=== PATIENT | male | born 1940 | race Caucasian/White ===

== ENCOUNTER 2016-07-18 19:05 | Inpatient (IN) | payer MEDICARE, OTHER ==
[~2016-07-18] VITALS: Ht 182.9 cm; Wt 77.1 kg
[2016-07-18] MEDS: D5 1/2NS 1,000 ML IV SCH ×2 (18:00→22:29)
[2016-07-18 19:25] VITALS: BP 129/52
[2016-07-18 19:37] VITALS: BP 127/50
[2016-07-18] MEDS ORDERED: Morphine Sulfate 4mg/ml Inj IVP ONE (19:45)
--- NOTE | 2016-07-18 19:46 | Emergency Room Report ---
History of Present Illness General Chief Complaint: Syncope Source: Patient, Family Member Present Illness HPI Patient presents with complaints of syncopal episode Son provides most of the input patient had used the restroom had 2 episodes of diarrhea son also reports one episode of vomiting of blood Patient sustained a syncopal episode after that Presents with pain to the mid back Denies any chest pain or shortness of breath denies any abdominal pain patient has received chemotherapy and radiation as a fairly significant past medical history Patient also had recent prostate cancer denies any recent fevers or chills Allergies: Coded Allergies: No Known Allergies (Unverified , 07/18/16) Patient History Past Medical History: see triage record Pertinent Family History: none Reviewed Nursing Documentation: PMH: Agreed, PSxH: Agreed Nursing Documentation-PMH Hx Diabetes: Yes Review of Systems All Other Systems: negative except mentioned in HPI Physical Exam Vital Signs Date Time Temp Pulse Resp B/P Pulse Ox O2 Delivery O2 Flow Rate FiO2 07/18/16 18:57 98.4 64 16 129/52 99 Room Air Sp02 EP Interpretation: reviewed, normal General Appearance: well appearing, no apparent distress Head: normocephalic, atraumatic Eyes: bilateral eye EOMI, bilateral eye PERRL ENT: hearing grossly normal, normal pharynx, TMs + canals normal, uvula midline Neck: full range of motion, supple, no meningismus, no bony tend Respiratory: lungs clear, normal breath sounds, no rhonchi, no respiratory distress, no retraction, no accessory muscle use Cardiovascular #1: normal peripheral pulses, regular rate, rhythm, no edema, no gallop, no JVD, no murmur Gastrointestinal: normal bowel sounds, non tender, soft, no mass, no organomegaly, non-distended, no guarding, no hernia, no pulsatile mass, no rebound Genitourinary: no CVA tenderness Musculoskeletal: other - [id number] pain on midline, abrasion to the left elbow , abrasion to the top parietal area scalp Neurologic: oriented x3, responsive, 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 nml as tested, motor strength/ tone normal, sensory intact Psychiatric: mood/affect normal Skin: other - as above Lymphatic: normal inspection, no adenopathy Medical Decision Making Diagnostic Impression: Primary Impression: Syncope Additional Impressions: Thoracic spine fracture Thrombocytopenia Anemia Amyloidosis ER Course Patient is a fairly complex patient with multiple differential to consideration including but not limited to cardiac cardiopulmonary and vascular emergencies Patient's blood work revealed some abnormalities likely in line with his amyloidosis I do not have any blood work to compare to patient shows signs of thrombocytopenia Also anemia CT thoracic spine reveals T9 spinous process fracture along with endplate fracture orthopedics was consulted and seen the patient in the emergency room Labs Test 07/18/16 19:20 07/18/16 19:35 White Blood Count 6.2 K/UL (4.8-10.8) Red Blood Count 3.02 M/UL (4.70-6.10) Hemoglobin 9.4 G/DL (14.2-18.0) Hematocrit 29.9 % (42.0-52.0) Mean Corpuscular Volume 99 FL (80-99) Mean Corpuscular Hemoglobin 31.3 PG (27.0-31.0) Mean Corpuscular Hemoglobin Concent 31.6 G/DL (32.0-36.0) Red Cell Distribution Width 14.3 % (11.6-14.8) Platelet Count 83 K/UL (150-450) Mean Platelet Volume 6.4 FL (6.5-10.1) Neutrophils (%) (Auto) % (45.0-75.0) Lymphocytes (%) (Auto) % (20.0-45.0) Monocytes (%) (Auto) % (1.0-10.0) Eosinophils (%) (Auto) % (0.0-3.0) Basophils (%) (Auto) % (0.0-2.0) Prothrombin Time 11.7 SEC (9.30-11.50) Prothromb Time International Ratio 1.1 (0.9-1.1) Activated Partial Thromboplast Time 21 SEC (23-33) Sodium Level 140 mEQ/L (135-145) Potassium Level 4.8 mEQ/L (3.4-4.9) Chloride Level 102 mEQ/L (98-107) Carbon Dioxide Level 23 mEQ/L (20-30) Anion Gap 15 (5-15) Blood Urea Nitrogen 77 mg/dL (7-23) Creatinine 2.1 mg/dL (0.7-1.2) Estimat Glomerular Filtration Rate mL/min (>60) Glucose Level 107 mg/dL (74-106) Calcium Level 8.3 mg/dL (8.6-10.2) Total Bilirubin 0.4 mg/dL (0.0-1.2) Aspartate Amino Transf (AST/SGOT) 39 U/L (5-40) Alanine Aminotransferase (ALT/SGPT) 26 U/L (3-41) Alkaline Phosphatase 54 U/L (40-129) Total Creatine Kinase 44 U/L (38-174) Creatine Kinase MB 1.9 ng/mL (< 6.7) Creatine Kinase MB Relative Index 4.3 Troponin I < 0.30 ng/mL (<=0.30) Pro-B-Type Natriuretic Peptide 1144 pg/mL (0-450) Total Protein 5.2 g/dL (6.6-8.7) Albumin 3.1 g/dL (3.5-5.2) Globulin 2.1 g/dL Albumin/Globulin Ratio 1.4 (1.0-2.7) Lipase 157 U/L (< 60) Urine Color Pale yellow Urine Appearance Clear Urine pH 6 (4.5-8.0) Urine Specific [place] 1.010 (1.005-1.035) Urine Protein Negative (NEGATIVE) Urine Glucose (UA) Negative (NEGATIVE) Urine Ketones Negative (NEGATIVE) Urine Occult Blood Negative (NEGATIVE) Urine Nitrite Negative (NEGATIVE) Urine Bilirubin Negative (NEGATIVE) Urine Urobilinogen Normal MG/DL (0.0-1.0) Urine Leukocyte Esterase Negative (NEGATIVE) EKG Diagnostic Results Rate: normal Rhythm: NSR ST Segments: no acute changes Rhythm Strip Diag. Results EP Interpretation: yes Rate: 78 Rhythm: NSR, no PVC's, no ectopy Chest X-Ray Diagnostic Results EP Interpretation: Yes Findings: no consolidation, no effusion, no pneumothorax Number of Views: 1 CT/MRI/US Diagnostic Results CT/MRI/US Diagnostic Results : Impression CT head: Soft tissue change no acute hemorrhage CT thoracic spine: T9 compression, endplate, spinous process fracture Last Vital Signs Date Time Temp Pulse Resp B/P Pulse Ox O2 Delivery O2 Flow Rate FiO2 07/18/16 19:37 66 12 127/50 100 Room Air 07/18/16 19:25 98.4 Status: improved Disposition: ADMITTED INPATIENT Condition: Serious ROBLES STEVE D.O. Jul 18, 2016 19:46
[2016-07-18 19:52] LABS: MEAN CORPUSCULAR HEMOGLOBIN 31.3 PG (27.0-31.0); MEAN CORPUSCULAR HGB CONC 31.6 G/DL (32.0-36.0); MEAN CORPUSCULAR VOLUME 99 FL (80-99); MEAN PLATELET VOLUME 6.4 FL (6.5-10.1); PLATELET COUNT 83 K/UL (150-450); RED BLOOD COUNT 3.02 M/UL (4.70-6.10); RED CELL DISTRIBUTION WIDTH 14.3 % (11.6-14.8); WHITE BLOOD COUNT 6.2 K/UL (4.8-10.8)
[2016-07-18 20:01] LABS: INR 1.1 (0.9-1.1); PROTHROMBIN TIME 11.7 SEC (9.30-11.50)
[2016-07-18 20:02] LABS: ALANINE AMINOTRANSFERASE 26 U/L (3-41); ALBUMIN/GLOBULIN RATIO 1.4 (1.0-2.7); ANION GAP 15 (5-15); ASPARTATE AMINO TRANSFERASE 39 U/L (5-40); CALCIUM 8.3 mg/dL (8.6-10.2); CARBON DIOXIDE 23 mEQ/L (20-30); CHLORIDE 102 mEQ/L (98-107); CREATININE 2.1 mg/dL (0.7-1.2); HEMOLYSIS 17; LIPASE 157 U/L (< 60); POTASSIUM 4.8 mEQ/L (3.4-4.9); SODIUM 140 mEQ/L (135-145); TOTAL PROTEIN 5.2 g/dL (6.6-8.7); TROPONIN I < 0.30 ng/mL (<=0.30)
[2016-07-18 20:20] LABS: APPEARANCE,URINE CLEAR; KETONES,URINE NEGATIVE (NEGATIVE); LEUKOCYTE ESTERASE ,URINE NEGATIVE (NEGATIVE); NITRITE,URINE NEGATIVE (NEGATIVE); PH,URINE 6 (4.5-8.0); PROTEIN,URINE NEGATIVE (NEGATIVE); UROBILINOGEN,URINE NORMAL MG/DL (0.0-1.0)
[2016-07-18 20:36] VITALS: BP 90/46
[2016-07-18 20:38] LABS: CKMB 1.9 ng/mL (< 6.7)
[2016-07-18] MEDS ORDERED: FOSAMAX70 MG ORAL (20:53)
[2016-07-18] MEDS ORDERED: COLCHICINE25 GM MC (20:53)
[2016-07-18] MEDS ORDERED: ALLOPURINOL100 M1 ORAL (20:53)
[2016-07-18] MEDS ORDERED: PREDNISONE5 MG ORAL (20:53)
[2016-07-18] MEDS ORDERED: Morphine Sulfate 2mg/ml Inj IVP PRN (21:00)
[2016-07-18] MEDS ORDERED: Nitroglycerin Subl 0.4mg tab (Bottle Of 25) SL PRN (21:00)
[2016-07-18] MEDS ORDERED: Mylanta II UD 30ml ORAL PRN (21:00)
[2016-07-18] MEDS ORDERED: LORazepam Inj 2mg/ml 1ml IV PRN (21:00)
[2016-07-18] MEDS ORDERED: Miralax 17gm pkt ORAL PRN (21:00)
[2016-07-18] MEDS ORDERED: Heparin 5000 units/ml inj SUBQ SCH (21:00)
[2016-07-18] MEDS ORDERED: DuoNeb 0.5-3(2.5)mg/3ml neb HHN PRN (21:00)
[2016-07-18] MEDS ORDERED: PREDNISOLO15 MG/5 M1 ORAL (21:05)
[2016-07-18] MEDS ORDERED: ACULAR5 ML BOTH EYES (21:05)
[2016-07-18] MEDS ORDERED: RANITIDINE HCL150 M1 ORAL (21:05)
[2016-07-18] MEDS ORDERED: VASCEPA1 GM PO (21:05)
[2016-07-18] MEDS ORDERED: LEVOTHYROXINE125 MCG ORAL (21:05)
[2016-07-18] MEDS ORDERED: RENA-VITE RX T1 EAC1 PO (21:05)
[2016-07-18] MEDS ORDERED: CLOPIDOGREL75 MG ORAL (21:05)
[2016-07-18] MEDS ORDERED: KETOROLAC TROMET5 M1 OP (21:05)
[2016-07-18] MEDS ORDERED: CRESTOR20 MG ORAL (21:05)
[2016-07-18] MEDS ORDERED: FUROSEMIDE40 MG ORAL (21:05)
[2016-07-18 21:14] VITALS: BP 99/55
[2016-07-18 21:20] LABS: ANISOCYTOSIS 1+; BAND NEUTROPHILS % (MANUAL) 0 % (0-8); BASOPHILS % (MANUAL) 1 % (0-2); EOSINOPHILS % (MANUAL) 2 % (0-3); HYPOCHROMASIA 1+; LYMPHOCYTES % (MANUAL) 27 % (20-45); NEUTROPHILS % (MANUAL) 62 % (45-75); PLATELET ESTIMATE DECREASED; PLATELET MORPHOLOGY NORMAL; TOTAL CELLS COUNTED 100
[2016-07-19] VITALS: BP 110/59
[2016-07-19] MEDS: D5 1/2NS 1,000 ML IV SCH ×3 (02:00→18:21)
[2016-07-19 04:00] VITALS: BP 111/57
[2016-07-19] MEDS ORDERED: Levothyroxine 125mcg tab ORAL SCH (06:30)
[2016-07-19 07:37] VITALS: BP 128/55
--- NOTE | 2016-07-19 07:38 | Consultation ---
DATE OF CONSULTATION: 07/18/2016 CHIEF COMPLAINT: Low back pain. HISTORY OF PRESENT ILLNESS: The patient is a 75-year-old gentleman with a recent history of prostate CA, who had treatment at [facility]. He subsequently had what appears to be syncope or vasovagal episode and there appears to be blood in his vomit. He reportedly had a fall in the bathroom. He hit the back of his head as well as the lumbar spine. He presented to the emergency room for appropriate care. The patient does have pain in the lumbar spine. Denies any bowel or bladder issues. No numbness and tingling across the chest and lower extremities. PAST MEDICAL HISTORY: Reviewed from the intake chart. PAST SURGICAL HISTORY: Reviewed from the intake chart. MEDICATIONS: Reviewed from the intake chart. PHYSICAL EXAMINATION: The patient is alert. He was seen there with his nephew who is translating for me. Vital signs - afebrile. Stable vital signs. Low back examination shows mild pain along lumbar spine, lumbar muscles with mild ecchymosis. Neurovascular exam is normal to light touch along across chest and lower extremity. DP +2. posterior calf is soft. A CT scan of the thoracic spine reviewed showed T9 vertebral body fracture with associated spinous process fracture. ASSESSMENT: 1. Multilevel thoracic spondylosis. 2. Acute T9 vertebral body compression fracture. 3. Acute T9 spinous process fracture. DISCUSSION: At this point, the injuries are stable. I recommended proper pain management. I will be careful to make sure that he does not get constipated because that could make his symptoms worse. Does not appear to be pathologic in nature. He does need appropriate medical workup for his syncope and gastrointestinal bleed. At this point, he can follow up as outpatient for further care and recommendation. Scott Nguyen M.D. DR: BROCK JOB#: [id number] CC: DENIS
[2016-07-19 07:50] LABS: MEAN CORPUSCULAR HEMOGLOBIN 31.2 PG (27.0-31.0); MEAN CORPUSCULAR HGB CONC 31.8 G/DL (32.0-36.0); MEAN CORPUSCULAR VOLUME 98 FL (80-99); MEAN PLATELET VOLUME 6.3 FL (6.5-10.1); PLATELET COUNT 77 K/UL (150-450); RED BLOOD COUNT 2.98 M/UL (4.70-6.10); RED CELL DISTRIBUTION WIDTH 14.5 % (11.6-14.8); WHITE BLOOD COUNT 5.6 K/UL (4.8-10.8)
[2016-07-19 07:57] LABS: INR 1.1 (0.9-1.1); PROTHROMBIN TIME 11.4 SEC (9.30-11.50)
[2016-07-19] MEDS: PrednisoLONE 15mg/5ml Syrup ORAL SCH (08:13)
[2016-07-19 08:18] LABS: ALANINE AMINOTRANSFERASE 24 U/L (3-41); ALBUMIN/GLOBULIN RATIO 1.6 (1.0-2.7); ANION GAP 14 (5-15); ASPARTATE AMINO TRANSFERASE 35 U/L (5-40); CALCIUM 8.4 mg/dL (8.6-10.2); CARBON DIOXIDE 23 mEQ/L (20-30); CHLORIDE 107 mEQ/L (98-107); CHOLESTEROL 76 mg/dL (< 200); CHOLESTEROL/HDL RATIO 6.3 (3.3-4.4); HEMOLYSIS 4; LDL CHOLESTEROL (CALC.) 23 mg/dL (60-99); POTASSIUM 4.9 mEQ/L (3.4-4.9); SODIUM 144 mEQ/L (135-145); TOTAL PROTEIN 5.3 g/dL (6.6-8.7)
[2016-07-19 08:21] LABS: THYROID STIMULATING HORMONE 0.071 uIU/mL (0.300-4.500)
[2016-07-19 08:56] LABS: RETICULOCYTE COUNT 1.8 % (0.0-2.0)
[2016-07-19] MEDS ORDERED: Furosemide 40mg tab ORAL SCH (09:00)
[2016-07-19] MEDS ORDERED: Allopurinol 100mg Tab ORAL SCH (09:00)
[2016-07-19 09:05] LABS: MAGNESIUM 1.8 mg/dL (1.7-2.5); PHOSPHORUS 1.5 mg/dL (2.5-4.8); URIC ACID 6.7 mg/dL (3.0-7.5)
[2016-07-19 09:09] LABS: ERYTHROCYTE SEDIMENTATION RATE 45 MM/HR (0-20)
--- NOTE | 2016-07-19 09:53 | Diagnostic Imaging Report ---
Indication: PAIN, trauma Technique: spiral acquisitions obtained through the brain. Angled axial and coronal 5 x 5 mm slices were reconstructed. No IV contrast utilized. Radiation dose was minimized using automated exposure control Total dose length product 1354 mGycm. CTDIvol(s) 70 mGy Comparison: none FINDINGS: No acute hemorrhage or edema. No mass effect or midline shift. There is age-related enlargement of the ventricles and extra axial CSF spaces. There is periventricular deep white matter ischemic change. Normal ritchie-white differentiation. Visualized orbits are unremarkable. Visualized sinuses are unremarkable. Intact calvarium. There is a left high parietal scalp soft tissue hematoma. There is evidence of prior bilateral ocular surgery. 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 Negative for acute intracranial bleed or mass effect Evidence of left parietal scalp soft tissue trauma. Incidental findings as noted This agrees with the preliminary interpretation provided overnight by Dr. Moralez The CT scanner at [facility] is accredited by the [employer] and the scans are performed using protocols designed to limit radiation exposure to as low as reasonably achievable to attain images of sufficient resolution adequate for diagnostic evaluation
[2016-07-19 10:24] LABS: BAND NEUTROPHILS % (MANUAL) 0 % (0-8); BASOPHILS % (MANUAL) 0 % (0-2); EOSINOPHILS % (MANUAL) 0 % (0-3); LYMPHOCYTES % (MANUAL) 30 % (20-45); NEUTROPHILS % (MANUAL) 64 % (45-75); PLATELET ESTIMATE DECREASED; PLATELET MORPHOLOGY NORMAL; TOTAL CELLS COUNTED 100
[2016-07-19 10:25] LABS: MACROCYTES 1+
[2016-07-19 10:26] LABS: HYPOCHROMASIA 1+
[2016-07-19 10:28] LABS: PATH BLOOD SMEAR/OMC SENT TO PATHOLOGIST
--- NOTE | 2016-07-19 10:57 | Diagnostic Imaging Report ---
Indication: PAIN Technique: Spiral acquisitions obtained through the thoracic spine. No IV contrast utilized. Multiplanar reconstructions were generated. Total dose length product 1020 mGycm. CTDIvol(s) 24 mGy Comparison: None Findings: Bony alignment is normal. There is a mild anterior wedge compression fracture deformity of the T9 vertebral body, resulting in about 20% height loss. Fracture lines through the superior endplate suggest acuity. There is a nondisplaced transversely oriented fracture of the T9 spinous process. There is a compression fracture of the T12 vertebral body, resulting about 30% height loss. There is slight superior endplate compression fracture deformity of the L1 vertebral body. No other acute fractures. No dislocations. No significant disc bulge or protrusion, spinal stenosis, or neural foraminal stenosis. There are anterior degenerative proliferative changes which are fairly extensive. There is multilevel level of disc space narrowing and endplate irregularity, consistent with degenerative change. The included extraspinal soft tissues are remarkable for the presence of fairly extensive posterior inferior pulmonary parenchymal disease, as well as some left apical scarring. There is splenomegaly incidentally noted. There is a small sliding-type hiatal hernia Impression: Positive for acute transverse nondisplaced T9 spinous process fracture. Mild T9 wedge compression fracture, acuity indeterminate although suspect acute. Age indeterminate T12 and L1 compression fractures. Incidental finding of splenomegaly Incidental finding pulmonary parenchymal disease as described Small sliding-type hiatal hernia This agrees with the preliminary interpretation provided overnight by Dr. Moralez The CT scanner at [facility] is accredited by the [employer] and the scans are performed using protocols designed to limit radiation exposure to as low as reasonably achievable to attain images of sufficient resolution adequate for diagnostic evaluation.
[2016-07-19 11:14] VITALS: BP 120/53
--- NOTE | 2016-07-19 11:38 | Diagnostic Imaging Report ---
Indication: Chest pain Technique: One view of the chest Comparison: none Findings: There is central bronchial wall thickening. There is some atelectasis at the left lung base. Lungs and pleural spaces are otherwise clear. Heart size is upper limits normal. Aorta is tortuous ectatic and calcified. Upper mediastinum is unremarkable Impression: No acute process. Findings as noted
--- NOTE | 2016-07-19 13:06 | GI Initial Consult Note ---
Breana Holloway NSusanna 07/19/16 1306: History of Present Illness General Date patient seen: Jul 19, 2016 Time patient seen: 09:00 Reason for Hospitalization: Syncope Referring physician: ARIS LYNCH Reason for Consultation: ANEMIA Present Illness HPI Patient presents with complaints of syncopal episode Son provides most of the input patient had used the restroom had 2 episodes of diarrhea son also reports one episode of vomiting of blood Patient sustained a syncopal episode after that Presents with pain to the mid back Denies any chest pain or shortness of breath denies any abdominal pain patient has received chemotherapy and radiation as a fairly significant past medical history Patient also had recent prostate cancer denies any recent fevers or chills GI CONSULT: HPI as noted above. GI consulted for anemia evaluation. Pt reported to have diarrhea x 2 eps and hematemesis. Pt seen on floor, denies any diarrhea, N/V, or hematemesis at this time. Currently c/o of back pain. Pt presents with T9 compression shown on APCT. In addition, the patient presents with anemia, hypoalbumenia, elevated CEA, and elevated lipase. Denies any history of any endoscopic procedures. Home Meds Reported Medications Levothyroxine Sodium* (LEVOTHYROXINE SODIUM*) 125 Mcg Tablet, 125 MCG ORAL DAILY , TAB Take in the morning on an empty stomach, at least 30 minutes before food. 07/18/16 Ranitidine Hcl (RANITIDINE HCL) 150 Mg Capsule, 150 MG ORAL DAILY, CAP 07/18/16 Prednisolone* (PRELONE*) 15 Mg/5 Ml Solution, 30 MG ORAL DAILY, ML 07/18/16 Furosemide* (LASIX*) 40 Mg Tablet, 40 MG ORAL DAILY, TAB 07/18/16 Allopurinol* (ALLOPURINOL*) 100 Mg Tablet, 100 MG ORAL DAILY, TAB 07/18/16 Discontinued Reported Medications Prednisone (Prednisone) 5 Mg/5 Ml Solution, 5 MG ORAL DAILY, #10 TAB 0 Refills 07/18/16 Med list reviewed/reconciled: Yes Allergies: Coded Allergies: No Known Allergies (Unverified , 07/18/16) Patient History History Provided By: Patient, Medical Record PMH Narrative Prostate CA Hx Diabetes: Yes Social History: Denies: alcohol use, drug use, other, smoking Review of Systems All Other Systems: negative except mentioned in HPI Physical Exam Vital Signs Date Time Temp Pulse Resp B/P Pulse Ox O2 Delivery O2 Flow Rate FiO2 07/18/16 18:57 98.4 64 16 129/52 99 Room Air 07/19/16 09:47 21 Sp02 EP Interpretation: reviewed Labs Laboratory Tests Test 07/18/16 19:20 07/18/16 19:35 07/19/16 07:15 White Blood Count 6.2 K/UL (4.8-10.8) 5.6 K/UL (4.8-10.8) Red Blood Count 3.02 M/UL (4.70-6.10) L 2.98 M/UL (4.70-6.10) L Hemoglobin 9.4 G/DL (14.2-18.0) L 9.3 G/DL (14.2-18.0) L Hematocrit 29.9 % (42.0-52.0) L 29.2 % (42.0-52.0) L Mean Corpuscular Volume 99 FL (80-99) 98 FL (80-99) Mean Corpuscular Hemoglobin 31.3 PG (27.0-31.0) H 31.2 PG (27.0-31.0) H Mean Corpuscular Hemoglobin Concent 31.6 G/DL (32.0-36.0) L 31.8 G/DL (32.0-36.0) L Red Cell Distribution Width 14.3 % (11.6-14.8) 14.5 % (11.6-14.8) Platelet Count 83 K/UL (150-450) L 77 K/UL (150-450) L Mean Platelet Volume 6.4 FL (6.5-10.1) L 6.3 FL (6.5-10.1) L Neutrophils (%) (Auto) % (45.0-75.0) % (45.0-75.0) Lymphocytes (%) (Auto) % (20.0-45.0) % (20.0-45.0) Monocytes (%) (Auto) % (1.0-10.0) % (1.0-10.0) Eosinophils (%) (Auto) % (0.0-3.0) % (0.0-3.0) Basophils (%) (Auto) % (0.0-2.0) % (0.0-2.0) Differential Total Cells Counted 100 100 Neutrophils % (Manual) 62 % (45-75) 64 % (45-75) Lymphocytes % (Manual) 27 % (20-45) 30 % (20-45) Monocytes % (Manual) 8 % (1-10) 6 % (1-10) Eosinophils % (Manual) 2 % (0-3) 0 % (0-3) Basophils % (Manual) 1 % (0-2) 0 % (0-2) Band Neutrophils 0 % (0-8) 0 % (0-8) Platelet Estimate Decreased L Decreased L Platelet Morphology Normal Normal Hypochromasia 1+ 1+ Anisocytosis 1+ Prothrombin Time 11.7 SEC (9.30-11.50) H 11.4 SEC (9.30-11.50) Prothromb Time International Ratio 1.1 (0.9-1.1) 1.1 (0.9-1.1) Activated Partial Thromboplast Time 21 SEC (23-33) L 25 SEC (23-33) Sodium Level 140 mEQ/L (135-145) 144 mEQ/L (135-145) Potassium Level 4.8 mEQ/L (3.4-4.9) 4.9 mEQ/L (3.4-4.9) Chloride Level 102 mEQ/L (98-107) 107 mEQ/L (98-107) Carbon Dioxide Level 23 mEQ/L (20-30) 23 mEQ/L (20-30) Anion Gap 15 (5-15) 14 (5-15) Blood Urea Nitrogen 77 mg/dL (7-23) H 101 mg/dL (7-23) H Creatinine 2.1 mg/dL (0.7-1.2) H 2.0 mg/dL (0.7-1.2) H Estimat Glomerular Filtration Rate mL/min (>60) mL/min (>60) Glucose Level 107 mg/dL (74-106) H 93 mg/dL (74-106) Calcium Level 8.3 mg/dL (8.6-10.2) L 8.4 mg/dL (8.6-10.2) L Total Bilirubin 0.4 mg/dL (0.0-1.2) 0.3 mg/dL (0.0-1.2) Aspartate Amino Transf (AST/SGOT) 39 U/L (5-40) 35 U/L (5-40) Alanine Aminotransferase (ALT/SGPT) 26 U/L (3-41) 24 U/L (3-41) Alkaline Phosphatase 54 U/L (40-129) 53 U/L (40-129) Total Creatine Kinase 44 U/L (38-174) Creatine Kinase MB 1.9 ng/mL (< 6.7) Creatine Kinase MB Relative Index 4.3 Troponin I < 0.30 ng/mL (<=0.30) Pro-B-Type Natriuretic Peptide 1144 pg/mL (0-450) H Total Protein 5.2 g/dL (6.6-8.7) L 5.3 g/dL (6.6-8.7) L Albumin 3.1 g/dL (3.5-5.2) L 3.3 g/dL (3.5-5.2) L Globulin 2.1 g/dL 2.0 g/dL Albumin/Globulin Ratio 1.4 (1.0-2.7) 1.6 (1.0-2.7) Lipase 157 U/L (< 60) H Urine Color Pale yellow Urine Appearance Clear Urine pH 6 (4.5-8.0) Urine Specific [place] 1.010 (1.005-1.035) Urine Protein Negative (NEGATIVE) Urine Glucose (UA) Negative (NEGATIVE) Urine Ketones Negative (NEGATIVE) Urine Occult Blood Negative (NEGATIVE) Urine Nitrite Negative (NEGATIVE) Urine Bilirubin Negative (NEGATIVE) Urine Urobilinogen Normal MG/DL (0.0-1.0) Urine Leukocyte Esterase Negative (NEGATIVE) Macrocytosis 1+ Erythrocyte Sedimentation Rate 45 MM/HR (0-20) H Reticulocyte Count 1.8 % (0.0-2.0) Plasma/Serum Osmolality Pending Uric Acid 6.7 mg/dL (3.0-7.5) Phosphorus Level 1.5 mg/dL (2.5-4.8) L Magnesium Level 1.8 mg/dL (1.7-2.5) Iron Level 85 ug/dL (59-158) Total Iron Binding Capacity 194 ug/dL (250-400) L Percent Iron Saturation 44 % (15-50) Unsaturated Iron Binding 109 ug/dL (112-346) L Lactate Dehydrogenase 154 U/L (135-230) Triglycerides Level 205 mg/dL (< 150) H Cholesterol Level 76 mg/dL (< 200) LDL Cholesterol 23 mg/dL (60-99) L HDL Cholesterol 12 mg/dL (> 60) Cholesterol/HDL Ratio 6.3 (3.3-4.4) H Carcinoembryonic Antigen 6.7 ng/mL H Vitamin B12 Level 979 pg/mL (211-946) H Folate Pending Thyroid Stimulating Hormone (TSH) 0.071 uIU/mL (0.300-4.500) Free Thyroxine 1.30 ng/dL (0.86-1.85) Free Triiodothyronine Pending Cortisol Pending General Appearance: well appearing, no apparent distress, alert Head: normocephalic EENT: PERRL/EOMI, normal ENT inspection Neck: supple Respiratory: normal breath sounds, no respiratory distress Cardiovascular: normal rate Gastrointestinal: normal inspection, non tender, soft Musculoskeletal: back normal Neurologic: normal inspection, alert, oriented x3, responsive Psychiatric: normal inspection, judgement/insight normal Skin: normal inspection, normal color, no rash, warm/dry Lymphatic: normal inspection, no adenopathy Current Medications Current Medications Medications (Trade) Dose Ordered Sig/Hemanth Route PRN Reason Start Time Stop Time Status Last Admin Dose Admin Acetaminophen (Tylenol) 650 mg Q4H PRN ORAL fever 07/18/16 21:00 08/17/16 20:59 Al Hydroxide/Mg Hydroxide (Mylanta II) 30 ml Q6H PRN ORAL dyspepsia 07/18/16 21:00 08/17/16 20:59 Albuterol/ Ipratropium (DuoNeb 0.5-3(2.5)mg/3ml) 3 ml Q4H PRN HHN Shortness of Breath 07/18/16 21:00 07/23/16 20:59 Allopurinol (Zyloprim) 100 mg DAILY ORAL 07/19/16 09:00 08/18/16 08:59 07/19/16 08:13 Atorvastatin Calcium (Lipitor) 40 mg BEDTIME ORAL 07/19/16 21:00 08/18/16 20:59 Clonidine HCl 0.1 mg 0.1 mg Q4H PRN ORAL SBP > 160 07/18/16 21:00 08/17/16 20:59 Dextrose (Dextrose 50%) STAT PRN IV Hypoglycemia 07/18/16 21:00 08/17/16 20:59 Dextrose/Sodium Chloride (D5 0.45% NS) 1,000 ml @ 125 mls/hr Q8H IV 07/18/16 10:00 08/17/16 09:59 07/19/16 07:27 Furosemide (Lasix) 40 mg DAILY ORAL 07/19/16 09:00 08/18/16 08:59 07/19/16 08:13 Levothyroxine Sodium (Synthroid) 125 mcg DAILY@0630 ORAL 07/19/16 06:30 08/18/16 06:29 07/19/16 06:10 Lorazepam (Ativan 2mg/ml 1ml) 0.5 mg Q4H PRN IV For Anxiety 07/18/16 21:00 07/25/16 20:59 Morphine Sulfate (Morphine Sulfate) 1 mg Q4H PRN IVP For Pain 10-2407/18/16 21:00 07/25/16 20:59 07/19/16 08:12 Nitroglycerin (Ntg) 0.4 mg Q5M X 3 DOSES PRN SL Prn Chest Pain 07/18/16 21:00 08/17/16 20:59 Ondansetron HCl (Zofran) 4 mg Q6H PRN IVP Nausea & Vomiting 07/18/16 21:00 08/17/16 20:59 Polyethylene Glycol (Miralax) 17 gm HSPRN PRN ORAL Constipation 07/18/16 21:00 08/17/16 20:59 Prednisolone (Prelone) 30 mg DAILY ORAL 07/19/16 09:00 08/18/16 08:59 07/19/16 08:13 Ranitidine HCl (Zantac) 150 mg DAILY ORAL 07/19/16 09:00 08/18/16 08:59 07/19/16 08:13 Temazepam (Restoril) 15 mg HSPRN PRN ORAL Insomnia 07/18/16 21:00 07/25/16 20:59 Vitamin B Complex (Vitamin B Complex) 1 ea DAILY ORAL 07/19/16 09:00 08/18/16 08:59 07/19/16 08:13 GI: Plan Problems: (1) Elevated CEA (2) Elevated lipase (3) Hypoalbuminemia (4) Anemia (5) Thrombocytopenia Plan iron panel >> unremarkable acute pancreatitis possible to elevated triglycerides APCT reviewed >> T9 compression, see full report. elevated CEA >> 6.9 EGD/colonoscopy scheduled for tomorrow. anemia work up OB stool uncollected zofran prn collect stool studies, cdiff if patient continues to have diarrhea fu abdominal U/S, monitor H&H, transfuse prn H2 bowel regime; miralax + colace repeat lipase fu labs Discussed with Dr. Carrington. Thank you for referring this patient, we will follow. RAMON CARRINGTON 07/22/16 0942: History of Present Illness General Reason for Hospitalization: Syncope Present Illness Home Meds Reported Medications Levothyroxine Sodium* (LEVOTHYROXINE SODIUM*) 125 Mcg Tablet, 125 MCG ORAL DAILY , TAB Take in the morning on an empty stomach, at least 30 minutes before food. 07/18/16 Ranitidine Hcl (RANITIDINE HCL) 150 Mg Capsule, 150 MG ORAL DAILY, CAP 07/18/16 Prednisolone* (PRELONE*) 15 Mg/5 Ml Solution, 30 MG ORAL DAILY, ML 07/18/16 Furosemide* (LASIX*) 40 Mg Tablet, 40 MG ORAL DAILY, TAB 07/18/16 Allopurinol* (ALLOPURINOL*) 100 Mg Tablet, 100 MG ORAL DAILY, TAB 07/18/16 Discontinued Reported Medications Prednisone (Prednisone) 5 Mg/5 Ml Solution, 5 MG ORAL DAILY, #10 TAB 0 Refills 07/18/16 Allergies: Coded Allergies: No Known Allergies (Unverified , 07/18/16) GI: Plan Plan The patient was seen and examined at bedside and all new and available data was reviewed in the patients chart. I agree with the above findings, impression and plan. (Patient seen earlier today. Signature stamp does not reflect patient encounter time.). -Ramon Holloway,[facility] Shawn N.PFloyd Jul 19, 2016 13:06 RAMON CARRINGTON Jul 22, 2016 09:42
--- NOTE | 2016-07-19 13:32 | History and Physical ---
History of Present Illness General Date patient seen: Jul 19, 2016 Reason for Hospitalization: Syncope Present Illness HPI 75 year old male with dementia, htn, arrhythmias presented to ER with complaints of syncopal episode, vomiting blood and diarrhea. Pt is a poor historian Son provides most of the input patient. He has also pain to the mid back area. he is admitted to telemetry to for further evaluation. Allergies: Coded Allergies: No Known Allergies (Unverified , 07/18/16) Medication History Scheduled Alendronate Sodium* (Fosamax*), 70 MG ORAL ONCE A WEEK, (Reported) Allopurinol* (Allopurinol*), 100 MG ORAL DAILY, (Reported) Clopidogrel* (Clopidogrel*), 75 MG ORAL DAILY, (Reported) Colchicine (Colchicine), 25 GM MC DAILY, (Reported) Furosemide* (Lasix*), 40 MG ORAL DAILY, (Reported) Icosapent Ethyl (Vascepa), 1 GM PO DAILY, (Reported) Ketorolac Tromethamine (Acular), 1 DROP BOTH EYES FOUR TIMES A DAY, (Reported) Ketorolac Tromethamine (Ketorolac Tromethamine), 10 ML OP PRN, (Reported) Levothyroxine Sodium* (Levothyroxine Sodium*), 125 MCG ORAL DAILY, (Reported) Prednisolone* (Prelone*), 30 MG ORAL DAILY, (Reported) Ranitidine Hcl (Ranitidine Hcl), 150 MG ORAL DAILY, (Reported) Rosuvastatin Calcium* (Crestor*), 20 MG ORAL DAILY, (Reported) Vit B Cmplx 3/Fa/Vit C/Biotin (Mirela-Kandis Rx Tablet), 1 EACH PO DAILY, (Reported) Discontinued Medications Prednisone (Prednisone), 5 MG ORAL DAILY, (Reported) Discontinued Reason: MD discontinued med Patient History Healthcare decision maker Resuscitation status Advanced Directive on File Past Medical/Surgical History Past Medical/Surgical History: (1) Dementia (2) History of prostate cancer (3) Amyloidosis Review of Systems All Other Systems: negative except mentioned in HPI Physical Exam Lines, tubes and drains: peripheral, central line HEENT: normocephalic, atraumatic Neck: non-tender, normal alignment Respiratory/Chest: chest wall non-tender, lungs clear Breasts: no masses Cardiovascular/Chest: normal peripheral pulses Abdomen: normal bowel sounds, non tender Genitourinary/Rectal: normal genital exam Extremities: normal range of motion Neurologic: maxillofacial prosthetics dentist II-XII grossly normal Last 24 Hour Vital Signs Date Time Temp Pulse Resp B/P Pulse Ox O2 Delivery O2 Flow Rate FiO2 07/19/16 11:14 98.2 78 20 120/53 94 Room Air 07/19/16 09:47 81 18 Room Air 21 07/19/16 07:37 97.0 85 20 128/55 91 Room Air 07/19/16 04:00 98.2 74 20 111/57 95 Room Air 07/19/16 04:00 74 07/19/16 00:00 97.9 74 18 110/59 96 Room Air 07/19/16 00:00 71 07/18/16 21:23 98.4 73 18 99/55 100 Room Air 07/18/16 21:14 73 18 99/55 100 Room Air 07/18/16 20:36 74 21 90/46 100 Room Air 07/18/16 20:13 98.4 07/18/16 19:37 66 12 127/50 100 Room Air 07/18/16 19:25 98.4 64 16 129/52 99 Room Air 07/18/16 18:57 98.4 64 16 129/52 99 Room Air Intake and Output 07/18/16 07/19/16 19:00 07:00 Intake Total 1750 ml Output Total 500 ml Balance 1250 ml Intake Oral 250 ml IV Total 1500 ml Output Urine Total 500 ml # Voids 1 Laboratory Tests Test 07/18/16 19:20 07/18/16 19:35 07/19/16 07:15 White Blood Count 6.2 K/UL (4.8-10.8) 5.6 K/UL (4.8-10.8) Red Blood Count 3.02 M/UL (4.70-6.10) L 2.98 M/UL (4.70-6.10) L Hemoglobin 9.4 G/DL (14.2-18.0) L 9.3 G/DL (14.2-18.0) L Hematocrit 29.9 % (42.0-52.0) L 29.2 % (42.0-52.0) L Mean Corpuscular Volume 99 FL (80-99) 98 FL (80-99) Mean Corpuscular Hemoglobin 31.3 PG (27.0-31.0) H 31.2 PG (27.0-31.0) H Mean Corpuscular Hemoglobin Concent 31.6 G/DL (32.0-36.0) L 31.8 G/DL (32.0-36.0) L Red Cell Distribution Width 14.3 % (11.6-14.8) 14.5 % (11.6-14.8) Platelet Count 83 K/UL (150-450) L 77 K/UL (150-450) L Mean Platelet Volume 6.4 FL (6.5-10.1) L 6.3 FL (6.5-10.1) L Neutrophils (%) (Auto) % (45.0-75.0) % (45.0-75.0) Lymphocytes (%) (Auto) % (20.0-45.0) % (20.0-45.0) Monocytes (%) (Auto) % (1.0-10.0) % (1.0-10.0) Eosinophils (%) (Auto) % (0.0-3.0) % (0.0-3.0) Basophils (%) (Auto) % (0.0-2.0) % (0.0-2.0) Differential Total Cells Counted 100 100 Neutrophils % (Manual) 62 % (45-75) 64 % (45-75) Lymphocytes % (Manual) 27 % (20-45) 30 % (20-45) Monocytes % (Manual) 8 % (1-10) 6 % (1-10) Eosinophils % (Manual) 2 % (0-3) 0 % (0-3) Basophils % (Manual) 1 % (0-2) 0 % (0-2) Band Neutrophils 0 % (0-8) 0 % (0-8) Platelet Estimate Decreased L Decreased L Platelet Morphology Normal Normal Hypochromasia 1+ 1+ Anisocytosis 1+ Prothrombin Time 11.7 SEC (9.30-11.50) H 11.4 SEC (9.30-11.50) Prothromb Time International Ratio 1.1 (0.9-1.1) 1.1 (0.9-1.1) Activated Partial Thromboplast Time 21 SEC (23-33) L 25 SEC (23-33) Sodium Level 140 mEQ/L (135-145) 144 mEQ/L (135-145) Potassium Level 4.8 mEQ/L (3.4-4.9) 4.9 mEQ/L (3.4-4.9) Chloride Level 102 mEQ/L (98-107) 107 mEQ/L (98-107) Carbon Dioxide Level 23 mEQ/L (20-30) 23 mEQ/L (20-30) Anion Gap 15 (5-15) 14 (5-15) Blood Urea Nitrogen 77 mg/dL (7-23) H 101 mg/dL (7-23) H Creatinine 2.1 mg/dL (0.7-1.2) H 2.0 mg/dL (0.7-1.2) H Estimat Glomerular Filtration Rate mL/min (>60) mL/min (>60) Glucose Level 107 mg/dL (74-106) H 93 mg/dL (74-106) Calcium Level 8.3 mg/dL (8.6-10.2) L 8.4 mg/dL (8.6-10.2) L Total Bilirubin 0.4 mg/dL (0.0-1.2) 0.3 mg/dL (0.0-1.2) Aspartate Amino Transf (AST/SGOT) 39 U/L (5-40) 35 U/L (5-40) Alanine Aminotransferase (ALT/SGPT) 26 U/L (3-41) 24 U/L (3-41) Alkaline Phosphatase 54 U/L (40-129) 53 U/L (40-129) Total Creatine Kinase 44 U/L (38-174) Creatine Kinase MB 1.9 ng/mL (< 6.7) Creatine Kinase MB Relative Index 4.3 Troponin I < 0.30 ng/mL (<=0.30) Pro-B-Type Natriuretic Peptide 1144 pg/mL (0-450) H Total Protein 5.2 g/dL (6.6-8.7) L 5.3 g/dL (6.6-8.7) L Albumin 3.1 g/dL (3.5-5.2) L 3.3 g/dL (3.5-5.2) L Globulin 2.1 g/dL 2.0 g/dL Albumin/Globulin Ratio 1.4 (1.0-2.7) 1.6 (1.0-2.7) Lipase 157 U/L (< 60) H Urine Color Pale yellow Urine Appearance Clear Urine pH 6 (4.5-8.0) Urine Specific [place] 1.010 (1.005-1.035) Urine Protein Negative (NEGATIVE) Urine Glucose (UA) Negative (NEGATIVE) Urine Ketones Negative (NEGATIVE) Urine Occult Blood Negative (NEGATIVE) Urine Nitrite Negative (NEGATIVE) Urine Bilirubin Negative (NEGATIVE) Urine Urobilinogen Normal MG/DL (0.0-1.0) Urine Leukocyte Esterase Negative (NEGATIVE) Macrocytosis 1+ Erythrocyte Sedimentation Rate 45 MM/HR (0-20) H Reticulocyte Count 1.8 % (0.0-2.0) Plasma/Serum Osmolality Pending Uric Acid 6.7 mg/dL (3.0-7.5) Phosphorus Level 1.5 mg/dL (2.5-4.8) L Magnesium Level 1.8 mg/dL (1.7-2.5) Iron Level 85 ug/dL (59-158) Total Iron Binding Capacity 194 ug/dL (250-400) L Percent Iron Saturation 44 % (15-50) Unsaturated Iron Binding 109 ug/dL (112-346) L Lactate Dehydrogenase 154 U/L (135-230) Triglycerides Level 205 mg/dL (< 150) H Cholesterol Level 76 mg/dL (< 200) LDL Cholesterol 23 mg/dL (60-99) L HDL Cholesterol 12 mg/dL (> 60) Cholesterol/HDL Ratio 6.3 (3.3-4.4) H Carcinoembryonic Antigen 6.7 ng/mL H Vitamin B12 Level 979 pg/mL (211-946) H Folate Pending Thyroid Stimulating Hormone (TSH) 0.071 uIU/mL (0.300-4.500) Free Thyroxine 1.30 ng/dL (0.86-1.85) Free Triiodothyronine Pending Cortisol Pending Height (Feet): 6 Height (Inches): 1.00 Weight (Pounds): 170 Medications Current Medications Medications (Trade) Dose Ordered Sig/Hemanth Route PRN Reason Start Time Stop Time Status Last Admin Dose Admin Acetaminophen (Tylenol) 650 mg Q4H PRN ORAL fever 07/18/16 21:00 08/17/16 20:59 Al Hydroxide/Mg Hydroxide (Mylanta II) 30 ml Q6H PRN ORAL dyspepsia 07/18/16 21:00 08/17/16 20:59 Albuterol/ Ipratropium (DuoNeb 0.5-3(2.5)mg/3ml) 3 ml Q4H PRN HHN Shortness of Breath 07/18/16 21:00 07/23/16 20:59 Allopurinol (Zyloprim) 100 mg DAILY ORAL 07/19/16 09:00 08/18/16 08:59 07/19/16 08:13 Atorvastatin Calcium (Lipitor) 40 mg BEDTIME ORAL 07/19/16 21:00 08/18/16 20:59 Clonidine HCl 0.1 mg 0.1 mg Q4H PRN ORAL SBP > 160 07/18/16 21:00 08/17/16 20:59 Dextrose (Dextrose 50%) STAT PRN IV Hypoglycemia 07/18/16 21:00 08/17/16 20:59 Dextrose/Sodium Chloride (D5 0.45% NS) 1,000 ml @ 125 mls/hr Q8H IV 07/18/16 10:00 08/17/16 09:59 07/19/16 07:27 Docusate Sodium (Colace) 100 mg TID ORAL 07/19/16 18:00 08/18/16 17:59 UNV Furosemide (Lasix) 40 mg DAILY ORAL 07/19/16 09:00 08/18/16 08:59 07/19/16 08:13 Levothyroxine Sodium (Synthroid) 125 mcg DAILY@0630 ORAL 07/19/16 06:30 08/18/16 06:29 07/19/16 06:10 Lorazepam (Ativan 2mg/ml 1ml) 0.5 mg Q4H PRN IV For Anxiety 07/18/16 21:00 07/25/16 20:59 Morphine Sulfate (Morphine Sulfate) 1 mg Q4H PRN IVP For Pain 7-10 07/18/16 21:00 07/25/16 20:59 07/19/16 08:12 Nitroglycerin (Ntg) 0.4 mg Q5M X 3 DOSES PRN SL Prn Chest Pain 07/18/16 21:00 08/17/16 20:59 Ondansetron HCl (Zofran) 4 mg Q6H PRN IVP Nausea & Vomiting 07/18/16 21:00 08/17/16 20:59 Polyethylene Glycol (Miralax) 17 gm BEDTIME ORAL 07/19/16 21:00 08/18/16 20:59 UNV Polyethylene Glycol (Miralax) 17 gm HSPRN PRN ORAL Constipation 07/18/16 21:00 08/17/16 20:59 Prednisolone (Prelone) 30 mg DAILY ORAL 07/19/16 09:00 08/18/16 08:59 07/19/16 08:13 Ranitidine HCl (Zantac) 150 mg DAILY ORAL 07/19/16 09:00 08/18/16 08:59 07/19/16 08:13 Sodium Phosphate/ Sodium Chloride (NaPO4/Sodium Chloride) 285 ml @ 47.5 mls/hr ONCE ONCE IVPB 07/19/16 13:15 07/19/16 19:14 UNV Temazepam (Restoril) 15 mg HSPRN PRN ORAL Insomnia 07/18/16 21:00 07/25/16 20:59 Vitamin B Complex 1 ea 1 ea DAILY ORAL 07/19/16 09:00 08/18/16 08:59 07/19/16 08:13 Assessment/Plan Problem List: (1) Hematemesis ICD Codes: K92.0 - Hematemesis SNOMED: 9733275 (2) ATN (acute tubular necrosis) ICD Codes: N17.0 - Acute kidney failure with tubular necrosis SNOMED: 98393766 (3) Anemia ICD Codes: D64.9 - Anemia, unspecified SNOMED: 809839417 (4) History of prostate cancer ICD Codes: Z85.46 - Personal history of malignant neoplasm of prostate SNOMED: 901451753 (5) Dementia ICD Codes: F03.90 - Unspecified dementia without behavioral disturbance SNOMED: 25119606 (6) Thoracic spine fracture ICD Codes: S22.009A - Unspecified fracture of unspecified thoracic vertebra, initial encounter for closed fracture SNOMED: 824844975 (7) Acute encephalopathy ICD Codes: G93.40 - Encephalopathy, unspecified SNOMED: 1516712 Assessment/Plan NPO, IV fluids GI evaluation for endoscopy anemia w/u check PSa cardiac evaluation including Echo. ARIS WALSH Jul 19, 2016 13:32
[2016-07-19] MEDS ORDERED: Sodium Phosphate 30 MM in NS 275 ML IVPB ONE ×2 (14:30→15:45)
--- NOTE | 2016-07-19 15:36 | Consultation ---
Consult Note Consult Note Chief Complaint: Syncope Patient presents with complaints of syncopal episode Son provides most of the input patient had used the restroom had 2 episodes of diarrhea son also reports one episode of vomiting of blood Patient sustained a syncopal episode after that Presents with pain to the mid back Denies any chest pain or shortness of breath denies any abdominal pain patient has received chemotherapy and radiation as a fairly significant past medical history Patient also had recent prostate cancer denies any recent fevers or chills Hx Diabetes: Yes Assessment/Plan status: 1) Hematemesis (2) ATN (acute tubular necrosis) (3) Anemia (4) History of prostate cancer (5) Dementia (6) Thoracic spine fracture (7) Acute encephalopathy Slow hydrate- 2 D echo Flomax Phos supplement Gastric support Pain Mgt monitor renal parameters SHAHEEN WALDROP Jul 19, 2016 15:35
[2016-07-19 16:00] VITALS: BP 129/62
[2016-07-19] MEDS ORDERED: Nulytely 4L ORAL ONE (16:00)
[2016-07-19] MEDS ORDERED: Bisacodyl EC 5mg tab ORAL ONE (16:00)
--- NOTE | 2016-07-19 16:32 | Diagnostic Imaging Report ---
Indication: Abdominal pain, vomiting blood Technique: Ballard-scale and duplex images of the upper abdomen were obtained Comparison: None Findings: The bladder is distended, even after voiding, calculated volume 349 mL.. Gallbladder demonstrates gallstones. No gallbladder wall thickening nor pericholecystic fluid. Sonographic Amaya's sign is negative. Common bile duct measures 6 mm in diameter. No intrahepatic biliary ductal dilatation. Liver demonstrates diffusely increased echogenicity, consistent with diffuse hepatocellular disease, most likely fatty change. No surface micro-nodularity. Portal vein and hepatic veins are patent.. Pancreas is unremarkable. The spleen is enlarged, measures 13.2 cm long axis dimension. Left kidney measures 9.8 cm in length. Right kidney measures 10.5 cm length. Right kidney demonstrates slightly increased echogenicity. Left kidney demonstrates markedly increased echogenicity. There is no hydronephrosis. There are bilateral renal cysts. . Non-aneurysmal abdominal aorta. Impression: Cholelithiasis. Negative for dilated ducts Liver demonstrates diffusely increased echogenicity, consistent with diffuse hepatocellular disease, most likely fatty change. Splenomegaly Increased renal echogenicity, per the right, consistent with medical renal disease. Negative for hydronephrosis 349 mL postvoid bladder volume
--- NOTE | 2016-07-19 17:03 | Cardiology Progress Note ---
Assessment/Plan Assessment/Plan vertigo nausea / vomitting post aobe hematemesis hypotension initially responded to fluid syncope possible vasovagal anemia T9 compression fx and spinous process fx History of systemic amyloid.with renal liver and pancereatic [id number] Chronic kidney disease, stage IV. 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 Cholelithiasis. Hypertension. Hyperlipidemia. Postsurgical hypothyroidism. hgn was 10.5 cedar 01/2016 plt then 50 k orhtostatic vitsl tele keep off diuretic for the moment resume in near futuer on chronic steroid therpay may need stress dose if hypotension [id number] Objective Last 24 Hour Vital Signs Date Time Temp Pulse Resp B/P Pulse Ox O2 Delivery O2 Flow Rate FiO2 07/19/16 16:00 98.1 88 18 129/62 98 Room Air 07/19/16 12:00 87 07/19/16 11:14 98.2 78 20 120/53 94 Room Air 07/19/16 09:47 81 18 Room Air 21 07/19/16 08:00 81 07/19/16 07:37 97.0 85 20 128/55 91 Room Air 07/19/16 04:00 98.2 74 20 111/57 95 Room Air 07/19/16 04:00 74 07/19/16 00:00 97.9 74 18 110/59 96 Room Air 07/19/16 00:00 71 07/18/16 21:23 98.4 73 18 99/55 100 Room Air 07/18/16 21:14 73 18 99/55 100 Room Air 07/18/16 20:36 74 21 90/46 100 Room Air 07/18/16 20:13 98.4 07/18/16 19:37 66 12 127/50 100 Room Air 07/18/16 19:25 98.4 64 16 129/52 99 Room Air 07/18/16 18:57 98.4 64 16 129/52 99 Room Air Intake and Output 07/18/16 07/19/16 19:00 07:00 Intake Total 1750 ml Output Total 500 ml Balance 1250 ml Intake Oral 250 ml IV Total 1500 ml Output Urine Total 500 ml # Voids 1 Laboratory Tests Test 07/18/16 19:20 07/18/16 19:35 07/19/16 07:15 White Blood Count 6.2 K/UL (4.8-10.8) 5.6 K/UL (4.8-10.8) Red Blood Count 3.02 M/UL (4.70-6.10) L 2.98 M/UL (4.70-6.10) L Hemoglobin 9.4 G/DL (14.2-18.0) L 9.3 G/DL (14.2-18.0) L Hematocrit 29.9 % (42.0-52.0) L 29.2 % (42.0-52.0) L Mean Corpuscular Volume 99 FL (80-99) 98 FL (80-99) Mean Corpuscular Hemoglobin 31.3 PG (27.0-31.0) H 31.2 PG (27.0-31.0) H Mean Corpuscular Hemoglobin Concent 31.6 G/DL (32.0-36.0) L 31.8 G/DL (32.0-36.0) L Red Cell Distribution Width 14.3 % (11.6-14.8) 14.5 % (11.6-14.8) Platelet Count 83 K/UL (150-450) L 77 K/UL (150-450) L Mean Platelet Volume 6.4 FL (6.5-10.1) L 6.3 FL (6.5-10.1) L Neutrophils (%) (Auto) % (45.0-75.0) % (45.0-75.0) Lymphocytes (%) (Auto) % (20.0-45.0) % (20.0-45.0) Monocytes (%) (Auto) % (1.0-10.0) % (1.0-10.0) Eosinophils (%) (Auto) % (0.0-3.0) % (0.0-3.0) Basophils (%) (Auto) % (0.0-2.0) % (0.0-2.0) Differential Total Cells Counted 100 100 Neutrophils % (Manual) 62 % (45-75) 64 % (45-75) Lymphocytes % (Manual) 27 % (20-45) 30 % (20-45) Monocytes % (Manual) 8 % (1-10) 6 % (1-10) Eosinophils % (Manual) 2 % (0-3) 0 % (0-3) Basophils % (Manual) 1 % (0-2) 0 % (0-2) Band Neutrophils 0 % (0-8) 0 % (0-8) Platelet Estimate Decreased L Decreased L Platelet Morphology Normal Normal Hypochromasia 1+ 1+ Anisocytosis 1+ Prothrombin Time 11.7 SEC (9.30-11.50) H 11.4 SEC (9.30-11.50) Prothromb Time International Ratio 1.1 (0.9-1.1) 1.1 (0.9-1.1) Activated Partial Thromboplast Time 21 SEC (23-33) L 25 SEC (23-33) Sodium Level 140 mEQ/L (135-145) 144 mEQ/L (135-145) Potassium Level 4.8 mEQ/L (3.4-4.9) 4.9 mEQ/L (3.4-4.9) Chloride Level 102 mEQ/L (98-107) 107 mEQ/L (98-107) Carbon Dioxide Level 23 mEQ/L (20-30) 23 mEQ/L (20-30) Anion Gap 15 (5-15) 14 (5-15) Blood Urea Nitrogen 77 mg/dL (7-23) H 101 mg/dL (7-23) H Creatinine 2.1 mg/dL (0.7-1.2) H 2.0 mg/dL (0.7-1.2) H Estimat Glomerular Filtration Rate mL/min (>60) mL/min (>60) Glucose Level 107 mg/dL (74-106) H 93 mg/dL (74-106) Calcium Level 8.3 mg/dL (8.6-10.2) L 8.4 mg/dL (8.6-10.2) L Total Bilirubin 0.4 mg/dL (0.0-1.2) 0.3 mg/dL (0.0-1.2) Aspartate Amino Transf (AST/SGOT) 39 U/L (5-40) 35 U/L (5-40) Alanine Aminotransferase (ALT/SGPT) 26 U/L (3-41) 24 U/L (3-41) Alkaline Phosphatase 54 U/L (40-129) 53 U/L (40-129) Total Creatine Kinase 44 U/L (38-174) Creatine Kinase MB 1.9 ng/mL (< 6.7) Creatine Kinase MB Relative Index 4.3 Troponin I < 0.30 ng/mL (<=0.30) Pro-B-Type Natriuretic Peptide 1144 pg/mL (0-450) H Total Protein 5.2 g/dL (6.6-8.7) L 5.3 g/dL (6.6-8.7) L Albumin 3.1 g/dL (3.5-5.2) L 3.3 g/dL (3.5-5.2) L Globulin 2.1 g/dL 2.0 g/dL Albumin/Globulin Ratio 1.4 (1.0-2.7) 1.6 (1.0-2.7) Lipase 157 U/L (< 60) H Urine Color Pale yellow Urine Appearance Clear Urine pH 6 (4.5-8.0) Urine Specific [place] 1.010 (1.005-1.035) Urine Protein Negative (NEGATIVE) Urine Glucose (UA) Negative (NEGATIVE) Urine Ketones Negative (NEGATIVE) Urine Occult Blood Negative (NEGATIVE) Urine Nitrite Negative (NEGATIVE) Urine Bilirubin Negative (NEGATIVE) Urine Urobilinogen Normal MG/DL (0.0-1.0) Urine Leukocyte Esterase Negative (NEGATIVE) Macrocytosis 1+ Erythrocyte Sedimentation Rate 45 MM/HR (0-20) H Reticulocyte Count 1.8 % (0.0-2.0) Plasma/Serum Osmolality Pending Uric Acid 6.7 mg/dL (3.0-7.5) Phosphorus Level 1.5 mg/dL (2.5-4.8) L Magnesium Level 1.8 mg/dL (1.7-2.5) Iron Level 85 ug/dL (59-158) Total Iron Binding Capacity 194 ug/dL (250-400) L Percent Iron Saturation 44 % (15-50) Unsaturated Iron Binding 109 ug/dL (112-346) L Lactate Dehydrogenase 154 U/L (135-230) Triglycerides Level 205 mg/dL (< 150) H Cholesterol Level 76 mg/dL (< 200) LDL Cholesterol 23 mg/dL (60-99) L HDL Cholesterol 12 mg/dL (> 60) Cholesterol/HDL Ratio 6.3 (3.3-4.4) H Carcinoembryonic Antigen 6.7 ng/mL H Free Prostate Specific Antigen Pending Percent Free Prostate Specific Ag Pending Prostate Specific Antigen Total Pending Vitamin B12 Level 979 pg/mL (211-946) H Folate Pending Thyroid Stimulating Hormone (TSH) 0.071 uIU/mL (0.300-4.500) Free Thyroxine 1.30 ng/dL (0.86-1.85) Free Triiodothyronine Pending Cortisol Pending MIGEL CASTRO Jul 19, 2016 17:03
[2016-07-19] MEDS: Tamsulosin 0.4mg cap ORAL SCH (18:21)
[2016-07-19] MEDS: Docusate 100mg tablet ORAL SCH (18:21)
[2016-07-19 20:00] VITALS: BP 123/68
[2016-07-19] MEDS ORDERED: Miralax 17gm pkt ORAL SCH (21:00)
[2016-07-19 21:34] LABS: APPEARANCE,URINE CLEAR; KETONES,URINE NEGATIVE (NEGATIVE); LEUKOCYTE ESTERASE ,URINE NEGATIVE (NEGATIVE); NITRITE,URINE NEGATIVE (NEGATIVE); PH,URINE 5 (4.5-8.0); PROTEIN,URINE NEGATIVE (NEGATIVE); UROBILINOGEN,URINE NORMAL MG/DL (0.0-1.0)
[2016-07-19 21:49] LABS: BACTERIA,URINE FEW /HPF; RBC,URINE 0-2 /HPF (0 - 0); WBC,URINE 0-2 /HPF (0 - 0)
--- NOTE | 2016-07-19 23:37 | Consultation ---
DATE OF CONSULTATION: 07/19/2016 CARDIAC CONSULTATION CONSULTING PHYSICIAN: Gordo Read M.D. REFERRING PHYSICIAN: Reynaldo Polanco M.D. REASON FOR REFERRAL: Syncope. HISTORY OF PRESENT ILLNESS: This is an elderly gentleman, whose information is obtained from my personal discussion with the patient and review of the at [facility] from translation of one of our staff here that speaks Greenlandic. As I understand, the patient apparently was in bed initially and was not feeling good and is having problems with spinning sensation of room spinning around his head. He got nauseated, he got up, went to the bathroom, and vomited, and vomited some blood. Subsequently, while he was vomiting he fell and he hit his head. He thinks he lost consciousness for a very short period of time. He was alone. He called his sister, who came by. Paramedics were summoned. The paramedics found him to have a small laceration and was not bleeding during the assessment. We have given some fluid challenge of 100 mL and was transferred instructors at [facility]. The patient's blood pressure initially had gotten as low as 86/51, but improved to 129/52 on treatment with normal saline. He really did not have any chest pain. No PND or orthopnea. He uses two pillows for comfort. No palpitations and when he sits up or stands up, he usually does not get any dizziness. PAST MEDICAL HISTORY: According to the [facility] record is positive for history of pancreatitis, history of systemic amyloidosis, and history of questionable atrial fibrillation, not confirmed previously. 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 He is apparently usually followed by the [facility]. 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 He has no known drug allergies. SOCIAL HISTORY: He smoked many years ago. Does not drink alcoholic beverages. No drug use. He lives at home. REVIEW OF SYSTEMS: Gastrointestinal: As mentioned, nausea and vomiting. No bloody stools or black tarry stools. Genitourinary: Negative. Pulmonary: Negative. Constitutional: Negative. PHYSICAL EXAMINATION: GENERAL: Shows him to be elderly gentleman, in no apparent respiratory distress. VITAL SIGNS: His blood pressure has been anywhere between 90/46 to 128/55. NECK: Supple. No jugular venous distention. No abdominojugular reflux noted. Carotid upstrokes appear to be intact. LUNGS: Clear to auscultation and percussion. CARDIAC: Regular rate and rhythm. No heaves, thrills, gallops, or rubs are noted. There is a faint systolic ejection murmur. ABDOMEN: Soft and nontender. Positive bowel sounds. EXTREMITIES: Chronic venous stasis changes. NEUROLOGIC: He is awake, alert, and responsive. His color is good. There is no paleness being documented on evaluation of his examination. LABORATORY DATA: He had a white count of 5.6 with a hemoglobin of 9.3 and a platelet count of 77,000. In direct comparison with his recent laboratory results at [facility], his white count has been previously 2.8 and hemoglobin 10.5 and a platelet count of 50,000 on prior occasions. Sodium 144, potassium 4.9, chloride 107, bicarb of 23, BUN of 101, and a creatinine of 2.0. His previous BUN and creatinine were 33 and 2.5 in January 2016. His coags, INR 1.1 and a PTT of 25. His urinalysis appears to be fairly unremarkable. He has had some imaging performed including a chest x-ray that was read as no acute processes and he had an abdominal ultrasound that showed cholelithiasis and diffuse hepatocellular disease on imaging, splenomegaly, and medical renal disease, and negative for hydronephrosis. He had a carotid duplex study that showed between 10% to 20% on the right side. No significant disease on the left side. He had a CT scan of his head that showed chronic age-related, negative for acute intracranial bleed, and parietal scalp soft tissue hematoma being noted. Spine CT shows acute transverse nondisplaced T9 spinous process fracture, mild T9 wedge compression fracture, T12 and L1 compression fractures, age indeterminate, and pulmonary parenchymal disease. An echocardiogram has been performed since he has been admitted to the hospital shows sinus rhythm with first-degree AV block with leftward axis. An echocardiogram shows ejection fraction of 55% to 60% and preliminary report, no significant valvular dysfunction being noted. ASSESSMENT: 1. Vertigo. 2. Nausea and vomiting secondary to above. 3. Hematemesis. 4. Syncope, possibly vasovagal. 5. Pancytopenia, chronic. 6. T9 compression fracture and T9 spinous process fracture. 7. History of systemic amyloidosis with renal, liver, and pancreatic involvement. 8. Chronic kidney disease stage 4. 9. Cholelithiasis. 10. Systemic hypertension. 11. Hyperlipidemia. 12. Postsurgical hypothyroidism. PLAN: Dr. Polanco, this patient was seen in cardiac consultation. This patient cardiac parmar appears to be intact. He was somewhat hypotensive at that time, but was originally found by the paramedics, who responded to intravenous fluids. It is likely that his symptoms were related to vagal episode secondary to vomiting of significant degree post vertigo. Telemetry data parmar, he has been stable. His vital signs have improved with hydration. Baseline hemoglobin previously in January 2016 was 10.5, slightly drop 1 g, not be significant. He does not seem to have any further vomiting of blood so far. Orthostatic vitals checked and telemetry observation will be continued. His blood pressure will be monitored and he previously was taking some Lasix, which will be on hold. He is on prednisone 5 mg on a daily basis. May consider administering a stress doses of steroids should they become necessary. Further recommendations as become necessary. Series of enzymes and EKGs were performed. Gordo Read M.D. DR: MIAN JOB#: [id number] CC:
[2016-07-20] VITALS (20 sets, daily range): BP systolic 94–120; BP diastolic 45–68
[2016-07-20] MEDS: D5 1/2NS 1,000 ML IV SCH ×2 (02:20→10:00)
[2016-07-20 07:31] LABS: INR 1.1 (0.9-1.1)
[2016-07-20 07:40] LABS: ALANINE AMINOTRANSFERASE 23 U/L (3-41); ALBUMIN/GLOBULIN RATIO 1.5 (1.0-2.7); ANION GAP 19 (5-15); ASPARTATE AMINO TRANSFERASE 35 U/L (5-40); CALCIUM 8.4 mg/dL (8.6-10.2); CARBON DIOXIDE 22 mEQ/L (20-30); CHLORIDE 105 mEQ/L (98-107); CREATININE 2.2 mg/dL (0.7-1.2); HEMOLYSIS 26; LIPASE 84 U/L (< 60); POTASSIUM 4.3 mEQ/L (3.4-4.9); SODIUM 146 mEQ/L (135-145); TOTAL PROTEIN 5.5 g/dL (6.6-8.7)
[2016-07-20 07:43] LABS: CRP QUANT 1.9 mg/dL (< 0.5)
[2016-07-20 07:45] LABS: HEMOGLOBIN A1C 4.7 % (< 6.0)
[2016-07-20 07:46] LABS: MEAN CORPUSCULAR HEMOGLOBIN 31.2 PG (27.0-31.0); MEAN CORPUSCULAR VOLUME 97 FL (80-99); MEAN PLATELET VOLUME 7.1 FL (6.5-10.1); PLATELET COUNT 79 K/UL (150-450); RED BLOOD COUNT 2.82 M/UL (4.70-6.10); RED CELL DISTRIBUTION WIDTH 14.8 % (11.6-14.8); WHITE BLOOD COUNT 4.9 K/UL (4.8-10.8)
[2016-07-20 08:53] LABS: CORTISOL LC 0.8 ug/dL (.)
[2016-07-20] MEDS: Docusate 100mg tablet ORAL SCH ×2 (09:00→13:00)
[2016-07-20] MEDS: PrednisoLONE 15mg/5ml Syrup ORAL SCH (09:00)
[2016-07-20] MEDS: Tamsulosin 0.4mg cap ORAL SCH ×2 (09:00→18:00)
--- NOTE | 2016-07-20 09:33 | Pre-Procedure Note/Attestation ---
Pre-Procedure Note/Attestation Complete Prior to Procedure Planned Procedure: not applicable Procedure Narrative: egd/colon Indications for Procedure Pre-Operative Diagnosis: anemia Attestation I attest that I discussed the nature of the procedure; its benefits; risks and complications; and alternatives (and the risks and benefits of such alternatives ), prior to the procedure, with the patient (or the patient's legal apprenticeship training representative). I attest that, if there was a reasonable possibility of needing a blood transfusion, the patient (or the patient's legal apprenticeship training representative) was given the [facility] standardized written summary, pursuant to the [place] Blood Safety Act ([place] Health and Safety Code # 1645, as amended). I attest that I re-evaluated the patient just prior to the surgery and that there has been no change in the patient's H&P, except as documented below: BRIDGER GAO Jul 20, 2016 09:33
--- NOTE | 2016-07-20 09:36 | General Progress Note ---
Assessment/Plan Status: unchanged Status Narrative Cr higher Assessment/Plan status; 1) Hematemesis (2) ATN (acute tubular necrosis) (3) Anemia (4) History of prostate cancer (5) Dementia (6) Thoracic spine fracture (7) Acute encephalopathy Plan: Slow hydrate- 2 D echo: Ej Fx 55% Flomax Phos supplement Gastric support Pain Mgt monitor renal parameters Subjective ROS Limited/Unobtainable: No Constitutional: Reports: malaise Allergies: Coded Allergies: No Known Allergies (Unverified , 07/18/16) Objective Last 24 Hour Vital Signs Date Time Temp Pulse Resp B/P Pulse Ox O2 Delivery O2 Flow Rate FiO2 07/20/16 07:51 96.4 83 20 94/56 95 Room Air 07/20/16 06:37 89 16 Room Air 07/20/16 04:00 92 07/20/16 04:00 97.2 92 20 108/59 98 Room Air 21 07/20/16 00:00 98.1 85 18 120/68 95 Room Air 21 07/20/16 00:00 85 07/19/16 21:17 73 16 Room Air 21 07/19/16 20:00 97.3 81 17 123/68 97 Room Air 07/19/16 20:00 81 07/19/16 16:00 91 07/19/16 16:00 98.1 88 18 129/62 98 Room Air 07/19/16 12:00 87 07/19/16 11:14 98.2 78 20 120/53 94 Room Air 07/19/16 09:47 81 18 Room Air 21 Intake and Output 07/19/16 07/20/16 19:00 07:00 Intake Total 731 ml 980 ml Output Total 1900 ml Balance -1169 ml 980 ml Intake Oral 150 ml 480 ml IV Total 581 ml 500 ml Output Urine Total 1900 ml # Voids 6 # Bowel Movements 3 Laboratory Tests 07/19/16 20:58: Urine Color Pale yellow, Urine Appearance Clear, Urine pH 5, Urine Specific [place] 1.010, Urine Protein Negative, Urine Glucose (UA) Negative, Urine Ketones Negative, Urine Occult Blood Negative, Urine Nitrite Negative, Urine Bilirubin Negative, Urine Urobilinogen Normal, Urine Leukocyte Esterase Negative , Urine RBC 0-2H, Urine WBC 0-2, Urine Squamous Epithelial Cells None, Urine Bacteria Few, Urine Eosinophils None seen, Urine Osmolality [Pending], Urine Random Sodium 83, Urine Random Chloride 74, Urine Potassium Timed 26 07/20/16 02:00: Stool Occult Blood [Pending] 07/20/16 06:18: White Blood Count 4.9, Red Blood Count 2.82L, Hemoglobin 8.8L, Hematocrit 27.4L , Mean Corpuscular Volume 97, Mean Corpuscular Hemoglobin 31.2H, Mean Corpuscular Hemoglobin Concent 32.0, Red Cell Distribution Width 14.8, Platelet Count 79L, Mean Platelet Volume 7.1, Neutrophils (%) (Auto) , Lymphocytes (%) ( Auto) , Monocytes (%) (Auto) , Eosinophils (%) (Auto) , Basophils (%) (Auto) , Neutrophils % (Manual) [Pending], Lymphocytes % (Manual) [Pending], Platelet Estimate [Pending], Platelet Morphology [Pending], Prothrombin Time 11.0, Prothromb Time International Ratio 1.1, Activated Partial Thromboplast Time 25, Sodium Level 146H, Potassium Level 4.3, Chloride Level 105, Carbon Dioxide Level 22, Anion Gap 19H, Blood Urea Nitrogen 99H, Creatinine 2.2H, Estimat Glomerular Filtration Rate , Glucose Level 105, Hemoglobin A1c 4.7, Uric Acid 8.0H, Calcium Level 8.4L, Phosphorus Level 5.2H, Magnesium Level 2.0, Total Bilirubin 0.4, Gamma Glutamyl Transpeptidase 32, Aspartate Amino Transf (AST/ SGOT) 35, Alanine Aminotransferase (ALT/SGPT) 23, Alkaline Phosphatase 53, Total Creatine Kinase 51, C-Reactive Protein, Quantitative 1.9H, Pro-B-Type Natriuretic Peptide 988H, Total Protein 5.5L, Albumin 3.3L, Globulin 2.2, Albumin/Globulin Ratio 1.5, Lipase 84H Height (Feet): 6 Height (Inches): 1.00 Weight (Pounds): 170 General Appearance: no apparent distress Cardiovascular: normal rate Respiratory/Chest: decreased breath sounds Abdomen: soft SHAHEEN WALDROP Jul 20, 2016 09:36
[2016-07-20] MEDS ORDERED: Lidocaine 1% MPF 10mg/ml 5ml ONE (10:00)
[2016-07-20] MEDS ORDERED: Propofol 10mg/ml 20ml IV ONE ×2 (10:00→11:00)
[2016-07-20] MEDS ORDERED: Phenylephrine 10mg/ml Vial ONE (10:00)
[2016-07-20] MEDS ORDERED: NS 550ML IV ONE (10:00)
[2016-07-20 10:22] LABS: ANISOCYTOSIS 1+; BAND NEUTROPHILS % (MANUAL) 0 % (0-8); BASOPHILS % (MANUAL) 0 % (0-2); EOSINOPHILS % (MANUAL) 2 % (0-3); HYPOCHROMASIA 1+; LYMPHOCYTES % (MANUAL) 17 % (20-45); NEUTROPHILS % (MANUAL) 72 % (45-75); PLATELET ESTIMATE DECREASED; PLATELET MORPHOLOGY NORMAL; TOTAL CELLS COUNTED 100
--- NOTE | 2016-07-20 10:24 | Diagnostic Imaging Report ---
APPROVED REPORT CPT Code: 48386 Vascular Symptoms CVA/TIA: Doppler Spectral Velocity Analysis RightLeft arteries. The Doppler spectral flow analysis indicates the degree of stenosis is minimal (10-20%) in the common carotid artery, internal carotid artery, and external carotid artery. VERTEBRAL- The vertebral artery is patent, without evidence of stenosis or steal. LEFT SIDE: CCA - Imaging reveals no significant plaque within the extracranial carotid arteries. The Doppler spectral flow analysis is within normal limits throughout the extracranial carotid arteries. VERTEBRAL - The vertebral artery is patent, without evidence of stenosis or steal.
--- NOTE | 2016-07-20 10:31 | Endoscopy Procedure Note ---
Endoscopy Procedure Note Indication for Procedure: anemia, elevated CEA Procedures Performed: EGD, colonoscopy Operative Findings/Diagnosis: esophagitis, colon polyp Specimen: yes Pt Tolerated Procedure Well: Yes Estimated Blood Loss: none Anesthesiologist: esperanza Anesthesia: MAC Implant(s) used?: No 50 yrs or older w/o bx or poly: Not Applicable 10yrs. F/U not recommended: Not Applicable BRIDGER GAO Jul 20, 2016 10:31
--- NOTE | 2016-07-20 10:56 | General Progress Note ---
Progress Note Progress Note Pt seen in GI lab for colonoscopic perforation in well prepped bowel. Hx anemia , amyloidosis, low platelets, prostate CA s/p radiation therapy. EF 55-60%, w/u for anemia in progress. Will go to OR for laparoscopy, possible laparotomy for repair of colonic tear, possible bowel resection , possible colostomy. Spoke urgently to pt's niece (Lissa Fischer, next of kin) in prescence of Julissa Kendrick R.N. who understands need for emergency surgery and consents to the operation with the understanding of risks, benefits, possible complications, possible infection, possible colostomy . Full consult dictated BRANDON HENLEY Jul 20, 2016 10:56
[2016-07-20] MEDS ORDERED: NS Irrig 1000ml ONE (11:00)
[2016-07-20] MEDS ORDERED: Sterile Water Irrig 1000ml IRRIG ONE (11:00)
[2016-07-20] MEDS ORDERED: Zemuron 50mg/5ml Inj IV ONE (11:00)
[2016-07-20] MEDS ORDERED: LR 1000ml ONE (11:00)
[2016-07-20] MEDS ORDERED: Metoprolol 5mg/5ml Inj ONE (11:00)
[2016-07-20] MEDS ORDERED: NS Irrig 1000ml IRRIG ONE (11:00)
[2016-07-20] MEDS ORDERED: Cefepime 1gm vial ONE (11:59)
[2016-07-20] MEDS ORDERED: cefOXitin 1gm Inj ONE (12:00)
[2016-07-20] MEDS: Allopurinol 100mg Tab ORAL SCH ×2 (12:00→21:00)
[2016-07-20] MEDS ORDERED: Bupivacaine w/Epi 0.25% 30ml Vial INJ ONE (12:00)
[2016-07-20 12:14] LABS: PSA FREE <0.01 ng/mL; PSA TOTAL <0.1 ng/mL (0.0-4.0)
--- NOTE | 2016-07-20 12:45 | Anethesia Preoperative Eval ---
Anesthesia Pre-op PMH/ROS General Date of Evaluation: Jul 20, 2016 Time of Evaluation: 10:30 Anesthesiologist: gregorio ASA Score: ASA 3 Mallampati Score Class I : Soft palate, uvula, fauces, pillars visible Class II: Soft palate, uvula, fauces visible Class III: Soft palate, base of uvula visible Class IV: Only hard plate visible Mallampati Classification: Class III Surgeon: vasyl Diagnosis: anemia Surgical Procedure: egd/colonoscopy Anesthesia History: none Family History: no anesthesia problems Allergies: Coded Allergies: No Known Allergies (Unverified , 07/18/16) Medications: see eMAR Past Medical History Cardiovascular: Reports: HTN Gastrointestinal/Genitourinary: Reports: CRI Neurologic/Psychiatric: Reports: dementia Endocrine: Reports: hypothyroidism HEENT: Denies: [place] (L), [place] (R), cataract (L), cataract (R), glaucoma, other Hematology/Immune: Reports: anemia, other - thrombocytopenia Musculoskeletal/Integumentary: Reports: other - amyloidosis;c/o pain mid back Anesthesia Pre-op Phys. Exam Physician Exam Last Vital Signs Date Time Temp Pulse Resp B/P Pulse Ox O2 Delivery O2 Flow Rate FiO2 07/20/16 07:51 96.4 83 20 94/56 95 Room Air 07/20/16 04:00 21 Constitutional: NAD Neurologic: CN 2-12 intact Cardiovascular: RRR Respiratory: CTA Gastrointestinal: S/NT/ND Airway Exam Mallampati Classification 3 Mallampati Score: Class III Neck: thick TMD: 1fb ROM: full Dentures: no lower, no upper Anesthesia Pre-op A/P Labs Hematology Test 07/20/16 06:18 White Blood Count 4.9 K/UL (4.8-10.8) Red Blood Count 2.82 M/UL (4.70-6.10) L Hemoglobin 8.8 G/DL (14.2-18.0) L Hematocrit 27.4 % (42.0-52.0) L Mean Corpuscular Volume 97 FL (80-99) Mean Corpuscular Hemoglobin 31.2 PG (27.0-31.0) H Mean Corpuscular Hemoglobin Concent 32.0 G/DL (32.0-36.0) Red Cell Distribution Width 14.8 % (11.6-14.8) Platelet Count 79 K/UL (150-450) L Mean Platelet Volume 7.1 FL (6.5-10.1) Neutrophils (%) (Auto) % (45.0-75.0) Lymphocytes (%) (Auto) % (20.0-45.0) Monocytes (%) (Auto) % (1.0-10.0) Eosinophils (%) (Auto) % (0.0-3.0) Basophils (%) (Auto) % (0.0-2.0) Differential Total Cells Counted 100 Neutrophils % (Manual) 72 % (45-75) Lymphocytes % (Manual) 17 % (20-45) L Monocytes % (Manual) 9 % (1-10) Eosinophils % (Manual) 2 % (0-3) Basophils % (Manual) 0 % (0-2) Band Neutrophils 0 % (0-8) Platelet Estimate Decreased L Platelet Morphology Normal Hypochromasia 1+ Anisocytosis 1+ Coagulation Test 07/20/16 06:18 Prothrombin Time 11.0 SEC (9.30-11.50) Prothromb Time International Ratio 1.1 (0.9-1.1) Activated Partial Thromboplast Time 25 SEC (23-33) Chemistry Test 07/20/16 06:18 Sodium Level 146 mEQ/L (135-145) H Potassium Level 4.3 mEQ/L (3.4-4.9) Chloride Level 105 mEQ/L (98-107) Carbon Dioxide Level 22 mEQ/L (20-30) Anion Gap 19 (5-15) H Blood Urea Nitrogen 99 mg/dL (7-23) H Creatinine 2.2 mg/dL (0.7-1.2) H Estimat Glomerular Filtration Rate mL/min (>60) Glucose Level 105 mg/dL (74-106) Hemoglobin A1c 4.7 % (< 6.0) Uric Acid 8.0 mg/dL (3.0-7.5) H Calcium Level 8.4 mg/dL (8.6-10.2) L Phosphorus Level 5.2 mg/dL (2.5-4.8) H Magnesium Level 2.0 mg/dL (1.7-2.5) Total Bilirubin 0.4 mg/dL (0.0-1.2) Gamma Glutamyl Transpeptidase 32 U/L (8-61) Aspartate Amino Transf (AST/SGOT) 35 U/L (5-40) Alanine Aminotransferase (ALT/SGPT) 23 U/L (3-41) Alkaline Phosphatase 53 U/L (40-129) Total Creatine Kinase 51 U/L (38-174) C-Reactive Protein, Quantitative 1.9 mg/dL (< 0.5) H Pro-B-Type Natriuretic Peptide 988 pg/mL (0-450) H Total Protein 5.5 g/dL (6.6-8.7) L Albumin 3.3 g/dL (3.5-5.2) L Globulin 2.2 g/dL Albumin/Globulin Ratio 1.5 (1.0-2.7) Lipase 84 U/L (< 60) H Studies Pre-op Studies: EKG - pac, echo - ef 55%; dr fallon aware of low platelets in 70s Risk Assessment & Plan Plan: mac Status Change Before Surgery: No Pre-Antibiotics Drug: none JOHN BORRERO CRNA Jul 20, 2016 12:45
--- NOTE | 2016-07-20 12:49 | Anethesia Preoperative Eval ---
Anesthesia Pre-op PMH/ROS General Date of Evaluation: Jul 20, 2016 Time of Evaluation: 10:35 Anesthesiologist: Alex Mallampati Score Class I : Soft palate, uvula, fauces, pillars visible Class II: Soft palate, uvula, fauces visible Class III: Soft palate, base of uvula visible Class IV: Only hard plate visible Mallampati Classification: Class III Surgeon: Dinora Diagnosis: Colon Perforation Surgical Procedure: EXp. Lap Allergies: Coded Allergies: No Known Allergies (Unverified , 07/18/16) Past Medical History Cardiovascular: Reports: HTN Gastrointestinal/Genitourinary: Reports: GERD Neurologic/Psychiatric: Denies: CVA, TIA, dementia, depression/anxiety, other Endocrine: Reports: steroids HEENT: Denies: [place] (L), [place] (R), cataract (L), cataract (R), glaucoma, other Hematology/Immune: Reports: anemia Musculoskeletal/Integumentary: Reports: other - Amyloidosis with Vertebral Fractures Anesthesia Pre-op Phys. Exam Physician Exam Last Vital Signs Date Time Temp Pulse Resp B/P Pulse Ox O2 Delivery O2 Flow Rate FiO2 07/20/16 07:51 96.4 83 20 94/56 95 Room Air 07/20/16 04:00 21 Airway Exam Mallampati Score: Class III Anesthesia Pre-op A/P Labs Hematology Test 07/20/16 06:18 White Blood Count 4.9 K/UL (4.8-10.8) Red Blood Count 2.82 M/UL (4.70-6.10) L Hemoglobin 8.8 G/DL (14.2-18.0) L Hematocrit 27.4 % (42.0-52.0) L Mean Corpuscular Volume 97 FL (80-99) Mean Corpuscular Hemoglobin 31.2 PG (27.0-31.0) H Mean Corpuscular Hemoglobin Concent 32.0 G/DL (32.0-36.0) Red Cell Distribution Width 14.8 % (11.6-14.8) Platelet Count 79 K/UL (150-450) L Mean Platelet Volume 7.1 FL (6.5-10.1) Neutrophils (%) (Auto) % (45.0-75.0) Lymphocytes (%) (Auto) % (20.0-45.0) Monocytes (%) (Auto) % (1.0-10.0) Eosinophils (%) (Auto) % (0.0-3.0) Basophils (%) (Auto) % (0.0-2.0) Differential Total Cells Counted 100 Neutrophils % (Manual) 72 % (45-75) Lymphocytes % (Manual) 17 % (20-45) L Monocytes % (Manual) 9 % (1-10) Eosinophils % (Manual) 2 % (0-3) Basophils % (Manual) 0 % (0-2) Band Neutrophils 0 % (0-8) Platelet Estimate Decreased L Platelet Morphology Normal Hypochromasia 1+ Anisocytosis 1+ Coagulation Test 07/20/16 06:18 Prothrombin Time 11.0 SEC (9.30-11.50) Prothromb Time International Ratio 1.1 (0.9-1.1) Activated Partial Thromboplast Time 25 SEC (23-33) Chemistry Test 07/20/16 06:18 Sodium Level 146 mEQ/L (135-145) H Potassium Level 4.3 mEQ/L (3.4-4.9) Chloride Level 105 mEQ/L (98-107) Carbon Dioxide Level 22 mEQ/L (20-30) Anion Gap 19 (5-15) H Blood Urea Nitrogen 99 mg/dL (7-23) H Creatinine 2.2 mg/dL (0.7-1.2) H Estimat Glomerular Filtration Rate mL/min (>60) Glucose Level 105 mg/dL (74-106) Hemoglobin A1c 4.7 % (< 6.0) Uric Acid 8.0 mg/dL (3.0-7.5) H Calcium Level 8.4 mg/dL (8.6-10.2) L Phosphorus Level 5.2 mg/dL (2.5-4.8) H Magnesium Level 2.0 mg/dL (1.7-2.5) Total Bilirubin 0.4 mg/dL (0.0-1.2) Gamma Glutamyl Transpeptidase 32 U/L (8-61) Aspartate Amino Transf (AST/SGOT) 35 U/L (5-40) Alanine Aminotransferase (ALT/SGPT) 23 U/L (3-41) Alkaline Phosphatase 53 U/L (40-129) Total Creatine Kinase 51 U/L (38-174) C-Reactive Protein, Quantitative 1.9 mg/dL (< 0.5) H Pro-B-Type Natriuretic Peptide 988 pg/mL (0-450) H Total Protein 5.5 g/dL (6.6-8.7) L Albumin 3.3 g/dL (3.5-5.2) L Globulin 2.2 g/dL Albumin/Globulin Ratio 1.5 (1.0-2.7) Lipase 84 U/L (< 60) H LISA TAYLOR M.D. Jul 20, 2016 12:49
[2016-07-20] MEDS ORDERED: Norco 5mg/325mg tab ORAL PRN (13:00)
[2016-07-20] MEDS ORDERED: Hydromorphone 0.5mg/0.5ml inj IVP PRN ×2 (13:00→14:15)
[2016-07-20] MEDS ORDERED: Ketorolac 30mg Inj IV PRN (13:00)
[2016-07-20] MEDS ORDERED: Bacitracin 50000 Units Vial ONE (13:05)
[2016-07-20] MEDS ORDERED: Neostigmine 1mg/ml 10ml Inj ONE (13:17)
--- NOTE | 2016-07-20 13:19 | Pulmonology Progress Note ---
Assessment/Plan Problems: (1) Colon perforation (2) Hematemesis (3) ATN (acute tubular necrosis) (4) Anemia (5) History of prostate cancer (6) Dementia (7) Thoracic spine fracture (8) Acute encephalopathy Assessment/Plan surgical consult IV fluids Iv antibioitcs might need Hd f/u electrolytes will go to ICU after surgery. Subjective Interval Events: pt had colonocopsy with reulsted in perforation of the colon Allergies: Coded Allergies: No Known Allergies (Unverified , 07/18/16) Objective Last 24 Hour Vital Signs Date Time Temp Pulse Resp B/P Pulse Ox O2 Delivery O2 Flow Rate FiO2 07/20/16 07:51 96.4 83 20 94/56 95 Room Air 07/20/16 06:37 89 16 Room Air 07/20/16 04:00 92 07/20/16 04:00 97.2 92 20 108/59 98 Room Air 21 07/20/16 00:00 98.1 85 18 120/68 95 Room Air 21 07/20/16 00:00 85 07/19/16 21:17 73 16 Room Air 21 07/19/16 20:00 97.3 81 17 123/68 97 Room Air 07/19/16 20:00 81 07/19/16 16:00 91 07/19/16 16:00 98.1 88 18 129/62 98 Room Air Intake and Output 07/19/16 07/20/16 19:00 07:00 Intake Total 731 ml 980 ml Output Total 1900 ml Balance -1169 ml 980 ml Intake Oral 150 ml 480 ml IV Total 581 ml 500 ml Output Urine Total 1900 ml # Voids 6 # Bowel Movements 3 General Appearance: WD/WN HEENT: normocephalic, atraumatic Respiratory/Chest: chest wall non-tender, lungs clear Cardiovascular: normal peripheral pulses, normal rate Abdomen: normal bowel sounds, soft, non tender Extremities: no cyanosis Neurologic/Psychiatric: 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 grossly normal Laboratory Tests 07/19/16 20:58: Urine Color Pale yellow, Urine Appearance Clear, Urine pH 5, Urine Specific [place] 1.010, Urine Protein Negative, Urine Glucose (UA) Negative, Urine Ketones Negative, Urine Occult Blood Negative, Urine Nitrite Negative, Urine Bilirubin Negative, Urine Urobilinogen Normal, Urine Leukocyte Esterase Negative , Urine RBC 0-2H, Urine WBC 0-2, Urine Squamous Epithelial Cells None, Urine Bacteria Few, Urine Eosinophils None seen, Urine Osmolality [Pending], Urine Random Sodium 83, Urine Random Chloride 74, Urine Potassium Timed 26 07/20/16 02:00: Stool Occult Blood Positive 07/20/16 06:18: White Blood Count 4.9, Red Blood Count 2.82L, Hemoglobin 8.8L, Hematocrit 27.4L , Mean Corpuscular Volume 97, Mean Corpuscular Hemoglobin 31.2H, Mean Corpuscular Hemoglobin Concent 32.0, Red Cell Distribution Width 14.8, Platelet Count 79L, Mean Platelet Volume 7.1, Neutrophils (%) (Auto) , Lymphocytes (%) ( Auto) , Monocytes (%) (Auto) , Eosinophils (%) (Auto) , Basophils (%) (Auto) , Differential Total Cells Counted 100, Neutrophils % (Manual) 72, Lymphocytes % ( Manual) 17L, Monocytes % (Manual) 9, Eosinophils % (Manual) 2, Basophils % ( Manual) 0, Band Neutrophils 0, Platelet Estimate DecreasedL, Platelet Morphology Normal, Hypochromasia 1+, Anisocytosis 1+, Prothrombin Time 11.0, Prothromb Time International Ratio 1.1, Activated Partial Thromboplast Time 25, Sodium Level 146H, Potassium Level 4.3, Chloride Level 105, Carbon Dioxide Level 22, Anion Gap 19H, Blood Urea Nitrogen 99H, Creatinine 2.2H, Estimat Glomerular Filtration Rate , Glucose Level 105, Hemoglobin A1c 4.7, Uric Acid 8.0H, Calcium Level 8.4L, Phosphorus Level 5.2H, Magnesium Level 2.0, Total Bilirubin 0.4, Gamma Glutamyl Transpeptidase 32, Aspartate Amino Transf (AST/ SGOT) 35, Alanine Aminotransferase (ALT/SGPT) 23, Alkaline Phosphatase 53, Total Creatine Kinase 51, C-Reactive Protein, Quantitative 1.9H, Pro-B-Type Natriuretic Peptide 988H, Total Protein 5.5L, Albumin 3.3L, Globulin 2.2, Albumin/Globulin Ratio 1.5, Lipase 84H Current Medications Medications (Trade) Dose Ordered Sig/Hemanth Route PRN Reason Start Time Stop Time Status Last Admin Dose Admin Acetaminophen (Tylenol) 650 mg Q4H PRN ORAL fever 07/18/16 21:00 08/17/16 20:59 Acetaminophen/ Hydrocodone Bitart ([place] 5/325) 1 tab Q1H PRN ORAL Mild Pain (Pain Scale 1-3) 07/20/16 13:00 UNV Albuterol/ Ipratropium (DuoNeb 0.5-3(2.5)mg/3ml) 3 ml Q4H PRN HHN Shortness of Breath 07/18/16 21:00 07/23/16 20:59 Allopurinol (Zyloprim) 100 mg BID ORAL 07/20/16 12:00 08/19/16 11:59 Atorvastatin Calcium (Lipitor) 20 mg BEDTIME ORAL 07/20/16 21:00 08/19/16 20:59 Clonidine HCl 0.1 mg 0.1 mg Q4H PRN ORAL SBP > 160 07/18/16 21:00 08/17/16 20:59 Dextrose (Dextrose 50%) STAT PRN IV Hypoglycemia 07/18/16 21:00 08/17/16 20:59 Dextrose/Sodium Chloride (D5 0.45% NS) 1,000 ml @ 125 mls/hr Q8H IV 07/18/16 10:00 08/17/16 09:59 07/20/16 02:20 Docusate Sodium (Colace) 100 mg TID ORAL 07/19/16 18:00 08/18/16 17:59 07/19/16 18:21 Fentanyl Citrate (Sublimaze 100 mcg/2 mL) 25 mcg Q10M PRN IV Moderate Pain (Pain Scale 4-6) 07/20/16 13:00 UNV Hydromorphone HCl (Dilaudid) 0.5 mg Q15M PRN IVP Severe Pain (Pain Scale 7-10) 07/20/16 13:00 UNV Ketorolac Tromethamine (Toradol 30mg) 15 mg Q1H PRN IV Moderate Breakthru Pain (5-7) 07/20/16 13:00 UNV Levothyroxine Sodium (Synthroid) 100 mcg ACBREAKFAST ORAL 07/20/16 06:30 08/19/16 06:29 07/20/16 06:34 Lorazepam (Ativan 2mg/ml 1ml) 0.5 mg Q4H PRN IV For Anxiety 07/18/16 21:00 07/25/16 20:59 Morphine Sulfate (Morphine Sulfate) 1 mg Q4H PRN IVP For Pain 7-10 07/18/16 21:00 07/25/16 20:59 07/19/16 08:12 Nitroglycerin (Ntg) 0.4 mg Q5M X 3 DOSES PRN SL Prn Chest Pain 07/18/16 21:00 08/17/16 20:59 Ondansetron HCl (Zofran) 4 mg Q1H PRN IVP Nausea & Vomiting 07/20/16 13:00 UNV Ondansetron HCl (Zofran) 4 mg Q6H PRN IVP Nausea & Vomiting 07/18/16 21:00 08/17/16 20:59 Pantoprazole (Protonix) 40 mg EVERY 12 HOURS ORAL 07/19/16 21:00 08/18/16 20:59 07/19/16 22:37 Polyethylene Glycol (Miralax) 17 gm BEDTIME ORAL 07/19/16 21:00 08/18/16 20:59 07/19/16 22:37 Polyethylene Glycol (Miralax) 17 gm HSPRN PRN ORAL Constipation 07/18/16 21:00 08/17/16 20:59 Prednisolone (Prelone) 30 mg DAILY ORAL 07/19/16 09:00 08/18/16 08:59 07/19/16 08:13 Tamsulosin HCl (Flomax) 0.4 mg BID ORAL 07/19/16 18:00 08/18/16 17:59 07/19/16 18:21 Temazepam (Restoril) 15 mg HSPRN PRN ORAL Insomnia 07/18/16 21:00 07/25/16 20:59 Vitamin B Complex (Vitamin B Complex) 1 ea DAILY ORAL 07/19/16 09:00 08/18/16 08:59 07/19/16 08:13 ARIS WALSH Jul 20, 2016 13:19
--- NOTE | 2016-07-20 13:53 | Immediate Post-Op Evaluation ---
Immediate Post-Op Evalulation Immediate Post-Op Evalulation Procedure: Exp. Lap Date of Evaluation: Jul 20, 2016 Time of Evaluation: 14:05 IV Fluids: NS 2.5 L , Alb 5% -500ml Blood Products: PRBC 2U Estimated Blood Loss: 500 Urinary Output: 500 Blood Pressure Systolic: 130 Blood Pressure Diastolic: 80 Pulse Rate: 85 Respiratory Rate: 20 O2 Sat by Pulse Oximetry: 99 Temperature (Fahrenheit): 98 Pain Score (1-10): 3 Nausea: No Vomiting: No Complications na Patient Status: awake Hydration Status: adequate Drug: Cefepime 1G Given Within 1 Hr of Incision: Yes Time Given: 11:30 LISA TAYLOR M.D. Jul 20, 2016 13:53
[2016-07-20] MEDS ORDERED: D5 1/2NS 1000ml IV ONE (13:58)
[2016-07-20] MEDS ORDERED: Tubing IV Secondary IV ONE (13:58)
--- NOTE | 2016-07-20 14:03 | Pre-Procedure Note/Attestation ---
Pre-Procedure Note/Attestation Complete Prior to Procedure Procedure Narrative: laparoscopy, possible laparotomy, possible colostomy, possible bowel resection Indications for Procedure Pre-Operative Diagnosis: perforated rectosigmoid colon from colonoscopy. Attestation I attest that I discussed the nature of the procedure; its benefits; risks and complications; and alternatives (and the risks and benefits of such alternatives ), prior to the procedure, with the patient (or the patient's legal cash posting representative). I attest that, if there was a reasonable possibility of needing a blood transfusion, the patient (or the patient's legal cash posting representative) was given the [facility] standardized written summary, pursuant to the Jaya Iain Blood Safety Act ([place] Health and Safety Code # 1645, as amended). I attest that I re-evaluated the patient just prior to the surgery and that there has been no change in the patient's H&P, except as documented below: BRANDON HENLEY Jul 20, 2016 14:03
[2016-07-20] MEDS: fentaNYL 100 mcg/2 mL IV PRN ×4 (14:34→15:02)
[2016-07-20 15:22] LABS: MEAN CORPUSCULAR HEMOGLOBIN 30.1 PG (27.0-31.0); MEAN CORPUSCULAR HGB CONC 31.1 G/DL (32.0-36.0); MEAN CORPUSCULAR VOLUME 97 FL (80-99); MEAN PLATELET VOLUME 5.9 FL (6.5-10.1); PLATELET COUNT 55 K/UL (150-450); RED BLOOD COUNT 2.69 M/UL (4.70-6.10); RED CELL DISTRIBUTION WIDTH 15.7 % (11.6-14.8)
[2016-07-20 15:34] LABS: INR 1.3 (0.9-1.1); PROTHROMBIN TIME 13.5 SEC (9.30-11.50)
[2016-07-20 15:36] LABS: ANION GAP 19 (5-15); CALCIUM 6.6 mg/dL (8.6-10.2); CARBON DIOXIDE 17 mEQ/L (20-30); CHLORIDE 111 mEQ/L (98-107); CREATININE 1.9 mg/dL (0.7-1.2); HEMOLYSIS 4; POTASSIUM 3.5 mEQ/L (3.4-4.9); SODIUM 147 mEQ/L (135-145)
[2016-07-20 15:38] LABS: WHITE BLOOD COUNT 1.8 K/UL (4.8-10.8)
[2016-07-20] MEDS ORDERED: Morphine Sulfate 2mg/ml Inj IVP ONE (17:30)
--- NOTE | 2016-07-20 17:47 | Procedure Note ---
DATE OF PROCEDURE: 07/20/2016 SURGEON: Ramno Carrington M.D. PROCEDURE: Upper endoscopy with biopsy and colonoscopy with biopsy. ANESTHESIA: Per [employer]ODUCT MANAGER, Heike Stokes. INSTRUMENT: Olympus adult flexible upper endoscope. INDICATIONS: 1. Anemia. 2. Elevated CEA. 3. History of upper gastrointestinal bleeding on admission. REASON FOR PROCEDURE: The procedure, risks, benefits, and possible consequences, including hemorrhage, aspiration, perforation and infection, and alternative treatments, were explained to the patient/legal guardian by Dr. Ramon Carrington and the patient/legal guardian understood and accepted these risks. DESCRIPTION OF PROCEDURE: After informed consent was obtained and the patient was adequately sedated, Olympus upper endoscope was advanced from mouth into the second portion of the duodenum and retroflexion was performed in the stomach. The patient had evidence of medium-sized hiatal hernia, history of [id number] esophagitis with peeling off of the mucosa. In the stomach, there was diffuse gastritis. Random biopsy from antrum was obtained to rule out H. pylori infection. The patient had diverticula in the duodenum. At this time, the upper endoscope was retrieved and the patient was turned over for colonoscopy. First, a rectal exam was performed, which shows positive for internal hemorrhoids. Then, the scope was advanced from the rectum into the cecum. Cecum was examined, but we could not see the appendiceal orifice because it was full of stool. We were able to see the ileocecal valve, but not the cecum, per se the examination was limited. The whole procedure was very difficult because the prep was very poor. We saw one diminutive polyp in the transverse colon, which was removed with the cold biopsy forceps technique. On the way back, we noticed that in the area of the rectosigmoid area, there was a colonic tear. This is most probably from the patient having radiation over the prostate area before and this was challenging procedure and the patient had a complication with perforation. At this time, the scope was retrieved and procedure was terminated. At this time, surgeon, Dr. Farias was called and the family was informed of the complication. The primary care physician was informed of the complication and the patient was scheduled to go to the operating room in half an hour. SUMMARY OF FINDINGS: 1. Medium-sized hiatal hernia. 2. Esophagitis. 3. Gastritis, status post biopsy. 4. Duodenal diverticulum. 5. One colonic polyp removed, see above for details. 6. Perforated colon, pending surgery in half an hour. RECOMMENDATIONS: 1. Follow up biopsy results. 2. Follow up postop. 3. Again family and primary care physician were informed of the complication. Ramon Carrington M.D. DR: LARRY JOB#: [id number] CC:
[2016-07-20] MEDS: Piperacillin/Tazobactam 3.375 GM in D5W 110 ML IVPB SCH (18:14)
[2016-07-20 18:46] LABS: ANISOCYTOSIS 1+; BAND NEUTROPHILS % (MANUAL) 13 % (0-8); BASOPHILS % (MANUAL) 0 % (0-2); EOSINOPHILS % (MANUAL) 0 % (0-3); HYPOCHROMASIA 1+; LYMPHOCYTES % (MANUAL) 11 % (20-45); NEUTROPHILS % (MANUAL) 70 % (45-75); PLATELET ESTIMATE DECREASED; PLATELET MORPHOLOGY NORMAL; POLYCHROMASIA 1+; TOTAL CELLS COUNTED 100
--- NOTE | 2016-07-20 20:37 | Cardiology Progress Note ---
Assessment/Plan Problem List: (1) Hematemesis (2) History of prostate cancer (3) Colon perforation (4) Anemia (5) Syncope Status Narrative Pt w bowel perforation w/ colonoscopy today. Pt seen post-op expl lap/ repair of colon perforation and colostomy Hemodynamically stable, without acute cardiac c/o Assessment/Plan Continue supportive care. NPO, iv fluid hydration, analgesics will check post op ekg in am. Followup labs in am. Subjective ROS Limited/Unobtainable: No Subjective Pt c/o abd pain. events noted Objective Last 24 Hour Vital Signs Date Time Temp Pulse Resp B/P Pulse Ox O2 Delivery O2 Flow Rate FiO2 07/20/16 19:10 97 18 Nasal Cannula 3.0 32 07/20/16 19:09 100 Nasal Cannula 3.0 32 07/20/16 19:09 Nasal Cannula 3.0 32 07/20/16 19:00 96 18 107/49 100 Nasal Cannula 3.0 07/20/16 18:00 95 18 107/49 100 Nasal Cannula 3.0 07/20/16 17:00 95.0 97 16 95/57 100 Nasal Cannula 3.0 07/20/16 16:30 92 07/20/16 16:18 97.0 07/20/16 16:18 97.0 07/20/16 16:00 94.5 92 26 96/57 100 Nasal Cannula 3.0 07/20/16 15:45 97.1 90 17 104/49 98 Nasal Cannula 3.0 07/20/16 15:30 88 20 98/45 96 Nasal Cannula 3.0 07/20/16 15:15 97.8 86 15 102/55 97 Nasal Cannula 3.0 07/20/16 15:04 97.2 07/20/16 15:00 90 17 108/48 99 Simple Mask 6.0 07/20/16 14:45 88 20 110/51 99 Simple Mask 6.0 07/20/16 14:30 90 14 106/54 99 Simple Mask 6.0 07/20/16 14:20 89 17 113/47 99 Simple Mask 6.0 07/20/16 14:10 91 18 112/50 99 Simple Mask 6.0 07/20/16 14:00 97.5 88 20 111/48 95 Simple Mask 6.0 07/20/16 13:53 85 20 99 07/20/16 07:51 96.4 83 20 94/56 95 Room Air 07/20/16 06:37 89 16 Room Air 07/20/16 04:00 92 07/20/16 04:00 97.2 92 20 108/59 98 Room Air 21 07/20/16 00:00 98.1 85 18 120/68 95 Room Air 21 07/20/16 00:00 85 07/19/16 21:17 73 16 Room Air 21 General Appearance: WD/WN, mild distress Neck: non-tender, no JVD Rhythm: NSR Cardiovascular: normal rate, regular rhythm, no gallop/murmur Respiratory/Chest: lungs clear - clear anteriorly Abdomen: soft, other - absent BS. + midline surg dsg and + colostomy Extremities: no swelling Intake and Output 07/19/16 07/20/16 19:00 07:00 Intake Total 731 ml 980 ml Output Total 1900 ml Balance -1169 ml 980 ml Intake Oral 150 ml 480 ml IV Total 581 ml 500 ml Output Urine Total 1900 ml # Voids 6 # Bowel Movements 3 Laboratory Tests Test 07/19/16 20:58 07/20/16 02:00 07/20/16 06:18 07/20/16 14:55 Urine Color Pale yellow Urine Appearance Clear Urine pH 5 (4.5-8.0) Urine Specific [place] 1.010 (1.005-1.035) Urine Protein Negative (NEGATIVE) Urine Glucose (UA) Negative (NEGATIVE) Urine Ketones Negative (NEGATIVE) Urine Occult Blood Negative (NEGATIVE) Urine Nitrite Negative (NEGATIVE) Urine Bilirubin Negative (NEGATIVE) Urine Urobilinogen Normal MG/DL (0.0-1.0) Urine Leukocyte Esterase Negative (NEGATIVE) Urine RBC 0-2 /HPF (0 - 0) H Urine WBC 0-2 /HPF (0 - 0) Urine Squamous Epithelial Cells None /LPF (NONE/OCC) Urine Bacteria Few /HPF (NONE) Urine Eosinophils None seen Urine Osmolality Pending Urine Random Sodium 83 mmol/L Urine Random Chloride 74 mmol/L Urine Potassium Timed 26 mmol/L Stool Occult Blood Positive (NEGATIVE) White Blood Count 4.9 K/UL (4.8-10.8) 1.8 K/UL (4.8-10.8) #*L Red Blood Count 2.82 M/UL (4.70-6.10) L 2.69 M/UL (4.70-6.10) L Hemoglobin 8.8 G/DL (14.2-18.0) L 8.1 G/DL (14.2-18.0) L Hematocrit 27.4 % (42.0-52.0) L 26.0 % (42.0-52.0) L Mean Corpuscular Volume 97 FL (80-99) 97 FL (80-99) Mean Corpuscular Hemoglobin 31.2 PG (27.0-31.0) H 30.1 PG (27.0-31.0) Mean Corpuscular Hemoglobin Concent 32.0 G/DL (32.0-36.0) 31.1 G/DL (32.0-36.0) L Red Cell Distribution Width 14.8 % (11.6-14.8) 15.7 % (11.6-14.8) H Platelet Count 79 K/UL (150-450) L 55 K/UL (150-450) L Mean Platelet Volume 7.1 FL (6.5-10.1) 5.9 FL (6.5-10.1) L Neutrophils (%) (Auto) % (45.0-75.0) % (45.0-75.0) Lymphocytes (%) (Auto) % (20.0-45.0) % (20.0-45.0) Monocytes (%) (Auto) % (1.0-10.0) % (1.0-10.0) Eosinophils (%) (Auto) % (0.0-3.0) % (0.0-3.0) Basophils (%) (Auto) % (0.0-2.0) % (0.0-2.0) Differential Total Cells Counted 100 100 Neutrophils % (Manual) 72 % (45-75) 70 % (45-75) Lymphocytes % (Manual) 17 % (20-45) L 11 % (20-45) L Monocytes % (Manual) 9 % (1-10) 6 % (1-10) Eosinophils % (Manual) 2 % (0-3) 0 % (0-3) Basophils % (Manual) 0 % (0-2) 0 % (0-2) Band Neutrophils 0 % (0-8) 13 % (0-8) H Platelet Estimate Decreased L Decreased L Platelet Morphology Normal Normal Hypochromasia 1+ 1+ Anisocytosis 1+ 1+ Prothrombin Time 11.0 SEC (9.30-11.50) 13.5 SEC (9.30-11.50) H Prothromb Time International Ratio 1.1 (0.9-1.1) 1.3 (0.9-1.1) H Activated Partial Thromboplast Time 25 SEC (23-33) 28 SEC (23-33) Sodium Level 146 mEQ/L (135-145) H 147 mEQ/L (135-145) H Potassium Level 4.3 mEQ/L (3.4-4.9) 3.5 mEQ/L (3.4-4.9) Chloride Level 105 mEQ/L (98-107) 111 mEQ/L (98-107) H Carbon Dioxide Level 22 mEQ/L (20-30) 17 mEQ/L (20-30) L Anion Gap 19 (5-15) H 19 (5-15) H Blood Urea Nitrogen 99 mg/dL (7-23) H 76 mg/dL (7-23) H Creatinine 2.2 mg/dL (0.7-1.2) H 1.9 mg/dL (0.7-1.2) H Estimat Glomerular Filtration Rate mL/min (>60) mL/min (>60) Glucose Level 105 mg/dL (74-106) 109 mg/dL (74-106) H Hemoglobin A1c 4.7 % (< 6.0) Uric Acid 8.0 mg/dL (3.0-7.5) H Calcium Level 8.4 mg/dL (8.6-10.2) L 6.6 mg/dL (8.6-10.2) #L Phosphorus Level 5.2 mg/dL (2.5-4.8) H Magnesium Level 2.0 mg/dL (1.7-2.5) Total Bilirubin 0.4 mg/dL (0.0-1.2) Gamma Glutamyl Transpeptidase 32 U/L (8-61) Aspartate Amino Transf (AST/SGOT) 35 U/L (5-40) Alanine Aminotransferase (ALT/SGPT) 23 U/L (3-41) Alkaline Phosphatase 53 U/L (40-129) Total Creatine Kinase 51 U/L (38-174) C-Reactive Protein, Quantitative 1.9 mg/dL (< 0.5) H Pro-B-Type Natriuretic Peptide 988 pg/mL (0-450) H Total Protein 5.5 g/dL (6.6-8.7) L Albumin 3.3 g/dL (3.5-5.2) L Globulin 2.2 g/dL Albumin/Globulin Ratio 1.5 (1.0-2.7) Lipase 84 U/L (< 60) H Polychromasia 1+ Test 07/20/16 18:00 Urine Eosinophils Pending PAWAN JALLOH Jul 20, 2016 20:37
[2016-07-20] MEDS ORDERED: Atorvastatin 20mg tab ORAL SCH (21:00)
[2016-07-20] MEDS: D5 1/2NS w/KCl 20mEq 1,000 ML IV SCH (21:03)
[2016-07-20] MEDS: Pantoprazole Inj IVP SCH (21:04)
[2016-07-20] MEDS: Hydrocortisone 100mg Inj IV SCH (22:18)
--- NOTE | 2016-07-20 23:13 | Cardiology Report ---
APPROVED REPORT EKG Measurement Heart [id number] Sinus rhythm with 1st degree AV block Left axis deviation Abnormal ECG
--- NOTE | 2016-07-20 23:34 | Consultation ---
Consult Note Consult Note ID Dic # [id number] MANSI PANDEY M.D. Jul 20, 2016 23:34
--- NOTE | 2016-07-20 23:48 | Operative Note - Dictated ---
DATE OF OPERATION: 07/20/2016 SURGEON: Marko Farias M.D. IVORY POLISHER: Beto Leon M.D. ANESTHESIOLOGIST: Asher Johnson M.D. ANESTHESIA: General endotracheal tube. PREOPERATIVE DIAGNOSIS: Colonoscopic rectosigmoid perforation. POSTOPERATIVE DIAGNOSIS: Colonoscopic rectosigmoid perforation. NAME OF OPERATION: 1. Laparoscopy. 2. Laparotomy with Marlyn operation, partial sigmoid colon resection with colostomy. 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 Patient presented to the emergency room a couple of days ago with some bloody emesis and diarrhea. The patient is somewhat poor historian, and the patient was brought into the hospital for further evaluation given that he had some degree of anemia. He has been on Plavix, but denies any history of prior bloody stool or diarrhea or constipation. Once he was brought was brought into the hospital, he was placed on some medications. The Plavix was stopped and then the plan was for GI to evaluate him. Dr. Carrington evaluated him and between he and Dr. Polanco, his attending physician in the hospital, the decision was made to go ahead with upper GI endoscopy and colonoscopy to find the cause of bleeding. An upper endoscopy was done and there was minimal oozing and possible gastritis, final diagnosis was not back, and during colonoscopy early this morning Dr. Carrington noted that he had a perforation therefore I was called. I happened to be down the viveros and they went and saw me immediately in the gastrointestinal laboratory, at which time, the patient was alert, hemodynamically stable, complaining of some abdominal pain and just waking up from the sedation for the colonoscopy. I examined him and found to have abdominal distention, pain and tenderness in the abdomen, and then reviewed his entire chart, which I found that his hemoglobin this morning was 8.8, hematocrit 27.4, and platelets were 79,000. I immediately ordered 2 units of blood and 1 to 2 platelet packs. The patient was then brought to the operating room for the procedure. I then called his niece in the [facility] area code, next of kin, and explained the plan for emergency exploration, possible bowel resection, possible colostomy. I also told her how frail he is and the possible risks, benefits and complications, infection, dehiscence etc and she consented. At the time of the operation, the abdomen again was quite distended. We did a laparoscopy with a supraumbilical incision, and then I placed a Veress needle. I advanced the laparoscope at 10 mm scope and then was able to diagnose the tear in the sigmoid just above the rectum. The tear was approximately 4 inches long and there was some pieces of stool floating around as well as clot and blood. After thoroughly washing the area and seeing the size of the perforation, we opted to convert to a laparotomy using a low midline incision to be able to do a partial sigmoid resection and colostomy and thorough washout of the abdomen, which was done as described. The the operation done was a laparoscopy,conversion to laparotomy, partial colon resection and colostomy. DESCRIPTION OF PROCEDURE: With the patient lying in the supine position on the operating table, under general endotracheal anesthesia, in lithotomy with both legs raised, approximately 15 degrees, with a Norwood catheter in place, and after a complete time out identifying patient, position , type of operation planned, antibiotic status etc., a supraumbilical stab incision was made. The Veress needle was introduced and 3.5 liters of CO2 insufflated. The incision was then enlarged and a 10 mm trocar advanced through which a laparoscope was placed visualizing the above findings. A separate 5 mm trocar was placed in the left lower quadrant and a 12 mm trocar in the right lower quadrant through which an attempt was made to washout the entire pelvis and be able to mobilize the segment of bowel that would be resected and the colostomy brought up. Because of the degree of contamination up into left gutter, infradiaphragmatic area with blood and small particulate stool matter plus some blood, we decided to convert because the patient has been on steroids for a long time, as well as his history of amyloidosis, and overall being quite frail. That madde him at quite a risk for infection and other complications, including bleeding because of his recent Plavix intake and low platelet status. The safest thing would be to open up and do a washout. We evaluated thoroughly to see if we could reconnect but it would not be safe given the weakness and thinness of his tissue, bleeding and contamination. At this point, a midline incision was made, the linea alba opened and the peritoneum entered and the above findings were encountered. Thorough washout with antibiotic solution was undertaken with several liters of normal saline and antibiotics, and then the TA 60 staple device was placed distally just above the peritoneal reflection ( approximately 5 inches above reflection), and then the proximal area of resection was determined to be at the end of the descending colon junction with the sigmoid colon, and the TA 60 staple device was used to divide it. The specimen was then removed after ligating all the mesenteric vessels and tissues with 0 and 2-0 silk suture ties. Some small bleeders were then controlled with 3-0 [id number] sutures. The patient had friability of tissues, and very thin tissues, therefore we could have no tension on any of this. He had more oozing than usual probably from the effect of Plavix, and we are waiting for platelets to arrive, which did arrive at the end of the procedure. He received them already in the recovery room. He received 2 units of blood in the operating room. After thoroughly washing the abdomen and making sure hemostasis was adequate, the left lower quadrant was then opened in a circular fashion, and the subcutaneous tissue fatty tissue was defatted, a cross incision was made on the anterior rectus sheath, and then the rectus muscles were divided longitudinally, and the peritoneum was entered and a 1.5 fingers were then used to open the abdominal wall and bring out the segment of sigmoid colon without any tension. It was then fixed to the fascia with 3-0 Vicryl sutures through the seromuscular layer at 4 quadrantsa of the anterior rectus sheath, and the colostomy was then to be matured after closing the abdomen. Making sure the hemostasis was adequate, we placed 2 separate Ari drains 19-Kiswahili one in the right gutter and one into the pelvis and secured it to the skin with 2-0 nylon sutures through 2 of the trocar sites. The linea alba and the peritoneum were closed with a continuous #1 PDS loop suture and the subcutaneous tissues were double checked for hemostasis, which was adequate. The area was irrigated and stainless steel clips were used to approximate the skin. The colostomy was then matured after placing a dressing on the midline by transecting the staple line, and the edges were then checked for hemostasis, which was adequate with the cautery and then shanda type of colostomy was made by bringing the skin and subcutaneous tissue to the seromuscular layer and then through the wall of the edge of the intestine all the way around with interrupted 3-0 and 4-0 Vicryl sutures. An excellent colostomy was obtained, tension-free and pink at the end of the procedure. The edges had slight bleeding also. The colostomy bag was then placed over it after cutting it to fit in size. The area was double checked for hemostasis. Both drains were connected to suction and the patient was sent to recovery room in stable condition with a blood pressure of 130/76 and pulse of 84. Respirations were unlabored and his O2 saturation was 98%. Urine output was approximately 200 mL and total blood loss was approximately 400 to 500 mL. He went to recovery room in stable condition and will be going to the intensive care unit where he will be watched very closely. I have also obtained postoperative laboratories to make sure the platelets were adequate and he may require more platelet transfusion given the history of recent Plavix use. I called Dr. Carrington and Dr. Polanco as well as the patient's nephew to notify them of the findings and the procedure. I was very clear with him of the critical nature of his uncles status and the likely need for a permanent colostomy. Marko Farias M.D. DR: ELMO JOB#: [id number] CC: DENIS
[2016-07-21] VITALS (24 sets, daily range): BP systolic 92–118; BP diastolic 44–62
[2016-07-21] MEDS: Piperacillin/Tazobactam 3.375 GM in D5W 110 ML IVPB SCH ×2 (01:32→10:26)
[2016-07-21] MEDS: HYDROmorphone 1mg/ml Carpuject IVP PRN ×3 (01:36→16:54)
[2016-07-21 03:10] LABS: OSMOLALITY SERUM LC 331 mOsmol/kg (280-301)
[2016-07-21] MEDS: D5 1/2NS w/KCl 20mEq 1,000 ML IV SCH (04:08)
[2016-07-21 05:09] LABS: MEAN CORPUSCULAR HEMOGLOBIN 31.6 PG (27.0-31.0); MEAN CORPUSCULAR HGB CONC 33.1 G/DL (32.0-36.0); MEAN CORPUSCULAR VOLUME 95 FL (80-99); MEAN PLATELET VOLUME 8.1 FL (6.5-10.1); PLATELET COUNT 61 K/UL (150-450); RED BLOOD COUNT 3.14 M/UL (4.70-6.10); RED CELL DISTRIBUTION WIDTH 15.6 % (11.6-14.8); WHITE BLOOD COUNT 8.1 K/UL (4.8-10.8)
[2016-07-21 05:23] LABS: ALANINE AMINOTRANSFERASE 23 U/L (3-41); ALBUMIN/GLOBULIN RATIO 1.8 (1.0-2.7); ANION GAP 16 (5-15); ASPARTATE AMINO TRANSFERASE 37 U/L (5-40); CALCIUM 6.6 mg/dL (8.6-10.2); CARBON DIOXIDE 19 mEQ/L (20-30); CHLORIDE 113 mEQ/L (98-107); CREATININE 2.2 mg/dL (0.7-1.2); HEMOLYSIS 8; POTASSIUM 4.7 mEQ/L (3.4-4.9); SODIUM 148 mEQ/L (135-145); TOTAL PROTEIN 4.8 g/dL (6.6-8.7)
[2016-07-21] MEDS: Hydrocortisone 100mg Inj IV SCH ×3 (05:57→21:34)
[2016-07-21 06:00] LABS: CRP QUANT 7.4 mg/dL (< 0.5); MAGNESIUM 1.5 mg/dL (1.7-2.5); PHOSPHORUS 6.3 mg/dL (2.5-4.8); URIC ACID 6.7 mg/dL (3.0-7.5)
[2016-07-21 06:07] LABS: BILIRUBIN,DIRECT 0.6 mg/dL (0.1-0.3)
--- NOTE | 2016-07-21 08:59 | Consultation ---
DATE OF CONSULTATION: 07/21/2016 INFECTIOUS DISEASE CONSULT CONSULTING PHYSICIAN: Jah Kennedy M.D. REFERRING PHYSICIAN: Reynaldo Polanco M.D. REASON FOR CONSULTATION: Evaluation of the patient for intra-abdominal sepsis and antibiotic management. HISTORY OF PRESENT ILLNESS: The patient is a 75-year-old male with multiple medical problems as listed below, who was admitted here with a syncopal episode. The patient underwent colonoscopy and subsequent to that, the patient developed perforation with viscus. Later the patient underwent surgery and colostomy. The patient is on IV antibiotics. An Infectious Disease consultation has been requested for further evaluation of the patient and antibiotic management. PAST MEDICAL HISTORY: 1. . 2. Atrial fibrillation. 3. disease. 4. Prostate cancer. 5. Diabetes. MEDICATIONS: IV Zosyn. ALLERGIES: No known drug allergies. SOCIAL HISTORY: No history of alcohol or drug abuse. FAMILY HISTORY: Noncontributory. REVIEW OF SYSTEMS: Limited. He was able to provide information at the time of my exam. PHYSICAL EXAMINATION: VITAL SIGNS: Pulse 83, respiratory rate 18, and blood pressure 101/52. HEENT: Mild pale conjunctivae. No icterus. NECK: No lymphadenopathy. CHEST: Coarse breathing sounds. HEART: S1 and S2. ABDOMEN: Soft. Colostomy present, tender to touch. NEUROLOGIC: Lethargic. SKIN: No rash. LABORATORY AND DIAGNOSTIC DATA: WBC , hemoglobin 8.1, and platelets 65,000. UA is unremarkable. BUN and creatinine 1.9. Liver function is unremarkable. CEA 6.7. Abdominal ultrasound shows cholelithiasis. ASSESSMENT: The patient is a 75-year-old male with multiple medical problems, who underwent colonoscopy and subsequent viscus perforation of the bowel. The patient underwent surgery and colostomy placement. At this time, the patient would benefit with coverage of gram-negatives and anaerobes. due to severe sepsis, which should improve over the next one or two days. PLAN: 1. We will continue the patient on IV Zosyn. 2. Monitor CBC. 3. Monitor BMP. 4. Monitor clinical course. 5. Based on the patient's clinical course and laboratories, we will do further recommendation. Thank you, Dr. Polanco, for allowing me to participate in the care of this patient. I will follow the patient with you during this hospitalization. Jah Kennedy M.D. DR: MEKA JOB#: [id number] CC:
[2016-07-21 09:25] LABS: BAND NEUTROPHILS % (MANUAL) 23 % (0-8); LYMPHOCYTES % (MANUAL) 4 % (20-45); NEUTROPHILS % (MANUAL) 67 % (45-75); TOTAL CELLS COUNTED 100
[2016-07-21 09:26] LABS: ANISOCYTOSIS 1+; BASOPHILS % (MANUAL) 0 % (0-2); EOSINOPHILS % (MANUAL) 0 % (0-3); HYPOCHROMASIA 1+; PLATELET ESTIMATE DECREASED; PLATELET MORPHOLOGY NORMAL; POLYCHROMASIA OCCASIONAL
[2016-07-21] MEDS: Allopurinol 100mg Tab ORAL SCH (09:57)
[2016-07-21] MEDS: Tamsulosin 0.4mg cap ORAL SCH (09:57)
[2016-07-21] MEDS: Pantoprazole Inj IVP SCH ×2 (09:57→21:34)
--- NOTE | 2016-07-21 09:58 | 48 Hour Post Anesthesia Eval ---
Post Anesthesia Evaluation Procedure: Exp. Lap Date of Evaluation: Jul 21, 2016 Time of Evaluation: 09:56 Blood Pressure Systolic: 108 0: 58 Pulse Rate: 87 Respiratory Rate: 20 Temperature (Fahrenheit): 98.7 O2 Sat by Pulse Oximetry: 100 Airway: patent Nausea: No Vomiting: No Pain Intensity: 3 Hydration Status: adequate Cardiopulmonary Status: na Mental Status/LOC: patient returned to baseline Follow-up Care/Observations: na Post-Anesthesia Complications: na Follow-up care needed: N/A LISA TAYLOR M.D. Jul 21, 2016 09:58
--- NOTE | 2016-07-21 10:23 | General Progress Note ---
Progress Note Progress Note Surgery: patient seen and examined at bedside. doing okay. states that he has incisional pain. no n/v/f/c. okay uop. drain output serosang 500cc abdomen soft, non distended, incisional tenderness, ostomy okay colonic perf during colonoscopy s/p ex lap with diverting colostomy (Marlyn's) patient on chronic steroid use and tissues very friable which was noted even during surgery. at risk for wound, healing, and ostomy complications. looks good today but need to monitor closely over the next few days. NPO with IV fluids IV Abx drain care and management ostomy care and management dressing changes as needed will continue to follow. Beto Leon Jul 21, 2016 10:22
--- NOTE | 2016-07-21 10:28 | Pulmonolgy Critical Care Note ---
Critical Care - Asmt/Plan Problems: (1) Colon perforation (2) Acute encephalopathy (3) ATN (acute tubular necrosis) (4) Hematemesis (5) Anemia (6) Colostomy care (7) Thrombocytopenia (8) Amyloidosis Respiratory: monitor respiratory rate, adjust FIO2 Cardiac: continue to monitor HR/BP Renal: F/U I&O, keep IV fluid, other - change to d5w Infectious Disease: check cultures, continue antibiotics Gastrointestinal: hold feedings Endocrine: monitor blood sugar, continue sliding scale insulin Hematologic: monitor H/H, transfuse if hgb<8.5 Neurologic: PRN Ativan, PRN Morphine, keep patient comfortable Prophylaxis: Protonix, Heparin Notes Reviewed: faculty research physician, cardio, renal Discussed with: nurses, consultants, lining casergeothermal production manager - Objective Last 24 Hour Vital Signs Date Time Temp Pulse Resp B/P Pulse Ox O2 Delivery O2 Flow Rate FiO2 07/21/16 09:58 87 20 100 07/21/16 09:00 87 23 108/53 100 Nasal Cannula 3.0 07/21/16 08:00 97.8 87 22 105/53 100 Nasal Cannula 3.0 07/21/16 07:53 100 Nasal Cannula 2.0 28 07/21/16 07:53 Nasal Cannula 3.0 32 07/21/16 07:52 87 20 Nasal Cannula 2.0 28 07/21/16 07:00 89 23 115/59 100 Nasal Cannula 3.0 07/21/16 06:00 84 15 106/48 100 Nasal Cannula 3.0 07/21/16 05:00 97.8 85 19 109/50 100 Nasal Cannula 3.0 07/21/16 04:00 86 15 108/58 100 Nasal Cannula 3.0 07/21/16 04:00 86 07/21/16 03:00 86 13 96/55 100 Nasal Cannula 3.0 07/21/16 02:10 97.8 07/21/16 02:00 88 12 99/61 100 Nasal Cannula 3.0 07/21/16 01:00 88 13 92/55 100 Nasal Cannula 3.0 07/21/16 00:00 97.9 88 12 103/57 100 Nasal Cannula 3.0 07/21/16 00:00 88 07/20/16 23:00 89 12 101/52 100 Nasal Cannula 3.0 07/20/16 22:00 90 12 106/57 100 Nasal Cannula 3.0 07/20/16 21:00 97.8 94 14 106/57 100 Nasal Cannula 3.0 07/20/16 20:00 97 07/20/16 20:00 97.6 93 19 109/53 100 Nasal Cannula 3.0 07/20/16 19:10 97 18 Nasal Cannula 3.0 32 07/20/16 19:09 100 Nasal Cannula 3.0 32 07/20/16 19:09 Nasal Cannula 3.0 32 07/20/16 19:00 96 18 107/49 100 Nasal Cannula 3.0 07/20/16 18:00 95 18 107/49 100 Nasal Cannula 3.0 07/20/16 17:00 95.0 97 16 95/57 100 Nasal Cannula 3.0 07/20/16 16:30 92 07/20/16 16:18 97.0 07/20/16 16:18 97.0 07/20/16 16:00 94.5 92 26 96/57 100 Nasal Cannula 3.0 07/20/16 15:45 97.1 90 17 104/49 98 Nasal Cannula 3.0 07/20/16 15:30 88 20 98/45 96 Nasal Cannula 3.0 07/20/16 15:15 97.8 86 15 102/55 97 Nasal Cannula 3.0 07/20/16 15:04 97.2 07/20/16 15:00 90 17 108/48 99 Simple Mask 6.0 07/20/16 14:45 88 20 110/51 99 Simple Mask 6.0 07/20/16 14:30 90 14 106/54 99 Simple Mask 6.0 07/20/16 14:20 89 17 113/47 99 Simple Mask 6.0 07/20/16 14:10 91 18 112/50 99 Simple Mask 6.0 07/20/16 14:00 97.5 88 20 111/48 95 Simple Mask 6.0 07/20/16 13:53 85 20 99 Status: awake Condition: critical HEENT: atraumatic Lungs: clear Heart: HR/BP stable Abdomen: soft, non-tender Accucheck: 128 Critical Care - Subjective ROS Limited/Unobtainable: Yes ICU Day: 2 Condition: critical EKG Rhythm: Sinus Rhythm FI02: 28 Sputum Amount: None Fluids: d5 1/2 NS + Kcl I&O: Intake and Output 07/20/16 07/21/16 19:00 07:00 Intake Total 277.5 ml 1829.5 ml Output Total 1015 ml 990 ml Balance -737.5 ml 839.5 ml IV Total 277.5 ml 1292.5 ml Blood Product 537 ml Output Urine Total 815 ml 705 ml Drainage Total 200 ml 275 ml Other 10 ml # Bowel Movements 1 CXR: pending Labs: Laboratory Tests Test 07/20/16 14:55 07/20/16 18:00 07/20/16 22:34 07/21/16 05:00 White Blood Count 1.8 K/UL (4.8-10.8) #*L 8.1 K/UL (4.8-10.8) # Red Blood Count 2.69 M/UL (4.70-6.10) L 3.14 M/UL (4.70-6.10) L Hemoglobin 8.1 G/DL (14.2-18.0) L 9.9 G/DL (14.2-18.0) L Hematocrit 26.0 % (42.0-52.0) L 30.0 % (42.0-52.0) L Mean Corpuscular Volume 97 FL (80-99) 95 FL (80-99) Mean Corpuscular Hemoglobin 30.1 PG (27.0-31.0) 31.6 PG (27.0-31.0) H Mean Corpuscular Hemoglobin Concent 31.1 G/DL (32.0-36.0) L 33.1 G/DL (32.0-36.0) Red Cell Distribution Width 15.7 % (11.6-14.8) H 15.6 % (11.6-14.8) H Platelet Count 55 K/UL (150-450) L 61 K/UL (150-450) L Mean Platelet Volume 5.9 FL (6.5-10.1) L 8.1 FL (6.5-10.1) Neutrophils (%) (Auto) % (45.0-75.0) % (45.0-75.0) Lymphocytes (%) (Auto) % (20.0-45.0) % (20.0-45.0) Monocytes (%) (Auto) % (1.0-10.0) % (1.0-10.0) Eosinophils (%) (Auto) % (0.0-3.0) % (0.0-3.0) Basophils (%) (Auto) % (0.0-2.0) % (0.0-2.0) Differential Total Cells Counted 100 100 Neutrophils % (Manual) 70 % (45-75) 67 % (45-75) Lymphocytes % (Manual) 11 % (20-45) L 4 % (20-45) L Monocytes % (Manual) 6 % (1-10) 6 % (1-10) Eosinophils % (Manual) 0 % (0-3) 0 % (0-3) Basophils % (Manual) 0 % (0-2) 0 % (0-2) Band Neutrophils 13 % (0-8) H 23 % (0-8) H Platelet Estimate Decreased L Decreased L Platelet Morphology Normal Normal Polychromasia 1+ Occasional Hypochromasia 1+ 1+ Anisocytosis 1+ 1+ Prothrombin Time 13.5 SEC (9.30-11.50) H Prothromb Time International Ratio 1.3 (0.9-1.1) H Activated Partial Thromboplast Time 28 SEC (23-33) Sodium Level 147 mEQ/L (135-145) H 148 mEQ/L (135-145) H Potassium Level 3.5 mEQ/L (3.4-4.9) 4.7 mEQ/L (3.4-4.9) Chloride Level 111 mEQ/L (98-107) H 113 mEQ/L (98-107) H Carbon Dioxide Level 17 mEQ/L (20-30) L 19 mEQ/L (20-30) L Anion Gap 19 (5-15) H 16 (5-15) H Blood Urea Nitrogen 76 mg/dL (7-23) H 72 mg/dL (7-23) H Creatinine 1.9 mg/dL (0.7-1.2) H 2.2 mg/dL (0.7-1.2) H Estimat Glomerular Filtration Rate mL/min (>60) mL/min (>60) Glucose Level 109 mg/dL (74-106) H 141 mg/dL (74-106) H Calcium Level 6.6 mg/dL (8.6-10.2) #L 6.6 mg/dL (8.6-10.2) L Urine Eosinophils None seen Ionized Calcium (Measured) 0.92 mmol/L (1.10-1.35) L Uric Acid 6.7 mg/dL (3.0-7.5) Phosphorus Level 6.3 mg/dL (2.5-4.8) H Magnesium Level 1.5 mg/dL (1.7-2.5) L Total Bilirubin 1.3 mg/dL (0.0-1.2) H Direct Bilirubin 0.6 mg/dL (0.1-0.3) H Aspartate Amino Transf (AST/SGOT) 37 U/L (5-40) Alanine Aminotransferase (ALT/SGPT) 23 U/L (3-41) Alkaline Phosphatase 38 U/L (40-129) L C-Reactive Protein, Quantitative 7.4 mg/dL (< 0.5) H Pro-B-Type Natriuretic Peptide 2050 pg/mL (0-450) H Total Protein 4.8 g/dL (6.6-8.7) L Albumin 3.1 g/dL (3.5-5.2) L Globulin 1.7 g/dL Albumin/Globulin Ratio 1.8 (1.0-2.7) Test 07/21/16 05:02 Urine Eosinophils None seen ARIS WALSH Jul 21, 2016 10:28
--- NOTE | 2016-07-21 10:59 | GI Progress Note ---
Assessment/Plan Problems: (1) Hypoalbuminemia ICD Codes: E88.09 - Other disorders of plasma-protein metabolism, not elsewhere classified SNOMED: 267639819 (2) Colon perforation ICD Codes: K63.1 - Perforation of intestine (nontraumatic) SNOMED: 37695831 (3) Colostomy care ICD Codes: Z43.3 - Encounter for attention to colostomy SNOMED: 089681165 (4) Anemia ICD Codes: D64.9 - Anemia, unspecified SNOMED: 034730846 (5) Elevated CEA ICD Codes: R97.0 - Elevated carcinoembryonic antigen [CEA] SNOMED: 15819483, 985784142 Status: unchanged Status Narrative Discussed with Dr. Carrington. Assessment/Plan s/p colonoscopy with perf colon, now s/p ex lap with diverting colostomy will follow surgical recs NPO + IVFs colostomy care ppi pain mgmt fu labs The patient was seen and examined at bedside and all new and available data was reviewed in the patients chart. I agree with the above findings, impression and plan. (Patient seen earlier today. Signature stamp does not reflect patient encounter time.). -Ramon Carrington MD Subjective Gastrointestinal/Abdominal: Reports: abdominal pain - s/p ex lap Objective Last 24 Hour Vital Signs Date Time Temp Pulse Resp B/P Pulse Ox O2 Delivery O2 Flow Rate FiO2 07/21/16 09:58 87 20 100 07/21/16 09:00 87 23 108/53 100 Nasal Cannula 3.0 07/21/16 08:00 89 07/21/16 08:00 97.8 87 22 105/53 100 Nasal Cannula 3.0 07/21/16 07:53 100 Nasal Cannula 2.0 28 07/21/16 07:53 Nasal Cannula 3.0 32 07/21/16 07:52 87 20 Nasal Cannula 2.0 28 07/21/16 07:00 89 23 115/59 100 Nasal Cannula 3.0 07/21/16 06:00 84 15 106/48 100 Nasal Cannula 3.0 07/21/16 05:00 97.8 85 19 109/50 100 Nasal Cannula 3.0 07/21/16 04:00 86 15 108/58 100 Nasal Cannula 3.0 07/21/16 04:00 86 07/21/16 03:00 86 13 96/55 100 Nasal Cannula 3.0 07/21/16 02:10 97.8 07/21/16 02:00 88 12 99/61 100 Nasal Cannula 3.0 07/21/16 01:00 88 13 92/55 100 Nasal Cannula 3.0 07/21/16 00:00 97.9 88 12 103/57 100 Nasal Cannula 3.0 07/21/16 00:00 88 07/20/16 23:00 89 12 101/52 100 Nasal Cannula 3.0 07/20/16 22:00 90 12 106/57 100 Nasal Cannula 3.0 07/20/16 21:00 97.8 94 14 106/57 100 Nasal Cannula 3.0 07/20/16 20:00 97 07/20/16 20:00 97.6 93 19 109/53 100 Nasal Cannula 3.0 07/20/16 19:10 97 18 Nasal Cannula 3.0 32 07/20/16 19:09 100 Nasal Cannula 3.0 32 07/20/16 19:09 Nasal Cannula 3.0 32 07/20/16 19:00 96 18 107/49 100 Nasal Cannula 3.0 07/20/16 18:00 95 18 107/49 100 Nasal Cannula 3.0 07/20/16 17:00 95.0 97 16 95/57 100 Nasal Cannula 3.0 07/20/16 16:30 92 07/20/16 16:18 97.0 07/20/16 16:18 97.0 07/20/16 16:00 94.5 92 26 96/57 100 Nasal Cannula 3.0 07/20/16 15:45 97.1 90 17 104/49 98 Nasal Cannula 3.0 07/20/16 15:30 88 20 98/45 96 Nasal Cannula 3.0 07/20/16 15:15 97.8 86 15 102/55 97 Nasal Cannula 3.0 07/20/16 15:04 97.2 07/20/16 15:00 90 17 108/48 99 Simple Mask 6.0 07/20/16 14:45 88 20 110/51 99 Simple Mask 6.0 07/20/16 14:30 90 14 106/54 99 Simple Mask 6.0 07/20/16 14:20 89 17 113/47 99 Simple Mask 6.0 07/20/16 14:10 91 18 112/50 99 Simple Mask 6.0 07/20/16 14:00 97.5 88 20 111/48 95 Simple Mask 6.0 07/20/16 13:53 85 20 99 Intake and Output 07/20/16 07/21/16 19:00 07:00 Intake Total 277.5 ml 1829.5 ml Output Total 1015 ml 990 ml Balance -737.5 ml 839.5 ml IV Total 277.5 ml 1292.5 ml Blood Product 537 ml Output Urine Total 815 ml 705 ml Drainage Total 200 ml 275 ml Other 10 ml # Bowel Movements 1 Laboratory Tests Test 07/20/16 14:55 07/20/16 18:00 07/20/16 22:34 07/21/16 05:00 White Blood Count 1.8 K/UL (4.8-10.8) #*L 8.1 K/UL (4.8-10.8) # Red Blood Count 2.69 M/UL (4.70-6.10) L 3.14 M/UL (4.70-6.10) L Hemoglobin 8.1 G/DL (14.2-18.0) L 9.9 G/DL (14.2-18.0) L Hematocrit 26.0 % (42.0-52.0) L 30.0 % (42.0-52.0) L Mean Corpuscular Volume 97 FL (80-99) 95 FL (80-99) Mean Corpuscular Hemoglobin 30.1 PG (27.0-31.0) 31.6 PG (27.0-31.0) H Mean Corpuscular Hemoglobin Concent 31.1 G/DL (32.0-36.0) L 33.1 G/DL (32.0-36.0) Red Cell Distribution Width 15.7 % (11.6-14.8) H 15.6 % (11.6-14.8) H Platelet Count 55 K/UL (150-450) L 61 K/UL (150-450) L Mean Platelet Volume 5.9 FL (6.5-10.1) L 8.1 FL (6.5-10.1) Neutrophils (%) (Auto) % (45.0-75.0) % (45.0-75.0) Lymphocytes (%) (Auto) % (20.0-45.0) % (20.0-45.0) Monocytes (%) (Auto) % (1.0-10.0) % (1.0-10.0) Eosinophils (%) (Auto) % (0.0-3.0) % (0.0-3.0) Basophils (%) (Auto) % (0.0-2.0) % (0.0-2.0) Differential Total Cells Counted 100 100 Neutrophils % (Manual) 70 % (45-75) 67 % (45-75) Lymphocytes % (Manual) 11 % (20-45) L 4 % (20-45) L Monocytes % (Manual) 6 % (1-10) 6 % (1-10) Eosinophils % (Manual) 0 % (0-3) 0 % (0-3) Basophils % (Manual) 0 % (0-2) 0 % (0-2) Band Neutrophils 13 % (0-8) H 23 % (0-8) H Platelet Estimate Decreased L Decreased L Platelet Morphology Normal Normal Polychromasia 1+ Occasional Hypochromasia 1+ 1+ Anisocytosis 1+ 1+ Prothrombin Time 13.5 SEC (9.30-11.50) H Prothromb Time International Ratio 1.3 (0.9-1.1) H Activated Partial Thromboplast Time 28 SEC (23-33) Sodium Level 147 mEQ/L (135-145) H 148 mEQ/L (135-145) H Potassium Level 3.5 mEQ/L (3.4-4.9) 4.7 mEQ/L (3.4-4.9) Chloride Level 111 mEQ/L (98-107) H 113 mEQ/L (98-107) H Carbon Dioxide Level 17 mEQ/L (20-30) L 19 mEQ/L (20-30) L Anion Gap 19 (5-15) H 16 (5-15) H Blood Urea Nitrogen 76 mg/dL (7-23) H 72 mg/dL (7-23) H Creatinine 1.9 mg/dL (0.7-1.2) H 2.2 mg/dL (0.7-1.2) H Estimat Glomerular Filtration Rate mL/min (>60) mL/min (>60) Glucose Level 109 mg/dL (74-106) H 141 mg/dL (74-106) H Calcium Level 6.6 mg/dL (8.6-10.2) #L 6.6 mg/dL (8.6-10.2) L Urine Eosinophils None seen Ionized Calcium (Measured) 0.92 mmol/L (1.10-1.35) L Uric Acid 6.7 mg/dL (3.0-7.5) Phosphorus Level 6.3 mg/dL (2.5-4.8) H Magnesium Level 1.5 mg/dL (1.7-2.5) L Total Bilirubin 1.3 mg/dL (0.0-1.2) H Direct Bilirubin 0.6 mg/dL (0.1-0.3) H Aspartate Amino Transf (AST/SGOT) 37 U/L (5-40) Alanine Aminotransferase (ALT/SGPT) 23 U/L (3-41) Alkaline Phosphatase 38 U/L (40-129) L C-Reactive Protein, Quantitative 7.4 mg/dL (< 0.5) H Pro-B-Type Natriuretic Peptide 2050 pg/mL (0-450) H Total Protein 4.8 g/dL (6.6-8.7) L Albumin 3.1 g/dL (3.5-5.2) L Globulin 1.7 g/dL Albumin/Globulin Ratio 1.8 (1.0-2.7) Test 07/21/16 05:02 Urine Eosinophils None seen Height (Feet): 6 Height (Inches): 0.00 Weight (Pounds): 170 General Appearance: no apparent distress, alert Cardiovascular: normal rate Respiratory/Chest: normal breath sounds, no respiratory distress Abdominal Exam: other - colostomy/LILIA x 2 Breana Holloway N.PFloyd Jul 21, 2016 10:59 RAMON CARRINGTON Jul 22, 2016 09:45
--- NOTE | 2016-07-21 11:06 | Infectious Diseases Prog Note ---
Assessment/Plan Assessment/Plan A: patient is a 75-year-old male with Intra-abdominal sepsis improving Afebrile colon perf SP colonoscopy Esophagitis. Gastritis, status post biopsy. Duodenal diverticulum. colonic polyp, SP removal Sp Exp lap and colostomy / Atrial fibrillation. Prostate cancer. Diabetes. PLAN: continue the patient on IV Zosyn d# 2 / 7 Monitor CBC. Monitor BMP. Monitor clinical course and V/ s Subjective Constitutional: Denies: anorexia, chills, drenching sweats, fatigue, fever, no symptoms, other Allergies: Coded Allergies: No Known Allergies (Unverified , 07/18/16) Objective Vital Signs Last 24 Hour Vital Signs Date Time Temp Pulse Resp B/P Pulse Ox O2 Delivery O2 Flow Rate FiO2 07/21/16 10:00 91 23 100/48 100 Nasal Cannula 3.0 07/21/16 09:58 87 20 100 07/21/16 09:00 87 23 108/53 100 Nasal Cannula 3.0 07/21/16 08:00 89 07/21/16 08:00 97.8 87 22 105/53 100 Nasal Cannula 3.0 07/21/16 07:53 100 Nasal Cannula 2.0 28 07/21/16 07:53 Nasal Cannula 3.0 32 07/21/16 07:52 87 20 Nasal Cannula 2.0 28 07/21/16 07:00 89 23 115/59 100 Nasal Cannula 3.0 07/21/16 06:00 84 15 106/48 100 Nasal Cannula 3.0 07/21/16 05:00 97.8 85 19 109/50 100 Nasal Cannula 3.0 07/21/16 04:00 86 15 108/58 100 Nasal Cannula 3.0 07/21/16 04:00 86 07/21/16 03:00 86 13 96/55 100 Nasal Cannula 3.0 07/21/16 02:10 97.8 07/21/16 02:00 88 12 99/61 100 Nasal Cannula 3.0 07/21/16 01:00 88 13 92/55 100 Nasal Cannula 3.0 07/21/16 00:00 97.9 88 12 103/57 100 Nasal Cannula 3.0 07/21/16 00:00 88 07/20/16 23:00 89 12 101/52 100 Nasal Cannula 3.0 07/20/16 22:00 90 12 106/57 100 Nasal Cannula 3.0 07/20/16 21:00 97.8 94 14 106/57 100 Nasal Cannula 3.0 07/20/16 20:00 97 07/20/16 20:00 97.6 93 19 109/53 100 Nasal Cannula 3.0 07/20/16 19:10 97 18 Nasal Cannula 3.0 32 07/20/16 19:09 100 Nasal Cannula 3.0 32 07/20/16 19:09 Nasal Cannula 3.0 32 07/20/16 19:00 96 18 107/49 100 Nasal Cannula 3.0 07/20/16 18:00 95 18 107/49 100 Nasal Cannula 3.0 07/20/16 17:00 95.0 97 16 95/57 100 Nasal Cannula 3.0 07/20/16 16:30 92 07/20/16 16:18 97.0 07/20/16 16:18 97.0 07/20/16 16:00 94.5 92 26 96/57 100 Nasal Cannula 3.0 07/20/16 15:45 97.1 90 17 104/49 98 Nasal Cannula 3.0 07/20/16 15:30 88 20 98/45 96 Nasal Cannula 3.0 07/20/16 15:15 97.8 86 15 102/55 97 Nasal Cannula 3.0 07/20/16 15:04 97.2 07/20/16 15:00 90 17 108/48 99 Simple Mask 6.0 07/20/16 14:45 88 20 110/51 99 Simple Mask 6.0 07/20/16 14:30 90 14 106/54 99 Simple Mask 6.0 07/20/16 14:20 89 17 113/47 99 Simple Mask 6.0 07/20/16 14:10 91 18 112/50 99 Simple Mask 6.0 07/20/16 14:00 97.5 88 20 111/48 95 Simple Mask 6.0 07/20/16 13:53 85 20 99 Height (Feet): 6 Height (Inches): 0.00 Weight (Pounds): 170 HEENT: anicteric Respiratory/Chest: lungs clear Cardiovascular: normal rate Abdomen: soft, non tender Laboratory Tests Test 07/20/16 14:55 07/20/16 18:00 07/20/16 22:34 07/21/16 05:00 White Blood Count 1.8 K/UL (4.8-10.8) #*L 8.1 K/UL (4.8-10.8) # Red Blood Count 2.69 M/UL (4.70-6.10) L 3.14 M/UL (4.70-6.10) L Hemoglobin 8.1 G/DL (14.2-18.0) L 9.9 G/DL (14.2-18.0) L Hematocrit 26.0 % (42.0-52.0) L 30.0 % (42.0-52.0) L Mean Corpuscular Volume 97 FL (80-99) 95 FL (80-99) Mean Corpuscular Hemoglobin 30.1 PG (27.0-31.0) 31.6 PG (27.0-31.0) H Mean Corpuscular Hemoglobin Concent 31.1 G/DL (32.0-36.0) L 33.1 G/DL (32.0-36.0) Red Cell Distribution Width 15.7 % (11.6-14.8) H 15.6 % (11.6-14.8) H Platelet Count 55 K/UL (150-450) L 61 K/UL (150-450) L Mean Platelet Volume 5.9 FL (6.5-10.1) L 8.1 FL (6.5-10.1) Neutrophils (%) (Auto) % (45.0-75.0) % (45.0-75.0) Lymphocytes (%) (Auto) % (20.0-45.0) % (20.0-45.0) Monocytes (%) (Auto) % (1.0-10.0) % (1.0-10.0) Eosinophils (%) (Auto) % (0.0-3.0) % (0.0-3.0) Basophils (%) (Auto) % (0.0-2.0) % (0.0-2.0) Differential Total Cells Counted 100 100 Neutrophils % (Manual) 70 % (45-75) 67 % (45-75) Lymphocytes % (Manual) 11 % (20-45) L 4 % (20-45) L Monocytes % (Manual) 6 % (1-10) 6 % (1-10) Eosinophils % (Manual) 0 % (0-3) 0 % (0-3) Basophils % (Manual) 0 % (0-2) 0 % (0-2) Band Neutrophils 13 % (0-8) H 23 % (0-8) H Platelet Estimate Decreased L Decreased L Platelet Morphology Normal Normal Polychromasia 1+ Occasional Hypochromasia 1+ 1+ Anisocytosis 1+ 1+ Prothrombin Time 13.5 SEC (9.30-11.50) H Prothromb Time International Ratio 1.3 (0.9-1.1) H Activated Partial Thromboplast Time 28 SEC (23-33) Sodium Level 147 mEQ/L (135-145) H 148 mEQ/L (135-145) H Potassium Level 3.5 mEQ/L (3.4-4.9) 4.7 mEQ/L (3.4-4.9) Chloride Level 111 mEQ/L (98-107) H 113 mEQ/L (98-107) H Carbon Dioxide Level 17 mEQ/L (20-30) L 19 mEQ/L (20-30) L Anion Gap 19 (5-15) H 16 (5-15) H Blood Urea Nitrogen 76 mg/dL (7-23) H 72 mg/dL (7-23) H Creatinine 1.9 mg/dL (0.7-1.2) H 2.2 mg/dL (0.7-1.2) H Estimat Glomerular Filtration Rate mL/min (>60) mL/min (>60) Glucose Level 109 mg/dL (74-106) H 141 mg/dL (74-106) H Calcium Level 6.6 mg/dL (8.6-10.2) #L 6.6 mg/dL (8.6-10.2) L Urine Eosinophils None seen Ionized Calcium (Measured) 0.92 mmol/L (1.10-1.35) L Uric Acid 6.7 mg/dL (3.0-7.5) Phosphorus Level 6.3 mg/dL (2.5-4.8) H Magnesium Level 1.5 mg/dL (1.7-2.5) L Total Bilirubin 1.3 mg/dL (0.0-1.2) H Direct Bilirubin 0.6 mg/dL (0.1-0.3) H Aspartate Amino Transf (AST/SGOT) 37 U/L (5-40) Alanine Aminotransferase (ALT/SGPT) 23 U/L (3-41) Alkaline Phosphatase 38 U/L (40-129) L C-Reactive Protein, Quantitative 7.4 mg/dL (< 0.5) H Pro-B-Type Natriuretic Peptide 2050 pg/mL (0-450) H Total Protein 4.8 g/dL (6.6-8.7) L Albumin 3.1 g/dL (3.5-5.2) L Globulin 1.7 g/dL Albumin/Globulin Ratio 1.8 (1.0-2.7) Test 07/21/16 05:02 Urine Eosinophils None seen Current Medications Medications (Trade) Dose Ordered Sig/Hemanth Route PRN Reason Start Time Stop Time Status Last Admin Dose Admin Acetaminophen (Tylenol) 650 mg Q6H PRN ORAL Mild Pain (Pain Scale 1-3) 07/20/16 14:15 08/19/16 14:14 Acetaminophen 650 mg 650 mg Q4H PRN ORAL FEVER 07/20/16 14:15 08/19/16 14:14 Albuterol/ Ipratropium (DuoNeb 0.5-3(2.5)mg/3ml) 3 ml Q4H PRN HHN Shortness of Breath 07/18/16 21:00 07/23/16 20:59 Allopurinol (Zyloprim) 100 mg BID ORAL 07/20/16 12:00 08/19/16 11:59 07/21/16 09:57 Clonidine HCl (Catapres) 0.1 mg Q4H PRN ORAL SBP > 160 07/18/16 21:00 08/17/16 20:59 Dextrose 1,000 ml @ 100 mls/hr Q10H IV 07/21/16 10:00 08/20/16 09:59 Dextrose (Dextrose 50%) STAT PRN IV Hypoglycemia 07/18/16 21:00 08/17/16 20:59 Hydrocortisone 50 mg 50 mg EVERY 8 HOURS IV 07/20/16 22:00 08/19/16 21:59 07/21/16 05:57 Hydromorphone HCl (Dilaudid) 1 mg Q3H PRN IVP pain score 4-6 07/20/16 14:15 07/27/16 14:14 07/21/16 10:09 Hydromorphone HCl (Dilaudid) 2 mg Q3H PRN IVP pain score 7-10 07/20/16 14:15 07/27/16 14:14 07/20/16 21:07 Levothyroxine Sodium (Synthroid) 100 mcg ACBREAKFAST ORAL 07/20/16 06:30 08/19/16 06:29 07/21/16 05:57 Lorazepam (Ativan 2mg/ml 1ml) 0.5 mg Q4H PRN IV For Anxiety 07/18/16 21:00 07/25/16 20:59 Magnesium Sulfate (Magnesium Sulfate 1gm/100ml) 100 ml @ 100 mls/hr ONCE ONCE IVPB 07/21/16 11:00 07/21/16 11:59 Nitroglycerin (Ntg) 0.4 mg Q5M X 3 DOSES PRN SL Prn Chest Pain 07/18/16 21:00 08/17/16 20:59 Ondansetron HCl (Zofran) 4 mg Q6H PRN IVP Nausea & Vomiting 07/20/16 14:15 08/19/16 14:14 Pantoprazole (Protonix) 40 mg EVERY 12 HOURS IVP 07/20/16 21:00 08/19/16 20:59 07/21/16 09:57 Piperacillin Sod/ Tazobactam Sod/ Dextrose (Zosyn/D5W) 110 ml @ 27.5 mls/hr Q8HR@0200,1000,1800 IVPB 07/20/16 18:00 07/27/16 17:59 07/21/16 10:26 Tamsulosin HCl (Flomax) 0.4 mg BID ORAL 07/19/16 18:00 08/18/16 17:59 07/21/16 09:57 Temazepam (Restoril) 15 mg HSPRN PRN ORAL Insomnia 07/18/16 21:00 07/25/16 20:59 MANSI PANDEY M.D. Jul 21, 2016 11:06
--- NOTE | 2016-07-21 13:03 | General Progress Note ---
Assessment/Plan Status: stable - from renal stand Assessment/Plan status; 1) Hematemesis (2) ATN (acute tubular necrosis) (3) Anemia (4) History of prostate cancer (5) Dementia (6) Thoracic spine fracture (7) Acute encephalopathy (8) s/p Perf colon- surgery colostomy 07/20 Plan: post op care- Slow hydrate- 2 D echo: Ej Fx 55% Gastric support Pain Mgt monitor renal parameters per orders Subjective ROS Limited/Unobtainable: No Constitutional: Reports: malaise Allergies: Coded Allergies: No Known Allergies (Unverified , 07/18/16) Objective Last 24 Hour Vital Signs Date Time Temp Pulse Resp B/P Pulse Ox O2 Delivery O2 Flow Rate FiO2 07/21/16 12:00 89 07/21/16 12:00 97.7 90 20 104/51 100 Nasal Cannula 3.0 07/21/16 11:00 94 23 104/52 100 Nasal Cannula 3.0 07/21/16 10:39 97.7 07/21/16 10:00 91 23 100/48 100 Nasal Cannula 3.0 07/21/16 09:58 87 20 100 07/21/16 09:00 87 23 108/53 100 Nasal Cannula 3.0 07/21/16 08:00 89 07/21/16 08:00 97.8 87 22 105/53 100 Nasal Cannula 3.0 07/21/16 07:53 100 Nasal Cannula 2.0 28 07/21/16 07:53 Nasal Cannula 3.0 32 07/21/16 07:52 87 20 Nasal Cannula 2.0 28 07/21/16 07:00 89 23 115/59 100 Nasal Cannula 3.0 07/21/16 06:00 84 15 106/48 100 Nasal Cannula 3.0 07/21/16 05:00 97.8 85 19 109/50 100 Nasal Cannula 3.0 07/21/16 04:00 86 15 108/58 100 Nasal Cannula 3.0 07/21/16 04:00 86 07/21/16 03:00 86 13 96/55 100 Nasal Cannula 3.0 07/21/16 02:00 88 12 99/61 100 Nasal Cannula 3.0 07/21/16 01:00 88 13 92/55 100 Nasal Cannula 3.0 07/21/16 00:00 97.9 88 12 103/57 100 Nasal Cannula 3.0 07/21/16 00:00 88 07/20/16 23:00 89 12 101/52 100 Nasal Cannula 3.0 07/20/16 22:00 90 12 106/57 100 Nasal Cannula 3.0 07/20/16 21:00 97.8 94 14 106/57 100 Nasal Cannula 3.0 07/20/16 20:00 97 07/20/16 20:00 97.6 93 19 109/53 100 Nasal Cannula 3.0 07/20/16 19:10 97 18 Nasal Cannula 3.0 32 07/20/16 19:09 100 Nasal Cannula 3.0 32 07/20/16 19:09 Nasal Cannula 3.0 32 07/20/16 19:00 96 18 107/49 100 Nasal Cannula 3.0 07/20/16 18:00 95 18 107/49 100 Nasal Cannula 3.0 07/20/16 17:00 95.0 97 16 95/57 100 Nasal Cannula 3.0 07/20/16 16:30 92 07/20/16 16:18 97.0 07/20/16 16:18 97.0 07/20/16 16:00 94.5 92 26 96/57 100 Nasal Cannula 3.0 07/20/16 15:45 97.1 90 17 104/49 98 Nasal Cannula 3.0 07/20/16 15:30 88 20 98/45 96 Nasal Cannula 3.0 07/20/16 15:15 97.8 86 15 102/55 97 Nasal Cannula 3.0 07/20/16 15:04 97.2 07/20/16 15:00 90 17 108/48 99 Simple Mask 6.0 07/20/16 14:45 88 20 110/51 99 Simple Mask 6.0 07/20/16 14:30 90 14 106/54 99 Simple Mask 6.0 07/20/16 14:20 89 17 113/47 99 Simple Mask 6.0 07/20/16 14:10 91 18 112/50 99 Simple Mask 6.0 07/20/16 14:00 97.5 88 20 111/48 95 Simple Mask 6.0 07/20/16 13:53 85 20 99 Intake and Output 07/20/16 07/21/16 19:00 07:00 Intake Total 277.5 ml 1829.5 ml Output Total 1015 ml 990 ml Balance -737.5 ml 839.5 ml IV Total 277.5 ml 1292.5 ml Blood Product 537 ml Output Urine Total 815 ml 705 ml Drainage Total 200 ml 275 ml Other 10 ml # Bowel Movements 1 Laboratory Tests 07/20/16 14:55: White Blood Count 1.8#*L, Red Blood Count 2.69L, Hemoglobin 8.1L, Hematocrit 26.0L, Mean Corpuscular Volume 97, Mean Corpuscular Hemoglobin 30.1, Mean Corpuscular Hemoglobin Concent 31.1L, Red Cell Distribution Width 15.7H, Platelet Count 55L, Mean Platelet Volume 5.9L, Neutrophils (%) (Auto) , Lymphocytes (%) (Auto) , Monocytes (%) (Auto) , Eosinophils (%) (Auto) , Basophils (%) (Auto) , Differential Total Cells Counted 100, Neutrophils % ( Manual) 70, Lymphocytes % (Manual) 11L, Monocytes % (Manual) 6, Eosinophils % ( Manual) 0, Basophils % (Manual) 0, Band Neutrophils 13H, Platelet Estimate DecreasedL, Platelet Morphology Normal, Polychromasia 1+, Hypochromasia 1+, Anisocytosis 1+, Prothrombin Time 13.5H, Prothromb Time International Ratio 1.3H , Activated Partial Thromboplast Time 28, Sodium Level 147H, Potassium Level 3.5 , Chloride Level 111H, Carbon Dioxide Level 17L, Anion Gap 19H, Blood Urea Nitrogen 76H, Creatinine 1.9H, Estimat Glomerular Filtration Rate , Glucose Level 109H, Calcium Level 6.6#L 07/20/16 18:00: Urine Eosinophils None seen 07/20/16 22:34: Ionized Calcium (Measured) 0.92L 07/21/16 05:00: White Blood Count 8.1#, Red Blood Count 3.14L, Hemoglobin 9.9L, Hematocrit 30.0L , Mean Corpuscular Volume 95, Mean Corpuscular Hemoglobin 31.6H, Mean Corpuscular Hemoglobin Concent 33.1, Red Cell Distribution Width 15.6H, Platelet Count 61L, Mean Platelet Volume 8.1, Neutrophils (%) (Auto) , Lymphocytes (%) (Auto) , Monocytes (%) (Auto) , Eosinophils (%) (Auto) , Basophils (%) (Auto) , Differential Total Cells Counted 100, Neutrophils % ( Manual) 67, Lymphocytes % (Manual) 4L, Monocytes % (Manual) 6, Eosinophils % ( Manual) 0, Basophils % (Manual) 0, Band Neutrophils 23H, Platelet Estimate DecreasedL, Platelet Morphology Normal, Polychromasia Occasional, Hypochromasia 1+, Anisocytosis 1+, Sodium Level 148H, Potassium Level 4.7, Chloride Level 113H , Carbon Dioxide Level 19L, Anion Gap 16H, Blood Urea Nitrogen 72H, Creatinine 2.2H, Estimat Glomerular Filtration Rate , Glucose Level 141H, Calcium Level 6.6L, Uric Acid 6.7, Phosphorus Level 6.3H, Magnesium Level 1.5L, Total Bilirubin 1.3H, Direct Bilirubin 0.6H, Aspartate Amino Transf (AST/SGOT) 37, Alanine Aminotransferase (ALT/SGPT) 23, Alkaline Phosphatase 38L, C-Reactive Protein, Quantitative 7.4H, Pro-B-Type Natriuretic Peptide 2050H, Total Protein 4.8L, Albumin 3.1L, Globulin 1.7, Albumin/Globulin Ratio 1.8 07/21/16 05:02: Urine Eosinophils None seen Height (Feet): 6 Height (Inches): 0.00 Weight (Pounds): 170 General Appearance: no apparent distress, lethargic Cardiovascular: normal rate Respiratory/Chest: decreased breath sounds Abdomen: distended, other - colostomy SHAHEEN WALDROP Jul 21, 2016 13:03
--- NOTE | 2016-07-21 14:49 | Cardiology Report ---
APPROVED REPORT EXAM: Two-dimensional and M-mode echocardiogram with Doppler and color Doppler. INDICATION Left ventricular function M-Mode DIMENSIONS IVSd0.9 (0.7-1.1cm)Left Atrium (MM)3.8 (1.6-4.0cm) LVDd5.8 (3.5-5.6cm)Aortic Root2.0 (2.0-3.7cm) PWd1.2 (0.7-1.1cm)Aortic Cusp Exc.1.8 (1.5-2.0cm) IVSs2.0 cm LVDs3.7 (2.5-4.0cm) PWs1.5 cm Technically difficult study due to poor acoustic windows. Normal left ventricular chamber size, systolic function and wall motion. Left ventricular ejection fraction estimated to be 55-60 %. No evidence of left ventricular hypertrophy. No evidence of pericardial fat or effusion. Right cardiac chamber sizes are within normal limits. Mild left atrial enlargement by 2D. Focal aortic valve sclerosis with adequate cusp excursion Thickened mitral valve leaflets with normal excursion. Mitral annulus and aortic root calcification. Pulmonic valve not well visualized. Normal tricuspid valve structure. IVC is normal in size with physiologic collapse. A color flow and spectral Doppler study was performed and revealed: Mild aortic regurgitation. Mild mitral regurgitation. Left ventricular diastolic dysfunction grade 1. No tricuspid regurgitation. Tricuspid systolic velocities suggests peak right ventricular systolic pressure of 10 mmHg
[2016-07-21] MEDS ORDERED: Tubing IV Secondary IV ONE (16:40)
[2016-07-21] MEDS ORDERED: Tubing Blood Filter IV ONE (16:40)
[2016-07-21] MEDS ORDERED: NS 275ml ONE (16:40)
[2016-07-21] MEDS: Piperacillin/Tazobactam 3.375 GM in NS 110 ML IVPB SCH (18:11)
--- NOTE | 2016-07-21 18:14 | Cardiology Progress Note ---
Assessment/Plan Assessment/Plan 1. Vertigo. 2. Nausea and vomiting secondary to above. 3. Hematemesis. 4. Syncope, possibly vasovagal. 5. Pancytopenia, chronic. 6. T9 compression fracture and T9 spinous process fracture. 7. History of systemic amyloidosis with renal, liver, and pancreatic involvement. 8. Chronic kidney disease stage 4. 9. Cholelithiasis. 10. Systemic hypertension. 11. Hyperlipidemia. 12. Postsurgical hypothyroidism. 13. s/p colonoscopy with perf colon, now s/p ex lap with diverting colostomy events noted he is icu he looks good echo normal lv function he is hemodynamically stable iv abx dvt ppx labs reviwed wbc i s better plat low but stable Subjective Cardiovascular: Denies: chest pain, palpitations Respiratory: Denies: shortness of breath Gastrointestinal/Abdominal: Denies: abdominal pain Genitourinary: Denies: burning Objective Last 24 Hour Vital Signs Date Time Temp Pulse Resp B/P Pulse Ox O2 Delivery O2 Flow Rate FiO2 07/21/16 18:00 92 20 118/46 100 Nasal Cannula 3.0 07/21/16 17:39 97.5 07/21/16 17:00 94 22 99/44 100 Nasal Cannula 3.0 07/21/16 16:02 91 07/21/16 16:01 97.5 92 23 106/50 100 Nasal Cannula 3.0 07/21/16 15:00 93 23 106/45 100 Nasal Cannula 3.0 07/21/16 14:00 89 23 98/51 100 Nasal Cannula 3.0 07/21/16 13:00 91 22 101/49 100 Nasal Cannula 3.0 07/21/16 12:00 89 07/21/16 12:00 97.7 90 20 104/51 100 Nasal Cannula 3.0 07/21/16 11:00 94 23 104/52 100 Nasal Cannula 3.0 07/21/16 10:00 91 23 100/48 100 Nasal Cannula 3.0 07/21/16 09:58 87 20 100 07/21/16 09:00 87 23 108/53 100 Nasal Cannula 3.0 07/21/16 08:00 89 07/21/16 08:00 97.8 87 22 105/53 100 Nasal Cannula 3.0 07/21/16 07:53 100 Nasal Cannula 2.0 28 07/21/16 07:53 Nasal Cannula 3.0 32 07/21/16 07:52 87 20 Nasal Cannula 2.0 28 07/21/16 07:00 89 23 115/59 100 Nasal Cannula 3.0 07/21/16 06:00 84 15 106/48 100 Nasal Cannula 3.0 07/21/16 05:00 97.8 85 19 109/50 100 Nasal Cannula 3.0 07/21/16 04:00 86 15 108/58 100 Nasal Cannula 3.0 07/21/16 04:00 86 07/21/16 03:00 86 13 96/55 100 Nasal Cannula 3.0 07/21/16 02:00 88 12 99/61 100 Nasal Cannula 3.0 07/21/16 01:00 88 13 92/55 100 Nasal Cannula 3.0 07/21/16 00:00 97.9 88 12 103/57 100 Nasal Cannula 3.0 07/21/16 00:00 88 07/20/16 23:00 89 12 101/52 100 Nasal Cannula 3.0 07/20/16 22:00 90 12 106/57 100 Nasal Cannula 3.0 07/20/16 21:00 97.8 94 14 106/57 100 Nasal Cannula 3.0 07/20/16 20:00 97 07/20/16 20:00 97.6 93 19 109/53 100 Nasal Cannula 3.0 07/20/16 19:10 97 18 Nasal Cannula 3.0 32 07/20/16 19:09 100 Nasal Cannula 3.0 32 07/20/16 19:09 Nasal Cannula 3.0 32 07/20/16 19:00 96 18 107/49 100 Nasal Cannula 3.0 General Appearance: alert Neck: supple, no JVD Cardiovascular: normal rate, regular rhythm Respiratory/Chest: lungs clear Abdomen: soft Extremities: non-tender, no swelling, other - penumatic stockign in place Intake and Output 07/20/16 07/21/16 19:00 07:00 Intake Total 277.5 ml 1829.5 ml Output Total 1015 ml 990 ml Balance -737.5 ml 839.5 ml IV Total 277.5 ml 1292.5 ml Blood Product 537 ml Output Urine Total 815 ml 705 ml Drainage Total 200 ml 275 ml Other 10 ml # Bowel Movements 1 Laboratory Tests Test 07/20/16 22:34 07/21/16 05:00 07/21/16 05:02 Ionized Calcium (Measured) 0.92 mmol/L (1.10-1.35) L White Blood Count 8.1 K/UL (4.8-10.8) # Red Blood Count 3.14 M/UL (4.70-6.10) L Hemoglobin 9.9 G/DL (14.2-18.0) L Hematocrit 30.0 % (42.0-52.0) L Mean Corpuscular Volume 95 FL (80-99) Mean Corpuscular Hemoglobin 31.6 PG (27.0-31.0) H Mean Corpuscular Hemoglobin Concent 33.1 G/DL (32.0-36.0) Red Cell Distribution Width 15.6 % (11.6-14.8) H Platelet Count 61 K/UL (150-450) L Mean Platelet Volume 8.1 FL (6.5-10.1) Neutrophils (%) (Auto) % (45.0-75.0) Lymphocytes (%) (Auto) % (20.0-45.0) Monocytes (%) (Auto) % (1.0-10.0) Eosinophils (%) (Auto) % (0.0-3.0) Basophils (%) (Auto) % (0.0-2.0) Differential Total Cells Counted 100 Neutrophils % (Manual) 67 % (45-75) Lymphocytes % (Manual) 4 % (20-45) L Monocytes % (Manual) 6 % (1-10) Eosinophils % (Manual) 0 % (0-3) Basophils % (Manual) 0 % (0-2) Band Neutrophils 23 % (0-8) H Platelet Estimate Decreased L Platelet Morphology Normal Polychromasia Occasional Hypochromasia 1+ Anisocytosis 1+ Sodium Level 148 mEQ/L (135-145) H Potassium Level 4.7 mEQ/L (3.4-4.9) Chloride Level 113 mEQ/L (98-107) H Carbon Dioxide Level 19 mEQ/L (20-30) L Anion Gap 16 (5-15) H Blood Urea Nitrogen 72 mg/dL (7-23) H Creatinine 2.2 mg/dL (0.7-1.2) H Estimat Glomerular Filtration Rate mL/min (>60) Glucose Level 141 mg/dL (74-106) H Uric Acid 6.7 mg/dL (3.0-7.5) Calcium Level 6.6 mg/dL (8.6-10.2) L Phosphorus Level 6.3 mg/dL (2.5-4.8) H Magnesium Level 1.5 mg/dL (1.7-2.5) L Total Bilirubin 1.3 mg/dL (0.0-1.2) H Direct Bilirubin 0.6 mg/dL (0.1-0.3) H Aspartate Amino Transf (AST/SGOT) 37 U/L (5-40) Alanine Aminotransferase (ALT/SGPT) 23 U/L (3-41) Alkaline Phosphatase 38 U/L (40-129) L C-Reactive Protein, Quantitative 7.4 mg/dL (< 0.5) H Pro-B-Type Natriuretic Peptide 2050 pg/mL (0-450) H Total Protein 4.8 g/dL (6.6-8.7) L Albumin 3.1 g/dL (3.5-5.2) L Globulin 1.7 g/dL Albumin/Globulin Ratio 1.8 (1.0-2.7) Urine Eosinophils None seen MIGEL CASTRO Jul 21, 2016 18:14
--- NOTE | 2016-07-21 20:27 | Cardiology Report ---
APPROVED REPORT EKG Measurement Heart [id number] FL [id number] [id number] Sinus rhythm with 1st degree AV block with occasional, and consecutive premature ventricular complexes and premature atrial c Abnormal ECG
[2016-07-22] VITALS (24 sets, daily range): BP systolic 92–126; BP diastolic 42–98
[2016-07-22] MEDS ORDERED: Metoprolol 5mg/5ml Inj IVP PRN ×2 (00:15→04:30)
[2016-07-22] MEDS: Piperacillin/Tazobactam 3.375 GM in NS 110 ML IVPB SCH ×3 (01:45→18:07)
[2016-07-22 05:32] LABS: MEAN CORPUSCULAR HEMOGLOBIN 31.2 PG (27.0-31.0); MEAN CORPUSCULAR VOLUME 95 FL (80-99); PLATELET COUNT 53 K/UL (150-450); RED BLOOD COUNT 2.94 M/UL (4.70-6.10); RED CELL DISTRIBUTION WIDTH 16.3 % (11.6-14.8); WHITE BLOOD COUNT 8.3 K/UL (4.8-10.8)
[2016-07-22] MEDS: Hydrocortisone 100mg Inj IV SCH ×3 (05:56→21:43)
[2016-07-22 05:58] LABS: TROPONIN I < 0.30 ng/mL (<=0.30)
[2016-07-22 05:59] LABS: INR 1.3 (0.9-1.1); PROTHROMBIN TIME 13.4 SEC (9.30-11.50); URIC ACID 5.5 mg/dL (3.0-7.5)
[2016-07-22 06:03] LABS: ALANINE AMINOTRANSFERASE 19 U/L (3-41); ANION GAP 15 (5-15); ASPARTATE AMINO TRANSFERASE 30 U/L (5-40); CALCIUM 6.5 mg/dL (8.6-10.2); CARBON DIOXIDE 20 mEQ/L (20-30); CHLORIDE 110 mEQ/L (98-107); CREATININE 2.2 mg/dL (0.7-1.2); HEMOLYSIS 3; MAGNESIUM 1.8 mg/dL (1.7-2.5); SODIUM 145 mEQ/L (135-145)
[2016-07-22 07:29] LABS: ANISOCYTOSIS 1+; BAND NEUTROPHILS % (MANUAL) 13 % (0-8); BASOPHILS % (MANUAL) 0 % (0-2); EOSINOPHILS % (MANUAL) 0 % (0-3); HYPOCHROMASIA 2+; LYMPHOCYTES % (MANUAL) 2 % (20-45); NEUTROPHILS % (MANUAL) 82 % (45-75); PLATELET ESTIMATE DECREASED; PLATELET MORPHOLOGY NORMAL; TOTAL CELLS COUNTED 100
[2016-07-22] MEDS: Pantoprazole Inj IVP SCH ×2 (09:30→21:20)
--- NOTE | 2016-07-22 10:11 | General Progress Note ---
Assessment/Plan Status: stable Status Narrative remains NPO- Cr unchanged 2.2 Assessment/Plan status; 1) Hematemesis (2) ATN (acute tubular necrosis) (3) Anemia (4) History of prostate cancer (5) Dementia (6) Thoracic spine fracture (7) Acute encephalopathy (8) s/p Perf colon- surgery colostomy 07/20 (9) h/o Amyloidosis on steroids Plan: post op care- Slow hydrate- 2 D echo: Ej Fx 55% Gastric support Pain Mgt monitor renal parameters per orders Subjective ROS Limited/Unobtainable: No Constitutional: Reports: malaise, weakness Allergies: Coded Allergies: No Known Allergies (Unverified , 07/18/16) Objective Last 24 Hour Vital Signs Date Time Temp Pulse Resp B/P Pulse Ox O2 Delivery O2 Flow Rate FiO2 07/22/16 09:00 113 23 114/71 100 Nasal Cannula 3.0 07/22/16 08:26 Nasal Cannula 2.0 07/22/16 08:26 100 Nasal Cannula 2.0 28 07/22/16 08:24 108 20 Nasal Cannula 2.0 07/22/16 08:00 97.9 103 20 101/55 100 Nasal Cannula 2.0 07/22/16 08:00 109 07/22/16 07:00 110 16 105/56 100 Nasal Cannula 3.0 07/22/16 06:00 110 16 92/47 100 Nasal Cannula 3.0 07/22/16 05:00 110 18 92/47 100 Nasal Cannula 3.0 07/22/16 04:36 130 107/53 07/22/16 04:00 98.5 118 21 95/42 100 Nasal Cannula 3.0 07/22/16 04:00 117 07/22/16 03:00 118 19 107/53 100 Nasal Cannula 3.0 07/22/16 02:00 120 13 98/57 100 Nasal Cannula 3.0 07/22/16 01:00 117 20 99/52 100 Nasal Cannula 3.0 07/22/16 00:00 123 07/22/16 00:00 98.1 107 14 93/49 100 Nasal Cannula 3.0 07/21/16 23:00 129 24 101/62 100 Nasal Cannula 3.0 07/21/16 22:00 103 25 100/48 100 Nasal Cannula 3.0 07/21/16 21:00 98.0 106 35 109/50 100 Nasal Cannula 3.0 07/21/16 20:00 96 25 112/44 100 Nasal Cannula 3.0 07/21/16 20:00 94 07/21/16 19:43 98 21 Nasal Cannula 2.0 28 07/21/16 19:43 100 Nasal Cannula 2.0 28 07/21/16 19:43 Nasal Cannula 2.0 28 07/21/16 19:00 92 28 108/50 100 Nasal Cannula 3.0 07/21/16 18:00 92 20 118/46 100 Nasal Cannula 3.0 07/21/16 17:39 97.5 07/21/16 17:00 94 22 99/44 100 Nasal Cannula 3.0 07/21/16 16:02 91 07/21/16 16:01 97.5 92 23 106/50 100 Nasal Cannula 3.0 07/21/16 15:00 93 23 106/45 100 Nasal Cannula 3.0 07/21/16 14:00 89 23 98/51 100 Nasal Cannula 3.0 07/21/16 13:00 91 22 101/49 100 Nasal Cannula 3.0 07/21/16 12:00 89 07/21/16 12:00 97.7 90 20 104/51 100 Nasal Cannula 3.0 07/21/16 11:00 94 23 104/52 100 Nasal Cannula 3.0 Intake and Output 07/21/16 07/22/16 19:00 07:00 Intake Total 1097.5 ml 1265.0 ml Output Total 1615 ml 1700 ml Balance -517.5 ml -435.0 ml Intake Oral 100 ml IV Total 997.5 ml 1265.0 ml Output Urine Total 1160 ml 1515 ml Drainage Total 455 ml 180 ml Other 0 ml 5 ml Laboratory Tests 07/22/16 04:25: White Blood Count 8.3, Red Blood Count 2.94L, Hemoglobin 9.2L, Hematocrit 27.8L , Mean Corpuscular Volume 95, Mean Corpuscular Hemoglobin 31.2H, Mean Corpuscular Hemoglobin Concent 33.0, Red Cell Distribution Width 16.3H, Platelet Count 53L, Mean Platelet Volume 11.0H, Neutrophils (%) (Auto) , Lymphocytes (%) (Auto) , Monocytes (%) (Auto) , Eosinophils (%) (Auto) , Basophils (%) (Auto) , Differential Total Cells Counted 100, Neutrophils % ( Manual) 82H, Lymphocytes % (Manual) 2L, Monocytes % (Manual) 3, Eosinophils % ( Manual) 0, Basophils % (Manual) 0, Band Neutrophils 13H, Platelet Estimate DecreasedL, Platelet Morphology Normal, Hypochromasia 2+, Anisocytosis 1+, Prothrombin Time 13.4H, Prothromb Time International Ratio 1.3H, Activated Partial Thromboplast Time 37H, Urine Eosinophils None seen, Sodium Level 145, Potassium Level 4.0, Chloride Level 110H, Carbon Dioxide Level 20, Anion Gap 15 , Blood Urea Nitrogen 58H, Creatinine 2.2H, Estimat Glomerular Filtration Rate , Glucose Level 128H, Uric Acid 5.5, Calcium Level 6.5L, Phosphorus Level 4.0, Magnesium Level 1.8, Total Bilirubin 0.8, Gamma Glutamyl Transpeptidase 32, Aspartate Amino Transf (AST/SGOT) 30, Alanine Aminotransferase (ALT/SGPT) 19, Alkaline Phosphatase 39L, Total Creatine Kinase 116, Troponin I < 0.30, Pro-B- Type Natriuretic Peptide 3810H, Total Protein 5.0L, Albumin 2.6L, Globulin 2.4, Albumin/Globulin Ratio 1.0 Height (Feet): 6 Height (Inches): 0.00 Weight (Pounds): 170 General Appearance: no apparent distress, lethargic Cardiovascular: tachycardia Respiratory/Chest: decreased breath sounds Abdomen: distended, other - drain with minimal output Edema: no edema noted Arm (L), no edema noted Arm (R), no edema noted Leg (L), no edema noted Leg (R), no edema noted Pedal (L), no edema noted Pedal (R), no edema noted Generalized Objective other PE not changed SHAHEEN WALDROP Jul 22, 2016 10:11
--- NOTE | 2016-07-22 10:23 | GI Progress Note ---
Assessment/Plan Problems: (1) Hypoalbuminemia ICD Codes: E88.09 - Other disorders of plasma-protein metabolism, not elsewhere classified SNOMED: 373705888 (2) Colon perforation ICD Codes: K63.1 - Perforation of intestine (nontraumatic) SNOMED: 16606904 (3) Colostomy care ICD Codes: Z43.3 - Encounter for attention to colostomy SNOMED: 143363828 (4) Anemia ICD Codes: D64.9 - Anemia, unspecified SNOMED: 131927992 (5) Elevated CEA ICD Codes: R97.0 - Elevated carcinoembryonic antigen [CEA] SNOMED: 30854745, 496201881 Status: unchanged Status Narrative Discussed with Dr. Carrington. Assessment/Plan s/p colonoscopy with perf colon, now s/p ex lap with diverting colostomy will follow surgical recs NPO + IVFs colostomy care ppi pain mgmt fu labs Subjective Subjective limited Objective Last 24 Hour Vital Signs Date Time Temp Pulse Resp B/P Pulse Ox O2 Delivery O2 Flow Rate FiO2 07/22/16 10:00 110 24 114/98 100 Nasal Cannula 2.0 07/22/16 09:00 113 23 114/71 100 Nasal Cannula 3.0 07/22/16 08:26 Nasal Cannula 2.0 07/22/16 08:26 100 Nasal Cannula 2.0 28 07/22/16 08:24 108 20 Nasal Cannula 2.0 07/22/16 08:00 97.9 103 20 101/55 100 Nasal Cannula 2.0 07/22/16 08:00 109 07/22/16 07:00 110 16 105/56 100 Nasal Cannula 3.0 07/22/16 06:00 110 16 92/47 100 Nasal Cannula 3.0 07/22/16 05:00 110 18 92/47 100 Nasal Cannula 3.0 07/22/16 04:36 130 107/53 07/22/16 04:00 98.5 118 21 95/42 100 Nasal Cannula 3.0 07/22/16 04:00 117 07/22/16 03:00 118 19 107/53 100 Nasal Cannula 3.0 07/22/16 02:00 120 13 98/57 100 Nasal Cannula 3.0 07/22/16 01:00 117 20 99/52 100 Nasal Cannula 3.0 07/22/16 00:00 123 07/22/16 00:00 98.1 107 14 93/49 100 Nasal Cannula 3.0 07/21/16 23:00 129 24 101/62 100 Nasal Cannula 3.0 07/21/16 22:00 103 25 100/48 100 Nasal Cannula 3.0 07/21/16 21:00 98.0 106 35 109/50 100 Nasal Cannula 3.0 07/21/16 20:00 96 25 112/44 100 Nasal Cannula 3.0 07/21/16 20:00 94 07/21/16 19:43 98 21 Nasal Cannula 2.0 28 07/21/16 19:43 100 Nasal Cannula 2.0 28 07/21/16 19:43 Nasal Cannula 2.0 28 07/21/16 19:00 92 28 108/50 100 Nasal Cannula 3.0 07/21/16 18:00 92 20 118/46 100 Nasal Cannula 3.0 07/21/16 17:39 97.5 07/21/16 17:00 94 22 99/44 100 Nasal Cannula 3.0 07/21/16 16:02 91 07/21/16 16:01 97.5 92 23 106/50 100 Nasal Cannula 3.0 07/21/16 15:00 93 23 106/45 100 Nasal Cannula 3.0 07/21/16 14:00 89 23 98/51 100 Nasal Cannula 3.0 07/21/16 13:00 91 22 101/49 100 Nasal Cannula 3.0 07/21/16 12:00 89 07/21/16 12:00 97.7 90 20 104/51 100 Nasal Cannula 3.0 07/21/16 11:00 94 23 104/52 100 Nasal Cannula 3.0 Intake and Output 07/21/16 07/22/16 19:00 07:00 Intake Total 1097.5 ml 1265.0 ml Output Total 1615 ml 1700 ml Balance -517.5 ml -435.0 ml Intake Oral 100 ml IV Total 997.5 ml 1265.0 ml Output Urine Total 1160 ml 1515 ml Drainage Total 455 ml 180 ml Other 0 ml 5 ml Laboratory Tests Test 07/22/16 04:25 White Blood Count 8.3 K/UL (4.8-10.8) Red Blood Count 2.94 M/UL (4.70-6.10) L Hemoglobin 9.2 G/DL (14.2-18.0) L Hematocrit 27.8 % (42.0-52.0) L Mean Corpuscular Volume 95 FL (80-99) Mean Corpuscular Hemoglobin 31.2 PG (27.0-31.0) H Mean Corpuscular Hemoglobin Concent 33.0 G/DL (32.0-36.0) Red Cell Distribution Width 16.3 % (11.6-14.8) H Platelet Count 53 K/UL (150-450) L Mean Platelet Volume 11.0 FL (6.5-10.1) H Neutrophils (%) (Auto) % (45.0-75.0) Lymphocytes (%) (Auto) % (20.0-45.0) Monocytes (%) (Auto) % (1.0-10.0) Eosinophils (%) (Auto) % (0.0-3.0) Basophils (%) (Auto) % (0.0-2.0) Differential Total Cells Counted 100 Neutrophils % (Manual) 82 % (45-75) H Lymphocytes % (Manual) 2 % (20-45) L Monocytes % (Manual) 3 % (1-10) Eosinophils % (Manual) 0 % (0-3) Basophils % (Manual) 0 % (0-2) Band Neutrophils 13 % (0-8) H Platelet Estimate Decreased L Platelet Morphology Normal Hypochromasia 2+ Anisocytosis 1+ Prothrombin Time 13.4 SEC (9.30-11.50) H Prothromb Time International Ratio 1.3 (0.9-1.1) H Activated Partial Thromboplast Time 37 SEC (23-33) H Urine Eosinophils None seen Sodium Level 145 mEQ/L (135-145) Potassium Level 4.0 mEQ/L (3.4-4.9) Chloride Level 110 mEQ/L (98-107) H Carbon Dioxide Level 20 mEQ/L (20-30) Anion Gap 15 (5-15) Blood Urea Nitrogen 58 mg/dL (7-23) H Creatinine 2.2 mg/dL (0.7-1.2) H Estimat Glomerular Filtration Rate mL/min (>60) Glucose Level 128 mg/dL (74-106) H Uric Acid 5.5 mg/dL (3.0-7.5) Calcium Level 6.5 mg/dL (8.6-10.2) L Phosphorus Level 4.0 mg/dL (2.5-4.8) Magnesium Level 1.8 mg/dL (1.7-2.5) Total Bilirubin 0.8 mg/dL (0.0-1.2) Gamma Glutamyl Transpeptidase 32 U/L (8-61) Aspartate Amino Transf (AST/SGOT) 30 U/L (5-40) Alanine Aminotransferase (ALT/SGPT) 19 U/L (3-41) Alkaline Phosphatase 39 U/L (40-129) L Total Creatine Kinase 116 U/L (38-174) Troponin I < 0.30 ng/mL (<=0.30) Pro-B-Type Natriuretic Peptide 3810 pg/mL (0-450) H Total Protein 5.0 g/dL (6.6-8.7) L Albumin 2.6 g/dL (3.5-5.2) L Globulin 2.4 g/dL Albumin/Globulin Ratio 1.0 (1.0-2.7) Height (Feet): 6 Height (Inches): 0.00 Weight (Pounds): 170 General Appearance: no apparent distress, alert Cardiovascular: normal rate Respiratory/Chest: normal breath sounds, no respiratory distress, other - 2LNC Abdominal Exam: other - colostomy Breana Holloway N.P. Jul 22, 2016 10:23
--- NOTE | 2016-07-22 11:22 | Pulmonolgy Critical Care Note ---
Critical Care - Asmt/Plan Problems: (1) Colon perforation (2) Acute encephalopathy (3) ATN (acute tubular necrosis) (4) Hematemesis (5) Anemia (6) Colostomy care (7) Thrombocytopenia (8) Amyloidosis Respiratory: adjust tidal volume, adjust FIO2 Cardiac: start pressors, stop pressors Renal: F/U I&O, keep IV fluid Infectious Disease: check cultures Gastrointestinal: hold feedings Endocrine: monitor blood sugar, check HgA1C, continue sliding scale insulin Hematologic: transfuse if hgb<8.5 Neurologic: PRN Ativan, PRN Morphine, keep patient comfortable Affect: PRN ativan Disposition: transfer to - telemetry Time Spent (Minutes): 40 Notes 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, 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 Discussed with: nurses, consultants, case management managermanager talent - Objective Last 24 Hour Vital Signs Date Time Temp Pulse Resp B/P Pulse Ox O2 Delivery O2 Flow Rate FiO2 07/22/16 10:00 110 24 114/98 100 Nasal Cannula 2.0 07/22/16 09:00 113 23 114/71 100 Nasal Cannula 3.0 07/22/16 08:26 Nasal Cannula 2.0 07/22/16 08:26 100 Nasal Cannula 2.0 28 07/22/16 08:24 108 20 Nasal Cannula 2.0 07/22/16 08:00 97.9 103 20 101/55 100 Nasal Cannula 2.0 07/22/16 08:00 109 07/22/16 07:00 110 16 105/56 100 Nasal Cannula 3.0 07/22/16 06:00 110 16 92/47 100 Nasal Cannula 3.0 07/22/16 05:00 110 18 92/47 100 Nasal Cannula 3.0 07/22/16 04:36 130 107/53 07/22/16 04:00 98.5 118 21 95/42 100 Nasal Cannula 3.0 07/22/16 04:00 117 07/22/16 03:00 118 19 107/53 100 Nasal Cannula 3.0 07/22/16 02:00 120 13 98/57 100 Nasal Cannula 3.0 07/22/16 01:00 117 20 99/52 100 Nasal Cannula 3.0 07/22/16 00:00 123 07/22/16 00:00 98.1 107 14 93/49 100 Nasal Cannula 3.0 07/21/16 23:00 129 24 101/62 100 Nasal Cannula 3.0 07/21/16 22:00 103 25 100/48 100 Nasal Cannula 3.0 07/21/16 21:00 98.0 106 35 109/50 100 Nasal Cannula 3.0 07/21/16 20:00 96 25 112/44 100 Nasal Cannula 3.0 07/21/16 20:00 94 07/21/16 19:43 98 21 Nasal Cannula 2.0 28 07/21/16 19:43 100 Nasal Cannula 2.0 28 07/21/16 19:43 Nasal Cannula 2.0 28 07/21/16 19:00 92 28 108/50 100 Nasal Cannula 3.0 07/21/16 18:00 92 20 118/46 100 Nasal Cannula 3.0 07/21/16 17:39 97.5 07/21/16 17:00 94 22 99/44 100 Nasal Cannula 3.0 07/21/16 16:02 91 07/21/16 16:01 97.5 92 23 106/50 100 Nasal Cannula 3.0 07/21/16 15:00 93 23 106/45 100 Nasal Cannula 3.0 07/21/16 14:00 89 23 98/51 100 Nasal Cannula 3.0 07/21/16 13:00 91 22 101/49 100 Nasal Cannula 3.0 07/21/16 12:00 89 07/21/16 12:00 97.7 90 20 104/51 100 Nasal Cannula 3.0 Status: awake Condition: grave Lungs: clear Heart: HR/BP unstable Abdomen: non-tender, feeding tube Extremities: no C/C/E Accucheck: 101 Critical Care - Subjective ROS Limited/Unobtainable: No ICU Day: 3 EKG Rhythm: Sinus Rhythm FI02: 28 Sputum Amount: None Fluids: d5 NS 100 cc/hour I&O: Intake and Output 07/21/16 07/22/16 19:00 07:00 Intake Total 1097.5 ml 1265.0 ml Output Total 1615 ml 1700 ml Balance -517.5 ml -435.0 ml Intake Oral 100 ml IV Total 997.5 ml 1265.0 ml Output Urine Total 1160 ml 1515 ml Drainage Total 455 ml 180 ml Other 0 ml 5 ml CXR: no change Labs: Laboratory Tests Test 07/22/16 04:25 White Blood Count 8.3 K/UL (4.8-10.8) Red Blood Count 2.94 M/UL (4.70-6.10) L Hemoglobin 9.2 G/DL (14.2-18.0) L Hematocrit 27.8 % (42.0-52.0) L Mean Corpuscular Volume 95 FL (80-99) Mean Corpuscular Hemoglobin 31.2 PG (27.0-31.0) H Mean Corpuscular Hemoglobin Concent 33.0 G/DL (32.0-36.0) Red Cell Distribution Width 16.3 % (11.6-14.8) H Platelet Count 53 K/UL (150-450) L Mean Platelet Volume 11.0 FL (6.5-10.1) H Neutrophils (%) (Auto) % (45.0-75.0) Lymphocytes (%) (Auto) % (20.0-45.0) Monocytes (%) (Auto) % (1.0-10.0) Eosinophils (%) (Auto) % (0.0-3.0) Basophils (%) (Auto) % (0.0-2.0) Differential Total Cells Counted 100 Neutrophils % (Manual) 82 % (45-75) H Lymphocytes % (Manual) 2 % (20-45) L Monocytes % (Manual) 3 % (1-10) Eosinophils % (Manual) 0 % (0-3) Basophils % (Manual) 0 % (0-2) Band Neutrophils 13 % (0-8) H Platelet Estimate Decreased L Platelet Morphology Normal Hypochromasia 2+ Anisocytosis 1+ Prothrombin Time 13.4 SEC (9.30-11.50) H Prothromb Time International Ratio 1.3 (0.9-1.1) H Activated Partial Thromboplast Time 37 SEC (23-33) H Urine Eosinophils None seen Sodium Level 145 mEQ/L (135-145) Potassium Level 4.0 mEQ/L (3.4-4.9) Chloride Level 110 mEQ/L (98-107) H Carbon Dioxide Level 20 mEQ/L (20-30) Anion Gap 15 (5-15) Blood Urea Nitrogen 58 mg/dL (7-23) H Creatinine 2.2 mg/dL (0.7-1.2) H Estimat Glomerular Filtration Rate mL/min (>60) Glucose Level 128 mg/dL (74-106) H Uric Acid 5.5 mg/dL (3.0-7.5) Calcium Level 6.5 mg/dL (8.6-10.2) L Phosphorus Level 4.0 mg/dL (2.5-4.8) Magnesium Level 1.8 mg/dL (1.7-2.5) Total Bilirubin 0.8 mg/dL (0.0-1.2) Gamma Glutamyl Transpeptidase 32 U/L (8-61) Aspartate Amino Transf (AST/SGOT) 30 U/L (5-40) Alanine Aminotransferase (ALT/SGPT) 19 U/L (3-41) Alkaline Phosphatase 39 U/L (40-129) L Total Creatine Kinase 116 U/L (38-174) Troponin I < 0.30 ng/mL (<=0.30) Pro-B-Type Natriuretic Peptide 3810 pg/mL (0-450) H Total Protein 5.0 g/dL (6.6-8.7) L Albumin 2.6 g/dL (3.5-5.2) L Globulin 2.4 g/dL Albumin/Globulin Ratio 1.0 (1.0-2.7) ARIS WALSH Jul 22, 2016 11:22
[2016-07-22] MEDS: HYDROmorphone 1mg/ml Carpuject IVP PRN (11:25)
--- NOTE | 2016-07-22 11:28 | General Progress Note ---
Progress Note Progress Note Surgery: patient seen and examined at bedside. no acute overnight events. doing relatively better today. no n/v/f/c. pain improved but still present at incision. no flatus or BM in bag yet Labs improved, afebrile, HD stable, exam stable abdomen soft, incisional tenderness, drains serosang, ostomy pink and viable. Plan: start clear liquid diet drain care and management ostomy care and management dressing change to wound prn Rx as written can consider d/c coughlin if he is able to use urinal Beto Leon Jul 22, 2016 11:28
[2016-07-22] MEDS ORDERED: Calcium Gluconate 10% 1 GM in NS 110 ML IVPB ONE (11:30)
--- NOTE | 2016-07-22 12:09 | Diagnostic Imaging Report ---
APPROVED REPORT CPT Code: 98789 Present Symptoms Shortness of breath BILATERAL: Imaging reveals a patent deep venous system bilaterally. There is no evidence of thrombus within the femoral, popliteal or tibial segments. The greater saphenous veins are also within normal limits. Doppler indicates normal spontaneous flow within these segments.
[2016-07-22] MEDS ORDERED: Calcium Gluconate 10% 1 GM in NS 110 ML IVPB SCH (21:00)
[2016-07-23] VITALS (18 sets, daily range): BP systolic 92–133; BP diastolic 54–98
[2016-07-23] MEDS: Piperacillin/Tazobactam 3.375 GM in NS 110 ML IVPB SCH ×3 (02:10→17:25)
[2016-07-23 05:35] LABS: MEAN CORPUSCULAR HEMOGLOBIN 31.5 PG (27.0-31.0); MEAN CORPUSCULAR HGB CONC 33.3 G/DL (32.0-36.0); MEAN CORPUSCULAR VOLUME 95 FL (80-99); PLATELET COUNT 47 K/UL (150-450); RED BLOOD COUNT 2.73 M/UL (4.70-6.10); RED CELL DISTRIBUTION WIDTH 16.6 % (11.6-14.8); WHITE BLOOD COUNT 7.9 K/UL (4.8-10.8)
[2016-07-23] MEDS: Hydrocortisone 100mg Inj IV SCH ×3 (05:49→21:58)
[2016-07-23 05:57] LABS: ALANINE AMINOTRANSFERASE 18 U/L (3-41); ANION GAP 17 (5-15); ASPARTATE AMINO TRANSFERASE 30 U/L (5-40); CALCIUM 7.1 mg/dL (8.6-10.2); CARBON DIOXIDE 21 mEQ/L (20-30); CHLORIDE 104 mEQ/L (98-107); CREATININE 2.1 mg/dL (0.7-1.2); CRP QUANT 26.9 mg/dL (< 0.5); HEMOLYSIS 4; PHOSPHORUS 2.9 mg/dL (2.5-4.8); POTASSIUM 3.3 mEQ/L (3.4-4.9); SODIUM 142 mEQ/L (135-145); URIC ACID 4.9 mg/dL (3.0-7.5)
[2016-07-23] MEDS: HYDROmorphone 1mg/ml Carpuject IVP PRN ×2 (06:37→22:02)
[2016-07-23] MEDS: Pantoprazole Inj IVP SCH ×2 (08:40→21:59)
[2016-07-23] MEDS ORDERED: Calcium Gluconate 10% 1 GM in D5W 110 ML IVPB SCH (09:00)
[2016-07-23] MEDS ORDERED: NS 275ml ONE ×2 (09:29→09:40)
--- NOTE | 2016-07-23 11:12 | Pulmonology Progress Note ---
Assessment/Plan Problems: (1) Colon perforation (2) Hematemesis (3) ATN (acute tubular necrosis) (4) Anemia (5) History of prostate cancer (6) Dementia (7) Thoracic spine fracture (8) Acute encephalopathy Assessment/Plan started clear liquid diet telemetry status IV fluids Iv antibioitcs might need Hd f/u electrolytes watch PLT, Kidney function stable Subjective ROS Limited/Unobtainable: No Interval Events: no new complains Constitutional: Reports: no symptoms Allergies: Coded Allergies: No Known Allergies (Unverified , 07/18/16) Objective Last 24 Hour Vital Signs Date Time Temp Pulse Resp B/P Pulse Ox O2 Delivery O2 Flow Rate FiO2 07/23/16 11:00 100 18 101/77 100 Room Air 07/23/16 10:00 86 21 92/54 99 Room Air 07/23/16 09:00 86 18 123/66 98 Room Air 07/23/16 08:00 93 07/23/16 08:00 98.0 88 20 112/61 97 Room Air 07/23/16 07:00 93 17 111/60 98 Nasal Cannula 2.0 07/23/16 06:00 88 19 120/75 100 Nasal Cannula 2.0 07/23/16 05:00 108 18 111/66 96 Nasal Cannula 2.0 07/23/16 04:00 98.1 105 21 115/56 97 Nasal Cannula 2.0 07/23/16 04:00 95 07/23/16 03:00 99 18 120/98 97 Nasal Cannula 2.0 07/23/16 02:00 84 15 114/68 97 Nasal Cannula 2.0 07/23/16 01:00 96 20 131/68 98 Nasal Cannula 2.0 07/23/16 00:00 66 07/23/16 00:00 98.3 101 25 106/63 98 Nasal Cannula 2.0 07/22/16 23:00 103 18 99/63 97 Nasal Cannula 2.0 07/22/16 22:00 95 17 126/60 98 Nasal Cannula 2.0 07/22/16 21:00 97 17 105/58 98 Nasal Cannula 2.0 07/22/16 20:00 98.2 104 19 113/55 97 Nasal Cannula 2.0 07/22/16 20:00 104 07/22/16 19:17 98 Nasal Cannula 2.0 28 07/22/16 19:17 91 20 Nasal Cannula 2.0 07/22/16 19:17 Nasal Cannula 2.0 07/22/16 19:00 104 23 119/50 97 Nasal Cannula 2.0 07/22/16 18:00 110 25 102/50 99 Nasal Cannula 2.0 07/22/16 17:00 104 20 99/60 100 Nasal Cannula 2.0 07/22/16 16:00 105 07/22/16 16:00 98.9 105 18 118/77 100 Nasal Cannula 2.0 07/22/16 15:00 101 16 93/56 100 Nasal Cannula 2.0 07/22/16 14:00 98 15 98/59 100 Nasal Cannula 2.0 07/22/16 13:00 104 18 93/54 100 Nasal Cannula 2.0 07/22/16 12:00 103 07/22/16 12:00 98.0 103 24 111/73 100 Nasal Cannula 2.0 Intake and Output 07/22/16 07/23/16 19:00 07:00 Intake Total 1570.0 ml 1322.5 ml Output Total 2260 ml 1775 ml Balance -690.0 ml -452.5 ml Intake Oral 220 ml 120 ml IV Total 1350.0 ml 1202.5 ml Output Urine Total 2070 ml 1630 ml Drainage Total 190 ml 130 ml Other 0 ml 15 ml General Appearance: WD/WN HEENT: normocephalic, atraumatic Respiratory/Chest: chest wall non-tender, lungs clear Cardiovascular: normal peripheral pulses, normal rate Abdomen: normal bowel sounds, soft, non tender Genitourinary: normal external genitalia Extremities: no cyanosis Skin: no lesions 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 Lymphatic: no neck adenopathy Laboratory Tests 07/23/16 05:00: White Blood Count 7.9, Red Blood Count 2.73L, Hemoglobin 8.6L, Hematocrit 25.9L , Mean Corpuscular Volume 95, Mean Corpuscular Hemoglobin 31.5H, Mean Corpuscular Hemoglobin Concent 33.3, Red Cell Distribution Width 16.6H, Platelet Count 47L, Mean Platelet Volume 9.0, Neutrophils (%) (Auto) , Lymphocytes (%) (Auto) , Monocytes (%) (Auto) , Eosinophils (%) (Auto) , Basophils (%) (Auto) , Sodium Level 142, Potassium Level 3.3L, Chloride Level 104, Carbon Dioxide Level 21, Anion Gap 17H, Blood Urea Nitrogen 47H, Creatinine 2.1H, Estimat Glomerular Filtration Rate , Glucose Level 99, Uric Acid 4.9, Calcium Level 7.1L, Phosphorus Level 2.9, Magnesium Level 2.0, Total Bilirubin 1.0, Gamma Glutamyl Transpeptidase 33, Aspartate Amino Transf (AST/ SGOT) 30, Alanine Aminotransferase (ALT/SGPT) 18, Alkaline Phosphatase 81, C- Reactive Protein, Quantitative 26.9H, Pro-B-Type Natriuretic Peptide 8071H, Total Protein 5.0L, Albumin 2.6L, Globulin 2.4, Albumin/Globulin Ratio 1.0 Current Medications Medications (Trade) Dose Ordered Sig/Hemanth Route PRN Reason Start Time Stop Time Status Last Admin Dose Admin Acetaminophen (Tylenol) 650 mg Q4H PRN ORAL FEVER 07/20/16 14:15 08/19/16 14:14 Acetaminophen (Tylenol) 650 mg Q6H PRN ORAL Mild Pain (Pain Scale 1-3) 07/20/16 14:15 08/19/16 14:14 Albuterol/ Ipratropium (DuoNeb 0.5-3(2.5)mg/3ml) 3 ml Q4H PRN HHN Shortness of Breath 07/18/16 21:00 07/23/16 20:59 Calcium Gluconate/ Dextrose (Calcium Gluconate 10%/D5W) 120 ml @ 240 mls/hr Q12HR IVPB 07/23/16 09:00 08/22/16 08:59 07/23/16 08:40 Clonidine HCl (Catapres) 0.1 mg Q4H PRN ORAL SBP > 160 07/18/16 21:00 08/17/16 20:59 Dextrose 1,000 ml @ 100 mls/hr Q10H IV 07/21/16 10:00 08/20/16 09:59 07/23/16 02:10 Dextrose (Dextrose 50%) STAT PRN IV Hypoglycemia 07/18/16 21:00 08/17/16 20:59 Hydrocortisone 50 mg 50 mg EVERY 8 HOURS IV 07/20/16 22:00 08/19/16 21:59 07/23/16 05:49 Hydromorphone HCl (Dilaudid) 1 mg Q3H PRN IVP pain score 4-6 07/20/16 14:15 07/27/16 14:14 07/23/16 06:37 Hydromorphone HCl (Dilaudid) 2 mg Q3H PRN IVP pain score 7-10 07/20/16 14:15 07/27/16 14:14 07/21/16 23:31 Lorazepam (Ativan 2mg/ml 1ml) 0.5 mg Q4H PRN IV For Anxiety 07/18/16 21:00 07/25/16 20:59 Metoprolol Tartrate 2.5 mg 2.5 mg Q4H PRN IVP Per rx protocol 07/22/16 04:30 08/21/16 04:29 07/22/16 04:36 Nitroglycerin (Ntg) 0.4 mg Q5M X 3 DOSES PRN SL Prn Chest Pain 07/18/16 21:00 08/17/16 20:59 Ondansetron HCl (Zofran) 4 mg Q6H PRN IVP Nausea & Vomiting 07/20/16 14:15 08/19/16 14:14 Pantoprazole (Protonix) 40 mg EVERY 12 HOURS IVP 07/20/16 21:00 08/19/16 20:59 07/23/16 08:40 Piperacillin Sod/ Tazobactam Sod/ Sodium Chloride (Zosyn/Sodium Chloride) 110 ml @ 27.5 mls/hr Q8HR@0200,1000,1800 IVPB 07/21/16 18:00 07/26/16 17:59 07/23/16 10:02 Temazepam (Restoril) 15 mg HSPRN PRN ORAL Insomnia 07/18/16 21:00 07/25/16 20:59 ARIS WALSH Jul 23, 2016 11:12
[2016-07-23 11:18] LABS: OTHERS PATHOLOGIST COMMENT
--- NOTE | 2016-07-23 11:41 | Infectious Diseases Prog Note ---
Assessment/Plan Assessment/Plan A: patient is a 75-year-old male with Intra-abdominal sepsis improving Afebrile colon perf SP colonoscopy Esophagitis. Gastritis, status post biopsy. Duodenal diverticulum. colonic polyp, SP removal Sp Exp lap and colostomy / Atrial fibrillation. Prostate cancer. Diabetes. PLAN: continue the patient on IV Zosyn d# 4 / 7 Monitor CBC. Monitor BMP. Monitor clinical course and V/ s Subjective Constitutional: Denies: anorexia, chills, drenching sweats, fatigue, fever, no symptoms, other Allergies: Coded Allergies: No Known Allergies (Unverified , 07/18/16) Objective Vital Signs Last 24 Hour Vital Signs Date Time Temp Pulse Resp B/P Pulse Ox O2 Delivery O2 Flow Rate FiO2 07/23/16 11:00 100 18 101/77 100 Room Air 07/23/16 10:00 86 21 92/54 99 Room Air 07/23/16 09:00 86 18 123/66 98 Room Air 07/23/16 08:00 93 07/23/16 08:00 98.0 88 20 112/61 97 Room Air 07/23/16 07:00 93 17 111/60 98 Nasal Cannula 2.0 07/23/16 06:00 88 19 120/75 100 Nasal Cannula 2.0 07/23/16 05:00 108 18 111/66 96 Nasal Cannula 2.0 07/23/16 04:00 98.1 105 21 115/56 97 Nasal Cannula 2.0 07/23/16 04:00 95 07/23/16 03:00 99 18 120/98 97 Nasal Cannula 2.0 07/23/16 02:00 84 15 114/68 97 Nasal Cannula 2.0 07/23/16 01:00 96 20 131/68 98 Nasal Cannula 2.0 07/23/16 00:00 66 07/23/16 00:00 98.3 101 25 106/63 98 Nasal Cannula 2.0 07/22/16 23:00 103 18 99/63 97 Nasal Cannula 2.0 07/22/16 22:00 95 17 126/60 98 Nasal Cannula 2.0 07/22/16 21:00 97 17 105/58 98 Nasal Cannula 2.0 07/22/16 20:00 98.2 104 19 113/55 97 Nasal Cannula 2.0 07/22/16 20:00 104 07/22/16 19:17 98 Nasal Cannula 2.0 28 07/22/16 19:17 91 20 Nasal Cannula 2.0 07/22/16 19:17 Nasal Cannula 2.0 07/22/16 19:00 104 23 119/50 97 Nasal Cannula 2.0 07/22/16 18:00 110 25 102/50 99 Nasal Cannula 2.0 07/22/16 17:00 104 20 99/60 100 Nasal Cannula 2.0 07/22/16 16:00 105 07/22/16 16:00 98.9 105 18 118/77 100 Nasal Cannula 2.0 07/22/16 15:00 101 16 93/56 100 Nasal Cannula 2.0 07/22/16 14:00 98 15 98/59 100 Nasal Cannula 2.0 07/22/16 13:00 104 18 93/54 100 Nasal Cannula 2.0 07/22/16 12:00 103 07/22/16 12:00 98.0 103 24 111/73 100 Nasal Cannula 2.0 Height (Feet): 6 Height (Inches): 0.00 Weight (Pounds): 170 HEENT: atraumatic Respiratory/Chest: lungs clear Cardiovascular: normal rate Abdomen: no organomegaly Laboratory Tests Test 07/23/16 05:00 White Blood Count 7.9 K/UL (4.8-10.8) Red Blood Count 2.73 M/UL (4.70-6.10) L Hemoglobin 8.6 G/DL (14.2-18.0) L Hematocrit 25.9 % (42.0-52.0) L Mean Corpuscular Volume 95 FL (80-99) Mean Corpuscular Hemoglobin 31.5 PG (27.0-31.0) H Mean Corpuscular Hemoglobin Concent 33.3 G/DL (32.0-36.0) Red Cell Distribution Width 16.6 % (11.6-14.8) H Platelet Count 47 K/UL (150-450) L Mean Platelet Volume 9.0 FL (6.5-10.1) Neutrophils (%) (Auto) % (45.0-75.0) Lymphocytes (%) (Auto) % (20.0-45.0) Monocytes (%) (Auto) % (1.0-10.0) Eosinophils (%) (Auto) % (0.0-3.0) Basophils (%) (Auto) % (0.0-2.0) Sodium Level 142 mEQ/L (135-145) Potassium Level 3.3 mEQ/L (3.4-4.9) L Chloride Level 104 mEQ/L (98-107) Carbon Dioxide Level 21 mEQ/L (20-30) Anion Gap 17 (5-15) H Blood Urea Nitrogen 47 mg/dL (7-23) H Creatinine 2.1 mg/dL (0.7-1.2) H Estimat Glomerular Filtration Rate mL/min (>60) Glucose Level 99 mg/dL (74-106) Uric Acid 4.9 mg/dL (3.0-7.5) Calcium Level 7.1 mg/dL (8.6-10.2) L Phosphorus Level 2.9 mg/dL (2.5-4.8) Magnesium Level 2.0 mg/dL (1.7-2.5) Total Bilirubin 1.0 mg/dL (0.0-1.2) Gamma Glutamyl Transpeptidase 33 U/L (8-61) Aspartate Amino Transf (AST/SGOT) 30 U/L (5-40) Alanine Aminotransferase (ALT/SGPT) 18 U/L (3-41) Alkaline Phosphatase 81 U/L (40-129) C-Reactive Protein, Quantitative 26.9 mg/dL (< 0.5) H Pro-B-Type Natriuretic Peptide 8071 pg/mL (0-450) H Total Protein 5.0 g/dL (6.6-8.7) L Albumin 2.6 g/dL (3.5-5.2) L Globulin 2.4 g/dL Albumin/Globulin Ratio 1.0 (1.0-2.7) Current Medications Medications (Trade) Dose Ordered Sig/Hemanth Route PRN Reason Start Time Stop Time Status Last Admin Dose Admin Acetaminophen (Tylenol) 650 mg Q4H PRN ORAL FEVER 07/20/16 14:15 08/19/16 14:14 Acetaminophen (Tylenol) 650 mg Q6H PRN ORAL Mild Pain (Pain Scale 1-3) 07/20/16 14:15 08/19/16 14:14 Albuterol/ Ipratropium (DuoNeb 0.5-3(2.5)mg/3ml) 3 ml Q4H PRN HHN Shortness of Breath 07/18/16 21:00 07/23/16 20:59 Calcium Gluconate 1 gm/Dextrose 120 ml @ 240 mls/hr Q12HR IVPB 07/23/16 09:00 08/22/16 08:59 07/23/16 08:40 Clonidine HCl (Catapres) 0.1 mg Q4H PRN ORAL SBP > 160 07/18/16 21:00 08/17/16 20:59 Dextrose 1,000 ml @ 100 mls/hr Q10H IV 07/21/16 10:00 08/20/16 09:59 07/23/16 02:10 Dextrose (Dextrose 50%) STAT PRN IV Hypoglycemia 07/18/16 21:00 08/17/16 20:59 Hydrocortisone 50 mg 50 mg EVERY 8 HOURS IV 07/20/16 22:00 08/19/16 21:59 07/23/16 05:49 Hydromorphone HCl (Dilaudid) 1 mg Q3H PRN IVP pain score 4-6 07/20/16 14:15 07/27/16 14:14 07/23/16 06:37 Hydromorphone HCl (Dilaudid) 2 mg Q3H PRN IVP pain score 7-10 07/20/16 14:15 07/27/16 14:14 07/21/16 23:31 Lorazepam (Ativan 2mg/ml 1ml) 0.5 mg Q4H PRN IV For Anxiety 07/18/16 21:00 07/25/16 20:59 Metoprolol Tartrate 2.5 mg 2.5 mg Q4H PRN IVP Per rx protocol 07/22/16 04:30 08/21/16 04:29 07/22/16 04:36 Nitroglycerin (Ntg) 0.4 mg Q5M X 3 DOSES PRN SL Prn Chest Pain 07/18/16 21:00 08/17/16 20:59 Ondansetron HCl (Zofran) 4 mg Q6H PRN IVP Nausea & Vomiting 07/20/16 14:15 08/19/16 14:14 Pantoprazole (Protonix) 40 mg EVERY 12 HOURS IVP 07/20/16 21:00 08/19/16 20:59 07/23/16 08:40 Piperacillin Sod/ Tazobactam Sod/ Sodium Chloride (Zosyn/Sodium Chloride) 110 ml @ 27.5 mls/hr Q8HR@0200,1000,1800 IVPB 07/21/16 18:00 07/26/16 17:59 07/23/16 10:02 Potassium Chloride (KCl 10mEq/100ml Premix) 100 ml @ 100 mls/hr ONCE ONCE IV 07/23/16 12:00 07/23/16 12:59 Temazepam (Restoril) 15 mg HSPRN PRN ORAL Insomnia 07/18/16 21:00 07/25/16 20:59 MANSI PANDEY M.D. Jul 23, 2016 11:41
--- NOTE | 2016-07-23 13:47 | General Surgery Progress Note ---
General Surgery-Progress Note Subjective Symptoms: improved Objective Last 24 Hour Vital Signs Date Time Temp Pulse Resp B/P Pulse Ox O2 Delivery O2 Flow Rate FiO2 07/23/16 13:00 99 19 119/55 100 Room Air 07/23/16 12:00 98.2 92 26 133/78 99 Room Air 07/23/16 12:00 97 07/23/16 11:00 100 18 101/77 100 Room Air 07/23/16 10:00 86 21 92/54 99 Room Air 07/23/16 09:00 86 18 123/66 98 Room Air 07/23/16 08:00 93 07/23/16 08:00 98.0 88 20 112/61 97 Room Air 07/23/16 07:00 93 17 111/60 98 Nasal Cannula 2.0 07/23/16 06:00 88 19 120/75 100 Nasal Cannula 2.0 07/23/16 05:00 108 18 111/66 96 Nasal Cannula 2.0 07/23/16 04:00 98.1 105 21 115/56 97 Nasal Cannula 2.0 07/23/16 04:00 95 07/23/16 03:00 99 18 120/98 97 Nasal Cannula 2.0 07/23/16 02:00 84 15 114/68 97 Nasal Cannula 2.0 07/23/16 01:00 96 20 131/68 98 Nasal Cannula 2.0 07/23/16 00:00 66 07/23/16 00:00 98.3 101 25 106/63 98 Nasal Cannula 2.0 07/22/16 23:00 103 18 99/63 97 Nasal Cannula 2.0 07/22/16 22:00 95 17 126/60 98 Nasal Cannula 2.0 07/22/16 21:00 97 17 105/58 98 Nasal Cannula 2.0 07/22/16 20:00 98.2 104 19 113/55 97 Nasal Cannula 2.0 07/22/16 20:00 104 07/22/16 19:17 98 Nasal Cannula 2.0 28 07/22/16 19:17 91 20 Nasal Cannula 2.0 07/22/16 19:17 Nasal Cannula 2.0 07/22/16 19:00 104 23 119/50 97 Nasal Cannula 2.0 07/22/16 18:00 110 25 102/50 99 Nasal Cannula 2.0 07/22/16 17:00 104 20 99/60 100 Nasal Cannula 2.0 07/22/16 16:00 105 07/22/16 16:00 98.9 105 18 118/77 100 Nasal Cannula 2.0 07/22/16 15:00 101 16 93/56 100 Nasal Cannula 2.0 07/22/16 14:00 98 15 98/59 100 Nasal Cannula 2.0 I&O Intake and Output 07/22/16 07/23/16 19:00 07:00 Intake Total 1570.0 ml 1322.5 ml Output Total 2260 ml 1775 ml Balance -690.0 ml -452.5 ml Intake Oral 220 ml 120 ml IV Total 1350.0 ml 1202.5 ml Output Urine Total 2070 ml 1630 ml Drainage Total 190 ml 130 ml Other 0 ml 15 ml Dressing: dry Wound: clean Drains: anamaria - serosanguinous drainage from Anamaria drains 40 ml and 15 ml Cardiovascular: RSR Respiratory: clear Abdomen: soft Extremities: no edema Laboratory Tests Test 07/23/16 05:00 White Blood Count 7.9 K/UL (4.8-10.8) Red Blood Count 2.73 M/UL (4.70-6.10) L Hemoglobin 8.6 G/DL (14.2-18.0) L Hematocrit 25.9 % (42.0-52.0) L Mean Corpuscular Volume 95 FL (80-99) Mean Corpuscular Hemoglobin 31.5 PG (27.0-31.0) H Mean Corpuscular Hemoglobin Concent 33.3 G/DL (32.0-36.0) Red Cell Distribution Width 16.6 % (11.6-14.8) H Platelet Count 47 K/UL (150-450) L Mean Platelet Volume 9.0 FL (6.5-10.1) Neutrophils (%) (Auto) % (45.0-75.0) Lymphocytes (%) (Auto) % (20.0-45.0) Monocytes (%) (Auto) % (1.0-10.0) Eosinophils (%) (Auto) % (0.0-3.0) Basophils (%) (Auto) % (0.0-2.0) Sodium Level 142 mEQ/L (135-145) Potassium Level 3.3 mEQ/L (3.4-4.9) L Chloride Level 104 mEQ/L (98-107) Carbon Dioxide Level 21 mEQ/L (20-30) Anion Gap 17 (5-15) H Blood Urea Nitrogen 47 mg/dL (7-23) H Creatinine 2.1 mg/dL (0.7-1.2) H Estimat Glomerular Filtration Rate mL/min (>60) Glucose Level 99 mg/dL (74-106) Uric Acid 4.9 mg/dL (3.0-7.5) Calcium Level 7.1 mg/dL (8.6-10.2) L Phosphorus Level 2.9 mg/dL (2.5-4.8) Magnesium Level 2.0 mg/dL (1.7-2.5) Total Bilirubin 1.0 mg/dL (0.0-1.2) Gamma Glutamyl Transpeptidase 33 U/L (8-61) Aspartate Amino Transf (AST/SGOT) 30 U/L (5-40) Alanine Aminotransferase (ALT/SGPT) 18 U/L (3-41) Alkaline Phosphatase 81 U/L (40-129) C-Reactive Protein, Quantitative 26.9 mg/dL (< 0.5) H Pro-B-Type Natriuretic Peptide 8071 pg/mL (0-450) H Total Protein 5.0 g/dL (6.6-8.7) L Albumin 2.6 g/dL (3.5-5.2) L Globulin 2.4 g/dL Albumin/Globulin Ratio 1.0 (1.0-2.7) Additional Comments Pt has some element of thrombocytopenia to 47K, no signs of active bleeding, colostomy is pink Assessment Post-op Diagnosis Amyloidosis, on cortico-steroids, colon perforation Plan Additional Comments Will continue on full liquid diet, will monitor CBC in view of thrombocytopenia Frank Moura MD Jul 23, 2016 13:47
[2016-07-23] MEDS ORDERED: Nitroglycerin Subl 0.4mg tab (Bottle Of 25) SL PRN (15:00)
--- NOTE | 2016-07-23 15:28 | General Progress Note ---
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 Plan: Out of ICU now PO K supplement post op care- Slow hydrate- 2 D echo: Ej Fx 55% Gastric support Pain Mgt monitor renal parameters per orders Subjective ROS Limited/Unobtainable: No Allergies: Coded Allergies: No Known Allergies (Unverified , 07/18/16) Objective Last 24 Hour Vital Signs Date Time Temp Pulse Resp B/P Pulse Ox O2 Delivery O2 Flow Rate FiO2 07/23/16 14:43 96.4 94 20 126/67 98 Room Air 07/23/16 14:00 92 25 125/94 95 Room Air 07/23/16 13:00 99 19 119/55 100 Room Air 07/23/16 12:00 98.2 92 26 133/78 99 Room Air 07/23/16 12:00 97 07/23/16 11:00 100 18 101/77 100 Room Air 07/23/16 10:00 86 21 92/54 99 Room Air 07/23/16 09:00 86 18 123/66 98 Room Air 07/23/16 08:00 93 07/23/16 08:00 98.0 88 20 112/61 97 Room Air 07/23/16 07:00 93 17 111/60 98 Nasal Cannula 2.0 07/23/16 06:00 88 19 120/75 100 Nasal Cannula 2.0 07/23/16 05:00 108 18 111/66 96 Nasal Cannula 2.0 07/23/16 04:00 98.1 105 21 115/56 97 Nasal Cannula 2.0 07/23/16 04:00 95 07/23/16 03:00 99 18 120/98 97 Nasal Cannula 2.0 07/23/16 02:00 84 15 114/68 97 Nasal Cannula 2.0 07/23/16 01:00 96 20 131/68 98 Nasal Cannula 2.0 07/23/16 00:00 66 07/23/16 00:00 98.3 101 25 106/63 98 Nasal Cannula 2.0 07/22/16 23:00 103 18 99/63 97 Nasal Cannula 2.0 07/22/16 22:00 95 17 126/60 98 Nasal Cannula 2.0 07/22/16 21:00 97 17 105/58 98 Nasal Cannula 2.0 07/22/16 20:00 98.2 104 19 113/55 97 Nasal Cannula 2.0 07/22/16 20:00 104 07/22/16 19:17 98 Nasal Cannula 2.0 28 07/22/16 19:17 91 20 Nasal Cannula 2.0 07/22/16 19:17 Nasal Cannula 2.0 07/22/16 19:00 104 23 119/50 97 Nasal Cannula 2.0 07/22/16 18:00 110 25 102/50 99 Nasal Cannula 2.0 07/22/16 17:00 104 20 99/60 100 Nasal Cannula 2.0 07/22/16 16:00 105 07/22/16 16:00 98.9 105 18 118/77 100 Nasal Cannula 2.0 Intake and Output 07/22/16 07/23/16 19:00 07:00 Intake Total 1570.0 ml 1322.5 ml Output Total 2260 ml 1775 ml Balance -690.0 ml -452.5 ml Intake Oral 220 ml 120 ml IV Total 1350.0 ml 1202.5 ml Output Urine Total 2070 ml 1630 ml Drainage Total 190 ml 130 ml Other 0 ml 15 ml Laboratory Tests 07/23/16 05:00: White Blood Count 7.9, Red Blood Count 2.73L, Hemoglobin 8.6L, Hematocrit 25.9L , Mean Corpuscular Volume 95, Mean Corpuscular Hemoglobin 31.5H, Mean Corpuscular Hemoglobin Concent 33.3, Red Cell Distribution Width 16.6H, Platelet Count 47L, Mean Platelet Volume 9.0, Neutrophils (%) (Auto) , Lymphocytes (%) (Auto) , Monocytes (%) (Auto) , Eosinophils (%) (Auto) , Basophils (%) (Auto) , Sodium Level 142, Potassium Level 3.3L, Chloride Level 104, Carbon Dioxide Level 21, Anion Gap 17H, Blood Urea Nitrogen 47H, Creatinine 2.1H, Estimat Glomerular Filtration Rate , Glucose Level 99, Uric Acid 4.9, Calcium Level 7.1L, Phosphorus Level 2.9, Magnesium Level 2.0, Total Bilirubin 1.0, Gamma Glutamyl Transpeptidase 33, Aspartate Amino Transf (AST/ SGOT) 30, Alanine Aminotransferase (ALT/SGPT) 18, Alkaline Phosphatase 81, C- Reactive Protein, Quantitative 26.9H, Pro-B-Type Natriuretic Peptide 8071H, Total Protein 5.0L, Albumin 2.6L, Globulin 2.4, Albumin/Globulin Ratio 1.0 Height (Feet): 6 Height (Inches): 0.00 Weight (Pounds): 170 General Appearance: no apparent distress Objective other PE not changed SHAHEEN WALDROP Jul 23, 2016 15:28
[2016-07-23] MEDS ORDERED: LORazepam Inj 2mg/ml 1ml IV PRN (15:30)
[2016-07-23] MEDS ORDERED: Metoprolol 5mg/5ml Inj IVP PRN (15:30)
[2016-07-23] MEDS ORDERED: DuoNeb 0.5-3(2.5)mg/3ml neb HHN PRN (15:30)
[2016-07-23] MEDS ORDERED: KCl 10% 40mEq/30ml liquid ORAL ONE (16:00)
--- NOTE | 2016-07-23 16:14 | General Progress Note ---
Assessment/Plan Assessment/Plan Assessment/Plan Problems: (1) Hypoalbuminemia ICD Codes: E88.09 - Other disorders of plasma-protein metabolism, not elsewhere classified SNOMED: 369622689 (2) Colon perforation ICD Codes: K63.1 - Perforation of intestine (nontraumatic) SNOMED: 80956829 (3) Colostomy care ICD Codes: Z43.3 - Encounter for attention to colostomy SNOMED: 638238063 (4) Anemia ICD Codes: D64.9 - Anemia, unspecified SNOMED: 053318601 (5) Elevated CEA ICD Codes: R97.0 - Elevated carcinoembryonic antigen [CEA] SNOMED: 01697593, 190966491 (6) Azotemia Assessment/Plan s/p colonoscopy with perf colon, now s/p ex lap with diverting colostomy will follow surgical recs IVFs - diet per surgery colostomy care ppi pain mgmt fu labs Subjective Allergies: Coded Allergies: No Known Allergies (Unverified , 07/18/16) Subjective Feels OK transferred out of ICU today d/w RN Objective Last 24 Hour Vital Signs Date Time Temp Pulse Resp B/P Pulse Ox O2 Delivery O2 Flow Rate FiO2 07/23/16 14:43 96.4 94 20 126/67 98 Room Air 07/23/16 14:00 92 25 125/94 95 Room Air 07/23/16 13:00 99 19 119/55 100 Room Air 07/23/16 12:00 98.2 92 26 133/78 99 Room Air 07/23/16 12:00 97 07/23/16 11:00 100 18 101/77 100 Room Air 07/23/16 10:00 86 21 92/54 99 Room Air 07/23/16 09:00 86 18 123/66 98 Room Air 07/23/16 08:00 93 07/23/16 08:00 98.0 88 20 112/61 97 Room Air 07/23/16 07:00 93 17 111/60 98 Nasal Cannula 2.0 07/23/16 06:00 88 19 120/75 100 Nasal Cannula 2.0 07/23/16 05:00 108 18 111/66 96 Nasal Cannula 2.0 07/23/16 04:00 98.1 105 21 115/56 97 Nasal Cannula 2.0 07/23/16 04:00 95 07/23/16 03:00 99 18 120/98 97 Nasal Cannula 2.0 07/23/16 02:00 84 15 114/68 97 Nasal Cannula 2.0 07/23/16 01:00 96 20 131/68 98 Nasal Cannula 2.0 07/23/16 00:00 66 07/23/16 00:00 98.3 101 25 106/63 98 Nasal Cannula 2.0 07/22/16 23:00 103 18 99/63 97 Nasal Cannula 2.0 07/22/16 22:00 95 17 126/60 98 Nasal Cannula 2.0 07/22/16 21:00 97 17 105/58 98 Nasal Cannula 2.0 07/22/16 20:00 98.2 104 19 113/55 97 Nasal Cannula 2.0 07/22/16 20:00 104 07/22/16 19:17 98 Nasal Cannula 2.0 28 07/22/16 19:17 91 20 Nasal Cannula 2.0 07/22/16 19:17 Nasal Cannula 2.0 07/22/16 19:00 104 23 119/50 97 Nasal Cannula 2.0 07/22/16 18:00 110 25 102/50 99 Nasal Cannula 2.0 07/22/16 17:00 104 20 99/60 100 Nasal Cannula 2.0 Intake and Output 07/22/16 07/23/16 19:00 07:00 Intake Total 1570.0 ml 1322.5 ml Output Total 2260 ml 1775 ml Balance -690.0 ml -452.5 ml Intake Oral 220 ml 120 ml IV Total 1350.0 ml 1202.5 ml Output Urine Total 2070 ml 1630 ml Drainage Total 190 ml 130 ml Other 0 ml 15 ml Laboratory Tests 07/23/16 05:00: White Blood Count 7.9, Red Blood Count 2.73L, Hemoglobin 8.6L, Hematocrit 25.9L , Mean Corpuscular Volume 95, Mean Corpuscular Hemoglobin 31.5H, Mean Corpuscular Hemoglobin Concent 33.3, Red Cell Distribution Width 16.6H, Platelet Count 47L, Mean Platelet Volume 9.0, Neutrophils (%) (Auto) , Lymphocytes (%) (Auto) , Monocytes (%) (Auto) , Eosinophils (%) (Auto) , Basophils (%) (Auto) , Sodium Level 142, Potassium Level 3.3L, Chloride Level 104, Carbon Dioxide Level 21, Anion Gap 17H, Blood Urea Nitrogen 47H, Creatinine 2.1H, Estimat Glomerular Filtration Rate , Glucose Level 99, Uric Acid 4.9, Calcium Level 7.1L, Phosphorus Level 2.9, Magnesium Level 2.0, Total Bilirubin 1.0, Gamma Glutamyl Transpeptidase 33, Aspartate Amino Transf (AST/ SGOT) 30, Alanine Aminotransferase (ALT/SGPT) 18, Alkaline Phosphatase 81, C- Reactive Protein, Quantitative 26.9H, Pro-B-Type Natriuretic Peptide 8071H, Total Protein 5.0L, Albumin 2.6L, Globulin 2.4, Albumin/Globulin Ratio 1.0 Height (Feet): 6 Height (Inches): 0.00 Weight (Pounds): 170 Objective Elderly WM NCAT supple CTA RRR Soft Flat , midline wound OK, Ostomy with scant stool , LILIA x 2 with pink fluid no edema KANDY BUTLER Jul 23, 2016 16:14
[2016-07-23] MEDS ORDERED: Tubing IV Secondary IV ONE (17:32)
--- NOTE | 2016-07-23 20:42 | Cardiology Progress Note ---
Assessment/Plan Assessment/Plan no changes from cardiac standpoint arrhythmia unchanged Subjective Subjective the patient does not have new complaints, doing OK no dyspnea or chest pain Objective Last 24 Hour Vital Signs Date Time Temp Pulse Resp B/P Pulse Ox O2 Delivery O2 Flow Rate FiO2 07/23/16 16:00 87 07/23/16 16:00 97.3 75 21 124/66 96 Room Air 07/23/16 14:43 96.4 94 20 126/67 98 Room Air 07/23/16 14:00 92 25 125/94 95 Room Air 07/23/16 13:00 99 19 119/55 100 Room Air 07/23/16 12:00 98.2 92 26 133/78 99 Room Air 07/23/16 12:00 97 07/23/16 11:00 100 18 101/77 100 Room Air 07/23/16 10:00 86 21 92/54 99 Room Air 07/23/16 09:00 86 18 123/66 98 Room Air 07/23/16 08:00 93 07/23/16 08:00 98.0 88 20 112/61 97 Room Air 07/23/16 07:00 93 17 111/60 98 Nasal Cannula 2.0 07/23/16 06:00 88 19 120/75 100 Nasal Cannula 2.0 07/23/16 05:00 108 18 111/66 96 Nasal Cannula 2.0 07/23/16 04:00 98.1 105 21 115/56 97 Nasal Cannula 2.0 07/23/16 04:00 95 07/23/16 03:00 99 18 120/98 97 Nasal Cannula 2.0 07/23/16 02:00 84 15 114/68 97 Nasal Cannula 2.0 07/23/16 01:00 96 20 131/68 98 Nasal Cannula 2.0 07/23/16 00:00 66 07/23/16 00:00 98.3 101 25 106/63 98 Nasal Cannula 2.0 07/22/16 23:00 103 18 99/63 97 Nasal Cannula 2.0 07/22/16 22:00 95 17 126/60 98 Nasal Cannula 2.0 07/22/16 21:00 97 17 105/58 98 Nasal Cannula 2.0 General Appearance: no apparent distress EENT: PERRL/EOMI Neck: no JVD Rhythm: PACs Cardiovascular: regularly irregular Respiratory/Chest: crackles/rales Abdomen: soft, other - colostomy Extremities: normal range of motion Intake and Output 07/22/16 07/23/16 19:00 07:00 Intake Total 1570.0 ml 1322.5 ml Output Total 2260 ml 1775 ml Balance -690.0 ml -452.5 ml Intake Oral 220 ml 120 ml IV Total 1350.0 ml 1202.5 ml Output Urine Total 2070 ml 1630 ml Drainage Total 190 ml 130 ml Other 0 ml 15 ml Laboratory Tests Test 07/23/16 05:00 White Blood Count 7.9 K/UL (4.8-10.8) Red Blood Count 2.73 M/UL (4.70-6.10) L Hemoglobin 8.6 G/DL (14.2-18.0) L Hematocrit 25.9 % (42.0-52.0) L Mean Corpuscular Volume 95 FL (80-99) Mean Corpuscular Hemoglobin 31.5 PG (27.0-31.0) H Mean Corpuscular Hemoglobin Concent 33.3 G/DL (32.0-36.0) Red Cell Distribution Width 16.6 % (11.6-14.8) H Platelet Count 47 K/UL (150-450) L Mean Platelet Volume 9.0 FL (6.5-10.1) Neutrophils (%) (Auto) % (45.0-75.0) Lymphocytes (%) (Auto) % (20.0-45.0) Monocytes (%) (Auto) % (1.0-10.0) Eosinophils (%) (Auto) % (0.0-3.0) Basophils (%) (Auto) % (0.0-2.0) Sodium Level 142 mEQ/L (135-145) Potassium Level 3.3 mEQ/L (3.4-4.9) L Chloride Level 104 mEQ/L (98-107) Carbon Dioxide Level 21 mEQ/L (20-30) Anion Gap 17 (5-15) H Blood Urea Nitrogen 47 mg/dL (7-23) H Creatinine 2.1 mg/dL (0.7-1.2) H Estimat Glomerular Filtration Rate mL/min (>60) Glucose Level 99 mg/dL (74-106) Uric Acid 4.9 mg/dL (3.0-7.5) Calcium Level 7.1 mg/dL (8.6-10.2) L Phosphorus Level 2.9 mg/dL (2.5-4.8) Magnesium Level 2.0 mg/dL (1.7-2.5) Total Bilirubin 1.0 mg/dL (0.0-1.2) Gamma Glutamyl Transpeptidase 33 U/L (8-61) Aspartate Amino Transf (AST/SGOT) 30 U/L (5-40) Alanine Aminotransferase (ALT/SGPT) 18 U/L (3-41) Alkaline Phosphatase 81 U/L (40-129) C-Reactive Protein, Quantitative 26.9 mg/dL (< 0.5) H Pro-B-Type Natriuretic Peptide 8071 pg/mL (0-450) H Total Protein 5.0 g/dL (6.6-8.7) L Albumin 2.6 g/dL (3.5-5.2) L Globulin 2.4 g/dL Albumin/Globulin Ratio 1.0 (1.0-2.7) JLUIS JOSE Jul 23, 2016 20:42
[2016-07-23] MEDS: Calcium Gluconate 10% 1 GM in D5W 110 ML IVPB SCH (21:58)
[2016-07-24 00:14] VITALS: BP 112/65
[2016-07-24] MEDS: Piperacillin/Tazobactam 3.375 GM in NS 110 ML IVPB SCH ×3 (03:15→18:27)
[2016-07-24 04:02] VITALS: BP 126/72
[2016-07-24 04:35] LABS: MEAN CORPUSCULAR HEMOGLOBIN 31.3 PG (27.0-31.0); MEAN CORPUSCULAR HGB CONC 33.1 G/DL (32.0-36.0); MEAN CORPUSCULAR VOLUME 94 FL (80-99); MEAN PLATELET VOLUME 7.8 FL (6.5-10.1); PLATELET COUNT 52 K/UL (150-450); RED BLOOD COUNT 2.94 M/UL (4.70-6.10); RED CELL DISTRIBUTION WIDTH 15.8 % (11.6-14.8); WHITE BLOOD COUNT 9.1 K/UL (4.8-10.8)
[2016-07-24 05:03] LABS: ALANINE AMINOTRANSFERASE 22 U/L (3-41); ANION GAP 16 (5-15); ASPARTATE AMINO TRANSFERASE 38 U/L (5-40); CALCIUM 7.3 mg/dL (8.6-10.2); CARBON DIOXIDE 21 mEQ/L (20-30); CHLORIDE 104 mEQ/L (98-107); CREATININE 1.8 mg/dL (0.7-1.2); HEMOLYSIS 2; MAGNESIUM 1.9 mg/dL (1.7-2.5); PHOSPHORUS 2.6 mg/dL (2.5-4.8); POTASSIUM 3.8 mEQ/L (3.4-4.9); SODIUM 141 mEQ/L (135-145)
[2016-07-24] MEDS: Hydrocortisone 100mg Inj IV SCH ×3 (05:27→21:39)
[2016-07-24 07:56] VITALS: BP 127/65
--- NOTE | 2016-07-24 08:32 | Infectious Diseases Prog Note ---
Assessment/Plan Assessment/Plan A Intraabdominal infection Colon perforation Anemia DM CKD, ARF P; Continue Zosyn day # 5 Subjective ROS Limited/Unobtainable: No Respiratory: Reports: no symptoms Cardiovascular: Reports: no symptoms Gastrointestinal/Abdominal: Reports: no symptoms, other - on clear liquid diet Allergies: Coded Allergies: No Known Allergies (Unverified , 07/18/16) Objective Vital Signs Last 24 Hour Vital Signs Date Time Temp Pulse Resp B/P Pulse Ox O2 Delivery O2 Flow Rate FiO2 07/24/16 07:56 97.1 85 20 127/65 100 Room Air 07/24/16 04:02 98.3 69 21 126/72 95 Room Air 07/24/16 04:00 81 07/24/16 00:14 98.7 77 20 112/65 96 Room Air 07/24/16 00:00 86 07/23/16 20:00 83 07/23/16 20:00 97.6 82 20 120/64 96 Room Air 07/23/16 19:00 96 Nasal Cannula 2.0 28 07/23/16 19:00 Nasal Cannula 2.0 07/23/16 19:00 82 20 Nasal Cannula 2.0 07/23/16 16:00 87 07/23/16 16:00 97.3 75 21 124/66 96 Room Air 07/23/16 14:43 96.4 94 20 126/67 98 Room Air 07/23/16 14:00 92 25 125/94 95 Room Air 07/23/16 13:00 99 19 119/55 100 Room Air 07/23/16 12:00 98.2 92 26 133/78 99 Room Air 07/23/16 12:00 97 07/23/16 11:00 100 18 101/77 100 Room Air 07/23/16 10:00 86 21 92/54 99 Room Air 07/23/16 09:00 86 18 123/66 98 Room Air Height (Feet): 6 Height (Inches): 0.00 Weight (Pounds): 170 General Appearance: no acute distress HEENT: mucous membranes moist Respiratory/Chest: lungs clear Cardiovascular: normal rate Abdomen: soft, non tender, other - s/p colostomy, surgical drain Laboratory Tests Test 07/24/16 04:00 White Blood Count 9.1 K/UL (4.8-10.8) Red Blood Count 2.94 M/UL (4.70-6.10) L Hemoglobin 9.2 G/DL (14.2-18.0) L Hematocrit 27.8 % (42.0-52.0) L Mean Corpuscular Volume 94 FL (80-99) Mean Corpuscular Hemoglobin 31.3 PG (27.0-31.0) H Mean Corpuscular Hemoglobin Concent 33.1 G/DL (32.0-36.0) Red Cell Distribution Width 15.8 % (11.6-14.8) H Platelet Count 52 K/UL (150-450) L Mean Platelet Volume 7.8 FL (6.5-10.1) Neutrophils (%) (Auto) % (45.0-75.0) Lymphocytes (%) (Auto) % (20.0-45.0) Monocytes (%) (Auto) % (1.0-10.0) Eosinophils (%) (Auto) % (0.0-3.0) Basophils (%) (Auto) % (0.0-2.0) Neutrophils % (Manual) Pending Lymphocytes % (Manual) Pending Platelet Estimate Pending Platelet Morphology Pending Sodium Level 141 mEQ/L (135-145) Potassium Level 3.8 mEQ/L (3.4-4.9) Chloride Level 104 mEQ/L (98-107) Carbon Dioxide Level 21 mEQ/L (20-30) Anion Gap 16 (5-15) H Blood Urea Nitrogen 39 mg/dL (7-23) H Creatinine 1.8 mg/dL (0.7-1.2) H Estimat Glomerular Filtration Rate mL/min (>60) Glucose Level 109 mg/dL (74-106) H Calcium Level 7.3 mg/dL (8.6-10.2) L Phosphorus Level 2.6 mg/dL (2.5-4.8) Magnesium Level 1.9 mg/dL (1.7-2.5) Total Bilirubin 0.8 mg/dL (0.0-1.2) Aspartate Amino Transf (AST/SGOT) 38 U/L (5-40) Alanine Aminotransferase (ALT/SGPT) 22 U/L (3-41) Alkaline Phosphatase 65 U/L (40-129) Total Protein 5.0 g/dL (6.6-8.7) L Albumin 2.5 g/dL (3.5-5.2) L Globulin 2.5 g/dL Albumin/Globulin Ratio 1.0 (1.0-2.7) Current Medications Medications (Trade) Dose Ordered Sig/Hemanth Route PRN Reason Start Time Stop Time Status Last Admin Dose Admin Acetaminophen (Tylenol) 650 mg Q4H PRN ORAL FEVER 07/23/16 15:30 08/22/16 15:29 Acetaminophen (Tylenol) 650 mg Q6H PRN ORAL Mild Pain (Pain Scale 1-3) 07/23/16 15:30 08/22/16 15:29 Albuterol/ Ipratropium (DuoNeb 0.5-3(2.5)mg/3ml) 3 ml Q4H PRN HHN Shortness of Breath 07/23/16 15:30 07/28/16 15:29 Calcium Gluconate 1 gm/Dextrose 120 ml @ 240 mls/hr Q12HR IVPB 07/23/16 21:00 08/22/16 20:59 07/23/16 21:58 Clonidine HCl (Catapres) 0.1 mg Q4H PRN ORAL SBP > 160 07/23/16 15:30 08/22/16 15:29 Dextrose (D5W 1000ml) 1,000 ml @ 75 mls/hr [id number] IV 07/23/16 16:00 08/22/16 15:59 07/24/16 05:27 Dextrose (Dextrose 50%) STAT PRN IV Hypoglycemia 07/23/16 15:30 08/22/16 15:29 Hydrocortisone (Solu-CORTEF) 50 mg EVERY 8 HOURS IV 07/23/16 22:00 08/22/16 21:59 07/24/16 05:27 Hydromorphone HCl (Dilaudid) 1 mg Q3H PRN IVP pain score 4-6 07/23/16 15:30 07/30/16 15:29 07/23/16 22:02 Hydromorphone HCl (Dilaudid) 2 mg Q3H PRN IVP pain score 7-10 07/23/16 15:30 07/30/16 15:29 Lorazepam (Ativan 2mg/ml 1ml) 0.5 mg Q4H PRN IV For Anxiety 07/23/16 15:30 07/30/16 15:29 Metoprolol Tartrate (Lopressor) 2.5 mg Q4H PRN IVP HR > 120 07/23/16 15:30 08/22/16 15:29 Nitroglycerin (Ntg) 0.4 mg Q5M X 3 DOSES PRN SL Prn Chest Pain 07/23/16 15:00 08/22/16 14:59 Ondansetron HCl (Zofran) 4 mg Q6H PRN IVP Nausea & Vomiting 07/23/16 15:30 08/22/16 15:29 Pantoprazole (Protonix) 40 mg EVERY 12 HOURS IVP 07/23/16 21:00 08/22/16 20:59 07/23/16 21:59 Piperacillin Sod/ Tazobactam Sod/ Sodium Chloride (Zosyn/Sodium Chloride) 110 ml @ 27.5 mls/hr Q8HR@0200,1000,1800 IVPB 07/23/16 18:00 07/28/16 17:59 07/24/16 03:15 Temazepam 15 mg 15 mg HSPRN PRN ORAL Insomnia 07/23/16 15:30 07/30/16 15:29 COURTNEY GARCIA Jul 24, 2016 08:31
[2016-07-24] MEDS: Calcium Gluconate 10% 1 GM in D5W 110 ML IVPB SCH ×2 (09:56→21:38)
[2016-07-24] MEDS: Pantoprazole Inj IVP SCH ×2 (09:56→21:00)
[2016-07-24 10:24] LABS: ANISOCYTOSIS 1+; BAND NEUTROPHILS % (MANUAL) 0 % (0-8); BASOPHILS % (MANUAL) 0 % (0-2); EOSINOPHILS % (MANUAL) 0 % (0-3); HYPOCHROMASIA 1+; LYMPHOCYTES % (MANUAL) 5 % (20-45); NEUTROPHILS % (MANUAL) 89 % (45-75); PLATELET ESTIMATE DECREASED; PLATELET MORPHOLOGY NORMAL; TOTAL CELLS COUNTED 100
--- NOTE | 2016-07-24 10:51 | General Progress Note ---
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 Plan: Out of ICU now PO K supplement post op care- Slow hydrate- 2 D echo: Ej Fx 55% Gastric support Pain Mgt monitor renal parameters per orders Subjective ROS Limited/Unobtainable: No Constitutional: Reports: malaise Allergies: Coded Allergies: No Known Allergies (Unverified , 07/18/16) Objective Last 24 Hour Vital Signs Date Time Temp Pulse Resp B/P Pulse Ox O2 Delivery O2 Flow Rate FiO2 07/24/16 07:56 97.1 85 20 127/65 100 Room Air 07/24/16 04:02 98.3 69 21 126/72 95 Room Air 07/24/16 04:00 81 07/24/16 00:14 98.7 77 20 112/65 96 Room Air 07/24/16 00:00 86 07/23/16 20:00 83 07/23/16 20:00 97.6 82 20 120/64 96 Room Air 07/23/16 19:00 96 Nasal Cannula 2.0 28 07/23/16 19:00 Nasal Cannula 2.0 07/23/16 19:00 82 20 Nasal Cannula 2.0 07/23/16 16:00 87 07/23/16 16:00 97.3 75 21 124/66 96 Room Air 07/23/16 14:43 96.4 94 20 126/67 98 Room Air 07/23/16 14:00 92 25 125/94 95 Room Air 07/23/16 13:00 99 19 119/55 100 Room Air 07/23/16 12:00 98.2 92 26 133/78 99 Room Air 07/23/16 12:00 97 07/23/16 11:00 100 18 101/77 100 Room Air Intake and Output 07/23/16 07/24/16 19:00 07:00 Intake Total 1012.5 ml 1305.0 ml Output Total 915 ml 1970 ml Balance 97.5 ml -665.0 ml Intake Oral 80 ml IV Total 932.5 ml 1305.0 ml Output Urine Total 840 ml 1300 ml Stool Total 400 ml Drainage Total 75 ml 270 ml # Bowel Movements 1 Laboratory Tests 07/24/16 04:00: White Blood Count 9.1, Red Blood Count 2.94L, Hemoglobin 9.2L, Hematocrit 27.8L , Mean Corpuscular Volume 94, Mean Corpuscular Hemoglobin 31.3H, Mean Corpuscular Hemoglobin Concent 33.1, Red Cell Distribution Width 15.8H, Platelet Count 52L, Mean Platelet Volume 7.8, Neutrophils (%) (Auto) , Lymphocytes (%) (Auto) , Monocytes (%) (Auto) , Eosinophils (%) (Auto) , Basophils (%) (Auto) , Differential Total Cells Counted 100, Neutrophils % ( Manual) 89H, Lymphocytes % (Manual) 5L, Monocytes % (Manual) 6, Eosinophils % ( Manual) 0, Basophils % (Manual) 0, Band Neutrophils 0, Platelet Estimate DecreasedL, Platelet Morphology Normal, Hypochromasia 1+, Anisocytosis 1+, Sodium Level 141, Potassium Level 3.8, Chloride Level 104, Carbon Dioxide Level 21, Anion Gap 16H, Blood Urea Nitrogen 39H, Creatinine 1.8H, Estimat Glomerular Filtration Rate , Glucose Level 109H, Calcium Level 7.3L, Phosphorus Level 2.6, Magnesium Level 1.9, Total Bilirubin 0.8, Aspartate Amino Transf (AST/SGOT) 38, Alanine Aminotransferase (ALT/SGPT) 22, Alkaline Phosphatase 65, Total Protein 5.0L, Albumin 2.5L, Globulin 2.5, Albumin/Globulin Ratio 1.0 Height (Feet): 6 Height (Inches): 0.00 Weight (Pounds): 170 General Appearance: no apparent distress Objective other PE not changed SHAHEEN WALDROP Jul 24, 2016 10:51
[2016-07-24 11:39] VITALS: BP 130/80
--- NOTE | 2016-07-24 13:55 | General Progress Note ---
Assessment/Plan Assessment/Plan Assessment/Plan Problems: (1) Hypoalbuminemia ICD Codes: E88.09 - Other disorders of plasma-protein metabolism, not elsewhere classified SNOMED: 552280109 (2) Colon perforation ICD Codes: K63.1 - Perforation of intestine (nontraumatic) SNOMED: 43534303 (3) Colostomy care ICD Codes: Z43.3 - Encounter for attention to colostomy SNOMED: 017859919 (4) Anemia ICD Codes: D64.9 - Anemia, unspecified SNOMED: 934003154 (5) Elevated CEA ICD Codes: R97.0 - Elevated carcinoembryonic antigen [CEA] SNOMED: 69047204, 964457011 (6) Azotemia Assessment/Plan s/p colonoscopy with perf colon, now s/p ex lap with diverting colostomy will follow surgical recs IVFs - diet per surgery colostomy care ppi pain mgmt po diet per surgery fu labs Subjective Allergies: Coded Allergies: No Known Allergies (Unverified , 07/18/16) Subjective Feels OK tolerating liquids po d/w RN Objective Last 24 Hour Vital Signs Date Time Temp Pulse Resp B/P Pulse Ox O2 Delivery O2 Flow Rate FiO2 07/24/16 12:00 86 07/24/16 11:39 97.2 86 20 130/80 97 Room Air 07/24/16 08:00 83 07/24/16 07:56 97.1 85 20 127/65 100 Room Air 07/24/16 04:02 98.3 69 21 126/72 95 Room Air 07/24/16 04:00 81 07/24/16 00:14 98.7 77 20 112/65 96 Room Air 07/24/16 00:00 86 07/23/16 20:00 83 07/23/16 20:00 97.6 82 20 120/64 96 Room Air 07/23/16 19:00 96 Nasal Cannula 2.0 28 07/23/16 19:00 Nasal Cannula 2.0 07/23/16 19:00 82 20 Nasal Cannula 2.0 07/23/16 16:00 87 07/23/16 16:00 97.3 75 21 124/66 96 Room Air 07/23/16 14:43 96.4 94 20 126/67 98 Room Air 07/23/16 14:00 92 25 125/94 95 Room Air Intake and Output 07/23/16 07/24/16 19:00 07:00 Intake Total 1012.5 ml 1305.0 ml Output Total 915 ml 1970 ml Balance 97.5 ml -665.0 ml Intake Oral 80 ml IV Total 932.5 ml 1305.0 ml Output Urine Total 840 ml 1300 ml Stool Total 400 ml Drainage Total 75 ml 270 ml # Bowel Movements 1 Laboratory Tests 07/24/16 04:00: White Blood Count 9.1, Red Blood Count 2.94L, Hemoglobin 9.2L, Hematocrit 27.8L , Mean Corpuscular Volume 94, Mean Corpuscular Hemoglobin 31.3H, Mean Corpuscular Hemoglobin Concent 33.1, Red Cell Distribution Width 15.8H, Platelet Count 52L, Mean Platelet Volume 7.8, Neutrophils (%) (Auto) , Lymphocytes (%) (Auto) , Monocytes (%) (Auto) , Eosinophils (%) (Auto) , Basophils (%) (Auto) , Differential Total Cells Counted 100, Neutrophils % ( Manual) 89H, Lymphocytes % (Manual) 5L, Monocytes % (Manual) 6, Eosinophils % ( Manual) 0, Basophils % (Manual) 0, Band Neutrophils 0, Platelet Estimate DecreasedL, Platelet Morphology Normal, Hypochromasia 1+, Anisocytosis 1+, Sodium Level 141, Potassium Level 3.8, Chloride Level 104, Carbon Dioxide Level 21, Anion Gap 16H, Blood Urea Nitrogen 39H, Creatinine 1.8H, Estimat Glomerular Filtration Rate , Glucose Level 109H, Calcium Level 7.3L, Phosphorus Level 2.6, Magnesium Level 1.9, Total Bilirubin 0.8, Aspartate Amino Transf (AST/SGOT) 38, Alanine Aminotransferase (ALT/SGPT) 22, Alkaline Phosphatase 65, Total Protein 5.0L, Albumin 2.5L, Globulin 2.5, Albumin/Globulin Ratio 1.0 Height (Feet): 6 Height (Inches): 0.00 Weight (Pounds): 170 Objective Elderly WM NCAT supple CTA RRR Soft Flat , midline wound OK, Ostomy with scant stool , LILIA no edema KANDY BUTLER Jul 24, 2016 13:55
[2016-07-24 15:43] VITALS: BP 128/72
--- NOTE | 2016-07-24 16:31 | Cardiology Progress Note ---
Assessment/Plan Assessment/Plan no changes from cardiac standpoint arrhythmia unchanged Subjective Subjective the patient does not have new complaints, doing OK no dyspnea or chest pain Objective Last 24 Hour Vital Signs Date Time Temp Pulse Resp B/P Pulse Ox O2 Delivery O2 Flow Rate FiO2 07/24/16 15:43 97.7 86 20 128/72 96 Room Air 07/24/16 12:00 86 07/24/16 11:39 97.2 86 20 130/80 97 Room Air 07/24/16 08:00 83 07/24/16 07:56 97.1 85 20 127/65 100 Room Air 07/24/16 04:02 98.3 69 21 126/72 95 Room Air 07/24/16 04:00 81 07/24/16 00:14 98.7 77 20 112/65 96 Room Air 07/24/16 00:00 86 07/23/16 20:00 83 07/23/16 20:00 97.6 82 20 120/64 96 Room Air 07/23/16 19:00 96 Nasal Cannula 2.0 28 07/23/16 19:00 Nasal Cannula 2.0 07/23/16 19:00 82 20 Nasal Cannula 2.0 General Appearance: other - elderly and ill appearing EENT: PERRL/EOMI Neck: supple Cardiovascular: normal rate Respiratory/Chest: crackles/rales Abdomen: tender, other - ppost srugical scar, Extremities: no swelling Intake and Output 07/23/16 07/24/16 19:00 07:00 Intake Total 1012.5 ml 1305.0 ml Output Total 915 ml 1970 ml Balance 97.5 ml -665.0 ml Intake Oral 80 ml IV Total 932.5 ml 1305.0 ml Output Urine Total 840 ml 1300 ml Stool Total 400 ml Drainage Total 75 ml 270 ml # Bowel Movements 1 Laboratory Tests Test 07/24/16 04:00 White Blood Count 9.1 K/UL (4.8-10.8) Red Blood Count 2.94 M/UL (4.70-6.10) L Hemoglobin 9.2 G/DL (14.2-18.0) L Hematocrit 27.8 % (42.0-52.0) L Mean Corpuscular Volume 94 FL (80-99) Mean Corpuscular Hemoglobin 31.3 PG (27.0-31.0) H Mean Corpuscular Hemoglobin Concent 33.1 G/DL (32.0-36.0) Red Cell Distribution Width 15.8 % (11.6-14.8) H Platelet Count 52 K/UL (150-450) L Mean Platelet Volume 7.8 FL (6.5-10.1) Neutrophils (%) (Auto) % (45.0-75.0) Lymphocytes (%) (Auto) % (20.0-45.0) Monocytes (%) (Auto) % (1.0-10.0) Eosinophils (%) (Auto) % (0.0-3.0) Basophils (%) (Auto) % (0.0-2.0) Differential Total Cells Counted 100 Neutrophils % (Manual) 89 % (45-75) H Lymphocytes % (Manual) 5 % (20-45) L Monocytes % (Manual) 6 % (1-10) Eosinophils % (Manual) 0 % (0-3) Basophils % (Manual) 0 % (0-2) Band Neutrophils 0 % (0-8) Platelet Estimate Decreased L Platelet Morphology Normal Hypochromasia 1+ Anisocytosis 1+ Sodium Level 141 mEQ/L (135-145) Potassium Level 3.8 mEQ/L (3.4-4.9) Chloride Level 104 mEQ/L (98-107) Carbon Dioxide Level 21 mEQ/L (20-30) Anion Gap 16 (5-15) H Blood Urea Nitrogen 39 mg/dL (7-23) H Creatinine 1.8 mg/dL (0.7-1.2) H Estimat Glomerular Filtration Rate mL/min (>60) Glucose Level 109 mg/dL (74-106) H Calcium Level 7.3 mg/dL (8.6-10.2) L Phosphorus Level 2.6 mg/dL (2.5-4.8) Magnesium Level 1.9 mg/dL (1.7-2.5) Total Bilirubin 0.8 mg/dL (0.0-1.2) Aspartate Amino Transf (AST/SGOT) 38 U/L (5-40) Alanine Aminotransferase (ALT/SGPT) 22 U/L (3-41) Alkaline Phosphatase 65 U/L (40-129) Total Protein 5.0 g/dL (6.6-8.7) L Albumin 2.5 g/dL (3.5-5.2) L Globulin 2.5 g/dL Albumin/Globulin Ratio 1.0 (1.0-2.7) JLUIS JOSE Jul 24, 2016 16:31
--- NOTE | 2016-07-24 16:55 | General Surgery Progress Note ---
General Surgery-Progress Note Subjective Symptoms: improved Objective Last 24 Hour Vital Signs Date Time Temp Pulse Resp B/P Pulse Ox O2 Delivery O2 Flow Rate FiO2 07/24/16 15:43 97.7 86 20 128/72 96 Room Air 07/24/16 12:00 86 07/24/16 11:39 97.2 86 20 130/80 97 Room Air 07/24/16 08:00 83 07/24/16 07:56 97.1 85 20 127/65 100 Room Air 07/24/16 04:02 98.3 69 21 126/72 95 Room Air 07/24/16 04:00 81 07/24/16 00:14 98.7 77 20 112/65 96 Room Air 07/24/16 00:00 86 07/23/16 20:00 83 07/23/16 20:00 97.6 82 20 120/64 96 Room Air 07/23/16 19:00 96 Nasal Cannula 2.0 28 07/23/16 19:00 Nasal Cannula 2.0 07/23/16 19:00 82 20 Nasal Cannula 2.0 I&O Intake and Output 07/23/16 07/24/16 19:00 07:00 Intake Total 1012.5 ml 1305.0 ml Output Total 915 ml 1970 ml Balance 97.5 ml -665.0 ml Intake Oral 80 ml IV Total 932.5 ml 1305.0 ml Output Urine Total 840 ml 1300 ml Stool Total 400 ml Drainage Total 75 ml 270 ml # Bowel Movements 1 Dressing: dry Wound: clean Drains: anamaria Cardiovascular: RSR Abdomen: soft Extremities: no edema Laboratory Tests Test 07/24/16 04:00 White Blood Count 9.1 K/UL (4.8-10.8) Red Blood Count 2.94 M/UL (4.70-6.10) L Hemoglobin 9.2 G/DL (14.2-18.0) L Hematocrit 27.8 % (42.0-52.0) L Mean Corpuscular Volume 94 FL (80-99) Mean Corpuscular Hemoglobin 31.3 PG (27.0-31.0) H Mean Corpuscular Hemoglobin Concent 33.1 G/DL (32.0-36.0) Red Cell Distribution Width 15.8 % (11.6-14.8) H Platelet Count 52 K/UL (150-450) L Mean Platelet Volume 7.8 FL (6.5-10.1) Neutrophils (%) (Auto) % (45.0-75.0) Lymphocytes (%) (Auto) % (20.0-45.0) Monocytes (%) (Auto) % (1.0-10.0) Eosinophils (%) (Auto) % (0.0-3.0) Basophils (%) (Auto) % (0.0-2.0) Differential Total Cells Counted 100 Neutrophils % (Manual) 89 % (45-75) H Lymphocytes % (Manual) 5 % (20-45) L Monocytes % (Manual) 6 % (1-10) Eosinophils % (Manual) 0 % (0-3) Basophils % (Manual) 0 % (0-2) Band Neutrophils 0 % (0-8) Platelet Estimate Decreased L Platelet Morphology Normal Hypochromasia 1+ Anisocytosis 1+ Sodium Level 141 mEQ/L (135-145) Potassium Level 3.8 mEQ/L (3.4-4.9) Chloride Level 104 mEQ/L (98-107) Carbon Dioxide Level 21 mEQ/L (20-30) Anion Gap 16 (5-15) H Blood Urea Nitrogen 39 mg/dL (7-23) H Creatinine 1.8 mg/dL (0.7-1.2) H Estimat Glomerular Filtration Rate mL/min (>60) Glucose Level 109 mg/dL (74-106) H Calcium Level 7.3 mg/dL (8.6-10.2) L Phosphorus Level 2.6 mg/dL (2.5-4.8) Magnesium Level 1.9 mg/dL (1.7-2.5) Total Bilirubin 0.8 mg/dL (0.0-1.2) Aspartate Amino Transf (AST/SGOT) 38 U/L (5-40) Alanine Aminotransferase (ALT/SGPT) 22 U/L (3-41) Alkaline Phosphatase 65 U/L (40-129) Total Protein 5.0 g/dL (6.6-8.7) L Albumin 2.5 g/dL (3.5-5.2) L Globulin 2.5 g/dL Albumin/Globulin Ratio 1.0 (1.0-2.7) Assessment Post-op Diagnosis Amyloidosis, on cortico-steroids, colon perforation Additional Comments Pt is tolerating clear liquids, denies cramping or nausea Plan Additional Comments Will advance to soft diet. Frank Moura MD Jul 24, 2016 16:55
--- NOTE | 2016-07-24 19:06 | Pulmonology Progress Note ---
Assessment/Plan Problems: (1) Colon perforation (2) Hematemesis (3) ATN (acute tubular necrosis) (4) Anemia (5) History of prostate cancer (6) Dementia (7) Thoracic spine fracture (8) Acute encephalopathy Assessment/Plan tolerating diet telemetry status IV fluids Iv antibioitcs renal function improving f/u electrolytes watch PLT, Kidney function stable Subjective ROS Limited/Unobtainable: No Interval Events: no new complains Allergies: Coded Allergies: No Known Allergies (Unverified , 07/18/16) Objective Last 24 Hour Vital Signs Date Time Temp Pulse Resp B/P Pulse Ox O2 Delivery O2 Flow Rate FiO2 07/24/16 17:24 84 07/24/16 15:43 97.7 86 20 128/72 96 Room Air 07/24/16 12:00 86 07/24/16 11:39 97.2 86 20 130/80 97 Room Air 07/24/16 08:00 83 07/24/16 07:56 97.1 85 20 127/65 100 Room Air 07/24/16 04:02 98.3 69 21 126/72 95 Room Air 07/24/16 04:00 81 07/24/16 00:14 98.7 77 20 112/65 96 Room Air 07/24/16 00:00 86 07/23/16 20:00 83 07/23/16 20:00 97.6 82 20 120/64 96 Room Air Intake and Output 07/23/16 07/24/16 19:00 07:00 Intake Total 1012.5 ml 1305.0 ml Output Total 915 ml 1970 ml Balance 97.5 ml -665.0 ml Intake Oral 80 ml IV Total 932.5 ml 1305.0 ml Output Urine Total 840 ml 1300 ml Stool Total 400 ml Drainage Total 75 ml 270 ml # Bowel Movements 1 General Appearance: WD/WN HEENT: normocephalic, anicteric Respiratory/Chest: chest wall non-tender, normal breath sounds Cardiovascular: normal peripheral pulses Abdomen: normal bowel sounds, soft, non tender Genitourinary: normal external genitalia 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 normal, alert Lymphatic: no neck adenopathy Laboratory Tests 07/24/16 04:00: White Blood Count 9.1, Red Blood Count 2.94L, Hemoglobin 9.2L, Hematocrit 27.8L , Mean Corpuscular Volume 94, Mean Corpuscular Hemoglobin 31.3H, Mean Corpuscular Hemoglobin Concent 33.1, Red Cell Distribution Width 15.8H, Platelet Count 52L, Mean Platelet Volume 7.8, Neutrophils (%) (Auto) , Lymphocytes (%) (Auto) , Monocytes (%) (Auto) , Eosinophils (%) (Auto) , Basophils (%) (Auto) , Differential Total Cells Counted 100, Neutrophils % ( Manual) 89H, Lymphocytes % (Manual) 5L, Monocytes % (Manual) 6, Eosinophils % ( Manual) 0, Basophils % (Manual) 0, Band Neutrophils 0, Platelet Estimate DecreasedL, Platelet Morphology Normal, Hypochromasia 1+, Anisocytosis 1+, Sodium Level 141, Potassium Level 3.8, Chloride Level 104, Carbon Dioxide Level 21, Anion Gap 16H, Blood Urea Nitrogen 39H, Creatinine 1.8H, Estimat Glomerular Filtration Rate , Glucose Level 109H, Calcium Level 7.3L, Phosphorus Level 2.6, Magnesium Level 1.9, Total Bilirubin 0.8, Aspartate Amino Transf (AST/SGOT) 38, Alanine Aminotransferase (ALT/SGPT) 22, Alkaline Phosphatase 65, Total Protein 5.0L, Albumin 2.5L, Globulin 2.5, Albumin/Globulin Ratio 1.0 Current Medications Medications (Trade) Dose Ordered Sig/Hemanth Route PRN Reason Start Time Stop Time Status Last Admin Dose Admin Acetaminophen (Tylenol) 650 mg Q4H PRN ORAL FEVER 07/23/16 15:30 08/22/16 15:29 Acetaminophen (Tylenol) 650 mg Q6H PRN ORAL Mild Pain (Pain Scale 1-3) 07/23/16 15:30 08/22/16 15:29 Albuterol/ Ipratropium (DuoNeb 0.5-3(2.5)mg/3ml) 3 ml Q4H PRN HHN Shortness of Breath 07/23/16 15:30 07/28/16 15:29 Calcium Gluconate 1 gm/Dextrose 120 ml @ 240 mls/hr Q12HR IVPB 07/23/16 21:00 08/22/16 20:59 07/24/16 09:56 Clonidine HCl (Catapres) 0.1 mg Q4H PRN ORAL SBP > 160 07/23/16 15:30 08/22/16 15:29 Dextrose (D5W 1000ml) 1,000 ml @ 75 mls/hr [id number] IV 07/23/16 16:00 08/22/16 15:59 07/24/16 18:27 Dextrose (Dextrose 50%) STAT PRN IV Hypoglycemia 07/23/16 15:30 08/22/16 15:29 Hydrocortisone (Solu-CORTEF) 50 mg EVERY 8 HOURS IV 07/23/16 22:00 08/22/16 21:59 07/24/16 15:12 Hydromorphone HCl (Dilaudid) 1 mg Q3H PRN IVP pain score 4-6 07/23/16 15:30 07/30/16 15:29 07/23/16 22:02 Hydromorphone HCl (Dilaudid) 2 mg Q3H PRN IVP pain score 7-10 07/23/16 15:30 07/30/16 15:29 Lorazepam (Ativan 2mg/ml 1ml) 0.5 mg Q4H PRN IV For Anxiety 07/23/16 15:30 07/30/16 15:29 Metoprolol Tartrate (Lopressor) 2.5 mg Q4H PRN IVP HR > 120 07/23/16 15:30 08/22/16 15:29 Nitroglycerin (Ntg) 0.4 mg Q5M X 3 DOSES PRN SL Prn Chest Pain 07/23/16 15:00 08/22/16 14:59 Ondansetron HCl (Zofran) 4 mg Q6H PRN IVP Nausea & Vomiting 07/23/16 15:30 08/22/16 15:29 Pantoprazole (Protonix) 40 mg EVERY 12 HOURS IVP 07/23/16 21:00 08/22/16 20:59 07/24/16 09:56 Piperacillin Sod/ Tazobactam Sod/ Sodium Chloride (Zosyn/Sodium Chloride) 110 ml @ 27.5 mls/hr Q8HR@0200,1000,1800 IVPB 07/23/16 18:00 07/28/16 17:59 07/24/16 18:27 Temazepam 15 mg 15 mg HSPRN PRN ORAL Insomnia 07/23/16 15:30 07/30/16 15:29 ZARRABI,MIRALI Jul 24, 2016 19:06
[2016-07-24 20:00] VITALS: BP 139/74
[2016-07-24] MEDS: HYDROmorphone 1mg/ml Carpuject IVP PRN (23:57)
[2016-07-25] VITALS: BP 137/73
[2016-07-25] MEDS: Piperacillin/Tazobactam 3.375 GM in NS 110 ML IVPB SCH ×3 (00:58→17:42)
[2016-07-25 04:00] VITALS: BP 125/74
[2016-07-25] MEDS: Hydrocortisone 100mg Inj IV SCH ×3 (06:38→21:29)
[2016-07-25 08:00] VITALS: BP 122/71
[2016-07-25] MEDS: Calcium Gluconate 10% 1 GM in D5W 110 ML IVPB SCH ×2 (08:15→20:41)
[2016-07-25] MEDS: Pantoprazole Inj IVP SCH ×2 (08:15→20:41)
--- NOTE | 2016-07-25 10:13 | Infectious Diseases Prog Note ---
Assessment/Plan Assessment/Plan A: patient is a 75-year-old male with Intra-abdominal sepsis improving Afebrile colon perf SP colonoscopy Esophagitis. Gastritis, status post biopsy. Duodenal diverticulum. colonic polyp, SP removal Sp Exp lap and colostomy 07/20 Atrial fibrillation. Prostate cancer. Diabetes. PLAN: continue the patient on IV Zosyn d# 6 / 7 Monitor CBC. Monitor BMP. Monitor clinical course and V/ s CRP in AM Subjective Constitutional: Denies: anorexia, chills, drenching sweats, fatigue, fever, no symptoms, other Allergies: Coded Allergies: No Known Allergies (Unverified , 07/18/16) Objective Vital Signs Last 24 Hour Vital Signs Date Time Temp Pulse Resp B/P Pulse Ox O2 Delivery O2 Flow Rate FiO2 07/25/16 08:00 96.8 70 18 122/71 98 Room Air 74 07/25/16 04:00 73 07/25/16 04:00 97.2 79 19 125/74 96 Room Air 07/25/16 00:00 79 07/25/16 00:00 97.5 80 20 137/73 96 Room Air 07/24/16 20:00 98.1 90 20 139/74 94 07/24/16 20:00 85 07/24/16 19:30 Nasal Cannula 2.0 28 07/24/16 19:30 88 20 Nasal Cannula 2.0 28 07/24/16 19:30 94 Nasal Cannula 2.0 28 07/24/16 17:24 84 07/24/16 15:43 97.7 86 20 128/72 96 Room Air 07/24/16 12:00 86 07/24/16 11:39 97.2 86 20 130/80 97 Room Air Height (Feet): 6 Height (Inches): 0.00 Weight (Pounds): 170 HEENT: anicteric Respiratory/Chest: no respiratory distress Cardiovascular: no gallop/murmur Abdomen: non distended Current Medications Medications (Trade) Dose Ordered Sig/Hemanth Route PRN Reason Start Time Stop Time Status Last Admin Dose Admin Acetaminophen (Tylenol) 650 mg Q4H PRN ORAL FEVER 07/23/16 15:30 08/22/16 15:29 Acetaminophen (Tylenol) 650 mg Q6H PRN ORAL Mild Pain (Pain Scale 1-3) 07/23/16 15:30 08/22/16 15:29 Albuterol/ Ipratropium (DuoNeb 0.5-3(2.5)mg/3ml) 3 ml Q4H PRN HHN Shortness of Breath 07/23/16 15:30 07/28/16 15:29 Calcium Gluconate 1 gm/Dextrose 120 ml @ 240 mls/hr Q12HR IVPB 07/23/16 21:00 08/22/16 20:59 07/25/16 08:15 Clonidine HCl (Catapres) 0.1 mg Q4H PRN ORAL SBP > 160 07/23/16 15:30 08/22/16 15:29 Dextrose (D5W 1000ml) 1,000 ml @ 75 mls/hr [id number] IV 07/23/16 16:00 08/22/16 15:59 07/25/16 08:14 Dextrose (Dextrose 50%) STAT PRN IV Hypoglycemia 07/23/16 15:30 08/22/16 15:29 Hydrocortisone (Solu-CORTEF) 50 mg EVERY 8 HOURS IV 07/23/16 22:00 08/22/16 21:59 07/25/16 06:38 Hydromorphone HCl (Dilaudid) 1 mg Q3H PRN IVP pain score 4-6 07/23/16 15:30 07/30/16 15:29 07/24/16 23:57 Hydromorphone HCl (Dilaudid) 2 mg Q3H PRN IVP pain score 7-10 07/23/16 15:30 07/30/16 15:29 Lorazepam (Ativan 2mg/ml 1ml) 0.5 mg Q4H PRN IV For Anxiety 07/23/16 15:30 07/30/16 15:29 Metoprolol Tartrate (Lopressor) 2.5 mg Q4H PRN IVP HR > 120 07/23/16 15:30 08/22/16 15:29 Nitroglycerin (Ntg) 0.4 mg Q5M X 3 DOSES PRN SL Prn Chest Pain 07/23/16 15:00 08/22/16 14:59 Ondansetron HCl (Zofran) 4 mg Q6H PRN IVP Nausea & Vomiting 07/23/16 15:30 08/22/16 15:29 Pantoprazole (Protonix) 40 mg EVERY 12 HOURS IVP 07/23/16 21:00 08/22/16 20:59 07/25/16 08:15 Piperacillin Sod/ Tazobactam Sod/ Sodium Chloride (Zosyn/Sodium Chloride) 110 ml @ 27.5 mls/hr Q8HR@0200,1000,1800 IVPB 07/23/16 18:00 07/28/16 17:59 07/25/16 09:34 Temazepam 15 mg 15 mg HSPRN PRN ORAL Insomnia 07/23/16 15:30 07/30/16 15:29 07/24/16 23:57 MANSI PANDEY M.D. Jul 25, 2016 10:13
[2016-07-25 12:00] VITALS: BP 136/80
--- NOTE | 2016-07-25 12:07 | General Surgery Progress Note ---
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 Chief Complaint: alert. comfortable, happy! Symptoms: improved Additional Comments good colostomy function, mucosa inflamed but viable. Moderate fluid contents, tolerating soft diet. Objective Last 24 Hour Vital Signs Date Time Temp Pulse Resp B/P Pulse Ox O2 Delivery O2 Flow Rate FiO2 07/25/16 08:00 75 07/25/16 08:00 96.8 70 18 122/71 98 Room Air 74 07/25/16 04:00 73 07/25/16 04:00 97.2 79 19 125/74 96 Room Air 07/25/16 00:00 79 07/25/16 00:00 97.5 80 20 137/73 96 Room Air 07/24/16 20:00 98.1 90 20 139/74 94 07/24/16 20:00 85 07/24/16 19:30 Nasal Cannula 2.0 28 07/24/16 19:30 88 20 Nasal Cannula 2.0 28 07/24/16 19:30 94 Nasal Cannula 2.0 28 07/24/16 17:24 84 07/24/16 15:43 97.7 86 20 128/72 96 Room Air I&O Intake and Output 07/24/16 07/25/16 19:00 07:00 Intake Total 2765.0 ml 1360.0 ml Output Total 1400 ml 810 ml Balance 1365.0 ml 550.0 ml Intake Oral 1860 ml IV Total 905.0 ml 1360.0 ml Output Urine Total 1400 ml 700 ml Drainage Total 110 ml Dressing: dry Wound: clean Drains: anamaria - both with minimal drainage, serous Cardiovascular: RSR Respiratory: clear Abdomen: soft, flat Extremities: no edema Assessment Post-op Diagnosis S/P laparoscopy, laparotomy with Brown colon resection and colostomy, doing well Home to Rehab soon. remove drains tomorrow if all BRANDON ARGUETA Jul 25, 2016 12:07
--- NOTE | 2016-07-25 12:30 | Nephrology Progress Note ---
Assessment/Plan Problem List: (1) ATN (acute tubular necrosis) (2) Colon perforation (3) Amyloidosis (4) Anemia Plan IVF Abxs follow labs Subjective Subjective feels ok Objective Objective Last 24 Hour Vital Signs Date Time Temp Pulse Resp B/P Pulse Ox O2 Delivery O2 Flow Rate FiO2 07/25/16 08:00 75 07/25/16 08:00 96.8 70 18 122/71 98 Room Air 74 07/25/16 04:00 73 07/25/16 04:00 97.2 79 19 125/74 96 Room Air 07/25/16 00:00 79 07/25/16 00:00 97.5 80 20 137/73 96 Room Air 07/24/16 20:00 98.1 90 20 139/74 94 07/24/16 20:00 85 07/24/16 19:30 Nasal Cannula 2.0 28 07/24/16 19:30 88 20 Nasal Cannula 2.0 28 07/24/16 19:30 94 Nasal Cannula 2.0 28 07/24/16 17:24 84 07/24/16 15:43 97.7 86 20 128/72 96 Room Air Intake and Output 07/24/16 07/25/16 19:00 07:00 Intake Total 2765.0 ml 1360.0 ml Output Total 1400 ml 810 ml Balance 1365.0 ml 550.0 ml Intake Oral 1860 ml IV Total 905.0 ml 1360.0 ml Output Urine Total 1400 ml 700 ml Drainage Total 110 ml Height (Feet): 6 Height (Inches): 0.00 Weight (Pounds): 170 Cardiovascular: normal rate Respiratory/Chest: lungs clear Extremities: other - no edema JESSICA GARCIA Jul 25, 2016 12:30
--- NOTE | 2016-07-25 15:04 | Pulmonology Progress Note ---
Assessment/Plan Problems: (1) Colon perforation (2) Hematemesis (3) ATN (acute tubular necrosis) (4) Anemia (5) History of prostate cancer (6) Dementia (7) Thoracic spine fracture (8) Acute encephalopathy Assessment/Plan tolerating diet telemetry status IV fluids Iv antibioitcs renal function improving f/u electrolytes d/w dr Farias, all tubes are coming out tomorrow dc planning Subjective ROS Limited/Unobtainable: No Allergies: Coded Allergies: No Known Allergies (Unverified , 07/18/16) Objective Last 24 Hour Vital Signs Date Time Temp Pulse Resp B/P Pulse Ox O2 Delivery O2 Flow Rate FiO2 07/25/16 12:00 97.2 72 18 136/80 95 Room Air 70 07/25/16 12:00 81 07/25/16 08:00 75 07/25/16 08:00 96.8 70 18 122/71 98 Room Air 74 07/25/16 04:00 73 07/25/16 04:00 97.2 79 19 125/74 96 Room Air 07/25/16 00:00 79 07/25/16 00:00 97.5 80 20 137/73 96 Room Air 07/24/16 20:00 98.1 90 20 139/74 94 07/24/16 20:00 85 07/24/16 19:30 Nasal Cannula 2.0 28 07/24/16 19:30 88 20 Nasal Cannula 2.0 28 07/24/16 19:30 94 Nasal Cannula 2.0 28 07/24/16 17:24 84 07/24/16 15:43 97.7 86 20 128/72 96 Room Air Intake and Output 07/24/16 07/25/16 19:00 07:00 Intake Total 2765.0 ml 1360.0 ml Output Total 1400 ml 810 ml Balance 1365.0 ml 550.0 ml Intake Oral 1860 ml IV Total 905.0 ml 1360.0 ml Output Urine Total 1400 ml 700 ml Drainage Total 110 ml Objective General Appearance: WD/WN, no apparent distress Lines, tubes and drains: peripheral HEENT: normocephalic, anicteric Neck: non-tender, normal alignment Respiratory/Chest: chest wall non-tender, rhonchi Abdomen: normal bowel sounds, non tender Extremities: non-tender Current Medications Medications (Trade) Dose Ordered Sig/Hemanth Route PRN Reason Start Time Stop Time Status Last Admin Dose Admin Acetaminophen (Tylenol) 650 mg Q4H PRN ORAL FEVER 07/23/16 15:30 08/22/16 15:29 Acetaminophen (Tylenol) 650 mg Q6H PRN ORAL Mild Pain (Pain Scale 1-3) 07/23/16 15:30 08/22/16 15:29 Albuterol/ Ipratropium (DuoNeb 0.5-3(2.5)mg/3ml) 3 ml Q4H PRN HHN Shortness of Breath 07/23/16 15:30 07/28/16 15:29 Calcium Gluconate 1 gm/Dextrose 120 ml @ 240 mls/hr Q12HR IVPB 07/23/16 21:00 08/22/16 20:59 07/25/16 08:15 Clonidine HCl (Catapres) 0.1 mg Q4H PRN ORAL SBP > 160 07/23/16 15:30 08/22/16 15:29 Dextrose (D5W 1000ml) 1,000 ml @ 75 mls/hr [id number] IV 07/23/16 16:00 08/22/16 15:59 07/25/16 08:14 Dextrose (Dextrose 50%) STAT PRN IV Hypoglycemia 07/23/16 15:30 08/22/16 15:29 Hydrocortisone (Solu-CORTEF) 50 mg EVERY 8 HOURS IV 07/23/16 22:00 08/22/16 21:59 07/25/16 13:38 Hydromorphone HCl (Dilaudid) 1 mg Q3H PRN IVP pain score 4-6 07/23/16 15:30 07/30/16 15:29 07/24/16 23:57 Hydromorphone HCl (Dilaudid) 2 mg Q3H PRN IVP pain score 7-10 07/23/16 15:30 07/30/16 15:29 Lorazepam (Ativan 2mg/ml 1ml) 0.5 mg Q4H PRN IV For Anxiety 07/23/16 15:30 07/30/16 15:29 Metoprolol Tartrate (Lopressor) 2.5 mg Q4H PRN IVP HR > 120 07/23/16 15:30 08/22/16 15:29 Nitroglycerin (Ntg) 0.4 mg Q5M X 3 DOSES PRN SL Prn Chest Pain 07/23/16 15:00 08/22/16 14:59 Ondansetron HCl (Zofran) 4 mg Q6H PRN IVP Nausea & Vomiting 07/23/16 15:30 08/22/16 15:29 Pantoprazole (Protonix) 40 mg EVERY 12 HOURS IVP 07/23/16 21:00 08/22/16 20:59 07/25/16 08:15 Piperacillin Sod/ Tazobactam Sod/ Sodium Chloride (Zosyn/Sodium Chloride) 110 ml @ 27.5 mls/hr Q8HR@0200,1000,1800 IVPB 07/23/16 18:00 07/28/16 17:59 07/25/16 09:34 Temazepam 15 mg 15 mg HSPRN PRN ORAL Insomnia 07/23/16 15:30 07/30/16 15:29 07/24/16 23:57 ARIS WALSH Jul 25, 2016 15:04
--- NOTE | 2016-07-25 16:42 | General Progress Note ---
Assessment/Plan Assessment/Plan Assessment/Plan Problems: (1) Hypoalbuminemia ICD Codes: E88.09 - Other disorders of plasma-protein metabolism, not elsewhere classified SNOMED: 251235118 (2) Colon perforation ICD Codes: K63.1 - Perforation of intestine (nontraumatic) SNOMED: 94491788 (3) Colostomy care ICD Codes: Z43.3 - Encounter for attention to colostomy SNOMED: 783412161 (4) Anemia ICD Codes: D64.9 - Anemia, unspecified SNOMED: 972868219 (5) Elevated CEA ICD Codes: R97.0 - Elevated carcinoembryonic antigen [CEA] SNOMED: 68853299, 824680760 (6) Azotemia Assessment/Plan s/p colonoscopy with perf colon, now s/p ex lap with diverting colostomy will follow surgical recs IVFs - diet per surgery colostomy care ppi pain mgmt fu labs Subjective Allergies: Coded Allergies: No Known Allergies (Unverified , 07/18/16) Subjective Feels OK tolerating po d/w RN Objective Last 24 Hour Vital Signs Date Time Temp Pulse Resp B/P Pulse Ox O2 Delivery O2 Flow Rate FiO2 07/25/16 12:00 97.2 72 18 136/80 95 Room Air 70 07/25/16 12:00 81 07/25/16 08:00 75 07/25/16 08:00 96.8 70 18 122/71 98 Room Air 74 07/25/16 04:00 73 07/25/16 04:00 97.2 79 19 125/74 96 Room Air 07/25/16 00:00 79 07/25/16 00:00 97.5 80 20 137/73 96 Room Air 07/24/16 20:00 98.1 90 20 139/74 94 07/24/16 20:00 85 07/24/16 19:30 Nasal Cannula 2.0 28 07/24/16 19:30 88 20 Nasal Cannula 2.0 28 07/24/16 19:30 94 Nasal Cannula 2.0 28 07/24/16 17:24 84 Intake and Output 07/24/16 07/25/16 19:00 07:00 Intake Total 2765.0 ml 1360.0 ml Output Total 1400 ml 810 ml Balance 1365.0 ml 550.0 ml Intake Oral 1860 ml IV Total 905.0 ml 1360.0 ml Output Urine Total 1400 ml 700 ml Drainage Total 110 ml Height (Feet): 6 Height (Inches): 0.00 Weight (Pounds): 170 Objective Elderly WM NCAT supple CTA RRR Soft Flat , midline wound OK, Ostomy with scant stool , LILIA no edema KANDY BUTLER Jul 25, 2016 16:42
--- NOTE | 2016-07-25 17:47 | Cardiology Progress Note ---
Assessment/Plan Assessment/Plan 1. Vertigo. 2. Nausea and vomiting secondary to above. 3. Hematemesis. 4. Syncope, possibly vasovagal. 5. Pancytopenia, chronic. 6. T9 compression fracture and T9 spinous process fracture. 7. History of systemic amyloidosis with renal, liver, and pancreatic involvement. 8. Chronic kidney disease stage 4. 9. Cholelithiasis. 10. Systemic hypertension. 11. Hyperlipidemia. 12. Postsurgical hypothyroidism. 13. s/p colonoscopy with perf colon, now s/p ex lap with diverting colostomy 14. paroxysmal afib pt nwo in afib may need anticoagulation for stroke prevention if remain in afib will have ekg keep on tele for now Subjective Cardiovascular: Denies: chest pain, lightheadedness, palpitations Respiratory: Denies: SOB with excertion Gastrointestinal/Abdominal: Denies: abdominal pain Genitourinary: Denies: burning Objective Last 24 Hour Vital Signs Date Time Temp Pulse Resp B/P Pulse Ox O2 Delivery O2 Flow Rate FiO2 07/25/16 12:00 97.2 72 18 136/80 95 Room Air 70 07/25/16 12:00 81 07/25/16 08:00 75 07/25/16 08:00 96.8 70 18 122/71 98 Room Air 74 07/25/16 04:00 73 07/25/16 04:00 97.2 79 19 125/74 96 Room Air 07/25/16 00:00 79 07/25/16 00:00 97.5 80 20 137/73 96 Room Air 07/24/16 20:00 98.1 90 20 139/74 94 07/24/16 20:00 85 07/24/16 19:30 Nasal Cannula 2.0 28 07/24/16 19:30 88 20 Nasal Cannula 2.0 28 07/24/16 19:30 94 Nasal Cannula 2.0 28 General Appearance: no apparent distress, alert Cardiovascular: normal rate, regular rhythm Respiratory/Chest: lungs clear, normal breath sounds Abdomen: normal bowel sounds, non tender, soft Extremities: no swelling Intake and Output 07/24/16 07/25/16 19:00 07:00 Intake Total 2765.0 ml 1360.0 ml Output Total 1400 ml 810 ml Balance 1365.0 ml 550.0 ml Intake Oral 1860 ml IV Total 905.0 ml 1360.0 ml Output Urine Total 1400 ml 700 ml Drainage Total 110 ml MIGEL CASTRO Jul 25, 2016 17:47
[2016-07-25 20:00] VITALS: BP 130/71
[2016-07-25] MEDS: HYDROmorphone 1mg/ml Carpuject IVP PRN (22:34)
--- NOTE | 2016-07-26 00:58 | Consultation ---
DATE OF CONSULTATION: 07/25/2016 CONSULTING PHYSICIAN: Rajni Gaines M.D. ATTENDING PHYSICIAN: Reynaldo Polanco M.D. REASON FOR CONSULTATION: The patient with recent exploratory laparotomy and diverting colostomy, being evaluated for general sleep and skin integrity. HISTORY OF PRESENT ILLNESS: This is a 75-year-old gentleman with a history of dementia, who presented to the emergency room with bloody emesis and diarrhea and sound to have a rectosigmoid perforation. He underwent multiple surgeries, the last one being on 07/20/2016, where he underwent a laparoscopy with partial sigmoid resection. The patient since then has been recovering, but because he has been in the hospital and has had recent surgery. I performed the risk assessment for any potential wounds or pressure ulcers. PAST MEDICAL HISTORY: Dementia and history of prostate cancer. MEDICATIONS: Outpatient medications are, 1. Fosamax. 2. Allopurinol. 3. Plavix. 4. Colchicine. 5. Lasix. 6. Vasotec. 7. Ketorolac. 8. Levothyroxine. 9. Prednisone. 10. Ranitidine. Inpatient medications, 11. Hydrocortisone. 12. Protonix. 13. Piperacillin. 14. Tazobactam. 15. Tylenol. 16. Catapres. 17. Dilaudid. 18. Albuterol. 19. Metoprolol. 20. Ondansetron. 21. Restoril. ALLERGIES: No known drug allergies. REVIEW OF SYSTEMS: The patient is a poor historian. I was not able to obtain a complete review of systems. PHYSICAL EXAMINATION: GENERAL: The patient is alert and oriented and in no acute distress. He had a documented scalp injury, which appears to be healed. CARDIOVASCULAR: Regular rate and rhythm. ABDOMEN: Soft, nontender, and nondistended. His recent incision site is clean, dry, and intact with a clean dressing. Abrahan are intact. He has a LILIA drain, which is producing serosanguineous fluid. EXTREMITIES: On inspected bilateral feet and heels, he has no open wounds or pressure ulcers. I inspected his back and his sacral area, there is no pressure ulcers in that area, however, the patient was very low on his bed and his heels were being pressed against the foot plate. ASSESSMENT: The patient with recent multiple surgeries, who presented to the hospital with bloody emesis. He had a previous scalp injury, which is healed. Otherwise, because the patient has had recent surgery and has chronic long-term medical problems and also is a poor historian, I recommend precautions to prevent pressure ulcer formation. Turn and reposition q.2 hours and p.r.n. Please also make sure to keep the patient clean and dry and apply barrier cream to sacral area as necessary. Keep incision clean, dry, and intact with clean dry dressing and please do not allow the patient to put pressure on his feet. Recommend floating his heel and placing heel protectors and checking his position to make sure that he is offloading all areas. Rajni Gaines M.D. DR: RUPERT JOB#: [id number] CC: DENIS
[2016-07-26] MEDS: Piperacillin/Tazobactam 3.375 GM in NS 110 ML IVPB SCH ×3 (02:01→18:15)
[2016-07-26 04:00] VITALS: BP 115/63
[2016-07-26] MEDS: Hydrocortisone 100mg Inj IV SCH ×3 (06:10→21:41)
[2016-07-26 08:33] VITALS: BP 136/76
[2016-07-26] MEDS: Pantoprazole Inj IVP SCH ×2 (09:25→21:41)
[2016-07-26] MEDS: Calcium Gluconate 10% 1 GM in D5W 110 ML IVPB SCH ×2 (09:26→21:41)
--- NOTE | 2016-07-26 09:30 | Infectious Diseases Prog Note ---
Assessment/Plan Assessment/Plan A: patient is a 75-year-old male with Intra-abdominal sepsis improving Afebrile CRP improved colon perf SP colonoscopy Esophagitis. Gastritis, status post biopsy. Duodenal diverticulum. colonic polyp, SP removal Sp Exp lap and colostomy 4/ Atrial fibrillation. Prostate cancer. Diabetes. PLAN: DC nt on IV Zosyn d# 7 / 7 and monitor pt off of AB RX Monitor CBC. Monitor BMP. Monitor clinical course and V/ s Subjective Constitutional: Denies: anorexia, chills, drenching sweats, fatigue, fever, no symptoms, other Allergies: Coded Allergies: No Known Allergies (Unverified , 07/18/16) Objective Vital Signs Last 24 Hour Vital Signs Date Time Temp Pulse Resp B/P Pulse Ox O2 Delivery O2 Flow Rate FiO2 07/26/16 08:33 97.5 100 20 136/76 98 Room Air 07/26/16 07:43 Room Air 07/26/16 07:42 98 Room Air 07/26/16 07:40 100 18 Room Air 21 07/26/16 04:00 97.4 85 22 115/63 97 Room Air 07/26/16 04:00 80 07/26/16 00:00 77 07/25/16 20:13 Room Air 07/25/16 20:12 72 18 Room Air 21 07/25/16 20:12 95 Room Air 07/25/16 20:00 78 07/25/16 20:00 97.2 58 21 130/71 97 Room Air 07/25/16 16:00 77 07/25/16 12:00 97.2 72 18 136/80 95 Room Air 70 07/25/16 12:00 81 Height (Feet): 6 Height (Inches): 0.00 Weight (Pounds): 170 HEENT: mucous membranes moist Respiratory/Chest: no respiratory distress Cardiovascular: regularly irregular Abdomen: non distended Laboratory Tests Test 07/26/16 07:05 C-Reactive Protein, Quantitative 2.2 mg/dL (< 0.5) H Current Medications Medications (Trade) Dose Ordered Sig/Hemanth Route PRN Reason Start Time Stop Time Status Last Admin Dose Admin Acetaminophen (Tylenol) 650 mg Q4H PRN ORAL FEVER 07/23/16 15:30 08/22/16 15:29 Acetaminophen (Tylenol) 650 mg Q6H PRN ORAL Mild Pain (Pain Scale 1-3) 07/23/16 15:30 08/22/16 15:29 Albuterol/ Ipratropium (DuoNeb 0.5-3(2.5)mg/3ml) 3 ml Q4H PRN HHN Shortness of Breath 07/23/16 15:30 07/28/16 15:29 Calcium Gluconate 1 gm/Dextrose 120 ml @ 240 mls/hr Q12HR IVPB 07/23/16 21:00 08/22/16 20:59 07/25/16 20:41 Clonidine HCl (Catapres) 0.1 mg Q4H PRN ORAL SBP > 160 07/23/16 15:30 08/22/16 15:29 Dextrose (D5W 1000ml) 1,000 ml @ 75 mls/hr [id number] IV 07/23/16 16:00 08/22/16 15:59 07/25/16 21:29 Dextrose (Dextrose 50%) STAT PRN IV Hypoglycemia 07/23/16 15:30 08/22/16 15:29 Hydrocortisone (Solu-CORTEF) 50 mg EVERY 8 HOURS IV 07/23/16 22:00 08/22/16 21:59 07/26/16 06:10 Hydromorphone HCl (Dilaudid) 1 mg Q3H PRN IVP pain score 4-6 07/23/16 15:30 07/30/16 15:29 07/25/16 22:34 Hydromorphone HCl (Dilaudid) 2 mg Q3H PRN IVP pain score 7-10 07/23/16 15:30 07/30/16 15:29 Lorazepam (Ativan 2mg/ml 1ml) 0.5 mg Q4H PRN IV For Anxiety 07/23/16 15:30 07/30/16 15:29 Metoprolol Tartrate (Lopressor) 2.5 mg Q4H PRN IVP HR > 120 07/23/16 15:30 08/22/16 15:29 Nitroglycerin (Ntg) 0.4 mg Q5M X 3 DOSES PRN SL Prn Chest Pain 07/23/16 15:00 08/22/16 14:59 Ondansetron HCl (Zofran) 4 mg Q6H PRN IVP Nausea & Vomiting 07/23/16 15:30 08/22/16 15:29 Pantoprazole (Protonix) 40 mg EVERY 12 HOURS IVP 07/23/16 21:00 08/22/16 20:59 07/25/16 20:41 Piperacillin Sod/ Tazobactam Sod/ Sodium Chloride (Zosyn/Sodium Chloride) 110 ml @ 27.5 mls/hr Q8HR@0200,1000,1800 IVPB 07/23/16 18:00 07/28/16 17:59 07/26/16 02:01 Temazepam 15 mg 15 mg HSPRN PRN ORAL Insomnia 07/23/16 15:30 07/30/16 15:29 07/25/16 20:54 MANSI PANDEY M.D. Jul 26, 2016 09:30
--- NOTE | 2016-07-26 09:48 | Cardiology Progress Note ---
Assessment/Plan Assessment/Plan 1. Vertigo. 2. Nausea and vomiting secondary to above. 3. Hematemesis. 4. Syncope, possibly vasovagal. 5. Pancytopenia, chronic. 6. T9 compression fracture and T9 spinous process fracture. 7. History of systemic amyloidosis with renal, liver, and pancreatic involvement. 8. Chronic kidney disease stage 4. 9. Cholelithiasis. 10. Systemic hypertension. 11. Hyperlipidemia. 12. Postsurgical hypothyroidism. 13. s/p colonoscopy with perf colon, now s/p ex lap with diverting colostomy 14. paroxysmal afib will need anticoagulation for stroke prevention will have ekg keep on tele for now still in afib this am hr seem controlled at rest brigida lsee how he hairston on ambulation will need ok form surgeon to start on anticoagualtion if adn weh convert back to sinus will star on amiod Subjective Cardiovascular: Denies: chest pain, lightheadedness, palpitations Respiratory: Denies: shortness of breath Gastrointestinal/Abdominal: Denies: abdomen distended Genitourinary: Denies: burning Objective Last 24 Hour Vital Signs Date Time Temp Pulse Resp B/P Pulse Ox O2 Delivery O2 Flow Rate FiO2 07/26/16 08:33 97.5 100 20 136/76 98 Room Air 07/26/16 07:43 Room Air 07/26/16 07:42 98 Room Air 07/26/16 07:40 100 18 Room Air 21 07/26/16 04:00 97.4 85 22 115/63 97 Room Air 07/26/16 04:00 80 07/26/16 00:00 77 07/25/16 20:13 Room Air 07/25/16 20:12 72 18 Room Air 21 07/25/16 20:12 95 Room Air 07/25/16 20:00 78 07/25/16 20:00 97.2 58 21 130/71 97 Room Air 07/25/16 16:00 77 07/25/16 12:00 97.2 72 18 136/80 95 Room Air 70 07/25/16 12:00 81 General Appearance: no apparent distress, alert Neck: supple Cardiovascular: irregularly irregular Respiratory/Chest: lungs clear, normal breath sounds Abdomen: soft, other - colsotyomyu Extremities: non-tender, no swelling Intake and Output 07/25/16 07/26/16 19:00 07:00 Intake Total 1992.5 ml 1295.0 ml Output Total 945 ml 1255 ml Balance 1047.5 ml 40.0 ml Intake Oral 640 ml IV Total 1352.5 ml 1295.0 ml Output Urine Total 840 ml 750 ml Stool Total 250 ml Drainage Total 105 ml 255 ml # Voids 3 Laboratory Tests Test 07/26/16 07:05 C-Reactive Protein, Quantitative 2.2 mg/dL (< 0.5) H MIGEL CASTRO Jul 26, 2016 09:48
--- NOTE | 2016-07-26 11:06 | General Progress Note ---
Progress Note Progress Note Surgery: patient seen and examined at bedside. no acute events. doing well. no complaints. pain improved. no n/v/f/c. tolerating oral diet. ostomy viable and functional with stool in bag. Afebrile, HD stable, labs improving. Abdominal exam benign. midline wound healing. drain output serous. Diet as tolerated Rx as written 1 of the 2 drains removed today (output mildly higher today so held off on pulling both drains). if output decreased tomorrow and remove second drain Ambulate and OOB PT/OT Discharge planning. patient requests rehab. Beto Leon Jul 26, 2016 11:06
[2016-07-26 12:05] VITALS: BP 126/82
[2016-07-26 16:00] VITALS: BP 145/88
--- NOTE | 2016-07-26 16:15 | Nephrology Progress Note ---
Assessment/Plan Problem List: (1) ATN (acute tubular necrosis) (2) Colon perforation (3) Amyloidosis (4) Anemia Plan IVF Abxs follow labs Subjective Subjective feels ok Objective Objective Last 24 Hour Vital Signs Date Time Temp Pulse Resp B/P Pulse Ox O2 Delivery O2 Flow Rate FiO2 07/26/16 16:00 97.9 101 20 145/88 98 Room Air 07/26/16 12:06 85 07/26/16 12:05 98.1 100 20 126/82 99 Room Air 07/26/16 08:33 97.5 100 20 136/76 98 Room Air 07/26/16 07:56 91 07/26/16 07:43 Room Air 07/26/16 07:42 98 Room Air 07/26/16 07:40 100 18 Room Air 21 07/26/16 04:00 97.4 85 22 115/63 97 Room Air 07/26/16 04:00 80 07/26/16 00:00 77 07/25/16 20:13 Room Air 07/25/16 20:12 72 18 Room Air 21 07/25/16 20:12 95 Room Air 07/25/16 20:00 78 07/25/16 20:00 97.2 58 21 130/71 97 Room Air Intake and Output 07/25/16 07/26/16 19:00 07:00 Intake Total 1992.5 ml 1295.0 ml Output Total 945 ml 1255 ml Balance 1047.5 ml 40.0 ml Intake Oral 640 ml IV Total 1352.5 ml 1295.0 ml Output Urine Total 840 ml 750 ml Stool Total 250 ml Drainage Total 105 ml 255 ml # Voids 3 Laboratory Tests 07/26/16 07:05: C-Reactive Protein, Quantitative 2.2H Height (Feet): 6 Height (Inches): 0.00 Weight (Pounds): 170 Cardiovascular: normal rate Respiratory/Chest: lungs clear JESSICA GARCIA Jul 26, 2016 16:15
[2016-07-26 20:00] VITALS: BP 151/98
--- NOTE | 2016-07-26 21:41 | General Progress Note ---
Assessment/Plan Assessment/Plan Assessment/Plan Problems: (1) Hypoalbuminemia ICD Codes: E88.09 - Other disorders of plasma-protein metabolism, not elsewhere classified SNOMED: 338406974 (2) Colon perforation ICD Codes: K63.1 - Perforation of intestine (nontraumatic) SNOMED: 20713471 (3) Colostomy care ICD Codes: Z43.3 - Encounter for attention to colostomy SNOMED: 020501185 (4) Anemia ICD Codes: D64.9 - Anemia, unspecified SNOMED: 915028461 (5) Elevated CEA ICD Codes: R97.0 - Elevated carcinoembryonic antigen [CEA] SNOMED: 97294191, 859943517 (6) Azotemia Assessment/Plan s/p colonoscopy with perf colon, now s/p ex lap with diverting colostomy will follow surgical recs IVFs - diet per surgery colostomy care ppi pain mgmt fu labs Subjective Allergies: Coded Allergies: No Known Allergies (Unverified , 07/18/16) Subjective Feels OK tolerating po eating solids no events overnight Objective Last 24 Hour Vital Signs Date Time Temp Pulse Resp B/P Pulse Ox O2 Delivery O2 Flow Rate FiO2 07/26/16 20:08 Room Air 07/26/16 20:07 96 18 Room Air 21 07/26/16 20:07 95 Room Air 07/26/16 20:00 98.1 74 20 151/98 96 Room Air 07/26/16 16:00 97.9 101 20 145/88 98 Room Air 07/26/16 15:05 100 07/26/16 12:06 85 07/26/16 12:05 98.1 100 20 126/82 99 Room Air 07/26/16 08:33 97.5 100 20 136/76 98 Room Air 07/26/16 07:56 91 07/26/16 07:43 Room Air 07/26/16 07:42 98 Room Air 07/26/16 07:40 100 18 Room Air 21 07/26/16 04:00 97.4 85 22 115/63 97 Room Air 07/26/16 04:00 80 07/26/16 00:00 77 Intake and Output 07/25/16 07/26/16 19:00 07:00 Intake Total 1992.5 ml 1295.0 ml Output Total 945 ml 1255 ml Balance 1047.5 ml 40.0 ml Intake Oral 640 ml IV Total 1352.5 ml 1295.0 ml Output Urine Total 840 ml 750 ml Stool Total 250 ml Drainage Total 105 ml 255 ml # Voids 3 Laboratory Tests 07/26/16 07:05: C-Reactive Protein, Quantitative 2.2H Height (Feet): 6 Height (Inches): 0.00 Weight (Pounds): 170 Objective Elderly WM NCAT supple CTA RRR Soft Flat , midline wound OK, Ostomy with scant stool , LILIA no edema KANDY BUTLER Jul 26, 2016 21:41
[2016-07-26] MEDS: HYDROmorphone 1mg/ml Carpuject IVP PRN (22:03)
[2016-07-27] VITALS: BP 120/61
[2016-07-27 04:00] VITALS: BP 125/72
[2016-07-27] MEDS: Hydrocortisone 100mg Inj IV SCH (05:47)
[2016-07-27 07:22] LABS: MEAN CORPUSCULAR HEMOGLOBIN 31.2 PG (27.0-31.0); MEAN CORPUSCULAR HGB CONC 32.7 G/DL (32.0-36.0); MEAN CORPUSCULAR VOLUME 95 FL (80-99); MEAN PLATELET VOLUME 7.4 FL (6.5-10.1); PLATELET COUNT 90 K/UL (150-450); RED BLOOD COUNT 3.14 M/UL (4.70-6.10); RED CELL DISTRIBUTION WIDTH 16.4 % (11.6-14.8); WHITE BLOOD COUNT 10.9 K/UL (4.8-10.8)
[2016-07-27 07:26] LABS: ANION GAP 12 (5-15); CALCIUM 7.7 mg/dL (8.6-10.2); CARBON DIOXIDE 24 mEQ/L (20-30); CHLORIDE 109 mEQ/L (98-107); CREATININE 1.9 mg/dL (0.7-1.2); HEMOLYSIS 1; POTASSIUM 2.9 mEQ/L (3.4-4.9); SODIUM 145 mEQ/L (135-145)
[2016-07-27 07:52] VITALS: BP 110/68
[2016-07-27 07:57] LABS: ANISOCYTOSIS 1+; BAND NEUTROPHILS % (MANUAL) 3 % (0-8); BASOPHILS % (MANUAL) 0 % (0-2); EOSINOPHILS % (MANUAL) 0 % (0-3); HYPOCHROMASIA 2+; LYMPHOCYTES % (MANUAL) 7 % (20-45); METAMYELOCYTES % 2 % (0-0); NEUTROPHILS % (MANUAL) 77 % (45-75); PLATELET ESTIMATE DECREASED; PLATELET MORPHOLOGY NORMAL; SPHEROCYTES 1+; TOTAL CELLS COUNTED 100
[2016-07-27] MEDS ORDERED: Potassium Chloride 40 MEQ in 1/2 NS 1000ml 1,000 ML IV SCH (08:00)
[2016-07-27] MEDS: Calcium Gluconate 10% 1 GM in D5W 110 ML IVPB SCH ×2 (08:39→21:44)
[2016-07-27] MEDS: Pantoprazole Inj IVP SCH (08:40)
--- NOTE | 2016-07-27 08:42 | Cardiology Report ---
APPROVED REPORT EKG Measurement Heart [id number] A. Fib. with rapid ventricular response.
[2016-07-27] MEDS ORDERED: Potassium Chloride 40 MEQ in 1/2 NS 1000ml 1,000 ML IV ONE (09:00)
--- NOTE | 2016-07-27 09:17 | General Progress Note ---
Assessment/Plan Status: stable Assessment/Plan status; 1) Hematemesis resolved (2) ATN (acute tubular necrosis) Cr stable 1.9 (3) Anemia (4) History of prostate cancer (5) Dementia (6) Thoracic spine fracture (7) Acute encephalopathy (8) s/p Perf colon- surgery colostomy 07/20 (9) h/o Amyloidosis on steroids Plan: coughlin out- Phos supplement post op care- Slow hydrate- 2 D echo: Ej Fx 55% Gastric support change to po Protonix change IV hydrocortisone to po prednisone Pain Mgt monitor renal parameters per orders Subjective ROS Limited/Unobtainable: No Constitutional: Reports: malaise Allergies: Coded Allergies: No Known Allergies (Unverified , 07/18/16) Objective Last 24 Hour Vital Signs Date Time Temp Pulse Resp B/P Pulse Ox O2 Delivery O2 Flow Rate FiO2 07/27/16 07:52 96.4 82 20 110/68 96 Room Air 07/27/16 07:25 83 18 Room Air 21 07/27/16 07:25 96 Room Air 07/27/16 07:25 Room Air 07/27/16 04:00 97.2 84 20 125/72 85 Mechanical Ventilator 07/27/16 04:00 83 07/27/16 00:00 97.3 87 20 120/61 95 07/27/16 00:00 88 07/26/16 20:08 Room Air 07/26/16 20:07 96 18 Room Air 21 07/26/16 20:07 95 Room Air 07/26/16 20:00 101 07/26/16 20:00 98.1 74 20 151/98 96 Room Air 07/26/16 16:00 97.9 101 20 145/88 98 Room Air 07/26/16 15:05 100 07/26/16 12:06 85 07/26/16 12:05 98.1 100 20 126/82 99 Room Air Intake and Output 07/26/16 07/27/16 19:00 07:00 Intake Total 1525 ml 645 ml Output Total 1155 ml 770 ml Balance 370 ml -125 ml Intake Oral 720 ml 120 ml IV Total 805 ml 525 ml Output Urine Total 1075 ml 700 ml Stool Total 50 ml 50 ml Drainage Total 30 ml 20 ml Laboratory Tests 07/27/16 05:35: White Blood Count 10.9H, Red Blood Count 3.14L, Hemoglobin 9.8L, Hematocrit 29.9L, Mean Corpuscular Volume 95, Mean Corpuscular Hemoglobin 31.2H, Mean Corpuscular Hemoglobin Concent 32.7, Red Cell Distribution Width 16.4H, Platelet Count 90L, Mean Platelet Volume 7.4, Neutrophils (%) (Auto) , Lymphocytes (%) (Auto) , Monocytes (%) (Auto) , Eosinophils (%) (Auto) , Basophils (%) (Auto) , Differential Total Cells Counted 100, Neutrophils % ( Manual) 77H, Lymphocytes % (Manual) 7L, Monocytes % (Manual) 11H, Eosinophils % (Manual) 0, Basophils % (Manual) 0, Metamyelocytes % 2H, Band Neutrophils 3, Platelet Estimate DecreasedL, Platelet Morphology Normal, Hypochromasia 2+, Anisocytosis 1+, Spherocytes 1+, Sodium Level 145, Potassium Level 2.9L, Chloride Level 109H, Carbon Dioxide Level 24, Anion Gap 12, Blood Urea Nitrogen 37H, Creatinine 1.9H, Estimat Glomerular Filtration Rate , Glucose Level 118H, Calcium Level 7.7L Height (Feet): 6 Height (Inches): 0.00 Weight (Pounds): 170 General Appearance: no apparent distress Objective other PE not changed SHAHEEN WALDROP Jul 27, 2016 09:17
[2016-07-27] MEDS: PredniSONE 20mg tab ORAL SCH (09:36)
--- NOTE | 2016-07-27 10:06 | General Progress Note ---
Progress Note Progress Note Surgery: patient seen and examined at bedside. doing well. minimal pain. no n/v/f/c. tolerating oral diet. ostomy functional. afebrile, HD stable, wbc 10k today, electrolytes need replacement Abd soft, nt/nd, wound c/d/i, ostomy pink and viable, drain with serous output plan: replace electrolytes second drain removed today change ostomy bag pt/ot ambulate and out of bed d/c planning possible d/c tomorrow or soon AM labs Beto Leon Jul 27, 2016 10:06
[2016-07-27 11:27] VITALS: BP 127/67
--- NOTE | 2016-07-27 12:37 | Pulmonology Progress Note ---
Assessment/Plan Problems: (1) Colon perforation (2) Hematemesis (3) ATN (acute tubular necrosis) (4) Anemia (5) History of prostate cancer (6) Dementia (7) Thoracic spine fracture (8) Acute encephalopathy Assessment/Plan tolerating diet telemetry status IV fluids Iv antibioitcs renal function improving f/u electrolytes d/w dr Farias, dc planning Subjective ROS Limited/Unobtainable: No Interval Events: late note for 07/26, no new complains, d/w Surgeon. the wound is healing Allergies: Coded Allergies: No Known Allergies (Unverified , 07/18/16) Objective Last 24 Hour Vital Signs Date Time Temp Pulse Resp B/P Pulse Ox O2 Delivery O2 Flow Rate FiO2 07/27/16 12:00 94 07/27/16 11:27 97.7 88 20 127/67 96 Room Air 07/27/16 08:00 81 07/27/16 07:52 96.4 82 20 110/68 96 Room Air 07/27/16 07:25 83 18 Room Air 21 07/27/16 07:25 96 Room Air 07/27/16 07:25 Room Air 07/27/16 04:00 97.2 84 20 125/72 85 Mechanical Ventilator 07/27/16 04:00 83 07/27/16 00:00 97.3 87 20 120/61 95 07/27/16 00:00 88 07/26/16 20:08 Room Air 07/26/16 20:07 96 18 Room Air 21 07/26/16 20:07 95 Room Air 07/26/16 20:00 101 07/26/16 20:00 98.1 74 20 151/98 96 Room Air 07/26/16 16:00 97.9 101 20 145/88 98 Room Air 07/26/16 15:05 100 Intake and Output 07/26/16 07/27/16 18:59 06:59 Intake Total 1525 ml 645 ml Output Total 1155 ml 770 ml Balance 370 ml -125 ml Intake Oral 720 ml 120 ml IV Total 805 ml 525 ml Output Urine Total 1075 ml 700 ml Stool Total 50 ml 50 ml Drainage Total 30 ml 20 ml Objective General Appearance: WD/WN, no apparent distress Lines, tubes and drains: peripheral HEENT: normocephalic, anicteric Neck: non-tender, normal alignment Respiratory/Chest: chest wall non-tender, rhonchi Abdomen: normal bowel sounds, non tender Extremities: non-tender Laboratory Tests 07/27/16 05:35: White Blood Count 10.9H, Red Blood Count 3.14L, Hemoglobin 9.8L, Hematocrit 29.9L, Mean Corpuscular Volume 95, Mean Corpuscular Hemoglobin 31.2H, Mean Corpuscular Hemoglobin Concent 32.7, Red Cell Distribution Width 16.4H, Platelet Count 90L, Mean Platelet Volume 7.4, Neutrophils (%) (Auto) , Lymphocytes (%) (Auto) , Monocytes (%) (Auto) , Eosinophils (%) (Auto) , Basophils (%) (Auto) , Differential Total Cells Counted 100, Neutrophils % ( Manual) 77H, Lymphocytes % (Manual) 7L, Monocytes % (Manual) 11H, Eosinophils % (Manual) 0, Basophils % (Manual) 0, Metamyelocytes % 2H, Band Neutrophils 3, Platelet Estimate DecreasedL, Platelet Morphology Normal, Hypochromasia 2+, Anisocytosis 1+, Spherocytes 1+, Sodium Level 145, Potassium Level 2.9L, Chloride Level 109H, Carbon Dioxide Level 24, Anion Gap 12, Blood Urea Nitrogen 37H, Creatinine 1.9H, Estimat Glomerular Filtration Rate , Glucose Level 118H, Calcium Level 7.7L Current Medications Medications (Trade) Dose Ordered Sig/Hemanth Route PRN Reason Start Time Stop Time Status Last Admin Dose Admin Acetaminophen (Tylenol) 650 mg Q4H PRN ORAL FEVER 07/23/16 15:30 08/22/16 15:29 Acetaminophen (Tylenol) 650 mg Q6H PRN ORAL Mild Pain (Pain Scale 1-3) 07/23/16 15:30 08/22/16 15:29 Albuterol/ Ipratropium (DuoNeb 0.5-3(2.5)mg/3ml) 3 ml Q4H PRN HHN Shortness of Breath 07/23/16 15:30 07/28/16 15:29 Calcium Gluconate/ Dextrose (Calcium Gluconate 10%/D5W) 120 ml @ 240 mls/hr Q12HR IVPB 07/23/16 21:00 08/22/16 20:59 07/27/16 08:39 Clonidine HCl (Catapres) 0.1 mg Q4H PRN ORAL SBP > 160 07/23/16 15:30 08/22/16 15:29 Dextrose 1,000 ml @ 40 mls/hr Q24H IV 07/27/16 16:00 08/26/16 15:59 Dextrose (Dextrose 50%) STAT PRN IV Hypoglycemia 07/23/16 15:30 08/22/16 15:29 Hydromorphone HCl (Dilaudid) 1 mg Q3H PRN IVP pain score 4-6 07/23/16 15:30 07/30/16 15:29 07/26/16 22:03 Hydromorphone HCl (Dilaudid) 2 mg Q3H PRN IVP pain score 7-10 07/23/16 15:30 07/30/16 15:29 Lorazepam (Ativan 2mg/ml 1ml) 0.5 mg Q4H PRN IV For Anxiety 07/23/16 15:30 07/30/16 15:29 Metoprolol Tartrate (Lopressor) 2.5 mg Q4H PRN IVP HR > 120 07/23/16 15:30 08/22/16 15:29 Nitroglycerin (Ntg) 0.4 mg Q5M X 3 DOSES PRN SL Prn Chest Pain 07/23/16 15:00 08/22/16 14:59 Ondansetron HCl (Zofran) 4 mg Q6H PRN IVP Nausea & Vomiting 07/23/16 15:30 08/22/16 15:29 Pantoprazole (Protonix) 40 mg EVERY 12 HOURS ORAL 07/27/16 21:00 08/26/16 20:59 Potassium Chloride/Sodium Chloride (KCl/0.45% NS 1000ml) 1,020 ml @ 50 mls/hr [id number] ONCE IV 07/27/16 09:00 07/28/16 05:23 07/27/16 09:36 Prednisone (predniSONE) 20 mg DAILY ORAL 07/27/16 09:45 08/26/16 09:44 07/27/16 09:36 Temazepam 15 mg 15 mg HSPRN PRN ORAL Insomnia 07/23/16 15:30 07/30/16 15:29 07/26/16 22:02 ARIS WALSH Jul 27, 2016 12:37
[2016-07-27 15:20] VITALS: BP 141/77
--- NOTE | 2016-07-27 19:38 | Cardiology Progress Note ---
Assessment/Plan Assessment/Plan 1. Vertigo. 2. Nausea and vomiting secondary to above. 3. Hematemesis. 4. Syncope, possibly vasovagal. 5. Pancytopenia, chronic. 6. T9 compression fracture and T9 spinous process fracture. 7. History of systemic amyloidosis with renal, liver, and pancreatic involvement. 8. Chronic kidney disease stage 4. 9. Cholelithiasis. 10. Systemic hypertension. 11. Hyperlipidemia. 12. Postsurgical hypothyroidism. 13. s/p colonoscopy with perf colon, now s/p ex lap with diverting colostomy 14. paroxysmal afib will need anticoagulation for stroke prevention afib to sinus hr seem controlled at rest start on eliquis 5 mg bid start on amiod d/w dr king d/w rn heplock ivf hasoem [facility] beto bruno dc plans Subjective Cardiovascular: Reports: chest pain, Denies: palpitations Respiratory: Denies: SOB with excertion, shortness of breath Gastrointestinal/Abdominal: Denies: abdominal pain Genitourinary: Denies: burning Objective Last 24 Hour Vital Signs Date Time Temp Pulse Resp B/P Pulse Ox O2 Delivery O2 Flow Rate FiO2 07/27/16 16:00 80 07/27/16 15:20 98.1 85 20 141/77 97 Room Air 07/27/16 12:00 94 07/27/16 11:27 97.7 88 20 127/67 96 Room Air 07/27/16 08:00 81 07/27/16 07:52 96.4 82 20 110/68 96 Room Air 07/27/16 07:25 83 18 Room Air 07/27/16 07:25 96 Room Air 07/27/16 07:25 Room Air 07/27/16 04:00 97.2 84 20 125/72 85 Mechanical Ventilator 07/27/16 04:00 83 07/27/16 00:00 97.3 87 20 120/61 95 07/27/16 00:00 88 07/26/16 20:08 Room Air 07/26/16 20:07 96 18 Room Air 21 07/26/16 20:07 95 Room Air 07/26/16 20:00 101 07/26/16 20:00 98.1 74 20 151/98 96 Room Air General Appearance: no apparent distress Neck: supple Cardiovascular: regular rhythm Respiratory/Chest: crackles/rales - left base Abdomen: soft Extremities: no swelling Intake and Output 07/26/16 07/27/16 19:00 07:00 Intake Total 1525 ml 645 ml Output Total 1155 ml 770 ml Balance 370 ml -125 ml Intake Oral 720 ml 120 ml IV Total 805 ml 525 ml Output Urine Total 1075 ml 700 ml Stool Total 50 ml 50 ml Drainage Total 30 ml 20 ml Laboratory Tests Test 07/27/16 05:35 White Blood Count 10.9 K/UL (4.8-10.8) H Red Blood Count 3.14 M/UL (4.70-6.10) L Hemoglobin 9.8 G/DL (14.2-18.0) L Hematocrit 29.9 % (42.0-52.0) L Mean Corpuscular Volume 95 FL (80-99) Mean Corpuscular Hemoglobin 31.2 PG (27.0-31.0) H Mean Corpuscular Hemoglobin Concent 32.7 G/DL (32.0-36.0) Red Cell Distribution Width 16.4 % (11.6-14.8) H Platelet Count 90 K/UL (150-450) L Mean Platelet Volume 7.4 FL (6.5-10.1) Neutrophils (%) (Auto) % (45.0-75.0) Lymphocytes (%) (Auto) % (20.0-45.0) Monocytes (%) (Auto) % (1.0-10.0) Eosinophils (%) (Auto) % (0.0-3.0) Basophils (%) (Auto) % (0.0-2.0) Differential Total Cells Counted 100 Neutrophils % (Manual) 77 % (45-75) H Lymphocytes % (Manual) 7 % (20-45) L Monocytes % (Manual) 11 % (1-10) H Eosinophils % (Manual) 0 % (0-3) Basophils % (Manual) 0 % (0-2) Metamyelocytes % 2 % (0-0) H Band Neutrophils 3 % (0-8) Platelet Estimate Decreased L Platelet Morphology Normal Hypochromasia 2+ Anisocytosis 1+ Spherocytes 1+ Sodium Level 145 mEQ/L (135-145) Potassium Level 2.9 mEQ/L (3.4-4.9) L Chloride Level 109 mEQ/L (98-107) H Carbon Dioxide Level 24 mEQ/L (20-30) Anion Gap 12 (5-15) Blood Urea Nitrogen 37 mg/dL (7-23) H Creatinine 1.9 mg/dL (0.7-1.2) H Estimat Glomerular Filtration Rate mL/min (>60) Glucose Level 118 mg/dL (74-106) H Calcium Level 7.7 mg/dL (8.6-10.2) L MIGEL CASTRO Jul 27, 2016 19:38
--- NOTE | 2016-07-27 20:29 | Infectious Diseases Prog Note ---
Assessment/Plan Assessment/Plan A: patient is a 75-year-old male with Intra-abdominal sepsis improving Afebrile CRP improved colon perf SP colonoscopy Esophagitis. Gastritis, status post biopsy. Duodenal diverticulum. colonic polyp, SP removal Sp Exp lap and colostomy 07/20 Atrial fibrillation. Prostate cancer. Diabetes. PLAN: monitor pt off of AB RX ( 07/27 SP IV Zosyn d# 7 / 7 ) Monitor CBC. Monitor BMP. Monitor clinical course and V/ s Subjective Constitutional: Denies: anorexia, chills, drenching sweats, fatigue, fever, no symptoms, other Allergies: Coded Allergies: No Known Allergies (Unverified , 07/18/16) Objective Vital Signs Last 24 Hour Vital Signs Date Time Temp Pulse Resp B/P Pulse Ox O2 Delivery O2 Flow Rate FiO2 07/27/16 16:00 80 07/27/16 15:20 98.1 85 20 141/77 97 Room Air 07/27/16 12:00 94 07/27/16 11:27 97.7 88 20 127/67 96 Room Air 07/27/16 08:00 81 07/27/16 07:52 96.4 82 20 110/68 96 Room Air 07/27/16 07:25 83 18 Room Air 21 07/27/16 07:25 96 Room Air 07/27/16 07:25 Room Air 07/27/16 04:00 97.2 84 20 125/72 85 Mechanical Ventilator 07/27/16 04:00 83 07/27/16 00:00 97.3 87 20 120/61 95 07/27/16 00:00 88 Height (Feet): 6 Height (Inches): 0.00 Weight (Pounds): 170 HEENT: atraumatic Respiratory/Chest: normal breath sounds Cardiovascular: normal rate Abdomen: soft, non tender Laboratory Tests Test 07/27/16 05:35 White Blood Count 10.9 K/UL (4.8-10.8) H Red Blood Count 3.14 M/UL (4.70-6.10) L Hemoglobin 9.8 G/DL (14.2-18.0) L Hematocrit 29.9 % (42.0-52.0) L Mean Corpuscular Volume 95 FL (80-99) Mean Corpuscular Hemoglobin 31.2 PG (27.0-31.0) H Mean Corpuscular Hemoglobin Concent 32.7 G/DL (32.0-36.0) Red Cell Distribution Width 16.4 % (11.6-14.8) H Platelet Count 90 K/UL (150-450) L Mean Platelet Volume 7.4 FL (6.5-10.1) Neutrophils (%) (Auto) % (45.0-75.0) Lymphocytes (%) (Auto) % (20.0-45.0) Monocytes (%) (Auto) % (1.0-10.0) Eosinophils (%) (Auto) % (0.0-3.0) Basophils (%) (Auto) % (0.0-2.0) Differential Total Cells Counted 100 Neutrophils % (Manual) 77 % (45-75) H Lymphocytes % (Manual) 7 % (20-45) L Monocytes % (Manual) 11 % (1-10) H Eosinophils % (Manual) 0 % (0-3) Basophils % (Manual) 0 % (0-2) Metamyelocytes % 2 % (0-0) H Band Neutrophils 3 % (0-8) Platelet Estimate Decreased L Platelet Morphology Normal Hypochromasia 2+ Anisocytosis 1+ Spherocytes 1+ Sodium Level 145 mEQ/L (135-145) Potassium Level 2.9 mEQ/L (3.4-4.9) L Chloride Level 109 mEQ/L (98-107) H Carbon Dioxide Level 24 mEQ/L (20-30) Anion Gap 12 (5-15) Blood Urea Nitrogen 37 mg/dL (7-23) H Creatinine 1.9 mg/dL (0.7-1.2) H Estimat Glomerular Filtration Rate mL/min (>60) Glucose Level 118 mg/dL (74-106) H Calcium Level 7.7 mg/dL (8.6-10.2) L Current Medications Medications (Trade) Dose Ordered Sig/Hemanth Route PRN Reason Start Time Stop Time Status Last Admin Dose Admin Acetaminophen (Tylenol) 650 mg Q4H PRN ORAL FEVER 07/23/16 15:30 08/22/16 15:29 Acetaminophen (Tylenol) 650 mg Q6H PRN ORAL Mild Pain (Pain Scale 1-3) 07/23/16 15:30 08/22/16 15:29 Albuterol/ Ipratropium (DuoNeb 0.5-3(2.5)mg/3ml) 3 ml Q4H PRN HHN Shortness of Breath 07/23/16 15:30 07/28/16 15:29 Calcium Gluconate/ Dextrose (Calcium Gluconate 10%/D5W) 120 ml @ 240 mls/hr Q12HR IVPB 07/23/16 21:00 08/22/16 20:59 07/27/16 08:39 Clonidine HCl (Catapres) 0.1 mg Q4H PRN ORAL SBP > 160 07/23/16 15:30 08/22/16 15:29 Dextrose 1,000 ml @ 40 mls/hr Q24H IV 07/27/16 16:00 08/26/16 15:59 Dextrose (Dextrose 50%) STAT PRN IV Hypoglycemia 07/23/16 15:30 08/22/16 15:29 Hydromorphone HCl (Dilaudid) 1 mg Q3H PRN IVP pain score 4-6 07/23/16 15:30 07/30/16 15:29 07/26/16 22:03 Hydromorphone HCl (Dilaudid) 2 mg Q3H PRN IVP pain score 7-10 07/23/16 15:30 07/30/16 15:29 Lorazepam (Ativan 2mg/ml 1ml) 0.5 mg Q4H PRN IV For Anxiety 07/23/16 15:30 07/30/16 15:29 Metoprolol Tartrate (Lopressor) 2.5 mg Q4H PRN IVP HR > 120 07/23/16 15:30 08/22/16 15:29 Nitroglycerin (Ntg) 0.4 mg Q5M X 3 DOSES PRN SL Prn Chest Pain 07/23/16 15:00 08/22/16 14:59 Ondansetron HCl (Zofran) 4 mg Q6H PRN IVP Nausea & Vomiting 07/23/16 15:30 08/22/16 15:29 Pantoprazole (Protonix) 40 mg EVERY 12 HOURS ORAL 07/27/16 21:00 08/26/16 20:59 Potassium Chloride/Sodium Chloride (KCl/0.45% NS 1000ml) 1,020 ml @ 50 mls/hr [id number] ONCE IV 07/27/16 09:00 07/28/16 05:23 07/27/16 09:36 Prednisone (predniSONE) 20 mg DAILY ORAL 07/27/16 09:45 08/26/16 09:44 07/27/16 09:36 Temazepam 15 mg 15 mg HSPRN PRN ORAL Insomnia 07/23/16 15:30 07/30/16 15:29 07/26/16 22:02 MANSI PANDEY M.D. Jul 27, 2016 20:29
--- NOTE | 2016-07-27 22:06 | General Progress Note ---
Assessment/Plan Assessment/Plan Assessment/Plan Problems: (1) Hypoalbuminemia ICD Codes: E88.09 - Other disorders of plasma-protein metabolism, not elsewhere classified SNOMED: 916379663 (2) Colon perforation ICD Codes: K63.1 - Perforation of intestine (nontraumatic) SNOMED: 61927145 (3) Colostomy care ICD Codes: Z43.3 - Encounter for attention to colostomy SNOMED: 720628353 (4) Anemia ICD Codes: D64.9 - Anemia, unspecified SNOMED: 004138618 (5) Elevated CEA ICD Codes: R97.0 - Elevated carcinoembryonic antigen [CEA] SNOMED: 11458520, 906727295 (6) Azotemia Assessment/Plan s/p colonoscopy with perf colon, now s/p ex lap with diverting colostomy will follow surgical recs IVFs - diet per surgery colostomy care ppi pain mgmt fu labs Subjective Allergies: Coded Allergies: No Known Allergies (Unverified , 07/18/16) Subjective Feels OK tolerating po eating solids no abdominal pain no events overnight Objective Last 24 Hour Vital Signs Date Time Temp Pulse Resp B/P Pulse Ox O2 Delivery O2 Flow Rate FiO2 07/27/16 16:00 80 07/27/16 15:20 98.1 85 20 141/77 97 Room Air 07/27/16 12:00 94 07/27/16 11:27 97.7 88 20 127/67 96 Room Air 07/27/16 08:00 81 07/27/16 07:52 96.4 82 20 110/68 96 Room Air 07/27/16 07:25 83 18 Room Air 21 07/27/16 07:25 96 Room Air 07/27/16 07:25 Room Air 07/27/16 04:00 97.2 84 20 125/72 85 Mechanical Ventilator 07/27/16 04:00 83 07/27/16 00:00 97.3 87 20 120/61 95 07/27/16 00:00 88 Intake and Output 07/26/16 07/27/16 19:00 07:00 Intake Total 1525 ml 645 ml Output Total 1155 ml 770 ml Balance 370 ml -125 ml Intake Oral 720 ml 120 ml IV Total 805 ml 525 ml Output Urine Total 1075 ml 700 ml Stool Total 50 ml 50 ml Drainage Total 30 ml 20 ml Laboratory Tests 07/27/16 05:35: White Blood Count 10.9H, Red Blood Count 3.14L, Hemoglobin 9.8L, Hematocrit 29.9L, Mean Corpuscular Volume 95, Mean Corpuscular Hemoglobin 31.2H, Mean Corpuscular Hemoglobin Concent 32.7, Red Cell Distribution Width 16.4H, Platelet Count 90L, Mean Platelet Volume 7.4, Neutrophils (%) (Auto) , Lymphocytes (%) (Auto) , Monocytes (%) (Auto) , Eosinophils (%) (Auto) , Basophils (%) (Auto) , Differential Total Cells Counted 100, Neutrophils % ( Manual) 77H, Lymphocytes % (Manual) 7L, Monocytes % (Manual) 11H, Eosinophils % (Manual) 0, Basophils % (Manual) 0, Metamyelocytes % 2H, Band Neutrophils 3, Platelet Estimate DecreasedL, Platelet Morphology Normal, Hypochromasia 2+, Anisocytosis 1+, Spherocytes 1+, Sodium Level 145, Potassium Level 2.9L, Chloride Level 109H, Carbon Dioxide Level 24, Anion Gap 12, Blood Urea Nitrogen 37H, Creatinine 1.9H, Estimat Glomerular Filtration Rate , Glucose Level 118H, Calcium Level 7.7L Height (Feet): 6 Height (Inches): 0.00 Weight (Pounds): 170 Objective Elderly WM NCAT supple CTA RRR Soft Flat , midline wound OK, Ostomy with scant stool , LILIA no edema KANDY BUTLER Jul 27, 2016 22:06
[2016-07-27] MEDS: HYDROmorphone 1mg/ml Carpuject IVP PRN (23:21)
[2016-07-27 23:58] VITALS: BP 135/84
[2016-07-28 04:00] VITALS: BP 131/84
[2016-07-28 07:51] LABS: MEAN CORPUSCULAR HEMOGLOBIN 30.3 PG (27.0-31.0); MEAN CORPUSCULAR HGB CONC 31.7 G/DL (32.0-36.0); MEAN CORPUSCULAR VOLUME 96 FL (80-99); MEAN PLATELET VOLUME 7.3 FL (6.5-10.1); PLATELET COUNT 122 K/UL (150-450); RED BLOOD COUNT 3.59 M/UL (4.70-6.10); RED CELL DISTRIBUTION WIDTH 16.2 % (11.6-14.8); WHITE BLOOD COUNT 14.8 K/UL (4.8-10.8)
[2016-07-28 08:00] VITALS: BP 121/51
[2016-07-28 08:17] LABS: ALANINE AMINOTRANSFERASE 27 U/L (3-41); ANION GAP 12 (5-15); ASPARTATE AMINO TRANSFERASE 32 U/L (5-40); CALCIUM 7.7 mg/dL (8.6-10.2); CARBON DIOXIDE 24 mEQ/L (20-30); CHLORIDE 106 mEQ/L (98-107); CREATININE 1.9 mg/dL (0.7-1.2); CRP QUANT 0.7 mg/dL (< 0.5); HEMOLYSIS 5; MAGNESIUM 1.6 mg/dL (1.7-2.5); POTASSIUM 3.3 mEQ/L (3.4-4.9); SODIUM 142 mEQ/L (135-145); URIC ACID 7.5 mg/dL (3.0-7.5)
[2016-07-28] MEDS: Calcium Gluconate 10% 1 GM in D5W 110 ML IVPB SCH ×2 (09:05→21:30)
[2016-07-28] MEDS: PredniSONE 20mg tab ORAL SCH (09:05)
[2016-07-28 10:21] LABS: BAND NEUTROPHILS % (MANUAL) 1 % (0-8); BASOPHILS % (MANUAL) 0 % (0-2); EOSINOPHILS % (MANUAL) 3 % (0-3); HYPOCHROMASIA 1+; LYMPHOCYTES % (MANUAL) 13 % (20-45); NEUTROPHILS % (MANUAL) 81 % (45-75); PLATELET ESTIMATE DECREASED; PLATELET MORPHOLOGY NORMAL; TOTAL CELLS COUNTED 100
[2016-07-28 10:22] LABS: ANISOCYTOSIS 1+
[2016-07-28 11:14] VITALS: BP 120/79
--- NOTE | 2016-07-28 11:59 | Pulmonology Progress Note ---
Assessment/Plan Problems: (1) Colon perforation (2) Hematemesis (3) ATN (acute tubular necrosis) (4) Anemia (5) History of prostate cancer (6) Dementia (7) Thoracic spine fracture (8) Acute encephalopathy Assessment/Plan wbc slightly higher d/w Dr. Farias, we will order stat CT abdomen tolerating diet telemetry status IV fluids Iv antibioitcs renal function improving swtiching back and forth between sinus and afib Subjective ROS Limited/Unobtainable: No Constitutional: Reports: no symptoms HEENT: Repors: no symptoms Respiratory: Reports: no symptoms Allergies: Coded Allergies: No Known Allergies (Unverified , 07/18/16) Objective Last 24 Hour Vital Signs Date Time Temp Pulse Resp B/P Pulse Ox O2 Delivery O2 Flow Rate FiO2 07/28/16 11:14 98.1 71 20 120/79 100 Room Air 07/28/16 08:00 84 07/28/16 08:00 97.9 88 18 121/51 95 Room Air 07/28/16 07:50 72 16 Room Air 21 07/28/16 04:00 96.6 83 18 131/84 96 Room Air 07/28/16 04:00 71 07/28/16 00:00 71 07/27/16 23:58 97.9 103 18 135/84 95 Room Air 07/27/16 21:24 65 15 Room Air 21 07/27/16 20:00 88 07/27/16 16:00 80 07/27/16 15:20 98.1 85 20 141/77 97 Room Air 07/27/16 12:00 94 Intake and Output 07/27/16 07/28/16 19:00 07:00 Intake Total 1410 ml 930 ml Output Total 825 ml 1375 ml Balance 585 ml -445 ml Intake Oral 720 ml 240 ml IV Total 690 ml 690 ml Output Urine Total 800 ml 1175 ml Drainage Total 25 ml Other 200 ml Objective General Appearance: WD/WN, no apparent distress Lines, tubes and drains: peripheral HEENT: normocephalic, anicteric Neck: non-tender, normal alignment Respiratory/Chest: chest wall non-tender, rhonchi Abdomen: normal bowel sounds, non tender Extremities: non-tender Laboratory Tests 07/28/16 07:40: White Blood Count 14.8H, Red Blood Count 3.59L, Hemoglobin 10.9L, Hematocrit 34.3L, Mean Corpuscular Volume 96, Mean Corpuscular Hemoglobin 30.3, Mean Corpuscular Hemoglobin Concent 31.7L, Red Cell Distribution Width 16.2H, Platelet Count 122L, Mean Platelet Volume 7.3, Neutrophils (%) (Auto) , Lymphocytes (%) (Auto) , Monocytes (%) (Auto) , Eosinophils (%) (Auto) , Basophils (%) (Auto) , Differential Total Cells Counted 100, Neutrophils % ( Manual) 81H, Lymphocytes % (Manual) 13L, Monocytes % (Manual) 2, Eosinophils % ( Manual) 3, Basophils % (Manual) 0, Band Neutrophils 1, Platelet Estimate DecreasedL, Platelet Morphology Normal, Hypochromasia 1+, Anisocytosis 1+, Sodium Level 142, Potassium Level 3.3L, Chloride Level 106, Carbon Dioxide Level 24, Anion Gap 12, Blood Urea Nitrogen 41H, Creatinine 1.9H, Estimat Glomerular Filtration Rate , Glucose Level 100, Uric Acid 7.5, Calcium Level 7.7L, Phosphorus Level 3.0, Magnesium Level 1.6L, Total Bilirubin 0.5, Aspartate Amino Transf (AST/SGOT) 32, Alanine Aminotransferase (ALT/SGPT) 27, Alkaline Phosphatase 70, C-Reactive Protein, Quantitative 0.7H, Pro-B-Type Natriuretic Peptide 4541H, Total Protein 5.0L, Albumin 2.6L, Globulin 2.4, Albumin/Globulin Ratio 1.0 Current Medications Medications (Trade) Dose Ordered Sig/Hemanth Route PRN Reason Start Time Stop Time Status Last Admin Dose Admin Acetaminophen (Tylenol) 650 mg Q4H PRN ORAL FEVER 07/23/16 15:30 08/22/16 15:29 Acetaminophen (Tylenol) 650 mg Q6H PRN ORAL Mild Pain (Pain Scale 1-3) 07/23/16 15:30 08/22/16 15:29 Albuterol/ Ipratropium (DuoNeb 0.5-3(2.5)mg/3ml) 3 ml Q4H PRN HHN Shortness of Breath 07/23/16 15:30 07/28/16 15:29 Calcium Gluconate/ Dextrose (Calcium Gluconate 10%/D5W) 120 ml @ 240 mls/hr Q12HR IVPB 07/23/16 21:00 08/22/16 20:59 07/28/16 09:05 Clonidine HCl (Catapres) 0.1 mg Q4H PRN ORAL SBP > 160 07/23/16 15:30 08/22/16 15:29 Dextrose (Dextrose 50%) STAT PRN IV Hypoglycemia 07/23/16 15:30 08/22/16 15:29 Hydromorphone HCl (Dilaudid) 1 mg Q3H PRN IVP pain score 4-6 07/23/16 15:30 07/30/16 15:29 07/27/16 23:21 Hydromorphone HCl (Dilaudid) 2 mg Q3H PRN IVP pain score 7-10 07/23/16 15:30 07/30/16 15:29 Lorazepam (Ativan 2mg/ml 1ml) 0.5 mg Q4H PRN IV For Anxiety 07/23/16 15:30 07/30/16 15:29 Metoprolol Tartrate (Lopressor) 2.5 mg Q4H PRN IVP HR > 120 07/23/16 15:30 08/22/16 15:29 Nitroglycerin (Ntg) 0.4 mg Q5M X 3 DOSES PRN SL Prn Chest Pain 07/23/16 15:00 08/22/16 14:59 Ondansetron HCl (Zofran) 4 mg Q6H PRN IVP Nausea & Vomiting 07/23/16 15:30 08/22/16 15:29 Pantoprazole (Protonix) 40 mg EVERY 12 HOURS ORAL 07/27/16 21:00 08/26/16 20:59 07/28/16 09:05 Prednisone (predniSONE) 20 mg DAILY ORAL 07/27/16 09:45 08/26/16 09:44 07/28/16 09:05 Temazepam (Restoril) 15 mg HSPRN PRN ORAL Insomnia 07/23/16 15:30 07/30/16 15:29 07/26/16 22:02 ARIS WALSH Jul 28, 2016 11:59
--- NOTE | 2016-07-28 12:01 | General Surgery Progress Note ---
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 Chief Complaint: looks and feels very good, but WBC up to 14.8! No fever (on steroids) Symptoms: improved Additional Comments colostomy pink, working well. Wound clean, no erythema or collection obvious. Objective Last 24 Hour Vital Signs Date Time Temp Pulse Resp B/P Pulse Ox O2 Delivery O2 Flow Rate FiO2 07/28/16 11:14 98.1 71 20 120/79 100 Room Air 07/28/16 08:00 84 07/28/16 08:00 97.9 88 18 121/51 95 Room Air 07/28/16 07:50 72 16 Room Air 21 07/28/16 04:00 96.6 83 18 131/84 96 Room Air 07/28/16 04:00 71 07/28/16 00:00 71 07/27/16 23:58 97.9 103 18 135/84 95 Room Air 07/27/16 21:24 65 15 Room Air 21 07/27/16 20:00 88 07/27/16 16:00 80 07/27/16 15:20 98.1 85 20 141/77 97 Room Air 07/27/16 12:00 94 I&O Intake and Output 07/27/16 07/28/16 19:00 07:00 Intake Total 1410 ml 930 ml Output Total 825 ml 1375 ml Balance 585 ml -445 ml Intake Oral 720 ml 240 ml IV Total 690 ml 690 ml Output Urine Total 800 ml 1175 ml Drainage Total 25 ml Other 200 ml Dressing: dry Wound: clean Drains: none Cardiovascular: RSR Respiratory: clear Abdomen: soft, other - colostmy OK Extremities: no edema Laboratory Tests Test 07/28/16 07:40 White Blood Count 14.8 K/UL (4.8-10.8) H Red Blood Count 3.59 M/UL (4.70-6.10) L Hemoglobin 10.9 G/DL (14.2-18.0) L Hematocrit 34.3 % (42.0-52.0) L Mean Corpuscular Volume 96 FL (80-99) Mean Corpuscular Hemoglobin 30.3 PG (27.0-31.0) Mean Corpuscular Hemoglobin Concent 31.7 G/DL (32.0-36.0) L Red Cell Distribution Width 16.2 % (11.6-14.8) H Platelet Count 122 K/UL (150-450) L Mean Platelet Volume 7.3 FL (6.5-10.1) Neutrophils (%) (Auto) % (45.0-75.0) Lymphocytes (%) (Auto) % (20.0-45.0) Monocytes (%) (Auto) % (1.0-10.0) Eosinophils (%) (Auto) % (0.0-3.0) Basophils (%) (Auto) % (0.0-2.0) Differential Total Cells Counted 100 Neutrophils % (Manual) 81 % (45-75) H Lymphocytes % (Manual) 13 % (20-45) L Monocytes % (Manual) 2 % (1-10) Eosinophils % (Manual) 3 % (0-3) Basophils % (Manual) 0 % (0-2) Band Neutrophils 1 % (0-8) Platelet Estimate Decreased L Platelet Morphology Normal Hypochromasia 1+ Anisocytosis 1+ Sodium Level 142 mEQ/L (135-145) Potassium Level 3.3 mEQ/L (3.4-4.9) L Chloride Level 106 mEQ/L (98-107) Carbon Dioxide Level 24 mEQ/L (20-30) Anion Gap 12 (5-15) Blood Urea Nitrogen 41 mg/dL (7-23) H Creatinine 1.9 mg/dL (0.7-1.2) H Estimat Glomerular Filtration Rate mL/min (>60) Glucose Level 100 mg/dL (74-106) Uric Acid 7.5 mg/dL (3.0-7.5) Calcium Level 7.7 mg/dL (8.6-10.2) L Phosphorus Level 3.0 mg/dL (2.5-4.8) Magnesium Level 1.6 mg/dL (1.7-2.5) L Total Bilirubin 0.5 mg/dL (0.0-1.2) Aspartate Amino Transf (AST/SGOT) 32 U/L (5-40) Alanine Aminotransferase (ALT/SGPT) 27 U/L (3-41) Alkaline Phosphatase 70 U/L (40-129) C-Reactive Protein, Quantitative 0.7 mg/dL (< 0.5) H Pro-B-Type Natriuretic Peptide 4541 pg/mL (0-450) H Total Protein 5.0 g/dL (6.6-8.7) L Albumin 2.6 g/dL (3.5-5.2) L Globulin 2.4 g/dL Albumin/Globulin Ratio 1.0 (1.0-2.7) Assessment Post-op Diagnosis S/P laparoscopy, laparotomy with Brown colon resection and colostomy, doing well Home to Rehab soon. remove drains tomorrow if all OK Plan Additional Comments Discussed with Dr. Polanco. Befor discharge, would like to have CAT scan abd- pelvis with contrast to r/o collection (perforated rectosigmoid with some stool spillage, washed out thoroughlyIf all OK may be discharged and f/u with me next week at [facility] office. BRANDON HENLEY Jul 28, 2016 12:01
--- NOTE | 2016-07-28 15:03 | Diagnostic Imaging Report ---
Indication: History of colon perforation, hematemesis Technique: Spiral acquisitions obtained through the abdomen and pelvis. Patient given oral contrast. No IV contrast utilized, per referring physician request.. Multiplanar reconstructions were generated. Total dose length product 889 mGycm. CTDIvol(s) 14 mGy. Dose reduction achieved using automated exposure control Comparison: Reference made to ultrasound 07/18/2016 Findings: There is a distal descending colostomy and Marlyn procedure. The appendix is normal. No small bowel distention. No evidence of diverticulosis or diverticulitis. There is trace free intraperitoneal fluid over the dome of the liver. There is diastases of the rectus abdominis tendon. There are midline skin dot in the lower abdomen and upper pelvis. There is a small fat-containing right inguinal hernia. A few gas bubbles are seen immediately deep to the anterior pelvic wall immediately to the left of the inferior aspect of the rectus abdominis muscle. No other free intraperitoneal air demonstrated. No loculated fluid collections are evident. Contrast traverses the entirety of the small bowel and is seen in the ascending colon. Lack of IV contrast limits assessment of the solid organs. The gallbladder contains radiopaque gallstones. There is no biliary ductal dilatation. There are is what appears to be a somewhat lobulated solid mass in the splenic hilum, probably origin dating from the pancreatic tail. Margins are somewhat indistinct, but this appears to measure approximately 5.5 x 2.6 x 4.1 cm. Liver is somewhat atrophic. The fatty infiltrates and suggested on prior ultrasound is not demonstrated on CT. The spleen is mildly enlarged, measuring 14 cm long axis dimension. Unusual somewhat linear opacities are seen within the splenic substance. The adrenals are unremarkable. The kidneys are atrophic. The right kidney demonstrates a 1 cm cyst in the medial interpolar region. No hydronephrosis or renal or ureteral calculi. The bladder is distended. No pelvic mass or adenopathy. A small amount of air is seen within the bladder lumen. There is edema of the bilateral flank subcutaneous fat. There are bilateral pleural effusions, larger on the right than on the left. There is underlying compressive parenchymal atelectasis. The bones demonstrate degenerative spondylosis. There is surgical hardware reducing old healed right hip fracture. There is a superior endplate compression fracture deformity of the L5 vertebral body. There is a wedge compression fracture deformity of the T12 vertebral body. 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 Recommend further evaluation with multiphasic contrast CT, if not contraindicated, or pancreatic protocol MRI Postsurgical changes, as described, status post distal descending colostomy and Brown procedure. No unusual features Small amount of free intraperitoneal fluid Somewhat atrophic liver, although surface features to suggest cirrhosis are not evident. Note that there is no evidence of hepatic steatosis, despite findings on prior ultrasound Trace free intraperitoneal air, likely residual from recent surgery Splenomegaly Bilateral atrophic kidneys Bilateral pleural effusion. Associated compressive pulmonary parenchymal atelectasis Age indeterminate compression fracture deformities of T12, L1, and L5. Consider MRI for further evaluation if these are clinically symptomatic Edema of the bilateral flank subcutaneous fat. Distended bladder. Small amount of air within the bladder lumen is probably related to recent [place] catheterization, if such was performed Other findings as noted are clear degenerative spondylosis, right renal cyst, evidence of prior right hip surgery, rectus abdominis diastasis The CT scanner at [facility] is accredited by the [place] [employer] and the scans are performed using protocols designed to limit radiation exposure to as low as reasonably achievable to attain images of sufficient resolution adequate for diagnostic evaluation.
--- NOTE | 2016-07-28 15:11 | Infectious Diseases Prog Note ---
Assessment/Plan Assessment/Plan A: patient is a 75-year-old male with Leukocytosis ( on steroids ) no indication of sepsis at this time Intra-abdominal sepsis , SP Afebrile CRP improved colon perf SP colonoscopy Esophagitis. Gastritis, status post biopsy. Duodenal diverticulum. colonic polyp, SP removal Sp Exp lap and colostomy 07/20 Atrial fibrillation. Prostate cancer. Diabetes. PLAN: monitor pt off of AB RX will monitor WBC ( 07/27 SP IV Zosyn d# 7 / ) Monitor CBC. Monitor BMP. Monitor clinical course and V/ s CRP in AM possible re anastomosis of colon Subjective Constitutional: Denies: anorexia, chills, drenching sweats, fatigue, fever, no symptoms, other Allergies: Coded Allergies: No Known Allergies (Unverified , 07/18/16) Objective Vital Signs Last 24 Hour Vital Signs Date Time Temp Pulse Resp B/P Pulse Ox O2 Delivery O2 Flow Rate FiO2 07/28/16 12:00 75 07/28/16 11:14 98.1 71 20 120/79 100 Room Air 07/28/16 08:00 84 07/28/16 08:00 97.9 88 18 121/51 95 Room Air 07/28/16 07:50 72 16 Room Air 21 07/28/16 04:00 96.6 83 18 131/84 96 Room Air 07/28/16 04:00 71 07/28/16 00:00 71 07/27/16 23:58 97.9 103 18 135/84 95 Room Air 07/27/16 21:24 65 15 Room Air 21 07/27/16 20:00 88 07/27/16 16:00 80 07/27/16 15:20 98.1 85 20 141/77 97 Room Air Height (Feet): 6 Height (Inches): 0.00 Weight (Pounds): 170 HEENT: anicteric Respiratory/Chest: no respiratory distress Cardiovascular: regular rhythm Abdomen: no organomegaly Laboratory Tests Test 07/28/16 07:40 White Blood Count 14.8 K/UL (4.8-10.8) H Red Blood Count 3.59 M/UL (4.70-6.10) L Hemoglobin 10.9 G/DL (14.2-18.0) L Hematocrit 34.3 % (42.0-52.0) L Mean Corpuscular Volume 96 FL (80-99) Mean Corpuscular Hemoglobin 30.3 PG (27.0-31.0) Mean Corpuscular Hemoglobin Concent 31.7 G/DL (32.0-36.0) L Red Cell Distribution Width 16.2 % (11.6-14.8) H Platelet Count 122 K/UL (150-450) L Mean Platelet Volume 7.3 FL (6.5-10.1) Neutrophils (%) (Auto) % (45.0-75.0) Lymphocytes (%) (Auto) % (20.0-45.0) Monocytes (%) (Auto) % (1.0-10.0) Eosinophils (%) (Auto) % (0.0-3.0) Basophils (%) (Auto) % (0.0-2.0) Differential Total Cells Counted 100 Neutrophils % (Manual) 81 % (45-75) H Lymphocytes % (Manual) 13 % (20-45) L Monocytes % (Manual) 2 % (1-10) Eosinophils % (Manual) 3 % (0-3) Basophils % (Manual) 0 % (0-2) Band Neutrophils 1 % (0-8) Platelet Estimate Decreased L Platelet Morphology Normal Hypochromasia 1+ Anisocytosis 1+ Sodium Level 142 mEQ/L (135-145) Potassium Level 3.3 mEQ/L (3.4-4.9) L Chloride Level 106 mEQ/L (98-107) Carbon Dioxide Level 24 mEQ/L (20-30) Anion Gap 12 (5-15) Blood Urea Nitrogen 41 mg/dL (7-23) H Creatinine 1.9 mg/dL (0.7-1.2) H Estimat Glomerular Filtration Rate mL/min (>60) Glucose Level 100 mg/dL (74-106) Uric Acid 7.5 mg/dL (3.0-7.5) Calcium Level 7.7 mg/dL (8.6-10.2) L Phosphorus Level 3.0 mg/dL (2.5-4.8) Magnesium Level 1.6 mg/dL (1.7-2.5) L Total Bilirubin 0.5 mg/dL (0.0-1.2) Aspartate Amino Transf (AST/SGOT) 32 U/L (5-40) Alanine Aminotransferase (ALT/SGPT) 27 U/L (3-41) Alkaline Phosphatase 70 U/L (40-129) C-Reactive Protein, Quantitative 0.7 mg/dL (< 0.5) H Pro-B-Type Natriuretic Peptide 4541 pg/mL (0-450) H Total Protein 5.0 g/dL (6.6-8.7) L Albumin 2.6 g/dL (3.5-5.2) L Globulin 2.4 g/dL Albumin/Globulin Ratio 1.0 (1.0-2.7) Current Medications Medications (Trade) Dose Ordered Sig/Hemanth Route PRN Reason Start Time Stop Time Status Last Admin Dose Admin Acetaminophen (Tylenol) 650 mg Q4H PRN ORAL FEVER 07/23/16 15:30 08/22/16 15:29 Acetaminophen (Tylenol) 650 mg Q6H PRN ORAL Mild Pain (Pain Scale 1-3) 07/23/16 15:30 08/22/16 15:29 Albuterol/ Ipratropium (DuoNeb 0.5-3(2.5)mg/3ml) 3 ml Q4H PRN HHN Shortness of Breath 07/23/16 15:30 07/28/16 15:29 Calcium Gluconate/ Dextrose (Calcium Gluconate 10%/D5W) 120 ml @ 240 mls/hr Q12HR IVPB 07/23/16 21:00 08/22/16 20:59 07/28/16 09:05 Clonidine HCl (Catapres) 0.1 mg Q4H PRN ORAL SBP > 160 07/23/16 15:30 08/22/16 15:29 Dextrose (Dextrose 50%) STAT PRN IV Hypoglycemia 07/23/16 15:30 08/22/16 15:29 Hydromorphone HCl (Dilaudid) 1 mg Q3H PRN IVP pain score 4-6 07/23/16 15:30 07/30/16 15:29 07/27/16 23:21 Hydromorphone HCl (Dilaudid) 2 mg Q3H PRN IVP pain score 7-10 07/23/16 15:30 07/30/16 15:29 Lorazepam (Ativan 2mg/ml 1ml) 0.5 mg Q4H PRN IV For Anxiety 07/23/16 15:30 07/30/16 15:29 Metoprolol Tartrate (Lopressor) 2.5 mg Q4H PRN IVP HR > 120 07/23/16 15:30 08/22/16 15:29 Nitroglycerin (Ntg) 0.4 mg Q5M X 3 DOSES PRN SL Prn Chest Pain 07/23/16 15:00 08/22/16 14:59 Ondansetron HCl (Zofran) 4 mg Q6H PRN IVP Nausea & Vomiting 07/23/16 15:30 08/22/16 15:29 Pantoprazole (Protonix) 40 mg EVERY 12 HOURS ORAL 07/27/16 21:00 08/26/16 20:59 07/28/16 09:05 Prednisone (predniSONE) 20 mg DAILY ORAL 07/27/16 09:45 08/26/16 09:44 07/28/16 09:05 Temazepam (Restoril) 15 mg HSPRN PRN ORAL Insomnia 07/23/16 15:30 07/30/16 15:29 07/26/16 22:02 MANSI PANDEY M.D. Jul 28, 2016 15:11
--- NOTE | 2016-07-28 15:17 | General Progress Note ---
Assessment/Plan Status: stable Status Narrative mild rise in WBCs, ? steroids? 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 Plan: coughlin out- Phos supplement as needed- post op care- Slow hydrate- 2 D echo: Ej Fx 55% Gastric support change to po Protonix change IV hydrocortisone to po prednisone Pain Mgt monitor renal parameters per orders Subjective ROS Limited/Unobtainable: No Allergies: Coded Allergies: No Known Allergies (Unverified , 07/18/16) Objective Last 24 Hour Vital Signs Date Time Temp Pulse Resp B/P Pulse Ox O2 Delivery O2 Flow Rate FiO2 07/28/16 12:00 75 07/28/16 11:14 98.1 71 20 120/79 100 Room Air 07/28/16 08:00 84 07/28/16 08:00 97.9 88 18 121/51 95 Room Air 07/28/16 07:50 72 16 Room Air 21 07/28/16 04:00 96.6 83 18 131/84 96 Room Air 07/28/16 04:00 71 07/28/16 00:00 71 07/27/16 23:58 97.9 103 18 135/84 95 Room Air 07/27/16 21:24 65 15 Room Air 21 07/27/16 20:00 88 07/27/16 16:00 80 07/27/16 15:20 98.1 85 20 141/77 97 Room Air Intake and Output 07/27/16 07/28/16 19:00 07:00 Intake Total 1410 ml 930 ml Output Total 825 ml 1375 ml Balance 585 ml -445 ml Intake Oral 720 ml 240 ml IV Total 690 ml 690 ml Output Urine Total 800 ml 1175 ml Drainage Total 25 ml Other 200 ml Laboratory Tests 07/28/16 07:40: White Blood Count 14.8H, Red Blood Count 3.59L, Hemoglobin 10.9L, Hematocrit 34.3L, Mean Corpuscular Volume 96, Mean Corpuscular Hemoglobin 30.3, Mean Corpuscular Hemoglobin Concent 31.7L, Red Cell Distribution Width 16.2H, Platelet Count 122L, Mean Platelet Volume 7.3, Neutrophils (%) (Auto) , Lymphocytes (%) (Auto) , Monocytes (%) (Auto) , Eosinophils (%) (Auto) , Basophils (%) (Auto) , Differential Total Cells Counted 100, Neutrophils % ( Manual) 81H, Lymphocytes % (Manual) 13L, Monocytes % (Manual) 2, Eosinophils % ( Manual) 3, Basophils % (Manual) 0, Band Neutrophils 1, Platelet Estimate DecreasedL, Platelet Morphology Normal, Hypochromasia 1+, Anisocytosis 1+, Sodium Level 142, Potassium Level 3.3L, Chloride Level 106, Carbon Dioxide Level 24, Anion Gap 12, Blood Urea Nitrogen 41H, Creatinine 1.9H, Estimat Glomerular Filtration Rate , Glucose Level 100, Uric Acid 7.5, Calcium Level 7.7L, Phosphorus Level 3.0, Magnesium Level 1.6L, Total Bilirubin 0.5, Aspartate Amino Transf (AST/SGOT) 32, Alanine Aminotransferase (ALT/SGPT) 27, Alkaline Phosphatase 70, C-Reactive Protein, Quantitative 0.7H, Pro-B-Type Natriuretic Peptide 4541H, Total Protein 5.0L, Albumin 2.6L, Globulin 2.4, Albumin/Globulin Ratio 1.0 Height (Feet): 6 Height (Inches): 0.00 Weight (Pounds): 170 General Appearance: no apparent distress Objective other PE not changed SHAHEEN WALDROP Jul 28, 2016 15:17
[2016-07-28 15:24] VITALS: BP 133/82
[2016-07-28 20:23] VITALS: BP 149/71
--- NOTE | 2016-07-28 20:42 | Cardiology Progress Note ---
Assessment/Plan Assessment/Plan 1. Vertigo. 2. Nausea and vomiting secondary to above. 3. Hematemesis. 4. Syncope, possibly vasovagal. 5. Pancytopenia, chronic. 6. T9 compression fracture and T9 spinous process fracture. 7. History of systemic amyloidosis with renal, liver, and pancreatic involvement. 8. Chronic kidney disease stage 4. 9. Cholelithiasis. 10. Systemic hypertension. 11. Hyperlipidemia. 12. Postsurgical hypothyroidism. 13. s/p colonoscopy with perf colon, now s/p ex lap with diverting colostomy 14. paroxysmal afib afib to sinus hr seem controlled at rest eliquis 5 mg bid on amiod d/w dr christine cristina [facility] haselaine bruno dc plans Subjective Cardiovascular: Denies: chest pain, lightheadedness Respiratory: Denies: shortness of breath Genitourinary: Denies: burning Objective Last 24 Hour Vital Signs Date Time Temp Pulse Resp B/P Pulse Ox O2 Delivery O2 Flow Rate FiO2 07/28/16 20:23 98.1 61 19 149/71 95 Room Air 07/28/16 19:45 76 20 Room Air 07/28/16 16:00 101 07/28/16 15:24 98.2 76 20 133/82 98 Room Air 07/28/16 12:00 75 07/28/16 11:14 98.1 71 20 120/79 100 Room Air 07/28/16 08:00 84 07/28/16 08:00 97.9 88 18 121/51 95 Room Air 07/28/16 07:50 72 16 Room Air 07/28/16 04:00 96.6 83 18 131/84 96 Room Air 07/28/16 04:00 71 07/28/16 00:00 71 07/27/16 23:58 97.9 103 18 135/84 95 Room Air 07/27/16 21:24 65 15 Room Air 21 General Appearance: no apparent distress, alert Neck: no JVD Cardiovascular: normal rate, regular rhythm Respiratory/Chest: lungs clear, normal breath sounds Abdomen: normal bowel sounds, non tender, soft Extremities: no swelling Intake and Output 07/27/16 07/28/16 19:00 07:00 Intake Total 1410 ml 930 ml Output Total 825 ml 1375 ml Balance 585 ml -445 ml Intake Oral 720 ml 240 ml IV Total 690 ml 690 ml Output Urine Total 800 ml 1175 ml Drainage Total 25 ml Other 200 ml Laboratory Tests Test 07/28/16 07:40 White Blood Count 14.8 K/UL (4.8-10.8) H Red Blood Count 3.59 M/UL (4.70-6.10) L Hemoglobin 10.9 G/DL (14.2-18.0) L Hematocrit 34.3 % (42.0-52.0) L Mean Corpuscular Volume 96 FL (80-99) Mean Corpuscular Hemoglobin 30.3 PG (27.0-31.0) Mean Corpuscular Hemoglobin Concent 31.7 G/DL (32.0-36.0) L Red Cell Distribution Width 16.2 % (11.6-14.8) H Platelet Count 122 K/UL (150-450) L Mean Platelet Volume 7.3 FL (6.5-10.1) Neutrophils (%) (Auto) % (45.0-75.0) Lymphocytes (%) (Auto) % (20.0-45.0) Monocytes (%) (Auto) % (1.0-10.0) Eosinophils (%) (Auto) % (0.0-3.0) Basophils (%) (Auto) % (0.0-2.0) Differential Total Cells Counted 100 Neutrophils % (Manual) 81 % (45-75) H Lymphocytes % (Manual) 13 % (20-45) L Monocytes % (Manual) 2 % (1-10) Eosinophils % (Manual) 3 % (0-3) Basophils % (Manual) 0 % (0-2) Band Neutrophils 1 % (0-8) Platelet Estimate Decreased L Platelet Morphology Normal Hypochromasia 1+ Anisocytosis 1+ Sodium Level 142 mEQ/L (135-145) Potassium Level 3.3 mEQ/L (3.4-4.9) L Chloride Level 106 mEQ/L (98-107) Carbon Dioxide Level 24 mEQ/L (20-30) Anion Gap 12 (5-15) Blood Urea Nitrogen 41 mg/dL (7-23) H Creatinine 1.9 mg/dL (0.7-1.2) H Estimat Glomerular Filtration Rate mL/min (>60) Glucose Level 100 mg/dL (74-106) Uric Acid 7.5 mg/dL (3.0-7.5) Calcium Level 7.7 mg/dL (8.6-10.2) L Phosphorus Level 3.0 mg/dL (2.5-4.8) Magnesium Level 1.6 mg/dL (1.7-2.5) L Total Bilirubin 0.5 mg/dL (0.0-1.2) Aspartate Amino Transf (AST/SGOT) 32 U/L (5-40) Alanine Aminotransferase (ALT/SGPT) 27 U/L (3-41) Alkaline Phosphatase 70 U/L (40-129) C-Reactive Protein, Quantitative 0.7 mg/dL (< 0.5) H Pro-B-Type Natriuretic Peptide 4541 pg/mL (0-450) H Total Protein 5.0 g/dL (6.6-8.7) L Albumin 2.6 g/dL (3.5-5.2) L Globulin 2.4 g/dL Albumin/Globulin Ratio 1.0 (1.0-2.7) MIGEL CASTRO Jul 28, 2016 20:42
--- NOTE | 2016-07-28 21:57 | General Progress Note ---
Assessment/Plan Assessment/Plan Assessment/Plan Problems: (1) Hypoalbuminemia ICD Codes: E88.09 - Other disorders of plasma-protein metabolism, not elsewhere classified SNOMED: 324873921 (2) Colon perforation ICD Codes: K63.1 - Perforation of intestine (nontraumatic) SNOMED: 82071259 (3) Colostomy care ICD Codes: Z43.3 - Encounter for attention to colostomy SNOMED: 189702573 (4) Anemia ICD Codes: D64.9 - Anemia, unspecified SNOMED: 313427675 (5) Elevated CEA ICD Codes: R97.0 - Elevated carcinoembryonic antigen [CEA] SNOMED: 00723135, 543377965 (6) Azotemia Assessment/Plan s/p colonoscopy with perf colon, now s/p ex lap with diverting colostomy will follow surgical recs push po colostomy care ppi pain mgmt fu labs Subjective Allergies: Coded Allergies: No Known Allergies (Unverified , 07/18/16) Subjective Feels OK tolerating solids no abdominal pain no events overnight Objective Last 24 Hour Vital Signs Date Time Temp Pulse Resp B/P Pulse Ox O2 Delivery O2 Flow Rate FiO2 07/28/16 20:23 98.1 61 19 149/71 95 Room Air 07/28/16 19:45 76 20 Room Air 07/28/16 16:00 101 07/28/16 15:24 98.2 76 20 133/82 98 Room Air 07/28/16 12:00 75 07/28/16 11:14 98.1 71 20 120/79 100 Room Air 07/28/16 08:00 84 07/28/16 08:00 97.9 88 18 121/51 95 Room Air 07/28/16 07:50 72 16 Room Air 07/28/16 04:00 96.6 83 18 131/84 96 Room Air 07/28/16 04:00 71 07/28/16 00:00 71 07/27/16 23:58 97.9 103 18 135/84 95 Room Air Intake and Output 07/27/16 07/28/16 19:00 07:00 Intake Total 1410 ml 930 ml Output Total 825 ml 1375 ml Balance 585 ml -445 ml Intake Oral 720 ml 240 ml IV Total 690 ml 690 ml Output Urine Total 800 ml 1175 ml Drainage Total 25 ml Other 200 ml Laboratory Tests 07/28/16 07:40: White Blood Count 14.8H, Red Blood Count 3.59L, Hemoglobin 10.9L, Hematocrit 34.3L, Mean Corpuscular Volume 96, Mean Corpuscular Hemoglobin 30.3, Mean Corpuscular Hemoglobin Concent 31.7L, Red Cell Distribution Width 16.2H, Platelet Count 122L, Mean Platelet Volume 7.3, Neutrophils (%) (Auto) , Lymphocytes (%) (Auto) , Monocytes (%) (Auto) , Eosinophils (%) (Auto) , Basophils (%) (Auto) , Differential Total Cells Counted 100, Neutrophils % ( Manual) 81H, Lymphocytes % (Manual) 13L, Monocytes % (Manual) 2, Eosinophils % ( Manual) 3, Basophils % (Manual) 0, Band Neutrophils 1, Platelet Estimate DecreasedL, Platelet Morphology Normal, Hypochromasia 1+, Anisocytosis 1+, Sodium Level 142, Potassium Level 3.3L, Chloride Level 106, Carbon Dioxide Level 24, Anion Gap 12, Blood Urea Nitrogen 41H, Creatinine 1.9H, Estimat Glomerular Filtration Rate , Glucose Level 100, Uric Acid 7.5, Calcium Level 7.7L, Phosphorus Level 3.0, Magnesium Level 1.6L, Total Bilirubin 0.5, Aspartate Amino Transf (AST/SGOT) 32, Alanine Aminotransferase (ALT/SGPT) 27, Alkaline Phosphatase 70, C-Reactive Protein, Quantitative 0.7H, Pro-B-Type Natriuretic Peptide 4541H, Total Protein 5.0L, Albumin 2.6L, Globulin 2.4, Albumin/Globulin Ratio 1.0 Height (Feet): 6 Height (Inches): 0.00 Weight (Pounds): 170 Objective Elderly WM NCAT supple CTA RRR Soft Flat , midline wound OK, Ostomy no edema KANDY BUTLER Jul 28, 2016 21:57
[2016-07-28] MEDS: HYDROmorphone 1mg/ml Carpuject IVP PRN (22:35)
[2016-07-29 00:05] VITALS: BP 150/83
[2016-07-29 04:07] VITALS: BP 140/66
[2016-07-29 08:05] LABS: MEAN CORPUSCULAR HEMOGLOBIN 30.3 PG (27.0-31.0); MEAN CORPUSCULAR HGB CONC 31.3 G/DL (32.0-36.0); MEAN CORPUSCULAR VOLUME 97 FL (80-99); MEAN PLATELET VOLUME 7.6 FL (6.5-10.1); PLATELET COUNT 121 K/UL (150-450); RED BLOOD COUNT 3.72 M/UL (4.70-6.10); RED CELL DISTRIBUTION WIDTH 17.1 % (11.6-14.8); WHITE BLOOD COUNT 14.9 K/UL (4.8-10.8)
[2016-07-29 08:12] VITALS: BP 142/65
[2016-07-29 08:38] LABS: INR 1.1 (0.9-1.1); PROTHROMBIN TIME 11.4 SEC (9.30-11.50)
[2016-07-29] MEDS: PredniSONE 20mg tab ORAL SCH (08:45)
--- NOTE | 2016-07-29 08:52 | General Progress Note ---
Progress Note Progress Note patient known to me. years ago I had done thyroidectomy for amyloidosiss. recent colonoscopy with perforation requiring ex lap, colostomy and quesada procedure. Both drains have been reviewed. 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 Recommend further evaluation with multiphasic contrast CT, if not contraindicated, or pancreatic protocol MRI Postsurgical changes, as described, status post distal descending colostomy and Quesada procedure. No unusual features Small amount of free intraperitoneal fluid Somewhat atrophic liver, although surface features to suggest cirrhosis are not evident. Note that there is no evidence of hepatic steatosis, despite findings on prior ultrasound Trace free intraperitoneal air, likely residual from recent surgery Splenomegaly Bilateral atrophic kidneys Bilateral pleural effusion. Associated compressive pulmonary parenchymal atelectasis Age indeterminate compression fracture deformities of T12, L1, and L5. Consider MRI for further evaluation if these are clinically symptomatic Edema of the bilateral flank subcutaneous fat. Distended bladder. Small amount of air within the bladder lumen is probably related to recent [place] catheterization, if such was performed Other findings as noted are clear degenerative spondylosis, right renal cyst, evidence of prior right hip surgery, rectus abdominis diastasis pt doing well tolerating diet. Vital Sign - Last 24 Hours 07/28/16 07/28/16 07/28/16 07/28/16 11:14 12:00 15:24 16:00 Temp 98.1 98.2 Pulse 71 75 76 101 Resp 20 20 B/P 120/79 133/82 Pulse Ox 100 98 O2 Delivery Room Air Room Air 07/28/16 07/28/16 07/28/16 07/29/16 19:45 20:00 20:23 00:00 Temp 98.1 Pulse 76 84 61 73 Resp 20 19 B/P 149/71 Pulse Ox 95 O2 Delivery Room Air Room Air FiO2 21 07/29/16 07/29/16 07/29/16 07/29/16 00:05 04:00 04:07 08:12 Temp 98.5 98.3 98.1 Pulse 72 67 74 84 Resp 21 20 18 B/P 150/83 140/66 142/65 Pulse Ox 93 Laboratory Tests 07/29/16 07:35: White Blood Count 14.9H, Red Blood Count 3.72L, Hemoglobin 11.3L, Hematocrit 36.0L, Mean Corpuscular Volume 97, Mean Corpuscular Hemoglobin 30.3, Mean Corpuscular Hemoglobin Concent 31.3L, Red Cell Distribution Width 17.1H, Platelet Count 121L, Mean Platelet Volume 7.6, Neutrophils (%) (Auto) , Lymphocytes (%) (Auto) , Monocytes (%) (Auto) , Eosinophils (%) (Auto) , Basophils (%) (Auto) , Neutrophils % (Manual) [Pending], Lymphocytes % (Manual) [Pending], Platelet Estimate [Pending], Platelet Morphology [Pending], Prothrombin Time 11.4, Prothromb Time International Ratio 1.1, Activated Partial Thromboplast Time 26, Sodium Level [Pending], Potassium Level [Pending] , Chloride Level [Pending], Carbon Dioxide Level [Pending], Blood Urea Nitrogen [Pending], Creatinine [Pending], Estimat Glomerular Filtration Rate [Pending], Glucose Level [Pending], Calcium Level [Pending], Phosphorus Level [Pending], Magnesium Level [Pending], Total Bilirubin [Pending], Aspartate Amino Transf ( AST/SGOT) [Pending], Alanine Aminotransferase (ALT/SGPT) [Pending], Alkaline Phosphatase [Pending], C-Reactive Protein, Quantitative [Pending], Total Protein [Pending], Albumin [Pending], Globulin [Pending] 95 96 O2 Delivery Room Air Room Air Room Air Intake and Output 07/28/16 07/28/16 07/29/16 15:00 23:00 07:00 Intake Total 240 ml 120 ml Output Total 640 ml 800 ml 800 ml Balance -400 ml -680 ml -800 ml abdomen soft wound healing well no sign of infection colostomy bag with liquid stool and gas Surgically stable DC planning in process Dictated By: DEION JEAN M.D. Electronically Signed By: DEION JEAN M.D. Signed Date/Time 07/28/16 1394 CC: BRANDON HENLEY; ARIS WALSH DANIEL Jul 29, 2016 08:52
[2016-07-29] MEDS: Calcium Gluconate 10% 1 GM in D5W 110 ML IVPB SCH (09:15)
[2016-07-29 11:24] LABS: ALANINE AMINOTRANSFERASE 38 U/L (3-41); ALBUMIN/GLOBULIN RATIO 0.7 (1.0-2.7); ANION GAP 16 (5-15); ASPARTATE AMINO TRANSFERASE 45 U/L (5-40); CALCIUM 7.9 mg/dL (8.6-10.2); CARBON DIOXIDE 21 mEQ/L (20-30); CHLORIDE 103 mEQ/L (98-107); CREATININE 1.8 mg/dL (0.7-1.2); HEMOLYSIS 4; MAGNESIUM 1.6 mg/dL (1.7-2.5); PHOSPHORUS 2.6 mg/dL (2.5-4.8); POTASSIUM 3.7 mEQ/L (3.4-4.9); SODIUM 140 mEQ/L (135-145); TOTAL PROTEIN 6.1 g/dL (6.6-8.7)
[2016-07-29 11:29] VITALS: BP 141/75
[2016-07-29 12:01] LABS: ANISOCYTOSIS 1+; BAND NEUTROPHILS % (MANUAL) 0 % (0-8); BASOPHILS % (MANUAL) 0 % (0-2); EOSINOPHILS % (MANUAL) 1 % (0-3); HYPOCHROMASIA 1+; LYMPHOCYTES % (MANUAL) 4 % (20-45); MACROCYTES 1+; NEUTROPHILS % (MANUAL) 92 % (45-75); PLATELET ESTIMATE DECREASED; PLATELET MORPHOLOGY NORMAL; TOTAL CELLS COUNTED 100
[2016-07-29] MEDS ORDERED: PREDNISONE20 MG ORAL (13:23)
[2016-07-29] MEDS ORDERED: NORCO 10-325 T1 EACH ORAL (13:23)
[2016-07-29] MEDS ORDERED: PROTONIX40 MG ORAL (13:23)
--- NOTE | 2016-07-29 13:25 | Pulmonology Progress Note ---
Assessment/Plan Problems: (1) Colon perforation (2) Hematemesis (3) ATN (acute tubular necrosis) (4) Anemia (5) History of prostate cancer (6) Dementia (7) Thoracic spine fracture (8) Acute encephalopathy Assessment/Plan wbc slightly higher most likelly secondary to steroids tolerating diet telemetry status dc with f/u with oncology CT findings discussed with Issa. He will need further work up Subjective ROS Limited/Unobtainable: No Constitutional: Reports: no symptoms Allergies: Coded Allergies: No Known Allergies (Unverified , 07/18/16) Objective Last 24 Hour Vital Signs Date Time Temp Pulse Resp B/P Pulse Ox O2 Delivery O2 Flow Rate FiO2 07/29/16 11:29 98.2 74 18 141/75 97 Room Air 07/29/16 08:12 98.1 84 18 142/65 96 Room Air 07/29/16 08:00 72 07/29/16 04:07 98.3 74 20 140/66 95 Room Air 07/29/16 04:00 67 07/29/16 00:05 98.5 72 21 150/83 93 Room Air 07/29/16 00:00 73 07/28/16 20:23 98.1 61 19 149/71 95 Room Air 07/28/16 20:00 84 07/28/16 19:45 76 20 Room Air 21 07/28/16 16:00 101 07/28/16 15:24 98.2 76 20 133/82 98 Room Air Intake and Output 07/28/16 07/29/16 19:00 07:00 Intake Total 240 ml 120 ml Output Total 640 ml 1600 ml Balance -400 ml -1480 ml IV Total 240 ml 120 ml Output Urine Total 640 ml 1325 ml Other 275 ml # Voids 3 Objective General Appearance: WD/WN, no apparent distress Lines, tubes and drains: peripheral HEENT: normocephalic, anicteric Neck: non-tender, normal alignment Respiratory/Chest: chest wall non-tender, rhonchi Abdomen: normal bowel sounds, non tender Extremities: non-tender Laboratory Tests 07/29/16 07:35: White Blood Count 14.9H, Red Blood Count 3.72L, Hemoglobin 11.3L, Hematocrit 36.0L, Mean Corpuscular Volume 97, Mean Corpuscular Hemoglobin 30.3, Mean Corpuscular Hemoglobin Concent 31.3L, Red Cell Distribution Width 17.1H, Platelet Count 121L, Mean Platelet Volume 7.6, Neutrophils (%) (Auto) , Lymphocytes (%) (Auto) , Monocytes (%) (Auto) , Eosinophils (%) (Auto) , Basophils (%) (Auto) , Differential Total Cells Counted 100, Neutrophils % ( Manual) 92H, Lymphocytes % (Manual) 4L, Monocytes % (Manual) 3, Eosinophils % ( Manual) 1, Basophils % (Manual) 0, Band Neutrophils 0, Platelet Estimate DecreasedL, Platelet Morphology Normal, Hypochromasia 1+, Anisocytosis 1+, Macrocytosis 1+, Prothrombin Time 11.4, Prothromb Time International Ratio 1.1, Activated Partial Thromboplast Time 26, Sodium Level 140, Potassium Level 3.7, Chloride Level 103, Carbon Dioxide Level 21, Anion Gap 16H, Blood Urea Nitrogen 41H, Creatinine 1.8H, Estimat Glomerular Filtration Rate , Glucose Level 99, Calcium Level 7.9L, Phosphorus Level 2.6, Magnesium Level 1.6L, Total Bilirubin 0.6, Aspartate Amino Transf (AST/SGOT) 45H, Alanine Aminotransferase (ALT/SGPT) 38, Alkaline Phosphatase 73, C-Reactive Protein, Quantitative 3.0H, Total Protein 6.1L, Albumin 2.6L, Globulin 3.5, Albumin/Globulin Ratio 0.7L Current Medications Medications (Trade) Dose Ordered Sig/Hemanth Route PRN Reason Start Time Stop Time Status Last Admin Dose Admin Acetaminophen (Tylenol) 650 mg Q4H PRN ORAL FEVER 07/23/16 15:30 08/22/16 15:29 Acetaminophen (Tylenol) 650 mg Q6H PRN ORAL Mild Pain (Pain Scale 1-3) 07/23/16 15:30 08/22/16 15:29 Calcium Gluconate/ Dextrose (Calcium Gluconate 10%/D5W) 120 ml @ 240 mls/hr Q12HR IVPB 07/23/16 21:00 08/22/16 20:59 07/29/16 09:15 Clonidine HCl (Catapres) 0.1 mg Q4H PRN ORAL SBP > 160 07/23/16 15:30 08/22/16 15:29 Dextrose (Dextrose 50%) STAT PRN IV Hypoglycemia 07/23/16 15:30 08/22/16 15:29 Hydromorphone HCl (Dilaudid) 1 mg Q3H PRN IVP pain score 4-6 07/23/16 15:30 07/30/16 15:29 07/28/16 22:35 Hydromorphone HCl (Dilaudid) 2 mg Q3H PRN IVP pain score 7-10 07/23/16 15:30 07/30/16 15:29 Lorazepam (Ativan 2mg/ml 1ml) 0.5 mg Q4H PRN IV For Anxiety 07/23/16 15:30 07/30/16 15:29 Metoprolol Tartrate (Lopressor) 2.5 mg Q4H PRN IVP HR > 120 07/23/16 15:30 08/22/16 15:29 Nitroglycerin (Ntg) 0.4 mg Q5M X 3 DOSES PRN SL Prn Chest Pain 07/23/16 15:00 08/22/16 14:59 Ondansetron HCl (Zofran) 4 mg Q6H PRN IVP Nausea & Vomiting 07/23/16 15:30 08/22/16 15:29 Pantoprazole (Protonix) 40 mg EVERY 12 HOURS ORAL 07/27/16 21:00 08/26/16 20:59 07/29/16 08:45 Prednisone (predniSONE) 20 mg DAILY ORAL 07/27/16 09:45 08/26/16 09:44 07/29/16 08:45 Temazepam (Restoril) 15 mg HSPRN PRN ORAL Insomnia 07/23/16 15:30 07/30/16 15:29 07/26/16 22:02 ARIS WALSH Jul 29, 2016 13:25
--- NOTE | 2016-07-29 14:41 | General Progress Note ---
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 Postsurgical changes, as described, status post distal descending colostomy and Brown procedure. No unusual features Small amount of free intraperitoneal fluid Somewhat atrophic liver, although surface features to suggest cirrhosis are not evident. Note that there is no evidence of hepatic steatosis, despite findings on prior ultrasound Trace free intraperitoneal air, likely residual from recent surgery Splenomegaly Bilateral atrophic kidneys Bilateral pleural effusion. Associated compressive pulmonary parenchymal atelectasis Age indeterminate compression fracture deformities of T12, L1, and L5. Consider MRI for further evaluation if these are clinically symptomatic Subjective ROS Limited/Unobtainable: No Constitutional: Reports: malaise Allergies: Coded Allergies: No Known Allergies (Unverified , 07/18/16) Objective Last 24 Hour Vital Signs Date Time Temp Pulse Resp B/P Pulse Ox O2 Delivery O2 Flow Rate FiO2 07/29/16 12:00 78 07/29/16 11:29 98.2 74 18 141/75 97 Room Air 07/29/16 08:12 98.1 84 18 142/65 96 Room Air 07/29/16 08:00 72 07/29/16 04:07 98.3 74 20 140/66 95 Room Air 07/29/16 04:00 67 07/29/16 00:05 98.5 72 21 150/83 93 Room Air 07/29/16 00:00 73 07/28/16 20:23 98.1 61 19 149/71 95 Room Air 07/28/16 20:00 84 07/28/16 19:45 76 20 Room Air 21 07/28/16 16:00 101 07/28/16 15:24 98.2 76 20 133/82 98 Room Air Intake and Output 07/28/16 07/29/16 19:00 07:00 Intake Total 240 ml 120 ml Output Total 640 ml 1600 ml Balance -400 ml -1480 ml IV Total 240 ml 120 ml Output Urine Total 640 ml 1325 ml Other 275 ml # Voids 3 Laboratory Tests 07/29/16 07:35: White Blood Count 14.9H, Red Blood Count 3.72L, Hemoglobin 11.3L, Hematocrit 36.0L, Mean Corpuscular Volume 97, Mean Corpuscular Hemoglobin 30.3, Mean Corpuscular Hemoglobin Concent 31.3L, Red Cell Distribution Width 17.1H, Platelet Count 121L, Mean Platelet Volume 7.6, Neutrophils (%) (Auto) , Lymphocytes (%) (Auto) , Monocytes (%) (Auto) , Eosinophils (%) (Auto) , Basophils (%) (Auto) , Differential Total Cells Counted 100, Neutrophils % ( Manual) 92H, Lymphocytes % (Manual) 4L, Monocytes % (Manual) 3, Eosinophils % ( Manual) 1, Basophils % (Manual) 0, Band Neutrophils 0, Platelet Estimate DecreasedL, Platelet Morphology Normal, Hypochromasia 1+, Anisocytosis 1+, Macrocytosis 1+, Prothrombin Time 11.4, Prothromb Time International Ratio 1.1, Activated Partial Thromboplast Time 26, Sodium Level 140, Potassium Level 3.7, Chloride Level 103, Carbon Dioxide Level 21, Anion Gap 16H, Blood Urea Nitrogen 41H, Creatinine 1.8H, Estimat Glomerular Filtration Rate , Glucose Level 99, Calcium Level 7.9L, Phosphorus Level 2.6, Magnesium Level 1.6L, Total Bilirubin 0.6, Aspartate Amino Transf (AST/SGOT) 45H, Alanine Aminotransferase (ALT/SGPT) 38, Alkaline Phosphatase 73, C-Reactive Protein, Quantitative 3.0H, Total Protein 6.1L, Albumin 2.6L, Globulin 3.5, Albumin/Globulin Ratio 0.7L Height (Feet): 6 Height (Inches): 0.00 Weight (Pounds): 170 General Appearance: no apparent distress Respiratory/Chest: decreased breath sounds Abdomen: distended Objective other PE not changed SHAHEEN WALDROP Jul 29, 2016 14:41
[2016-07-29 15:59] VITALS: BP 125/61
--- NOTE | 2016-07-29 18:23 | General Progress Note ---
Assessment/Plan Assessment/Plan Assessment/Plan Problems: (1) Hypoalbuminemia ICD Codes: E88.09 - Other disorders of plasma-protein metabolism, not elsewhere classified SNOMED: 025233621 (2) Colon perforation ICD Codes: K63.1 - Perforation of intestine (nontraumatic) SNOMED: 72366690 (3) Colostomy care ICD Codes: Z43.3 - Encounter for attention to colostomy SNOMED: 504560664 (4) Anemia ICD Codes: D64.9 - Anemia, unspecified SNOMED: 846644889 (5) Elevated CEA ICD Codes: R97.0 - Elevated carcinoembryonic antigen [CEA] SNOMED: 08797003, 619319413 (6) Azotemia Assessment/Plan s/p colonoscopy with perf colon, now s/p ex lap with diverting colostomy will follow surgical recs push po colostomy care ppi pain mgmt fu labs Subjective Allergies: Coded Allergies: No Known Allergies (Unverified , 07/18/16) Subjective Feels OK tolerating solids no abdominal pain no events overnight for d/c today Objective Last 24 Hour Vital Signs Date Time Temp Pulse Resp B/P Pulse Ox O2 Delivery O2 Flow Rate FiO2 07/29/16 15:59 98.2 76 18 125/61 97 Room Air 07/29/16 12:00 78 07/29/16 11:29 98.2 74 18 141/75 97 Room Air 07/29/16 08:12 98.1 84 18 142/65 96 Room Air 07/29/16 08:00 72 07/29/16 04:07 98.3 74 20 140/66 95 Room Air 07/29/16 04:00 67 07/29/16 00:05 98.5 72 21 150/83 93 Room Air 07/29/16 00:00 73 07/28/16 20:23 98.1 61 19 149/71 95 Room Air 07/28/16 20:00 84 07/28/16 19:45 76 20 Room Air 21 Intake and Output 07/28/16 07/29/16 19:00 07:00 Intake Total 240 ml 120 ml Output Total 640 ml 1600 ml Balance -400 ml -1480 ml IV Total 240 ml 120 ml Output Urine Total 640 ml 1325 ml Other 275 ml # Voids 3 Laboratory Tests 07/29/16 07:35: White Blood Count 14.9H, Red Blood Count 3.72L, Hemoglobin 11.3L, Hematocrit 36.0L, Mean Corpuscular Volume 97, Mean Corpuscular Hemoglobin 30.3, Mean Corpuscular Hemoglobin Concent 31.3L, Red Cell Distribution Width 17.1H, Platelet Count 121L, Mean Platelet Volume 7.6, Neutrophils (%) (Auto) , Lymphocytes (%) (Auto) , Monocytes (%) (Auto) , Eosinophils (%) (Auto) , Basophils (%) (Auto) , Differential Total Cells Counted 100, Neutrophils % ( Manual) 92H, Lymphocytes % (Manual) 4L, Monocytes % (Manual) 3, Eosinophils % ( Manual) 1, Basophils % (Manual) 0, Band Neutrophils 0, Platelet Estimate DecreasedL, Platelet Morphology Normal, Hypochromasia 1+, Anisocytosis 1+, Macrocytosis 1+, Prothrombin Time 11.4, Prothromb Time International Ratio 1.1, Activated Partial Thromboplast Time 26, Sodium Level 140, Potassium Level 3.7, Chloride Level 103, Carbon Dioxide Level 21, Anion Gap 16H, Blood Urea Nitrogen 41H, Creatinine 1.8H, Estimat Glomerular Filtration Rate , Glucose Level 99, Calcium Level 7.9L, Phosphorus Level 2.6, Magnesium Level 1.6L, Total Bilirubin 0.6, Aspartate Amino Transf (AST/SGOT) 45H, Alanine Aminotransferase (ALT/SGPT) 38, Alkaline Phosphatase 73, C-Reactive Protein, Quantitative 3.0H, Total Protein 6.1L, Albumin 2.6L, Globulin 3.5, Albumin/Globulin Ratio 0.7L Height (Feet): 6 Height (Inches): 0.00 Weight (Pounds): 170 Objective Elderly WM NCAT supple CTA RRR Soft Flat , midline wound OK, Ostomy no edema KANDY BUTLER Jul 29, 2016 18:23
--- NOTE | 2016-08-01 15:33 | Discharge Summary ---
Discharge Summary Hospital Course Date of Admission Jul 18, 2016 at 19:53 Date of Discharge Jul 29, 2016 at 16:50 Admitting Diagnosis syncope HPI Speedy Mcneill is a 75 year old male who was admitted on Jul 18, 2016 at 19: 53 for Syncope, Diarrhea, Vomiting Hospital Course dc summary #[id number] Discharge Medications New Medications: Hydrocodone Bit/Acetaminophen 10-325* ([place] 10-325*) 1 Each Tablet 1 TAB ORAL Q4H PRN for 30 Days, TAB 0 Refills PRN PAIN Pantoprazole* (Protonix*) 40 Mg Tablet.dr 40 MG ORAL EVERY 12 HOURS for 30 Days, TAB Prednisone* (Prednisone*) 20 Mg Tablet 20 MG ORAL DAILY for 30 Days, TAB Continued Medications: Allopurinol* (Allopurinol*) 100 Mg Tablet 100 MG ORAL DAILY, TAB Levothyroxine Sodium* (Levothyroxine Sodium*) 125 Mcg Tablet 125 MCG ORAL DAILY, TAB Take in the morning on an empty stomach, at least 30 minutes before food. Discharge Condition Upon Discharge: stable Discharge Disposition Patient was discharged to SNF/Subacute Facility(03) Discharge Diagnoses: Discharge Instructions Discharge Instructions Special Instructions I have been assigned to complete a D/C Summary on this account. I was not involved in the patient management Lori Prasad NP ([place]) Aug 01, 2016 15:33
--- NOTE | 2016-08-02 04:08 | Discharge Summary 2 SIG ---
DATE OF ADMISSION: 07/18/2016 DATE OF DISCHARGE: 07/29/2016 REASON FOR ADMISSION : 75-year-old male with history of chronic amyloidosis, steroid-dependent, presented with complaint of the syncopal episode. Son reported two episodes of the diarrhea, one episode of vomiting blood, and syncopal episode afterwards. The patient presented with pain in the mid back. He denied chest pain or shortness of breath. Denied abdominal pain. The patient recently had chemotherapy and radiation due to the prostate cancer. Son was at the bedside and provided most of the information. No recent fever. No chills. CT of the head revealed soft tissue changes, but no acute hemorrhage and no acute intracranial pathology. CT of the thoracic spine revealed T9 compression fracture, acute. EKG revealed sinus rhythm. No PVC. No ectopy. No ischemic changes. The patient was afebrile. Pulse oximetry was stable on room air. Laboratory workup revealed no leukocytosis , no anemia. Hemoglobin -9.4, hematocrit- 29.9, and platelets -83,000. Troponin was negative. Pro BNP was 1144. Lipase - 157. Urinalysis was negative. The patient was admitted to the hospital for further management. ADMITTING DIAGNOSES: 1. Syncope. 2. Acute thoracic spine compression fracture. 3. Anemia. 4. Thrombocytopenia. 5. Amyloidosis. HOSPITAL STAY: The patient was admitted to telemetry floor. GI consult was requested due to the reported episodes of hematemesis and anemia. Orthopedic consult was requested due to the evidence of acute compression fracture. Cardiology consult was requested as well. No evidence of arrhythmia on telemetry. Ejection fraction 55% to 60% and right ventricular systolic pressure of 10. Venous duplex of bilateral lower extremities was negative. Troponin negative. The patient was in the sinus rhythm. Heart rate was controlled. The patient had intermittent evidence of the paroxysmal atrial fibrillation. Cardio recommended to continue anticoagulation with Eliquis twice a day. Amiodarone continued , for rate control. Arterial duplex of bilateral lower extremities revealed minimal stenosis. Syncope was likely of vasovagal origin due to dehydration, GI seen and evaluated the patient fro anemia,. Stool OB was positive. The patient was with evidence of pancytopenia, recently had chemo. The patient has undergone transfusion of 3 units of packed red blood cell and 1 unit of plateletpheresis . Platelet count improved. Hemoglobin, hematocrit at baseline. The patient had undergone colonoscopy and EGD on 07/20/2016, which revealed esophagitis, status post biopsy and colon polyp, status post biopsy. The patient had perforated rectosigmoid colon from colonoscopy and subsequently at the same day, undergone exploratory laparotomy with Marlyn operation and partial sigmoid colon resection. Surgeon was closely followed the patient. The patient had two drains, which were subsequently removed. Colostomy was functioning well, viable. No erythema. No drainage. Good output. Subsequently started on diet after bowel sound returned, able to tolerated diet. Nausea and vomiting resolved. Antiemetic provided as needed. Abdominal ultrasound revealed cholelithiasis, but no evidence of dilated ducts, it also demonstrated likely fatty liver changes. Abdominal ultrasound revealed increased renal echogenicity on the right consistent with medical renal disease, but no hydronephrosis. Utility Appraiser followed the patient and recommended slow hydration while in the hospital, monitor renal parameters, and avoid nephrotoxic. IV steroids initially were given when patient was NPO, subsequently changed to oral steroids. ID specialist closely followed .Initially on antibiotics due to the intraabdominal sepsis. CRP was trending down. Antibiotics stopped, s/p treatment. The patient chronically steroid-dependent due to the amyloidosis. The patient developed leukocytosis in the last few days. it was presumed, that leukocytosis was reactive, due to the steroid use since no evidence of the infection. All cultures negative. The patient was afebrile. CRP was trending down. ID recommended monitor the patient off antibiotics. Orthopedic surgeon seen the patient for the T9 compression fracture. He also concluded that the patient had multilevel thoracic spondylosis. He recommended pain management with meticulous bowel regimen to prevent constipation and follow up with orthopedic surgeon as outpatient. Patient was working with physical and occupational therapists. The patient also had evidence of hypothyroidism postsurgical. TSH was within normal limits. Continue current dose of Synthroid. CT of the abdomen and pelvis was done on 07/28/2016 which revealed 5.5 x 2.6 x 4.1 cm mass in the splenic hilum, probably originating from the pancreatic tail. Further evaluation with multiphasic contrast CT or pancreatic protocol MRI was recommended. These findings were discussed with the patient's son and need to follow up with outpatient oncologist for further workup. The patient was stable for transfer to the senior care facility. DISCHARGE DIAGNOSES: 1. Syncope, likely vasovagal. 2. Pancytopenia, status post transfusion of 3 units of PRBC and 1 unit of plateletpheresis. 3. Systemic amyloidosis with renal, liver, and pancreatic involvement. 4. Chronic steroid use. 5. History of prostate cancer, s/p recent chemo and radiation 6. Acute T9 compression fracture. 7. Status post colonoscopy and esophagogastroduodenoscopy. 8. Esophagitis. 9. Colon polyp, status post biopsy. 10. Perforated rectosigmoid colon from colonoscopy. 11. Intraabdominal sepsis. 12. Status post exploratory laparotomy with Marlyn operation, partial sigmoid colon resection, and creation of diverting colostomy. 13. Acute encephalopathy. 14. Chronic kidney disease stage IV. 15. Hypothyroidism, -postsurgical. 16. Paroxysmal atrial fibrillation. 17. Electrolyte imbalance (hypokalemia, hypomagnesemia, and hypophosphatemia). 18. Multilevel thoracic spondylosis. 19. Splenic mass. 20. Nausea and vomiting secondary to chemotherapy, - resolved. 21. Leukocytosis ,likely reactive secondary to steroids. DISCHARGE MEDICATIONS: See medication reconciliation list. DISCHARGE INSTRUCTIONS: The patient was discharged to the senior care facility. Follow up with medical doctor at the facility. Strongly recommended to follow up with oncologist for workup of splenic mass. Reynaldo Polanco M.D. I have been assigned to dictate discharge summary on this account and I was not involved in the patient's management. Lori Gonzalesesha N.PFloyd DR: ROSALEE JOB#: [id number] CC: DENIS
== END 2016-07-29 16:50 | DRG 329 ==
LOC: EDBD 19:05 → EMR 19:49 → 2E 19:53 → EDBEDREQ 21:02 → 2E 07-19 05:39 → ICU 07-20 16:37 → 2E 07-23 14:30
PROC: 0D1N0Z4 Bypass Sigmoid Colon to Cutaneous, Open Approach (ICD-10-PCS; principal; 2016-07-20 09:52)
PROC: 0DBL8ZZ Excision of Transverse Colon, Via Natural or Artificial Opening Endoscopic (ICD-10-PCS; principal; 2016-07-20 09:52)
PROC: 0DB68ZX Excision of Stomach, Via Natural or Artificial Opening Endoscopic, Diagnostic (ICD-10-PCS; principal; 2016-07-20 09:52)
PROC: 0DBN0ZZ Excision of Sigmoid Colon, Open Approach (ICD-10-PCS; principal; 2016-07-20 09:52)
DX: K92.0 Hematemesis (principal); N17.0 Acute kidney failure with tubular necrosis; R65.20 Severe sepsis without septic shock; A41.9 Sepsis, unspecified organism; G93.40 Encephalopathy, unspecified; K85.90 Acute pancreatitis without necrosis or infection, unspecified; D61.818 Other pancytopenia; N18.4 Chronic kidney disease, stage 4 (severe); K91.71 Accidental puncture and laceration of a digestive system organ or structure during a digestive system procedure; E85.9 Amyloidosis, unspecified; T81.4XXA Infection following a procedure, initial encounter; S22.078A Other fracture of T9-T10 vertebra, initial encounter for closed fracture; R55 Syncope and collapse; D64.9 Anemia, unspecified; Z85.46 Personal history of malignant neoplasm of prostate; K20.9 Esophagitis, unspecified; K63.5 Polyp of colon; I48.0 Paroxysmal atrial fibrillation; R97.0 Elevated carcinoembryonic antigen [CEA]; K57.10 Diverticulosis of small intestine without perforation or abscess without bleeding; K44.9 Diaphragmatic hernia without obstruction or gangrene; R42 Dizziness and giddiness; I12.9 Hypertensive chronic kidney disease with stage 1 through stage 4 chronic kidney disease, or unspecified chronic kidney disease; W01.0XXA Fall on same level from slipping, tripping and stumbling without subsequent striking against object, initial encounter; Y92.89 Other specified places as the place of occurrence of the external cause; E89.0 Postprocedural hypothyroidism; Z53.31 Laparoscopic surgical procedure converted to open procedure
CPT/HCPCS: 36415; 70450; 71010; 72128; 74176; 76700; 80048; 80053; 80061; 81001; 81003; 82248; 82270; 82330; 82378; 82436; 82533; 82550; 82553; 82607; 82746; 82962; 82977; 83036; 83540; 83550; 83615; 83690; 83735; 83880; 83930; 83935; 84100; 84133; 84153; 84154; 84300; 84439; 84443; 84484; 84550; 85007; 85025; 85044; 85060; 85610; 85651; 85730; 86140; 86850; 86900; 86901; 86920; 89050; 93005; 93306; 93880; 93970; 94003; 94150; 94664; 94760; J2370; J2405; J2710; J8499

== ENCOUNTER 2016-10-04 08:01 | Outpatient (CLI) | payer MEDICARE, OTHER ==
[~2016-10-04] VITALS: Ht 30.5 cm; Wt 0.5 kg
[~2016-10-04 08:01] MED LIST: ACULAR5 ML BOTH EYES; ALLOPURINOL100 M1 ORAL; CLOPIDOGREL75 MG ORAL; COLCHICINE25 GM MC; CRESTOR20 MG ORAL; FOSAMAX70 MG ORAL; FUROSEMIDE40 MG ORAL; KETOROLAC TROMET5 M1 OP; LEVOTHYROXINE125 MCG ORAL; NORCO 10-325 T1 EACH ORAL; PREDNISOLO15 MG/5 M1 ORAL; PREDNISONE20 MG ORAL; PREDNISONE5 MG ORAL; PROTONIX40 MG ORAL; RANITIDINE HCL150 M1 ORAL; RENA-VITE RX T1 EAC1 PO; VASCEPA1 GM PO
--- NOTE | 2016-10-04 11:12 | Pre-Procedure Note/Attestation ---
Pre-Procedure Note/Attestation Complete Prior to Procedure Planned Procedure: not applicable Procedure Narrative: Contrast CT scan in patient with pre-existing renal insufficiency Indications for Procedure Pre-Operative Diagnosis: pancreatic tail mass Attestation I attest that I discussed the nature of the procedure; its benefits; risks and complications; and alternatives (and the risks and benefits of such alternatives ), prior to the procedure, with the patient (or the patient's legal livestock sales representative). I attest that, if there was a reasonable possibility of needing a blood transfusion, the patient (or the patient's legal livestock sales representative) was given the [facility] standardized written summary, pursuant to the Jaya [place]aton Blood Safety Act ([place] Health and Safety Code # 1645, as amended). I attest that I re-evaluated the patient just prior to the surgery and that there has been no change in the patient's H&P, except as documented below: Need for contrast study discussed at length with patient, patient's nephew, referring surgeon Dr. Farias, and pt's print developer Dr. Del Toro. All are in agreement with necessity despite risk of contrast nephropathy and agree to proceed. Pt. has been hydrated. DEION JEAN M.D. Oct 04, 2016 11:12
--- NOTE | 2016-10-04 16:50 | Diagnostic Imaging Report ---
Indication: Pancreatic tail mass described on prior CT scan. Technique: Patient given oral contrast. Precontrast spiral acquisitions obtained through the abdomen and pelvis. IV administration nonionic contrast. Multiphasic spiral acquisitions obtained through the abdomen and pelvis. Multiplanar reconstructions were generated. Total dose length product 4618 mGycm. CTDIvol(s) 8, 113, 20, 22, 22, 22 mGy. Radiation dose was minimized using automated exposure control Note that patient has known chronic renal disease. The case was discussed extensively with referring physician Dr. Farias, referring cementer machine applicator Dr. Mendoza, who indicated that contrast infusion was justified on the basis of the clinical indication for the exam, despite the risk of contrast approximately. Comparison: 07/28/2016 Findings: Again demonstrated is a masslike soft tissue lesion within splenic hilar region. This demonstrates a fat plane it from the spleen, but is inseparable from the pancreatic tail. It demonstrates uniform attenuation, enhancing slightly less than the pancreatic substance. It is immediately adjacent to the splenic artery and vein. However, a splenic hilar venous branch runs through the center of this lesion where it connects with the main splenic vein. The lesion measures approximately 5 cm AP by 2.3 cm transverse by 3.8 cm craniocaudad. The interface with the adjacent fat is fairly sharp, except that some slight inflammatory changes are seen tracking from the posterior inferior aspect of the lesion along the inferior medial border of the spleen. The lesion is predominantly anterior to the splenic vessels. It abuts the greater curvature of the stomach The remainder of the pancreas appears unremarkable. The spleen is enlarged, measuring 14.6 cm long axis dimension. This is increased in size since the prior study. Hyperattenuating areas and linear lucencies within the pancreatic substance are unchanged. No peripancreatic lymphadenopathy is demonstrated. The liver is equivocally slightly atrophic, and in a few locations demonstrates equivocal slight surface nodularity. No focal abnormality is demonstrated in the liver. As previously, the gallbladder contains numerous gallstones. No biliary ductal dilatation. The adrenals are atrophic. The kidneys are mildly atrophic bilaterally. Right kidney demonstrates a fluid attenuation cyst. Both kidneys demonstrate subcentimeter low-attenuation lesions which are too small to characterize. No definite solid renal mass. No hydronephrosis. There is, however, left hydroureter, which extends all the way to the ureterovesical junction. No obstructive abnormality at the ureterovesical junction is demonstrated. The hydroureter is evident previously. The bladder is markedly distended. This is also evident previously. No pelvic mass or adenopathy. No retroperitoneal or mesenteric mass or adenopathy. Again demonstrated is a fat-containing right inguinal hernia. Again demonstrated is prior Marlyn procedure. There is a focal area of infiltration of the pelvic fat to the left of the staple line of the Brown procedure. In retrospect, evident previously, much more apparent currently. This measures approximately 2.3 cm in diameter. It demonstrates central infiltration and fat. Again demonstrated is a distal descending colostomy. No evidence of diverticulosis or diverticulitis. The appendix is prominent, otherwise unremarkable. No small bowel distention. There is what appears to broad-based diastasis of the rectus tendon deep to the incision into which protrudes knuckles of small bowel. This is nonobstructive, not evident previously. The anterior borders appear to be intact, and appearance is more of diastasis than destinee herniation, although the latter is also possible. The included lung bases demonstrate airspace disease posteriorly. Previously demonstrated pleural effusions have resolved. The heart is borderline enlarged. Ther -- e are right pulmonary hilar granulomatous calcifications. The bones demonstrate surgical hardware in the right hip. There are degenerative changes of the thoracic and lumbar spine. There are compression fracture deformities of T12 and L5, unchanged Impression: 5 x 2.3 x 3.8 cm pancreatic tail masslike lesion. Findings are suspicious for pancreatic tail neoplasm. However, nonneoplastic process such as post inflammatory pseudomass is also a possibility. Note that the lesion does appear to upright and possibly surround splenic hilar vessels. As it abuts the recurrence of the stomach, it is potentially amenable to transgastric biopsy Postsurgical changes, as described, including descending colostomy, Marlyn procedure Evidence of interim diastases of the rectus abdominis tendon deep to the incision. There is anterior protrusion of abdominal contents including multiple small bowel loops. This does not appear to result in obstruction or strangulation Infiltration of the fat adjacent to the Brown staple line. This most likely represents some fat necrosis related to surgery, with also represent followup appendicitis. This is also evident previously, more conspicuous currently Bilateral lower lobe pulmonary parenchymal disease Splenomegaly, increased from prior exam. Mildly atrophic bilateral kidneys, consistent with known history of chronic renal disease Left hydroureter, also previously demonstrated, probably on the basis of chronic bladder outlet obstruction Distended bladder, also previously demonstrated Incidental finding of right renal cyst, subcentimeter low-attenuation lesions are too small to characterize, most likely benign simple cysts. No further evaluation necessary Atrophic adrenals Bilateral pulmonary parenchymal disease. Interim resolution of previously demonstrated pleural effusions Equivocally slightly atrophic liver with equivocal slight surface nodularity. Early cirrhotic changes not excludable Cholelithiasis Borderline cardiomegaly Incidental findings as noted, include being old T12 and L5 compression fracture deformities, degenerative spondylosis, right hip surgical hardware, right pulmonary hilar granulomatous calcifications, fat-containing right inguinal hernia The CT scanner at [facility] is accredited by the [employer] and the scans are performed using protocols designed to limit radiation exposure to as low as reasonably achievable to attain images of sufficient resolution adequate for diagnostic evaluation.
== END 2016-10-04 10:01 | disposition home or self-care (01) ==
LOC: RAD 08:01 → EDSTATUS 09:30 → RAD 10:01
DX: N28.1 Cyst of kidney, acquired (principal); N28.9 Disorder of kidney and ureter, unspecified; N32.89 Other specified disorders of bladder; R16.1 Splenomegaly, not elsewhere classified; J98.4 Other disorders of lung; E27.49 Other adrenocortical insufficiency; K80.20 Calculus of gallbladder without cholecystitis without obstruction
CPT/HCPCS: 74178; Q9967

== ENCOUNTER 2016-10-20 20:05 | Inpatient (IN) | payer MEDICARE, OTHER ==
[~2016-10-20] VITALS: Ht 182.9 cm; Wt 82.6 kg
[2016-10-20 21:11] LABS: MEAN CORPUSCULAR HGB CONC 32.3 G/DL (32.0-36.0); MEAN CORPUSCULAR VOLUME 96 FL (80-99); MEAN PLATELET VOLUME 6.9 FL (6.5-10.1); PLATELET COUNT 84 K/UL (150-450); RED BLOOD COUNT 2.99 M/UL (4.70-6.10); RED CELL DISTRIBUTION WIDTH 16.5 % (11.6-14.8)
[2016-10-20 21:14] LABS: BASOPHILS % (AUTO) 0.1 % (0.0-2.0); EOSINOPHILS % (AUTO) 0.4 % (0.0-3.0); LYMPHOCYTES % (AUTO) 16.3 % (20.0-45.0); MONOCYTES % (AUTO) 8.3 % (1.0-10.0); NEUTROPHILS % (AUTO) 73.9 % (45.0-75.0)
--- NOTE | 2016-10-20 21:16 | Emergency Room Report ---
History of Present Illness General Chief Complaint: Generalized Weakness Present Illness HPI 76YOM BIBEMS for hypotension and weakness after endoscopy to "look at splenic mass". Patient asymptomatic - denies chest pain, SOB, abd pain, nausea/vomiting, fever/ chills, urinary complaints. BP responsive to fluid by EMS. Nephew states patient had been "NPO" and "not eating or drinking anything for a day." Per EMR: - chronic amyloidosis, steroid-dependent, prostate cancer, anemia from ? hematemesis, thrombocytopenia - EF 55-60%. Venous duplex negative. - Paroxysmal Atrial fib on Elliquis - Esophagitis - Previous rectosigmoid colon from colonsocopy and s/p colostomy bag Allergies: Coded Allergies: No Known Allergies (Unverified , 07/18/16) Patient History Past Medical History: other - see my HPI Past Surgical History: other - Colostomy Pertinent Family History: none Social History: Denies: alcohol use, drug use, smoking Immunizations: UTD Reviewed Nursing Documentation: PMH: Agreed, PSxH: Agreed Nursing Documentation-PMH Hx Diabetes: Yes Hx Cancer: Yes - Colon Hx Gastrointestinal Problems: Yes - Colostomy bag Hx Neurological Problems: No Review of Systems All Other Systems: negative except mentioned in HPI Physical Exam Vital Signs Date Time Temp Pulse Resp B/P Pulse Ox O2 Delivery O2 Flow Rate FiO2 10/20/16 20:03 101/55 Room Air Sp02 EP Interpretation: reviewed, normal General Appearance: normal inspection, well appearing, no apparent distress, alert, GCS 15, non-toxic Head: normocephalic, atraumatic Eyes: bilateral eye EOMI, bilateral eye PERRL ENT: normal ENT inspection, hearing grossly normal, normal voice Neck: normal inspection, full range of motion, supple, no bony tend Respiratory: normal inspection, lungs clear, normal breath sounds, no respiratory distress, no retraction, no wheezing Cardiovascular #1: regular rate, rhythm, no edema Gastrointestinal: normal inspection, normal bowel sounds, non tender, soft, no guarding, no hernia, other - Colostomy bag in place. No sign of infection or complication. Genitourinary: no CVA tenderness Musculoskeletal: normal inspection, back normal, normal range of motion, Lauryn' s Sign negative Neurologic: normal inspection, alert, oriented x3, responsive, dogger III-XII nml as tested, speech normal Psychiatric: normal inspection, judgement/insight normal, mood/affect normal Skin: normal inspection, no rash, pallor Medical Decision Making Medicare Attestation I Nguyễn Muñoz MD hereby attest that the medical record entry for date of service, 03/21/16 accurately reflects signatures/notations that I made in my capacity as MD when I treated/diagnosed the above listed Medicare beneficiary. I attest that this information is true, accurate and complete to the best of my knowledge. I understand that any falsification, omission, or concealment of material fact may subject me to administrative, civil, or criminal liability. This patient warrants hospital admission for extreme of age and has a condition that cannot be treated as outpatient. Diagnostic Impression: Primary Impression: Episode of generalized weakness Additional Impression: Hypotension Qualified Codes: I95.9 - Hypotension, unspecified ER Course Weakness, hypotension - VSS. Afebrile - Fluid responsive - Hb 9.3 - ECG with no acute ischemia. Had relatively normal EF in July. - SerumCr 2.2. Known CKD IV. - No signs of sepsis contributing to hypotension. - No abd pain to suggest complication for earleir endoscopy - Colostomy is functioning - ENdorsed to Dr Polanco at 945pm for tele admission EKG Diagnostic Results Rate: other - Ectopic atrial rhythm ST Segments: no acute changes ASA given to the pt in ED: No Rhythm Strip Diag. Results EP Interpretation: yes Rate: 82 Rhythm: other - many PVCs Last Vital Signs Date Time Temp Pulse Resp B/P Pulse Ox O2 Delivery O2 Flow Rate FiO2 10/20/16 20:03 101/55 Room Air Status: improved Disposition: ADMITTED INPATIENT Condition: Serious Referrals: NON PHYSICIAN (PCP) NGUYỄN MUÑOZ M.D. Oct 20, 2016 21:16
[2016-10-20 21:25] LABS: INR 1.1 (0.9-1.1); PROTHROMBIN TIME 11.2 SEC (9.30-11.50)
[2016-10-20 21:33] LABS: ALANINE AMINOTRANSFERASE 28 U/L (3-41); ALBUMIN/GLOBULIN RATIO 1.6 (1.0-2.7); ANION GAP 10 (5-15); ASPARTATE AMINO TRANSFERASE 39 U/L (5-40); CARBON DIOXIDE 21 mEQ/L (20-30); CHLORIDE 109 mEQ/L (98-107); CREATININE 2.2 mg/dL (0.7-1.2); HEMOLYSIS 19; POTASSIUM 4.3 mEQ/L (3.4-4.9); SODIUM 140 mEQ/L (135-145); TOTAL PROTEIN 5.3 g/dL (6.6-8.7)
[2016-10-20 21:44] LABS: LIPASE > 300 U/L (< 60)
[2016-10-20] MEDS ORDERED: Morphine Sulfate 2mg/ml Inj IVP PRN (22:45)
[2016-10-20] MEDS ORDERED: Mylanta II UD 30ml ORAL PRN (22:45)
[2016-10-20] MEDS ORDERED: Zolpidem 5mg tab ORAL PRN (22:45)
[2016-10-20] MEDS ORDERED: LORazepam Inj 2mg/ml 1ml IV PRN (22:45)
[2016-10-20] MEDS ORDERED: Miralax 17gm pkt ORAL PRN (22:45)
[2016-10-20 23:14] VITALS: BP 104/83
[2016-10-21] VITALS: BP 99/62
[2016-10-21 04:00] VITALS: BP 119/69
[2016-10-21 04:20] LABS: APPEARANCE,URINE CLEAR; KETONES,URINE NEGATIVE (NEGATIVE); LEUKOCYTE ESTERASE ,URINE NEGATIVE (NEGATIVE); NITRITE,URINE NEGATIVE (NEGATIVE); PH,URINE 5 (4.5-8.0); PROTEIN,URINE NEGATIVE (NEGATIVE); UROBILINOGEN,URINE NORMAL MG/DL (0.0-1.0)
[2016-10-21 04:39] LABS: RBC,URINE 0 /HPF (0 - 0); SQUAMOUS EPITHELIAL CELL,UR OCCASIONAL /LPF (NONE/OCC); WBC,URINE 0 /HPF (0 - 0)
[2016-10-21] MEDS ORDERED: Levothyroxine 125mcg tab ORAL SCH (06:30)
[2016-10-21 07:08] LABS: MEAN CORPUSCULAR HEMOGLOBIN 30.4 PG (27.0-31.0); MEAN CORPUSCULAR HGB CONC 31.9 G/DL (32.0-36.0); MEAN CORPUSCULAR VOLUME 95 FL (80-99); MEAN PLATELET VOLUME 6.1 FL (6.5-10.1); PLATELET COUNT 77 K/UL (150-450); RED BLOOD COUNT 2.74 M/UL (4.70-6.10); RED CELL DISTRIBUTION WIDTH 16.1 % (11.6-14.8); WHITE BLOOD COUNT 5.4 K/UL (4.8-10.8)
[2016-10-21 07:30] LABS: INR 1.1 (0.9-1.1); PROTHROMBIN TIME 11.2 SEC (9.30-11.50)
[2016-10-21 07:55] LABS: ALANINE AMINOTRANSFERASE 28 U/L (3-41); ALBUMIN/GLOBULIN RATIO 1.4 (1.0-2.7); ANION GAP 10 (5-15); ASPARTATE AMINO TRANSFERASE 40 U/L (5-40); CALCIUM 7.6 mg/dL (8.6-10.2); CARBON DIOXIDE 20 mEQ/L (20-30); CHLORIDE 113 mEQ/L (98-107); CHOLESTEROL 93 mg/dL (< 200); CHOLESTEROL/HDL RATIO 7.8 (3.3-4.4); CREATININE 2.1 mg/dL (0.7-1.2); HEMOLYSIS 6; LDL CHOLESTEROL (CALC.) 36 mg/dL (60-99); MAGNESIUM 1.8 mg/dL (1.7-2.5); PHOSPHORUS 3.5 mg/dL (2.5-4.8); SODIUM 143 mEQ/L (135-145); TOTAL PROTEIN 4.9 g/dL (6.6-8.7); URIC ACID 7.3 mg/dL (3.0-7.5)
[2016-10-21 07:56] LABS: CORTISOL 0.5 ug/dL; THYROID STIMULATING HORMONE 0.613 uIU/mL (0.300-4.500)
[2016-10-21 08:22] LABS: ANISOCYTOSIS 1+; BAND NEUTROPHILS % (MANUAL) 0 % (0-8); BASOPHILS % (MANUAL) 0 % (0-2); EOSINOPHILS % (MANUAL) 0 % (0-3); HYPOCHROMASIA 1+; LYMPHOCYTES % (MANUAL) 18 % (20-45); NEUTROPHILS % (MANUAL) 76 % (45-75); PLATELET ESTIMATE DECREASED; PLATELET MORPHOLOGY NORMAL; TOTAL CELLS COUNTED 100
[2016-10-21 08:25] LABS: HEMOGLOBIN A1C 4.6 % (< 6.0)
[2016-10-21 08:37] VITALS: BP 114/54
[2016-10-21] MEDS: Allopurinol 100mg Tab ORAL SCH (08:57)
[2016-10-21] MEDS ORDERED: Heparin 5000 units/ml inj SUBQ SCH (09:00)
--- NOTE | 2016-10-21 09:52 | Diagnostic Imaging Report ---
Indication: Chest pain Comparison: 07/18/16 A single view chest radiograph was obtained. Findings: There is mild basilar atelectasis. Heart size is borderline. Bones are osteopenic. Aorta is mildly ectatic. Impression: Mild basilar atelectasis.
[2016-10-21 09:58] LABS: ERYTHROCYTE SEDIMENTATION RATE 24 MM/HR (0-20); PATH BLOOD SMEAR/OMC SENT TO PATHOLOGIST; RETICULOCYTE COUNT 1.5 % (0.0-2.0)
[2016-10-21 12:00] VITALS: BP 110/51
--- NOTE | 2016-10-21 12:13 | Consultation ---
Consult Note Consult Note asked to eval for renal failure- Patient known to me from his previous admission His base line Cr is 1.7-1.8 76YOM BIBEMS for hypotension and weakness after endoscopy to "look at splenic mass". Patient asymptomatic - denies chest pain, SOB, abd pain, nausea/vomiting, fever/ chills, urinary complaints. BP responsive to fluid by EMS. Nephew states patient had been "NPO" and "not eating or drinking anything for a day." Per EMR: - chronic amyloidosis, steroid-dependent, prostate cancer, anemia from ? hematemesis, thrombocytopenia - EF 55-60%. Venous duplex negative. - Paroxysmal Atrial fib on Eloquis - Esophagitis - Previous rectosigmoid colon from colonsocopy and s/p colostomy bag Past Medical History: other - see my HPI Past Surgical History: other - Colostomy Hx Diabetes: Yes Hx Cancer: Yes - Colon Hx Gastrointestinal Problems: Yes - Colostomy bag Patient poor historian examined data reviewed Assessment/Plan Status; 1) Hypotension after out patient procedure at [facility] (2) ATN (acute tubular necrosis) (3) Anemia (4) History of prostate cancer (5) Dementia (6) h/o Thoracic spine fracture (7) HypoAlbuminemia (8) High Lipase (9) HypoThyroidism Plan: Slow hydrate- Electrolyte Replacements as needed Flomax Gastric support Pain Mgt monitor renal parameters Avoid nephrotoxics SHAHEEN WALDROP Oct 21, 2016 12:13
--- NOTE | 2016-10-21 13:39 | History and Physical ---
History of Present Illness General Date patient seen: Oct 21, 2016 Reason for Hospitalization: Generalized Weakness Present Illness HPI 76 year old male with extensive PMHx of - chronic amyloidosis, prostate cancer , anemia, thrombocytopenia, Paroxysmal Atrial fib on Elliquis, s/p colostomy who just had an upper endoscopy at [facility], subsequently pt developed hypotension and weakness after endoscopy - denies chest pain, SOB, abd pain, nausea/vomiting, fever/chills, urinary complaints. BP responsive to fluid by EMS. He was found to be in renal failure and admitted for further evaluation. Allergies: Coded Allergies: No Known Allergies (Unverified , 07/18/16) Medication History Scheduled Allopurinol* (Allopurinol*), 100 MG ORAL DAILY, (Reported) Furosemide* (Lasix*), 40 MG ORAL DAILY, (Reported) Levothyroxine Sodium* (Levothyroxine Sodium*), 125 MCG ORAL DAILY, (Reported) Pantoprazole* (Protonix*), 40 MG ORAL EVERY 12 HOURS Prednisolone* (Prelone*), 30 MG ORAL DAILY, (Reported) Prednisone* (Prednisone*), 20 MG ORAL DAILY Ranitidine Hcl (Ranitidine Hcl), 150 MG ORAL DAILY, (Reported) Scheduled PRN Hydrocodone Bit/Acetaminophen 10-325* ([place] 10-325*), 1 TAB ORAL Q4H PRN Patient History Healthcare decision maker Resuscitation status Full Code Advanced Directive on File No Past Medical/Surgical History Past Medical/Surgical History: (1) Colostomy care (2) Colon perforation (3) History of prostate cancer (4) Dementia (5) Elevated CEA Review of Systems Constitutional: Reports: no symptoms Physical Exam General Appearance: cachetic Lines, tubes and drains: peripheral HEENT: normocephalic, atraumatic Neck: non-tender, normal alignment Respiratory/Chest: chest wall non-tender, lungs clear Cardiovascular/Chest: normal peripheral pulses, normal rate Abdomen: normal bowel sounds, non tender Genitourinary/Rectal: normal genital exam, normal rectal exam Extremities: normal range of motion, non-tender Skin Exam: warm/dry Last 24 Hour Vital Signs Date Time Temp Pulse Resp B/P Pulse Ox O2 Delivery O2 Flow Rate FiO2 10/21/16 12:00 98.4 87 20 110/51 97 Room Air 10/21/16 08:37 98.2 85 20 114/54 97 Room Air 10/21/16 04:00 98.1 90 18 119/69 97 Nasal Cannula 2.0 10/21/16 04:00 94 10/21/16 00:00 96.8 100 20 99/62 10/20/16 23:14 98.4 88 22 104/83 100 Room Air 10/20/16 23:12 88 22 104/83 100 Room Air 10/20/16 20:03 98.4 88 16 101/55 100 Room Air Intake and Output 10/20/16 10/21/16 19:00 07:00 Intake Total 280 ml Output Total 780 ml Balance -500 ml Intake Oral 280 ml Output Urine Total 780 ml # Voids 3 Laboratory Tests Test 10/20/16 20:55 10/21/16 03:00 10/21/16 05:25 White Blood Count 8.0 K/UL (4.8-10.8) 5.4 K/UL (4.8-10.8) Red Blood Count 2.99 M/UL (4.70-6.10) L 2.74 M/UL (4.70-6.10) L Hemoglobin 9.3 G/DL (14.2-18.0) L 8.3 G/DL (14.2-18.0) L Hematocrit 28.7 % (42.0-52.0) L 26.0 % (42.0-52.0) L Mean Corpuscular Volume 96 FL (80-99) 95 FL (80-99) Mean Corpuscular Hemoglobin 31.0 PG (27.0-31.0) 30.4 PG (27.0-31.0) Mean Corpuscular Hemoglobin Concent 32.3 G/DL (32.0-36.0) 31.9 G/DL (32.0-36.0) L Red Cell Distribution Width 16.5 % (11.6-14.8) H 16.1 % (11.6-14.8) H Platelet Count 84 K/UL (150-450) L 77 K/UL (150-450) L Mean Platelet Volume 6.9 FL (6.5-10.1) 6.1 FL (6.5-10.1) L Neutrophils (%) (Auto) 73.9 % (45.0-75.0) % (45.0-75.0) Lymphocytes (%) (Auto) 16.3 % (20.0-45.0) L % (20.0-45.0) Monocytes (%) (Auto) 8.3 % (1.0-10.0) % (1.0-10.0) Eosinophils (%) (Auto) 0.4 % (0.0-3.0) % (0.0-3.0) Basophils (%) (Auto) 0.1 % (0.0-2.0) % (0.0-2.0) Prothrombin Time 11.2 SEC (9.30-11.50) 11.2 SEC (9.30-11.50) Prothromb Time International Ratio 1.1 (0.9-1.1) 1.1 (0.9-1.1) Activated Partial Thromboplast Time 23 SEC (23-33) 26 SEC (23-33) Sodium Level 140 mEQ/L (135-145) 143 mEQ/L (135-145) Potassium Level 4.3 mEQ/L (3.4-4.9) 5.0 mEQ/L (3.4-4.9) H Chloride Level 109 mEQ/L (98-107) H 113 mEQ/L (98-107) H Carbon Dioxide Level 21 mEQ/L (20-30) 20 mEQ/L (20-30) Anion Gap 10 (5-15) 10 (5-15) Blood Urea Nitrogen 48 mg/dL (7-23) H 42 mg/dL (7-23) H Creatinine 2.2 mg/dL (0.7-1.2) H 2.1 mg/dL (0.7-1.2) H Estimat Glomerular Filtration Rate mL/min (>60) mL/min (>60) Glucose Level 100 mg/dL (74-106) 83 mg/dL (74-106) Calcium Level 8.0 mg/dL (8.6-10.2) L 7.6 mg/dL (8.6-10.2) L Total Bilirubin 0.4 mg/dL (0.0-1.2) 0.3 mg/dL (0.0-1.2) Aspartate Amino Transf (AST/SGOT) 39 U/L (5-40) 40 U/L (5-40) Alanine Aminotransferase (ALT/SGPT) 28 U/L (3-41) 28 U/L (3-41) Alkaline Phosphatase 50 U/L (40-129) 48 U/L (40-129) Total Protein 5.3 g/dL (6.6-8.7) L 4.9 g/dL (6.6-8.7) L Albumin 3.3 g/dL (3.5-5.2) L 2.9 g/dL (3.5-5.2) L Globulin 2.0 g/dL 2.0 g/dL Albumin/Globulin Ratio 1.6 (1.0-2.7) 1.4 (1.0-2.7) Lipase > 300 U/L (< 60) H Urine Color Pale yellow Urine Appearance Clear Urine pH 5 (4.5-8.0) Urine Specific [place] 1.010 (1.005-1.035) Urine Protein Negative (NEGATIVE) Urine Glucose (UA) Negative (NEGATIVE) Urine Ketones Negative (NEGATIVE) Urine Occult Blood Negative (NEGATIVE) Urine Nitrite Negative (NEGATIVE) Urine Bilirubin Negative (NEGATIVE) Urine Urobilinogen Normal MG/DL (0.0-1.0) Urine Leukocyte Esterase Negative (NEGATIVE) Urine RBC 0 /HPF (0 - 0) Urine WBC 0 /HPF (0 - 0) Urine Squamous Epithelial Cells Occasional /LPF Urine Bacteria None /HPF (NONE) Urine Eosinophils None seen Urine Osmolality Pending Urine Random Sodium 73 mmol/L Urine Random Chloride 67 mmol/L Urine Potassium Timed 28 mmol/L Differential Total Cells Counted 100 Neutrophils % (Manual) 76 % (45-75) H Lymphocytes % (Manual) 18 % (20-45) L Monocytes % (Manual) 6 % (1-10) Eosinophils % (Manual) 0 % (0-3) Basophils % (Manual) 0 % (0-2) Band Neutrophils 0 % (0-8) Platelet Estimate Decreased L Platelet Morphology Normal Hypochromasia 1+ Anisocytosis 1+ Erythrocyte Sedimentation Rate 24 MM/HR (0-20) H Reticulocyte Count 1.5 % (0.0-2.0) Hemoglobin A1c 4.6 % (< 6.0) Plasma/Serum Osmolality Pending Uric Acid 7.3 mg/dL (3.0-7.5) Phosphorus Level 3.5 mg/dL (2.5-4.8) Magnesium Level 1.8 mg/dL (1.7-2.5) Iron Level 26 ug/dL (59-158) L Total Iron Binding Capacity 198 ug/dL (250-400) L Percent Iron Saturation 13 % (15-50) L Unsaturated Iron Binding 172 ug/dL (112-346) Lactate Dehydrogenase 200 U/L (135-230) Total Creatine Kinase 117 U/L (38-174) Triglycerides Level 224 mg/dL (< 150) H Cholesterol Level 93 mg/dL (< 200) LDL Cholesterol 36 mg/dL (60-99) L HDL Cholesterol 12 mg/dL (> 60) Cholesterol/HDL Ratio 7.8 (3.3-4.4) H Carcinoembryonic Antigen 4.7 ng/mL H Vitamin B12 Level 680 pg/mL (211-946) Folate Pending Thyroid Stimulating Hormone (TSH) 0.613 uIU/mL (0.300-4.500) Free Thyroxine 1.27 ng/dL (0.86-1.85) Free Triiodothyronine Pending Cortisol 0.5 ug/dL Height (Feet): 6 Height (Inches): 1.00 Weight (Pounds): 182 Medications Current Medications Medications (Trade) Dose Ordered Sig/Hemanth Route PRN Reason Start Time Stop Time Status Last Admin Dose Admin Acetaminophen (Tylenol) 650 mg Q4H PRN ORAL fever 10/20/16 22:45 11/19/16 22:44 Allopurinol (Zyloprim) 100 mg DAILY ORAL 10/21/16 09:00 11/20/16 08:59 10/21/16 08:57 Clonidine HCl (Catapres) 0.1 mg Q4H PRN ORAL For High Blood Pressure 10/20/16 22:45 11/19/16 22:44 Dextrose (Dextrose 50%) STAT PRN IV Hypoglycemia 10/20/16 22:45 11/19/16 22:44 Levothyroxine Sodium (Synthroid) 100 mcg ACBREAKFAST ORAL 10/22/16 06:30 11/21/16 06:29 Lorazepam (Ativan 2mg/ml 1ml) 0.5 mg Q4H PRN IV For Anxiety 10/20/16 22:45 10/27/16 22:44 Morphine Sulfate (Morphine Sulfate) 1 mg EVERY 4 HOURS PRN IVP For Pain 10/20/16 22:45 10/27/16 22:44 Ondansetron HCl (Zofran) 4 mg Q6H PRN IVP Nausea & Vomiting 10/20/16 22:45 11/19/16 22:44 Pantoprazole (Protonix) 40 mg EVERY 12 HOURS ORAL 10/21/16 09:00 11/20/16 08:59 10/21/16 08:57 Polyethylene Glycol (Miralax) 17 gm HSPRN PRN ORAL Constipation 10/20/16 22:45 11/19/16 22:44 Zolpidem Tartrate (Ambien) 5 mg HSPRN PRN ORAL Insomnia 10/20/16 22:45 11/19/16 22:44 Assessment/Plan Problem List: (1) Hypotension ICD Codes: I95.9 - Hypotension, unspecified SNOMED: 20008370 Qualifiers: Qualified Codes: I95.9 - Hypotension, unspecified (2) ATN (acute tubular necrosis) ICD Codes: N17.0 - Acute kidney failure with tubular necrosis SNOMED: 07378770 (3) Severe protein-calorie malnutrition ICD Codes: E43 - Unspecified severe protein-calorie malnutrition SNOMED: 300741765 (4) Amyloidosis ICD Codes: E85.9 - Amyloidosis, unspecified SNOMED: 08292208 (5) History of prostate cancer ICD Codes: Z85.46 - Personal history of malignant neoplasm of prostate SNOMED: 403467240 (6) Colostomy care ICD Codes: Z43.3 - Encounter for attention to colostomy SNOMED: 912239745 (7) Dementia ICD Codes: F03.90 - Unspecified dementia without behavioral disturbance SNOMED: 54699764 Assessment/Plan renal work up check electrolytes IV fluids renal evaluation pt/ot med/surg ARIS WALSH Oct 21, 2016 13:39
--- NOTE | 2016-10-21 14:25 | Consultation ---
History of Present Illness General Chief Complaint: Generalized Weakness Present Illness HPI 76 year old male with extensive PMHx of - chronic amyloidosis, prostate cancer , anemia, thrombocytopenia, Paroxysmal Atrial fib on Elliquis, s/p colostomy. the pt speaks some Occitan, two of his friends were bedside him. the pt c/o anxiety and decrease energy, low appetite. He also endorsed memory impairment as he has hx of dementia. the pt knew that he was in the hospital and the situation he is in. the pt denied insomnia. he has mild depressive sxs including depressed mood and anhedonia, the pt didn't endorse SI/HI. the pt was a poor historian. Denied any pain and appeared comfortable. Allergies: Coded Allergies: No Known Allergies (Unverified , 07/18/16) Medication History Scheduled Allopurinol* (Allopurinol*), 100 MG ORAL DAILY, (Reported) Furosemide* (Lasix*), 40 MG ORAL DAILY, (Reported) Levothyroxine Sodium* (Levothyroxine Sodium*), 125 MCG ORAL DAILY, (Reported) Pantoprazole* (Protonix*), 40 MG ORAL EVERY 12 HOURS Prednisolone* (Prelone*), 30 MG ORAL DAILY, (Reported) Prednisone* (Prednisone*), 20 MG ORAL DAILY Ranitidine Hcl (Ranitidine Hcl), 150 MG ORAL DAILY, (Reported) Scheduled PRN Hydrocodone Bit/Acetaminophen 10-325* ([place] 10-325*), 1 TAB ORAL Q4H PRN Patient History Limited by: language barrier, age, medical condition History Provided By: Patient, Friend, Medical Record Healthcare decision maker Resuscitation status Full Code Advanced Directive on File No Past Medical/Surgical History Past Medical/Surgical History: (1) Hypoalbuminemia (2) Elevated lipase (3) Hematemesis (4) Acute encephalopathy (5) Syncope (6) Episode of generalized weakness (7) Dementia (8) Colostomy care (9) Elevated CEA (10) Colon perforation (11) History of prostate cancer (12) Amyloidosis (13) ATN (acute tubular necrosis) (14) Severe protein-calorie malnutrition (15) Hypotension Review of Systems Constitutional: Reports: weakness Psychiatric: Reports: anxiety, depressed feelings Physical Exam General Appearance: no apparent distress, alert, overweight Neurologic: alert, responsive, depressed affect Last 24 Hour Vital Signs Date Time Temp Pulse Resp B/P Pulse Ox O2 Delivery O2 Flow Rate FiO2 10/21/16 12:00 98.4 87 20 110/51 97 Room Air 10/21/16 08:37 98.2 85 20 114/54 97 Room Air 10/21/16 04:00 98.1 90 18 119/69 97 Nasal Cannula 2.0 10/21/16 04:00 94 10/21/16 00:00 96.8 100 20 99/62 10/20/16 23:14 98.4 88 22 104/83 100 Room Air 10/20/16 23:12 88 22 104/83 100 Room Air 10/20/16 20:03 98.4 88 16 101/55 100 Room Air Intake and Output 10/20/16 10/21/16 19:00 07:00 Intake Total 280 ml Output Total 780 ml Balance -500 ml Intake Oral 280 ml Output Urine Total 780 ml # Voids 3 Laboratory Tests Test 10/20/16 20:55 10/21/16 03:00 10/21/16 05:25 White Blood Count 8.0 K/UL (4.8-10.8) 5.4 K/UL (4.8-10.8) Red Blood Count 2.99 M/UL (4.70-6.10) L 2.74 M/UL (4.70-6.10) L Hemoglobin 9.3 G/DL (14.2-18.0) L 8.3 G/DL (14.2-18.0) L Hematocrit 28.7 % (42.0-52.0) L 26.0 % (42.0-52.0) L Mean Corpuscular Volume 96 FL (80-99) 95 FL (80-99) Mean Corpuscular Hemoglobin 31.0 PG (27.0-31.0) 30.4 PG (27.0-31.0) Mean Corpuscular Hemoglobin Concent 32.3 G/DL (32.0-36.0) 31.9 G/DL (32.0-36.0) L Red Cell Distribution Width 16.5 % (11.6-14.8) H 16.1 % (11.6-14.8) H Platelet Count 84 K/UL (150-450) L 77 K/UL (150-450) L Mean Platelet Volume 6.9 FL (6.5-10.1) 6.1 FL (6.5-10.1) L Neutrophils (%) (Auto) 73.9 % (45.0-75.0) % (45.0-75.0) Lymphocytes (%) (Auto) 16.3 % (20.0-45.0) L % (20.0-45.0) Monocytes (%) (Auto) 8.3 % (1.0-10.0) % (1.0-10.0) Eosinophils (%) (Auto) 0.4 % (0.0-3.0) % (0.0-3.0) Basophils (%) (Auto) 0.1 % (0.0-2.0) % (0.0-2.0) Prothrombin Time 11.2 SEC (9.30-11.50) 11.2 SEC (9.30-11.50) Prothromb Time International Ratio 1.1 (0.9-1.1) 1.1 (0.9-1.1) Activated Partial Thromboplast Time 23 SEC (23-33) 26 SEC (23-33) Sodium Level 140 mEQ/L (135-145) 143 mEQ/L (135-145) Potassium Level 4.3 mEQ/L (3.4-4.9) 5.0 mEQ/L (3.4-4.9) H Chloride Level 109 mEQ/L (98-107) H 113 mEQ/L (98-107) H Carbon Dioxide Level 21 mEQ/L (20-30) 20 mEQ/L (20-30) Anion Gap 10 (5-15) 10 (5-15) Blood Urea Nitrogen 48 mg/dL (7-23) H 42 mg/dL (7-23) H Creatinine 2.2 mg/dL (0.7-1.2) H 2.1 mg/dL (0.7-1.2) H Estimat Glomerular Filtration Rate mL/min (>60) mL/min (>60) Glucose Level 100 mg/dL (74-106) 83 mg/dL (74-106) Calcium Level 8.0 mg/dL (8.6-10.2) L 7.6 mg/dL (8.6-10.2) L Total Bilirubin 0.4 mg/dL (0.0-1.2) 0.3 mg/dL (0.0-1.2) Aspartate Amino Transf (AST/SGOT) 39 U/L (5-40) 40 U/L (5-40) Alanine Aminotransferase (ALT/SGPT) 28 U/L (3-41) 28 U/L (3-41) Alkaline Phosphatase 50 U/L (40-129) 48 U/L (40-129) Total Protein 5.3 g/dL (6.6-8.7) L 4.9 g/dL (6.6-8.7) L Albumin 3.3 g/dL (3.5-5.2) L 2.9 g/dL (3.5-5.2) L Globulin 2.0 g/dL 2.0 g/dL Albumin/Globulin Ratio 1.6 (1.0-2.7) 1.4 (1.0-2.7) Lipase > 300 U/L (< 60) H Urine Color Pale yellow Urine Appearance Clear Urine pH 5 (4.5-8.0) Urine Specific [place] 1.010 (1.005-1.035) Urine Protein Negative (NEGATIVE) Urine Glucose (UA) Negative (NEGATIVE) Urine Ketones Negative (NEGATIVE) Urine Occult Blood Negative (NEGATIVE) Urine Nitrite Negative (NEGATIVE) Urine Bilirubin Negative (NEGATIVE) Urine Urobilinogen Normal MG/DL (0.0-1.0) Urine Leukocyte Esterase Negative (NEGATIVE) Urine RBC 0 /HPF (0 - 0) Urine WBC 0 /HPF (0 - 0) Urine Squamous Epithelial Cells Occasional /LPF Urine Bacteria None /HPF (NONE) Urine Eosinophils None seen Urine Osmolality Pending Urine Random Sodium 73 mmol/L Urine Random Chloride 67 mmol/L Urine Potassium Timed 28 mmol/L Differential Total Cells Counted 100 Neutrophils % (Manual) 76 % (45-75) H Lymphocytes % (Manual) 18 % (20-45) L Monocytes % (Manual) 6 % (1-10) Eosinophils % (Manual) 0 % (0-3) Basophils % (Manual) 0 % (0-2) Band Neutrophils 0 % (0-8) Platelet Estimate Decreased L Platelet Morphology Normal Hypochromasia 1+ Anisocytosis 1+ Erythrocyte Sedimentation Rate 24 MM/HR (0-20) H Reticulocyte Count 1.5 % (0.0-2.0) Hemoglobin A1c 4.6 % (< 6.0) Plasma/Serum Osmolality Pending Uric Acid 7.3 mg/dL (3.0-7.5) Phosphorus Level 3.5 mg/dL (2.5-4.8) Magnesium Level 1.8 mg/dL (1.7-2.5) Iron Level 26 ug/dL (59-158) L Total Iron Binding Capacity 198 ug/dL (250-400) L Percent Iron Saturation 13 % (15-50) L Unsaturated Iron Binding 172 ug/dL (112-346) Lactate Dehydrogenase 200 U/L (135-230) Total Creatine Kinase 117 U/L (38-174) Triglycerides Level 224 mg/dL (< 150) H Cholesterol Level 93 mg/dL (< 200) LDL Cholesterol 36 mg/dL (60-99) L HDL Cholesterol 12 mg/dL (> 60) Cholesterol/HDL Ratio 7.8 (3.3-4.4) H Carcinoembryonic Antigen 4.7 ng/mL H Vitamin B12 Level 680 pg/mL (211-946) Folate Pending Thyroid Stimulating Hormone (TSH) 0.613 uIU/mL (0.300-4.500) Free Thyroxine 1.27 ng/dL (0.86-1.85) Free Triiodothyronine Pending Cortisol 0.5 ug/dL Height (Feet): 6 Height (Inches): 1.00 Weight (Pounds): 182 Medications Current Medications Medications (Trade) Dose Ordered Sig/Hemanth Route PRN Reason Start Time Stop Time Status Last Admin Dose Admin Acetaminophen (Tylenol) 650 mg Q4H PRN ORAL fever 10/20/16 22:45 11/19/16 22:44 Allopurinol (Zyloprim) 100 mg DAILY ORAL 10/21/16 09:00 11/20/16 08:59 10/21/16 08:57 Clonidine HCl (Catapres) 0.1 mg Q4H PRN ORAL For High Blood Pressure 10/20/16 22:45 11/19/16 22:44 Dextrose (Dextrose 50%) STAT PRN IV Hypoglycemia 10/20/16 22:45 11/19/16 22:44 Levothyroxine Sodium (Synthroid) 100 mcg ACBREAKFAST ORAL 10/22/16 06:30 11/21/16 06:29 Lorazepam (Ativan 2mg/ml 1ml) 0.5 mg Q4H PRN IV For Anxiety 10/20/16 22:45 10/27/16 22:44 Morphine Sulfate (Morphine Sulfate) 1 mg EVERY 4 HOURS PRN IVP For Pain 10/20/16 22:45 10/27/16 22:44 Ondansetron HCl (Zofran) 4 mg Q6H PRN IVP Nausea & Vomiting 10/20/16 22:45 11/19/16 22:44 Pantoprazole (Protonix) 40 mg EVERY 12 HOURS ORAL 10/21/16 09:00 11/20/16 08:59 10/21/16 08:57 Polyethylene Glycol (Miralax) 17 gm HSPRN PRN ORAL Constipation 10/20/16 22:45 11/19/16 22:44 Zolpidem Tartrate (Ambien) 5 mg HSPRN PRN ORAL Insomnia 10/20/16 22:45 11/19/16 22:44 Assessment/Plan Status: stable Assessment/Plan Mild depression, Dementia and anxiety -ativan -may benefit from ssri however the gi side effect may cause loss appetite therefore will wait Yenifer Maldonado M.D. Oct 21, 2016 14:25
--- NOTE | 2016-10-21 14:41 | Consultation ---
History of Present Illness General Date patient seen: Oct 21, 2016 Chief Complaint: Generalized Weakness Present Illness HPI 76M well known to our surgical team. Recently had endoscopy for evaluation of mass. After endoscopy went home but began to feel unwell. BP low and malaise so EMS called by family and patient transported to [facility] for evaluation. In ED found to have abnormal chemistry and likely ATN. Was admitted for hydration and monitoring. During evaluation complained of abdominal pain. surgery called to evaluate. When seen at bedside Mr. Mcneill states he is feeling better with hydration. Denies n/v/f/c. abdominal pain resolving. Ostomy functional. Allergies: Coded Allergies: No Known Allergies (Unverified , 07/18/16) Medication History Scheduled Allopurinol* (Allopurinol*), 100 MG ORAL DAILY, (Reported) Furosemide* (Lasix*), 40 MG ORAL DAILY, (Reported) Levothyroxine Sodium* (Levothyroxine Sodium*), 125 MCG ORAL DAILY, (Reported) Pantoprazole* (Protonix*), 40 MG ORAL EVERY 12 HOURS Prednisolone* (Prelone*), 30 MG ORAL DAILY, (Reported) Prednisone* (Prednisone*), 20 MG ORAL DAILY Ranitidine Hcl (Ranitidine Hcl), 150 MG ORAL DAILY, (Reported) Scheduled PRN Hydrocodone Bit/Acetaminophen 10-325* ([place] 10-325*), 1 TAB ORAL Q4H PRN Patient History History Provided By: Patient Healthcare decision maker Resuscitation status Full Code Advanced Directive on File No Past Medical/Surgical History Past Medical/Surgical History: (1) Episode of generalized weakness (2) Dementia (3) Colostomy care (4) Elevated CEA (5) Colon perforation (6) History of prostate cancer (7) Amyloidosis (8) ATN (acute tubular necrosis) (9) Severe protein-calorie malnutrition (10) Hypotension (11) Hematemesis (12) Syncope (13) Hypoalbuminemia (14) Acute encephalopathy (15) Elevated lipase Review of Systems Constitutional: Reports: malaise, weakness, Denies: chills, fever, no symptoms , other, see HPI, sweats Eye: Denies: acuity changes, blurred vision, discharge, double vision, eye pain , no symptoms, nose congestion, nose pain, other, see HPI, tearing ENT: Denies: ear discharge, ear pain, hearing loss, mouth pain, nasal discharge , no symptoms, nose congestion, nose pain, other, see HPI, throat pain, throat swelling Respiratory: Denies: HARE, cough, no symptoms, orthopnea, other, see HPI, shortness of breath, sputum, stridor, wheezing Cardiovascular: Denies: PND, chest pain, edema, no symptoms, other, palpitations, see HPI, syncope Gastrointestinal: Reports: abdominal pain Genitourinary: Denies: discharge, dysuria, frequency, hematuria, incontinence, no symptoms, other, pain, retention, see HPI, urgency, vag bleed/dc Musculoskeletal: Denies: back pain, gout, joint pain, joint swelling, muscle pain, muscle stiffness, no symptoms, other, see HPI Skin: Denies: change in color, change in hair/nails, dryness, lesions, no symptoms, other, rash, see HPI Psychiatric: Denies: HI, SI, anxiety, depressed feelings, emotional problems, hallucinations, no symptoms, other, prior hx, see HPI Neurological: Denies: dizziness, focal weakness, headache, no symptoms, numbness, other, paresthesia, see HPI, seizure, syncope, tingling, tremors Endocrine: Denies: excessive sweating, flushing, increased thirst, increased urine, intolerance to temperature, no symptoms, other, see HPI, unexplained weight loss Hematologic/Lymphatic: Denies: anemia, blood clots, diathesis, easy bleeding, easy bruising, no symptoms, other, see HPI, swollen glands Physical Exam General Appearance: WD/WN, no apparent distress, alert Lines, tubes and drains: peripheral HEENT: normocephalic, atraumatic, PERRL Neck: normal inspection Respiratory/Chest: normal breath sounds, no respiratory distress, no accessory muscle use Cardiovascular/Chest: normal peripheral pulses, normal rate, regular rhythm Abdomen: normal bowel sounds, non tender, soft, no organomegaly, other - soft, mild right sided tenderness, ostomy functional and viable, midline hernia Extremities: normal range of motion Skin Exam: normal pigmentation Last 24 Hour Vital Signs Date Time Temp Pulse Resp B/P Pulse Ox O2 Delivery O2 Flow Rate FiO2 10/21/16 12:00 98.4 87 20 110/51 97 Room Air 10/21/16 08:37 98.2 85 20 114/54 97 Room Air 10/21/16 04:00 98.1 90 18 119/69 97 Nasal Cannula 2.0 10/21/16 04:00 94 10/21/16 00:00 96.8 100 20 99/62 10/20/16 23:14 98.4 88 22 104/83 100 Room Air 10/20/16 23:12 88 22 104/83 100 Room Air 10/20/16 20:03 98.4 88 16 101/55 100 Room Air Intake and Output 10/20/16 10/21/16 19:00 07:00 Intake Total 280 ml Output Total 780 ml Balance -500 ml Intake Oral 280 ml Output Urine Total 780 ml # Voids 3 Laboratory Tests Test 10/20/16 20:55 10/21/16 03:00 10/21/16 05:25 White Blood Count 8.0 K/UL (4.8-10.8) 5.4 K/UL (4.8-10.8) Red Blood Count 2.99 M/UL (4.70-6.10) L 2.74 M/UL (4.70-6.10) L Hemoglobin 9.3 G/DL (14.2-18.0) L 8.3 G/DL (14.2-18.0) L Hematocrit 28.7 % (42.0-52.0) L 26.0 % (42.0-52.0) L Mean Corpuscular Volume 96 FL (80-99) 95 FL (80-99) Mean Corpuscular Hemoglobin 31.0 PG (27.0-31.0) 30.4 PG (27.0-31.0) Mean Corpuscular Hemoglobin Concent 32.3 G/DL (32.0-36.0) 31.9 G/DL (32.0-36.0) L Red Cell Distribution Width 16.5 % (11.6-14.8) H 16.1 % (11.6-14.8) H Platelet Count 84 K/UL (150-450) L 77 K/UL (150-450) L Mean Platelet Volume 6.9 FL (6.5-10.1) 6.1 FL (6.5-10.1) L Neutrophils (%) (Auto) 73.9 % (45.0-75.0) % (45.0-75.0) Lymphocytes (%) (Auto) 16.3 % (20.0-45.0) L % (20.0-45.0) Monocytes (%) (Auto) 8.3 % (1.0-10.0) % (1.0-10.0) Eosinophils (%) (Auto) 0.4 % (0.0-3.0) % (0.0-3.0) Basophils (%) (Auto) 0.1 % (0.0-2.0) % (0.0-2.0) Prothrombin Time 11.2 SEC (9.30-11.50) 11.2 SEC (9.30-11.50) Prothromb Time International Ratio 1.1 (0.9-1.1) 1.1 (0.9-1.1) Activated Partial Thromboplast Time 23 SEC (23-33) 26 SEC (23-33) Sodium Level 140 mEQ/L (135-145) 143 mEQ/L (135-145) Potassium Level 4.3 mEQ/L (3.4-4.9) 5.0 mEQ/L (3.4-4.9) H Chloride Level 109 mEQ/L (98-107) H 113 mEQ/L (98-107) H Carbon Dioxide Level 21 mEQ/L (20-30) 20 mEQ/L (20-30) Anion Gap 10 (5-15) 10 (5-15) Blood Urea Nitrogen 48 mg/dL (7-23) H 42 mg/dL (7-23) H Creatinine 2.2 mg/dL (0.7-1.2) H 2.1 mg/dL (0.7-1.2) H Estimat Glomerular Filtration Rate mL/min (>60) mL/min (>60) Glucose Level 100 mg/dL (74-106) 83 mg/dL (74-106) Calcium Level 8.0 mg/dL (8.6-10.2) L 7.6 mg/dL (8.6-10.2) L Total Bilirubin 0.4 mg/dL (0.0-1.2) 0.3 mg/dL (0.0-1.2) Aspartate Amino Transf (AST/SGOT) 39 U/L (5-40) 40 U/L (5-40) Alanine Aminotransferase (ALT/SGPT) 28 U/L (3-41) 28 U/L (3-41) Alkaline Phosphatase 50 U/L (40-129) 48 U/L (40-129) Total Protein 5.3 g/dL (6.6-8.7) L 4.9 g/dL (6.6-8.7) L Albumin 3.3 g/dL (3.5-5.2) L 2.9 g/dL (3.5-5.2) L Globulin 2.0 g/dL 2.0 g/dL Albumin/Globulin Ratio 1.6 (1.0-2.7) 1.4 (1.0-2.7) Lipase > 300 U/L (< 60) H Urine Color Pale yellow Urine Appearance Clear Urine pH 5 (4.5-8.0) Urine Specific [place] 1.010 (1.005-1.035) Urine Protein Negative (NEGATIVE) Urine Glucose (UA) Negative (NEGATIVE) Urine Ketones Negative (NEGATIVE) Urine Occult Blood Negative (NEGATIVE) Urine Nitrite Negative (NEGATIVE) Urine Bilirubin Negative (NEGATIVE) Urine Urobilinogen Normal MG/DL (0.0-1.0) Urine Leukocyte Esterase Negative (NEGATIVE) Urine RBC 0 /HPF (0 - 0) Urine WBC 0 /HPF (0 - 0) Urine Squamous Epithelial Cells Occasional /LPF Urine Bacteria None /HPF (NONE) Urine Eosinophils None seen Urine Osmolality Pending Urine Random Sodium 73 mmol/L Urine Random Chloride 67 mmol/L Urine Potassium Timed 28 mmol/L Differential Total Cells Counted 100 Neutrophils % (Manual) 76 % (45-75) H Lymphocytes % (Manual) 18 % (20-45) L Monocytes % (Manual) 6 % (1-10) Eosinophils % (Manual) 0 % (0-3) Basophils % (Manual) 0 % (0-2) Band Neutrophils 0 % (0-8) Platelet Estimate Decreased L Platelet Morphology Normal Hypochromasia 1+ Anisocytosis 1+ Erythrocyte Sedimentation Rate 24 MM/HR (0-20) H Reticulocyte Count 1.5 % (0.0-2.0) Hemoglobin A1c 4.6 % (< 6.0) Plasma/Serum Osmolality Pending Uric Acid 7.3 mg/dL (3.0-7.5) Phosphorus Level 3.5 mg/dL (2.5-4.8) Magnesium Level 1.8 mg/dL (1.7-2.5) Iron Level 26 ug/dL (59-158) L Total Iron Binding Capacity 198 ug/dL (250-400) L Percent Iron Saturation 13 % (15-50) L Unsaturated Iron Binding 172 ug/dL (112-346) Lactate Dehydrogenase 200 U/L (135-230) Total Creatine Kinase 117 U/L (38-174) Triglycerides Level 224 mg/dL (< 150) H Cholesterol Level 93 mg/dL (< 200) LDL Cholesterol 36 mg/dL (60-99) L HDL Cholesterol 12 mg/dL (> 60) Cholesterol/HDL Ratio 7.8 (3.3-4.4) H Carcinoembryonic Antigen 4.7 ng/mL H Vitamin B12 Level 680 pg/mL (211-946) Folate Pending Thyroid Stimulating Hormone (TSH) 0.613 uIU/mL (0.300-4.500) Free Thyroxine 1.27 ng/dL (0.86-1.85) Free Triiodothyronine Pending Cortisol 0.5 ug/dL Height (Feet): 6 Height (Inches): 1.00 Weight (Pounds): 182 Medications Current Medications Medications (Trade) Dose Ordered Sig/Hemanth Route PRN Reason Start Time Stop Time Status Last Admin Dose Admin Acetaminophen (Tylenol) 650 mg Q4H PRN ORAL fever 10/20/16 22:45 11/19/16 22:44 Allopurinol (Zyloprim) 100 mg DAILY ORAL 10/21/16 09:00 11/20/16 08:59 10/21/16 08:57 Clonidine HCl (Catapres) 0.1 mg Q4H PRN ORAL For High Blood Pressure 10/20/16 22:45 11/19/16 22:44 Dextrose (Dextrose 50%) STAT PRN IV Hypoglycemia 10/20/16 22:45 11/19/16 22:44 Levothyroxine Sodium (Synthroid) 100 mcg ACBREAKFAST ORAL 10/22/16 06:30 11/21/16 06:29 Lorazepam (Ativan 2mg/ml 1ml) 0.5 mg Q4H PRN IV For Anxiety 10/20/16 22:45 10/27/16 22:44 Morphine Sulfate (Morphine Sulfate) 1 mg EVERY 4 HOURS PRN IVP For Pain 10/20/16 22:45 10/27/16 22:44 Ondansetron HCl (Zofran) 4 mg Q6H PRN IVP Nausea & Vomiting 10/20/16 22:45 11/19/16 22:44 Pantoprazole (Protonix) 40 mg EVERY 12 HOURS ORAL 10/21/16 09:00 11/20/16 08:59 10/21/16 08:57 Polyethylene Glycol (Miralax) 17 gm HSPRN PRN ORAL Constipation 10/20/16 22:45 11/19/16 22:44 Zolpidem Tartrate (Ambien) 5 mg HSPRN PRN ORAL Insomnia 10/20/16 22:45 11/19/16 22:44 Assessment/Plan Status: stable Assessment/Plan 76M admitted for management of ATN with abdominal pain. pain resolving with hydration. likely due to dehydration. ostomy looks great. He is being followed by Dr. Farias as an outpatient with plans for ostomy takedown soon. no acute intervention necessary at this time. continue medical management of ATN will continue to follow with you while in hospital. thank you for this consultation Beto Leon Oct 21, 2016 14:40
[2016-10-21 16:26] VITALS: BP 104/52
[2016-10-21] MEDS ORDERED: NS 550ML IV ONE (16:47)
[2016-10-21 20:00] VITALS: BP 106/48
[2016-10-21 20:55] LABS: REFLEX LACTIC ACID YES OR NO YES
[2016-10-22] VITALS: BP 103/53
[2016-10-22 04:00] VITALS: BP 92/54
--- NOTE | 2016-10-22 07:45 | Consultation ---
DATE OF CONSULTATION: HEMATOLOGY/ONCOLOGY CONSULTATION CONSULTING PHYSICIAN: Sharad Tilley M.D. REQUESTING PHYSICIAN: Reynaldo Polanco M.D. REASON FOR CONSULTATION: Evaluation of anemia and thrombocytopenia with a pancreatic tail mass concerning for pancreatic neoplasm versus Pseudomonas infection. REFERRING PHYSICIAN: Dear Dr. Reynaldo Polanco, The patient is a pleasant 76-year-old male with a past medical history significant for thrombocytopenia, anemia, prostate cancer, and history of chronic amyloidosis. The patient a recent colostomy at [facility]. Subsequently, he developed hypertension and endoscopy. Hematology/Oncology service was consulted to evaluate the above issues. PAST MEDICAL HISTORY: As noted above. PAST SURGICAL HISTORY: Status post colostomy. MEDICATIONS: Prednisone, levothyroxine, Lasix, . ALLERGIES: No known drug allergies. FAMILY HISTORY: Noncontributory. REVIEW OF SYSTEMS: Constitutional: No fever, no chills, and no night sweats. Skin: No rashes, bumps, or itching. HEENT: No headache, hearing, or vision changes. Breasts: No lumps, pain, or discharge. Pulmonary: No cough, sputum, or shortness of breath. Cardiovascular: No chest pain, tightness, or palpitations. Gastrointestinal: No nausea, vomiting, or diarrhea. Genitourinary: No dysuria, frequency, or urgency. Musculoskeletal: No joint swelling, muscle pain, or trauma. PHYSICAL EXAMINATION: GENERAL: The patient is in no distress. VITAL SIGNS: Temperature 98.4 degrees Fahrenheit, pulse of 87, respiration rate 12, blood pressure 110/51, and pulse oximetry 97% on room air. PULMONARY: Decreased breath sounds. CARDIOVASCULAR: Regular rate. No S3 or S4. ABDOMEN: Soft, nontender, and nondistended. EXTREMITIES: There is 1+ edema. LABORATORY DATA: WBC , hemoglobin 8.3, hematocrit 25, and platelet count 77,000. CA elevated to 4.7. B12 . PSA less than 0.01 in July. CA 19-9 is pending. His INR is 1.1. ASSESSMENT: 1. 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 Consider CT-guided biopsy. I have discussed with the patient. 2. Anemia secondary to chronic disease. 3. Anemia, rule out iron deficiency. 4. Prostate cancer. At this time, PSA less than 0.01. 5. Colonoscopy status post colostomy. 6. Amyloidosis, which is chronic. 7. Thrombocytopenia, potential workup as noted in the labs. 8. Dementia. 9. History of thoracic spine fracture. 10. Hepatitis. 11. The patient is a poor historian even in [place] after discussing with him. 12. Discussed with staff. Sincerely, Sharad Tilley M.D. DR: RICHARD JOB#: [id number] CC:
[2016-10-22 07:54] VITALS: BP 109/54
[2016-10-22 08:59] LABS: MEAN CORPUSCULAR HEMOGLOBIN 29.8 PG (27.0-31.0); MEAN CORPUSCULAR HGB CONC 31.3 G/DL (32.0-36.0); MEAN CORPUSCULAR VOLUME 95 FL (80-99); MEAN PLATELET VOLUME 7.1 FL (6.5-10.1); PLATELET COUNT 69 K/UL (150-450); RED BLOOD COUNT 2.57 M/UL (4.70-6.10); RED CELL DISTRIBUTION WIDTH 16.1 % (11.6-14.8); WHITE BLOOD COUNT 4.6 K/UL (4.8-10.8)
[2016-10-22] MEDS: Allopurinol 100mg Tab ORAL SCH (08:59)
[2016-10-22 09:08] LABS: FERRITIN 71 ng/mL (10-230)
[2016-10-22 09:13] LABS: ALANINE AMINOTRANSFERASE 20 U/L (3-41); ALBUMIN/GLOBULIN RATIO 1.2 (1.0-2.7); ANION GAP 11 (5-15); ASPARTATE AMINO TRANSFERASE 32 U/L (5-40); CALCIUM 7.8 mg/dL (8.6-10.2); CARBON DIOXIDE 19 mEQ/L (20-30); CHLORIDE 112 mEQ/L (98-107); CREATININE 2.4 mg/dL (0.7-1.2); HEMOLYSIS 4; MAGNESIUM 1.8 mg/dL (1.7-2.5); PHOSPHORUS 3.5 mg/dL (2.5-4.8); POTASSIUM 4.1 mEQ/L (3.4-4.9); SODIUM 142 mEQ/L (135-145); URIC ACID 8.1 mg/dL (3.0-7.5)
--- NOTE | 2016-10-22 09:22 | Pulmonology Progress Note ---
Assessment/Plan Problems: (1) Hypotension (2) ATN (acute tubular necrosis) (3) Severe protein-calorie malnutrition (4) Amyloidosis (5) History of prostate cancer (6) Colostomy care (7) Dementia Assessment/Plan prbc today anemia w/u in process heart rate controlled all consults reviewed keep in teli Subjective ROS Limited/Unobtainable: No Constitutional: Reports: no symptoms HEENT: Repors: no symptoms Respiratory: Reports: no symptoms Allergies: Coded Allergies: No Known Allergies (Unverified , 07/18/16) Objective Last 24 Hour Vital Signs Date Time Temp Pulse Resp B/P Pulse Ox O2 Delivery O2 Flow Rate FiO2 10/22/16 07:54 97.9 97 20 109/54 97 Room Air 10/22/16 04:00 80 10/22/16 04:00 97.7 96 21 92/54 95 Room Air 2.0 10/22/16 00:00 89 10/22/16 00:00 98.4 77 24 103/53 93 Room Air 10/21/16 20:00 99.3 101 22 106/48 Room Air 10/21/16 20:00 82 10/21/16 16:26 98.2 85 20 104/52 95 Room Air 10/21/16 15:15 88 10/21/16 12:00 98.4 87 20 110/51 97 Room Air 10/21/16 11:41 87 Intake and Output 10/21/16 10/22/16 19:00 07:00 Intake Total 480 ml 240 ml Output Total 680 ml Balance -200 ml 240 ml Intake Oral 480 ml 240 ml Output Urine Total 680 ml # Voids 3 3 # Bowel Movements 1 1 Objective General Appearance: WD/WN HEENT: normocephalic Respiratory/Chest: chest wall non-tender, lungs clear Cardiovascular: normal peripheral pulses, normal rate Abdomen: normal bowel sounds, soft, non tender Genitourinary: normal external genitalia Extremities: no cyanosis Skin: no rash Neurologic/Psychiatric: memory care director II-XII grossly normal Lymphatic: no neck adenopathy Laboratory Tests 10/21/16 19:50: Lactic Acid Level 3.60H 10/22/16 07:44: White Blood Count 4.6L, Red Blood Count 2.57L, Hemoglobin 7.7L, Hematocrit 24.4L , Mean Corpuscular Volume 95, Mean Corpuscular Hemoglobin 29.8, Mean Corpuscular Hemoglobin Concent 31.3L, Red Cell Distribution Width 16.1H, Platelet Count 69L, Mean Platelet Volume 7.1, Neutrophils (%) (Auto) , Lymphocytes (%) (Auto) , Monocytes (%) (Auto) , Eosinophils (%) (Auto) , Basophils (%) (Auto) , Neutrophils % (Manual) [Pending], Lymphocytes % (Manual) [Pending], Platelet Estimate [Pending], Platelet Morphology [Pending], Sodium Level 142, Potassium Level 4.1, Chloride Level 112H, Carbon Dioxide Level 19L, Anion Gap 11, Blood Urea Nitrogen 37H, Creatinine 2.4H, Estimat Glomerular Filtration Rate , Glucose Level 97, Uric Acid 8.1H, Calcium Level 7.8L, Phosphorus Level 3.5, Magnesium Level 1.8, Ferritin 71, Total Bilirubin 0.7, Gamma Glutamyl Transpeptidase 25, Aspartate Amino Transf (AST/SGOT) 32, Alanine Aminotransferase (ALT/SGPT) 20, Alkaline Phosphatase 52, Total Creatine Kinase 94, Total Protein 5.0L, Albumin 2.8L, Globulin 2.2, Albumin/Globulin Ratio 1.2, Lipase [Pending] Current Medications Medications (Trade) Dose Ordered Sig/Hemanth Route PRN Reason Start Time Stop Time Status Last Admin Dose Admin Acetaminophen (Tylenol) 650 mg Q4H PRN ORAL fever 10/20/16 22:45 11/19/16 22:44 Allopurinol (Zyloprim) 100 mg DAILY ORAL 10/21/16 09:00 11/20/16 08:59 10/22/16 08:59 Clonidine HCl (Catapres) 0.1 mg Q4H PRN ORAL For High Blood Pressure 10/20/16 22:45 11/19/16 22:44 Dextrose (Dextrose 50%) STAT PRN IV Hypoglycemia 10/20/16 22:45 11/19/16 22:44 Levothyroxine Sodium (Synthroid) 100 mcg ACBREAKFAST ORAL 10/22/16 06:30 11/21/16 06:29 10/22/16 06:48 Lorazepam (Ativan 2mg/ml 1ml) 0.5 mg Q4H PRN IV For Anxiety 10/20/16 22:45 10/27/16 22:44 Morphine Sulfate (Morphine Sulfate) 1 mg EVERY 4 HOURS PRN IVP For Pain 10/20/16 22:45 10/27/16 22:44 Ondansetron HCl (Zofran) 4 mg Q6H PRN IVP Nausea & Vomiting 10/20/16 22:45 11/19/16 22:44 Pantoprazole (Protonix) 40 mg EVERY 12 HOURS ORAL 10/21/16 09:00 11/20/16 08:59 10/22/16 08:57 Polyethylene Glycol (Miralax) 17 gm HSPRN PRN ORAL Constipation 10/20/16 22:45 11/19/16 22:44 Zolpidem Tartrate (Ambien) 5 mg HSPRN PRN ORAL Insomnia 10/20/16 22:45 11/19/16 22:44 ARIS WALSH Oct 22, 2016 09:22
--- NOTE | 2016-10-22 09:53 | Diagnostic Imaging Report ---
Indications: Abnormal renal function tests Technique: Transabdominal real-time grayscale and duplex Doppler imaging of the kidneys, retroperitoneum, and urinary bladder was performed Findings: Comparison: CT abdomen pelvis 10/04/16; abdominal ultrasound 07/19/2016 Right kidney measures 10.4 cm in length. Mild cortical atrophy and increased echogenicity... Cyst seen on CT scan not currently identified. Suggestion of minimal perinephric fluid. No stones, other focal lesions, hydronephrosis. Left kidney measures 9.8 cm in length. Mild cortical atrophy and increased echogenicity.. 7 mm circumscribed anechoic focus upper pole cortex. No stones, other focal lesions, hydronephrosis, or obvious perinephric abnormalities. The intrahepatic portion of inferior vena cava is patent and normal caliber. Mild ascites incidentally noted. The urinary bladder is distended without obvious abnormality. IMPRESSION: Bilateral atrophic echogenic kidneys compatible with chronic medical renal disease Small left renal cortical cyst; previously demonstrated right renal cortical cyst not currently identified Ascites Suggestion of mild right perinephric fluid may represent ascites. Pyelonephritis not excludable. Correlate clinically.
[2016-10-22 10:30] LABS: ANISOCYTOSIS 1+; BAND NEUTROPHILS % (MANUAL) 0 % (0-8); BASOPHILS % (MANUAL) 2 % (0-2); EOSINOPHILS % (MANUAL) 1 % (0-3); HYPOCHROMASIA 3+; LYMPHOCYTES % (MANUAL) 23 % (20-45); NEUTROPHILS % (MANUAL) 68 % (45-75); PLATELET ESTIMATE DECREASED; PLATELET MORPHOLOGY NORMAL; TOTAL CELLS COUNTED 100
[2016-10-22] MEDS: Cefepime HCl 1 GM in D5W 55 ML IVPB SCH (11:02)
--- NOTE | 2016-10-22 11:16 | General Progress Note ---
Assessment/Plan Status: unchanged Status Narrative Cr higher- Hgb lower Assessment/Plan status; 1) Hypotension after out patient procedure at [facility] (2) ATN (acute tubular necrosis)- Cr higher (3) Anemia- worsened (4) History of prostate cancer (5) Dementia (6) h/o Thoracic spine fracture (7) HypoAlbuminemia (8) High Lipase (9) HypoThyroidism Plan: Suggest transfuse- Start IV Iron and SQ EPO Slow hydrate- one liter NS Electrolyte Replacements as needed Flomax Gastric support Pain Mgt monitor renal parameters Avoid nephrotoxics Subjective ROS Limited/Unobtainable: No Constitutional: Reports: malaise Allergies: Coded Allergies: No Known Allergies (Unverified , 07/18/16) Objective Last 24 Hour Vital Signs Date Time Temp Pulse Resp B/P Pulse Ox O2 Delivery O2 Flow Rate FiO2 10/22/16 08:00 79 10/22/16 07:54 97.9 97 20 109/54 97 Room Air 10/22/16 04:00 80 10/22/16 04:00 97.7 96 21 92/54 95 Room Air 2.0 10/22/16 00:00 89 10/22/16 00:00 98.4 77 24 103/53 93 Room Air 10/21/16 20:00 99.3 101 22 106/48 Room Air 10/21/16 20:00 82 10/21/16 16:26 98.2 85 20 104/52 95 Room Air 10/21/16 15:15 88 10/21/16 12:00 98.4 87 20 110/51 97 Room Air 10/21/16 11:41 87 Intake and Output 10/21/16 10/22/16 19:00 07:00 Intake Total 480 ml 240 ml Output Total 680 ml Balance -200 ml 240 ml Intake Oral 480 ml 240 ml Output Urine Total 680 ml # Voids 3 3 # Bowel Movements 1 1 Laboratory Tests 10/21/16 19:50: Lactic Acid Level 3.60H 10/22/16 07:44: White Blood Count 4.6L, Red Blood Count 2.57L, Hemoglobin 7.7L, Hematocrit 24.4L , Mean Corpuscular Volume 95, Mean Corpuscular Hemoglobin 29.8, Mean Corpuscular Hemoglobin Concent 31.3L, Red Cell Distribution Width 16.1H, Platelet Count 69L, Mean Platelet Volume 7.1, Neutrophils (%) (Auto) , Lymphocytes (%) (Auto) , Monocytes (%) (Auto) , Eosinophils (%) (Auto) , Basophils (%) (Auto) , Differential Total Cells Counted 100, Neutrophils % ( Manual) 68, Lymphocytes % (Manual) 23, Monocytes % (Manual) 6, Eosinophils % ( Manual) 1, Basophils % (Manual) 2, Band Neutrophils 0, Platelet Estimate DecreasedL, Platelet Morphology Normal, Hypochromasia 3+, Anisocytosis 1+, Sodium Level 142, Potassium Level 4.1, Chloride Level 112H, Carbon Dioxide Level 19L, Anion Gap 11, Blood Urea Nitrogen 37H, Creatinine 2.4H, Estimat Glomerular Filtration Rate , Glucose Level 97, Uric Acid 8.1H, Calcium Level 7.8L, Phosphorus Level 3.5, Magnesium Level 1.8, Ferritin 71, Total Bilirubin 0.7, Gamma Glutamyl Transpeptidase 25, Aspartate Amino Transf (AST/SGOT) 32, Alanine Aminotransferase (ALT/SGPT) 20, Alkaline Phosphatase 52, Total Creatine Kinase 94, Total Protein 5.0L, Albumin 2.8L, Globulin 2.2, Albumin/Globulin Ratio 1.2, Lipase 129H Height (Feet): 6 Height (Inches): 1.00 Weight (Pounds): 182 General Appearance: no apparent distress Respiratory/Chest: decreased breath sounds Abdomen: soft Objective no change in PE SHAHEEN WALDROP Oct 22, 2016 11:16
[2016-10-22 11:56] VITALS: BP 117/66
--- NOTE | 2016-10-22 15:09 | Consultation ---
Consult Note Consult Note Cardiology for Dr. Read Full consult dictated #[id number] PAWAN JALLOH Oct 22, 2016 15:09
[2016-10-22 15:32] VITALS: BP 117/59
[2016-10-22] MEDS ORDERED: Iron Sucrose 200 MG in NS 110 ML IVPB ONE (16:00)
[2016-10-22 20:00] VITALS: BP 110/62
--- NOTE | 2016-10-22 22:00 | Consultation ---
DATE OF CONSULTATION: 10/22/2016 CARDIOLOGY CONSULTATION This is in coverage for Dr. Read. REASON FOR CONSULT: Atrial fibrillation. HISTORY OF PRESENT ILLNESS: The patient is a 76-year-old man with a history of hypertension, chronic kidney disease, gastrointestinal bleed with colonoscopy complicated by perforation requiring surgery, and colostomy in 07/2016. He was recently admitted to [facility] for biopsy of a pancreatic tail mass, which was performed on 10/20/2016. Preoperatively, his hemoglobin is reported at 11.4, BUN 55, and creatinine 2.4. He was admitted to [facility] on 10/20/2016 with complaints of weakness and hypotension. His hemoglobin was 9.3 on admission and today it is 7.7. His BUN and creatinine are 37 and 2.4, which appeared to be at his baseline. Today, he developed atrial fibrillation with rapid ventricular rate and Cardiology evaluation was requested. He currently denies any palpitations, chest pain, shortness of breath, or dizziness. He denies any previous history of atrial fibrillation or coronary artery disease. PAST MEDICAL HISTORY: As noted above. Also, history of hypothyroidism; history of gout; history of chronic kidney disease; amyloidosis; partial thyroidectomy; history of ORIF of the upper extremities following bilateral arm fracture sustained in a fall; history of paroxysmal atrial fibrillation, previously on Eliquis per the notes though the patient denies. CURRENT MEDICATIONS: Epogen 73550 units subcutaneously Monday, Monday and Monday; intravenous iron 200 mg IV x1; cefepime 1 g IV q.24 h.; Synthroid 100 mcg daily; allopurinol 100 mg daily; Protonix 40 mg q.12 h.; morphine p.r.n.; MiraLAX p.r.n.; Ambien p.r.n.; and clonidine p.r.n. ALLERGIES: No known drug allergies. SOCIAL HISTORY: The patient is a nonsmoker and has no history of alcohol abuse. PHYSICAL EXAMINATION: VITAL SIGNS: Blood pressure is 117/66, pulse 98, irregularly irregular, respirations 20, and afebrile. GENERAL: Alert, well-developed white male, in no acute distress. HEENT: Normocephalic and atraumatic. Pupils are equal, round, and reactive to light. Sclerae anicteric. Oral mucosa are moist. NECK: Supple. There is no jugular venous distention. No carotid bruits. LUNGS: Clear to auscultation bilaterally. HEART: Irregularly irregular. Tachycardic. S1 and S2 with no murmur or S3. ABDOMEN: Soft, nondistended, and nontender. No palpable mass. There is a right colostomy with stool in the ostomy bag. Midline hernia. EXTREMITIES: No cyanosis, clubbing, or edema. SKIN: No rashes or lesions. LABORATORY AND DIAGNOSTIC DATA: Hemoglobin 7.7, hematocrit 24, white blood count 4600, and platelets 69,000. INR is 1.1. PTT is 26. Sodium 142, potassium 4.1, chloride 112, bicarbonate 19, BUN 37, creatinine 2.4, and glucose 83. EKG on admission showed normal sinus rhythm versus an ectopic atrial rhythm (inverted T-waves in 2, 3 and AVF and rate of 75 beats per minute, first-degree AV block, nonspecific T-wave changes). Current telemetry shows atrial fibrillation with ventricular rates of 100 to 110 beats per minute. Chest x-ray shows mild basilar atelectasis. ASSESSMENT AND RECOMMENDATIONS: The patient is a 76-year-old man with a complex past medical history, who is admitted with dizziness, weakness and hypotension following endoscopic evaluation for pancreatic mass. He is now noted to be in atrial fibrillation after hospitalization and in the setting of significant anemia. I would favor management with rate control with beta-blockers. At this point, I would not anticoagulate given the low hemoglobin and concern for possible gastrointestinal bleeding and severe anemia. It is unclear whether or not he has gastrointestinal bleeding versus anemia of chronic disease. Pending gastrointestinal evaluation, I would hold anticoagulation and would give beta-blockers for ventricular rate control. Once gastrointestinal status has been cleared and hemoglobin has improved posttransfusion, would start heparin followed by warfarin anticoagulation for stroke prevention. Mariangel Caro M.D. DR: KELLEN JOB#: [id number] CC:
[2016-10-23] VITALS: BP 103/48
--- NOTE | 2016-10-23 00:07 | Geriatric Progress Note ---
Assessment/Plan Discussed with: patient Subjective Interval Events 10/22/16 Constitutional: Reports: malaise, weakness Mood/Memory: Reports: anxiety, depressed feelings, prior hx Geriatric Geriatric Last 24 Hour Vital Signs Date Time Temp Pulse Resp B/P Pulse Ox O2 Delivery O2 Flow Rate FiO2 10/22/16 20:00 78 10/22/16 20:00 98.0 83 24 110/62 97 Room Air 10/22/16 16:00 82 10/22/16 15:32 98.3 101 20 117/59 96 Room Air 10/22/16 12:00 80 10/22/16 11:56 97.6 98 20 117/66 99 Room Air 10/22/16 08:00 79 10/22/16 07:54 97.9 97 20 109/54 97 Room Air 10/22/16 04:00 80 10/22/16 04:00 97.7 96 21 92/54 95 Room Air 2.0 Intake and Output 10/22/16 10/23/16 19:00 07:00 Intake Total 1275 ml Output Total 350 ml Balance 925 ml Intake Oral 770 ml IV Total 505 ml Output Urine Total 350 ml # Voids 2 Laboratory Tests Test 10/22/16 07:44 10/22/16 10:30 White Blood Count 4.6 K/UL (4.8-10.8) L Red Blood Count 2.57 M/UL (4.70-6.10) L Hemoglobin 7.7 G/DL (14.2-18.0) L Hematocrit 24.4 % (42.0-52.0) L Mean Corpuscular Volume 95 FL (80-99) Mean Corpuscular Hemoglobin 29.8 PG (27.0-31.0) Mean Corpuscular Hemoglobin Concent 31.3 G/DL (32.0-36.0) L Red Cell Distribution Width 16.1 % (11.6-14.8) H Platelet Count 69 K/UL (150-450) L Mean Platelet Volume 7.1 FL (6.5-10.1) Neutrophils (%) (Auto) % (45.0-75.0) Lymphocytes (%) (Auto) % (20.0-45.0) Monocytes (%) (Auto) % (1.0-10.0) Eosinophils (%) (Auto) % (0.0-3.0) Basophils (%) (Auto) % (0.0-2.0) Differential Total Cells Counted 100 Neutrophils % (Manual) 68 % (45-75) Lymphocytes % (Manual) 23 % (20-45) Monocytes % (Manual) 6 % (1-10) Eosinophils % (Manual) 1 % (0-3) Basophils % (Manual) 2 % (0-2) Band Neutrophils 0 % (0-8) Platelet Estimate Decreased L Platelet Morphology Normal Hypochromasia 3+ Anisocytosis 1+ Sodium Level 142 mEQ/L (135-145) Potassium Level 4.1 mEQ/L (3.4-4.9) Chloride Level 112 mEQ/L (98-107) H Carbon Dioxide Level 19 mEQ/L (20-30) L Anion Gap 11 (5-15) Blood Urea Nitrogen 37 mg/dL (7-23) H Creatinine 2.4 mg/dL (0.7-1.2) H Estimat Glomerular Filtration Rate mL/min (>60) Glucose Level 97 mg/dL (74-106) Uric Acid 8.1 mg/dL (3.0-7.5) H Calcium Level 7.8 mg/dL (8.6-10.2) L Phosphorus Level 3.5 mg/dL (2.5-4.8) Magnesium Level 1.8 mg/dL (1.7-2.5) Ferritin 71 ng/mL (10-230) Total Bilirubin 0.7 mg/dL (0.0-1.2) Gamma Glutamyl Transpeptidase 25 U/L (8-61) Aspartate Amino Transf (AST/SGOT) 32 U/L (5-40) Alanine Aminotransferase (ALT/SGPT) 20 U/L (3-41) Alkaline Phosphatase 52 U/L (40-129) Total Creatine Kinase 94 U/L (38-174) Total Protein 5.0 g/dL (6.6-8.7) L Albumin 2.8 g/dL (3.5-5.2) L Globulin 2.2 g/dL Albumin/Globulin Ratio 1.2 (1.0-2.7) Lipase 129 U/L (< 60) H Stool Occult Blood Pending Current Medications Medications (Trade) Dose Ordered Sig/Hemanth Route PRN Reason Start Time Stop Time Status Last Admin Dose Admin Acetaminophen (Tylenol) 650 mg Q4H PRN ORAL fever 10/20/16 22:45 11/19/16 22:44 Allopurinol (Zyloprim) 100 mg DAILY ORAL 10/21/16 09:00 11/20/16 08:59 10/22/16 08:59 Cefepime HCl 1 gm/ Dextrose 55 ml @ 110 mls/hr Q24H IVPB 10/22/16 11:00 10/29/16 10:59 10/22/16 11:02 Clonidine HCl (Catapres) 0.1 mg Q4H PRN ORAL For High Blood Pressure 10/20/16 22:45 11/19/16 22:44 Dextrose (Dextrose 50%) STAT PRN IV Hypoglycemia 10/20/16 22:45 11/19/16 22:44 Epoetin Shoaib (Procrit (for non ESRD use)) 10,000 units MON-MON-MON SUBQ 10/24/16 21:00 11/23/16 20:59 Levothyroxine Sodium 100 mcg 100 mcg ACBREAKFAST ORAL 10/22/16 06:30 11/21/16 06:29 10/22/16 06:48 Lorazepam (Ativan 2mg/ml 1ml) 0.5 mg Q4H PRN IV For Anxiety 10/20/16 22:45 10/27/16 22:44 Morphine Sulfate (Morphine Sulfate) 1 mg EVERY 4 HOURS PRN IVP For Pain 10/20/16 22:45 10/27/16 22:44 Ondansetron HCl (Zofran) 4 mg Q6H PRN IVP Nausea & Vomiting 10/20/16 22:45 11/19/16 22:44 Pantoprazole (Protonix) 40 mg EVERY 12 HOURS ORAL 10/21/16 09:00 11/20/16 08:59 10/22/16 21:13 Polyethylene Glycol (Miralax) 17 gm HSPRN PRN ORAL Constipation 10/20/16 22:45 11/19/16 22:44 Sodium Chloride (Sodium Chloride 1000ml bag) 1,000 ml @ 75 mls/hr [id number] IV 10/22/16 12:00 10/23/16 01:19 10/22/16 12:57 Zolpidem Tartrate (Ambien) 5 mg HSPRN PRN ORAL Insomnia 10/20/16 22:45 11/19/16 22:44 10/22/16 23:40 Height (Feet): 6 Height (Inches): 1.00 Weight (Pounds): 182 General Appearance: well appearing, well dressed, well groomed, well nourished , no apparent distress, alert Neurologic: alert, oriented x3, responsive Psychiatric Behavior: cooperative Language/Speech: intact Orientation: person, place, situation Affect: appropriate Insight: Yenifer Harper M.D. Oct 23, 2016 00:07
[2016-10-23 04:00] VITALS: BP 118/63
[2016-10-23 08:00] VITALS: BP 113/50
[2016-10-23] MEDS: Allopurinol 100mg Tab ORAL SCH (08:25)
--- NOTE | 2016-10-23 09:06 | General Progress Note ---
Assessment/Plan Status: stable Status Narrative transfused Assessment/Plan status; 1) Hypotension after out patient procedure at [facility] (2) ATN (acute tubular necrosis)- Cr higher (3) Anemia- worsened (4) History of prostate cancer (5) Dementia (6) h/o Thoracic spine fracture (7) HypoAlbuminemia (8) High Lipase (9) HypoThyroidism Plan: no labs today yet- 10/22/16-transfused one unit Start IV Iron and SQ EPO Slow hydrate- one liter NS Electrolyte Replacements as needed Flomax Gastric support Pain Mgt monitor renal parameters Avoid nephrotoxics Subjective ROS Limited/Unobtainable: No Constitutional: Reports: malaise Allergies: Coded Allergies: No Known Allergies (Unverified , 07/18/16) Objective Last 24 Hour Vital Signs Date Time Temp Pulse Resp B/P Pulse Ox O2 Delivery O2 Flow Rate FiO2 10/23/16 04:00 75 10/23/16 04:00 98.1 77 20 118/63 95 Room Air 10/23/16 00:00 99.3 75 24 103/48 92 Room Air 10/23/16 00:00 74 10/22/16 20:00 78 10/22/16 20:00 98.0 83 24 110/62 97 Room Air 10/22/16 16:00 82 10/22/16 15:32 98.3 101 20 117/59 96 Room Air 10/22/16 12:00 80 10/22/16 11:56 97.6 98 20 117/66 99 Room Air Intake and Output 10/22/16 10/23/16 19:00 07:00 Intake Total 1275 ml 790 ml Output Total 350 ml 1500 ml Balance 925 ml -710 ml Intake Oral 770 ml 240 ml IV Total 505 ml 550 ml Output Urine Total 350 ml 1500 ml # Voids 2 # Bowel Movements 1 Laboratory Tests 10/22/16 10:30: Stool Occult Blood Negative Height (Feet): 6 Height (Inches): 1.00 Weight (Pounds): 182 General Appearance: no apparent distress Respiratory/Chest: decreased breath sounds Abdomen: soft Objective no change in PE HSAHEEN WALDROP Oct 23, 2016 09:05
[2016-10-23 09:16] LABS: MEAN CORPUSCULAR HEMOGLOBIN 30.7 PG (27.0-31.0); MEAN CORPUSCULAR VOLUME 96 FL (80-99); MEAN PLATELET VOLUME 5.4 FL (6.5-10.1); PLATELET COUNT 67 K/UL (150-450); RED BLOOD COUNT 2.94 M/UL (4.70-6.10); RED CELL DISTRIBUTION WIDTH 15.7 % (11.6-14.8)
[2016-10-23 09:21] LABS: INR 1.1 (0.9-1.1)
[2016-10-23 09:38] LABS: ANISOCYTOSIS 1+; BAND NEUTROPHILS % (MANUAL) 0 % (0-8); BASOPHILS % (MANUAL) 0 % (0-2); EOSINOPHILS % (MANUAL) 2 % (0-3); HYPOCHROMASIA 1+; LYMPHOCYTES % (MANUAL) 21 % (20-45); NEUTROPHILS % (MANUAL) 61 % (45-75); PLATELET ESTIMATE DECREASED; PLATELET MORPHOLOGY NORMAL; TOTAL CELLS COUNTED 100
[2016-10-23 09:44] LABS: ALANINE AMINOTRANSFERASE 18 U/L (3-41); ALBUMIN/GLOBULIN RATIO 1.3 (1.0-2.7); ANION GAP 11 (5-15); ASPARTATE AMINO TRANSFERASE 29 U/L (5-40); CALCIUM 8.3 mg/dL (8.6-10.2); CARBON DIOXIDE 18 mEQ/L (20-30); CHLORIDE 110 mEQ/L (98-107); CREATININE 2.1 mg/dL (0.7-1.2); HEMOLYSIS 6; MAGNESIUM 1.7 mg/dL (1.7-2.5); PHOSPHORUS 2.8 mg/dL (2.5-4.8); POTASSIUM 3.9 mEQ/L (3.4-4.9); SODIUM 139 mEQ/L (135-145); TOTAL PROTEIN 5.3 g/dL (6.6-8.7)
[2016-10-23 10:06] LABS: BILIRUBIN,DIRECT 0.4 mg/dL (0.1-0.3)
--- NOTE | 2016-10-23 11:33 | General Progress Note ---
Assessment/Plan Assessment/Plan ASSESSMENT/RECS: 1. 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 Consider CT-guided biopsy. To have performed tomorrow 2. Anemia secondary to chronic disease. --> on epogen sq 3. Anemia, rule out iron deficiency. --> on iv iron 4. Prostate cancer. At this time, PSA less than 0.01. 5. Colonoscopy status post colostomy. 6. Amyloidosis, which is chronic. 7. Thrombocytopenia, potential workup as noted in the labs. 8. Dementia. 9. History of thoracic spine fracture. 10. Hepatitis. Subjective Date patient seen: Oct 22, 2016 Constitutional: Reports: no symptoms HEENT: Reports: no symptoms Cardiovascular: Reports: no symptoms Respiratory: Reports: no symptoms Gastrointestinal/Abdominal: Reports: no symptoms Neurologic/Psychiatric: Reports: no symptoms Endocrine: Reports: no symptoms Hematologic/Lymphatic: Reports: anemia Allergies: Coded Allergies: No Known Allergies (Unverified , 07/18/16) Subjective no complaints to receive blood today Objective Last 24 Hour Vital Signs Date Time Temp Pulse Resp B/P Pulse Ox O2 Delivery O2 Flow Rate FiO2 10/23/16 08:00 78 10/23/16 08:00 84 20 113/50 Room Air 10/23/16 04:00 75 10/23/16 04:00 98.1 77 20 118/63 95 Room Air 10/23/16 00:00 99.3 75 24 103/48 92 Room Air 10/23/16 00:00 74 10/22/16 20:00 78 10/22/16 20:00 98.0 83 24 110/62 97 Room Air 10/22/16 16:00 82 10/22/16 15:32 98.3 101 20 117/59 96 Room Air 10/22/16 12:00 80 10/22/16 11:56 97.6 98 20 117/66 99 Room Air Intake and Output 10/22/16 10/23/16 19:00 07:00 Intake Total 1275 ml 790 ml Output Total 350 ml 1500 ml Balance 925 ml -710 ml Intake Oral 770 ml 240 ml IV Total 505 ml 550 ml Output Urine Total 350 ml 1500 ml # Voids 2 # Bowel Movements 1 Laboratory Tests 10/23/16 08:45: White Blood Count 6.0, Red Blood Count 2.94L, Hemoglobin 9.0L, Hematocrit 28.1L , Mean Corpuscular Volume 96, Mean Corpuscular Hemoglobin 30.7, Mean Corpuscular Hemoglobin Concent 32.0, Red Cell Distribution Width 15.7H, Platelet Count 67L, Mean Platelet Volume 5.4L, Neutrophils (%) (Auto) , Lymphocytes (%) (Auto) , Monocytes (%) (Auto) , Eosinophils (%) (Auto) , Basophils (%) (Auto) , Differential Total Cells Counted 100, Neutrophils % ( Manual) 61, Lymphocytes % (Manual) 21, Monocytes % (Manual) 16H, Eosinophils % ( Manual) 2, Basophils % (Manual) 0, Band Neutrophils 0, Platelet Estimate DecreasedL, Platelet Morphology Normal, Hypochromasia 1+, Anisocytosis 1+, Prothrombin Time 12.0H, Prothromb Time International Ratio 1.1, Activated Partial Thromboplast Time 33, Sodium Level 139, Potassium Level 3.9, Chloride Level 110H, Carbon Dioxide Level 18L, Anion Gap 11, Blood Urea Nitrogen 28H, Creatinine 2.1H, Estimat Glomerular Filtration Rate , Glucose Level 83, Calcium Level 8.3L, Phosphorus Level 2.8, Magnesium Level 1.7, Total Bilirubin 1.3H, Direct Bilirubin 0.4H, Aspartate Amino Transf (AST/SGOT) 29, Alanine Aminotransferase (ALT/SGPT) 18, Alkaline Phosphatase 59, Total Protein 5.3L, Albumin 3.0L, Globulin 2.3, Albumin/Globulin Ratio 1.3 Height (Feet): 6 Height (Inches): 1.00 Weight (Pounds): 182 General Appearance: no apparent distress EENT: normal ENT inspection Neck: normal inspection Cardiovascular: normal rate Respiratory/Chest: lungs clear Abdomen: non tender Extremities: non-tender Edema: 1+ Leg (L), 1+ Leg (R) Edema: mild edema Neurologic: no motor/sensory deficits Skin: warm/dry Sharad Tilley Oct 23, 2016 11:33
[2016-10-23] MEDS: Cefepime HCl 1 GM in D5W 55 ML IVPB SCH (11:46)
--- NOTE | 2016-10-23 13:29 | Pulmonology Progress Note ---
Assessment/Plan Problems: (1) Hypotension (2) ATN (acute tubular necrosis) (3) Severe protein-calorie malnutrition (4) Amyloidosis (5) History of prostate cancer (6) Colostomy care (7) Dementia Assessment/Plan prbc prn add Prednisone d/w Dr. Farias anemia w/u in process heart rate controlled all consults reviewed med/surg all labs reviewed Subjective ROS Limited/Unobtainable: No Constitutional: Reports: no symptoms HEENT: Repors: no symptoms Respiratory: Reports: no symptoms Allergies: Coded Allergies: No Known Allergies (Unverified , 07/18/16) Objective Last 24 Hour Vital Signs Date Time Temp Pulse Resp B/P Pulse Ox O2 Delivery O2 Flow Rate FiO2 10/23/16 08:00 78 10/23/16 08:00 84 20 113/50 Room Air 10/23/16 04:00 75 10/23/16 04:00 98.1 77 20 118/63 95 Room Air 10/23/16 00:00 99.3 75 24 103/48 92 Room Air 10/23/16 00:00 74 10/22/16 20:00 78 10/22/16 20:00 98.0 83 24 110/62 97 Room Air 10/22/16 16:00 82 10/22/16 15:32 98.3 101 20 117/59 96 Room Air Intake and Output 10/22/16 10/23/16 19:00 07:00 Intake Total 1275 ml 790 ml Output Total 350 ml 1500 ml Balance 925 ml -710 ml Intake Oral 770 ml 240 ml IV Total 505 ml 550 ml Output Urine Total 350 ml 1500 ml # Voids 2 # Bowel Movements 1 Objective General Appearance: WD/WN HEENT: normocephalic Respiratory/Chest: chest wall non-tender, lungs clear Cardiovascular: normal peripheral pulses, normal rate Abdomen: normal bowel sounds, soft, non tender Genitourinary: normal external genitalia Extremities: no cyanosis Skin: no rash Neurologic/Psychiatric: effervescent salts compounder II-XII grossly normal Lymphatic: no neck adenopathy Laboratory Tests 10/23/16 08:45: White Blood Count 6.0, Red Blood Count 2.94L, Hemoglobin 9.0L, Hematocrit 28.1L , Mean Corpuscular Volume 96, Mean Corpuscular Hemoglobin 30.7, Mean Corpuscular Hemoglobin Concent 32.0, Red Cell Distribution Width 15.7H, Platelet Count 67L, Mean Platelet Volume 5.4L, Neutrophils (%) (Auto) , Lymphocytes (%) (Auto) , Monocytes (%) (Auto) , Eosinophils (%) (Auto) , Basophils (%) (Auto) , Differential Total Cells Counted 100, Neutrophils % ( Manual) 61, Lymphocytes % (Manual) 21, Monocytes % (Manual) 16H, Eosinophils % ( Manual) 2, Basophils % (Manual) 0, Band Neutrophils 0, Platelet Estimate DecreasedL, Platelet Morphology Normal, Hypochromasia 1+, Anisocytosis 1+, Prothrombin Time 12.0H, Prothromb Time International Ratio 1.1, Activated Partial Thromboplast Time 33, Sodium Level 139, Potassium Level 3.9, Chloride Level 110H, Carbon Dioxide Level 18L, Anion Gap 11, Blood Urea Nitrogen 28H, Creatinine 2.1H, Estimat Glomerular Filtration Rate , Glucose Level 83, Calcium Level 8.3L, Phosphorus Level 2.8, Magnesium Level 1.7, Total Bilirubin 1.3H, Direct Bilirubin 0.4H, Aspartate Amino Transf (AST/SGOT) 29, Alanine Aminotransferase (ALT/SGPT) 18, Alkaline Phosphatase 59, Total Protein 5.3L, Albumin 3.0L, Globulin 2.3, Albumin/Globulin Ratio 1.3 Current Medications Medications (Trade) Dose Ordered Sig/Hemanth Route PRN Reason Start Time Stop Time Status Last Admin Dose Admin Acetaminophen (Tylenol) 650 mg Q4H PRN ORAL fever 10/20/16 22:45 11/19/16 22:44 Allopurinol (Zyloprim) 100 mg DAILY ORAL 10/21/16 09:00 11/20/16 08:59 10/23/16 08:25 Cefepime HCl/ Dextrose (Maxipime/D5W) 55 ml @ 110 mls/hr Q24H IVPB 10/22/16 11:00 10/29/16 10:59 10/23/16 11:46 Clonidine HCl (Catapres) 0.1 mg Q4H PRN ORAL For High Blood Pressure 10/20/16 22:45 11/19/16 22:44 Dextrose (Dextrose 50%) STAT PRN IV Hypoglycemia 10/20/16 22:45 11/19/16 22:44 Epoetin Shoaib (Procrit (for non ESRD use)) 10,000 units MON-MON-MON SUBQ 10/24/16 21:00 11/23/16 20:59 Levothyroxine Sodium 100 mcg 100 mcg ACBREAKFAST ORAL 10/22/16 06:30 11/21/16 06:29 10/23/16 06:37 Lorazepam (Ativan 2mg/ml 1ml) 0.5 mg Q4H PRN IV For Anxiety 10/20/16 22:45 10/27/16 22:44 Morphine Sulfate (Morphine Sulfate) 1 mg EVERY 4 HOURS PRN IVP For Pain 10/20/16 22:45 10/27/16 22:44 Ondansetron HCl (Zofran) 4 mg Q6H PRN IVP Nausea & Vomiting 10/20/16 22:45 11/19/16 22:44 Pantoprazole (Protonix) 40 mg EVERY 12 HOURS ORAL 10/21/16 09:00 11/20/16 08:59 10/23/16 08:25 Polyethylene Glycol (Miralax) 17 gm HSPRN PRN ORAL Constipation 10/20/16 22:45 11/19/16 22:44 Zolpidem Tartrate (Ambien) 5 mg HSPRN PRN ORAL Insomnia 10/20/16 22:45 11/19/16 22:44 10/22/16 23:40 ARIS WALSH Oct 23, 2016 13:29
[2016-10-23] MEDS ORDERED: Tubing Blood Filter IV ONE (13:57)
[2016-10-23] MEDS ORDERED: NS 275ml ONE (13:57)
[2016-10-23] MEDS ORDERED: Tubing IV Secondary IV ONE (13:57)
--- NOTE | 2016-10-23 16:10 | Cardiology Progress Note ---
Assessment/Plan Problem List: (1) Anemia (2) Pancreatic mass (3) Atrial fibrillation (4) Colon perforation (5) CKD (chronic kidney disease) Status: stable, unchanged Status Narrative Pt remains in AF, w/ fair rate control 100-110 bpm H/h improved post-transfusion. Pt also receiving epogen and iv Fe per hematology Pancreatic mass Assessment/Plan Will start low dose metoprolol for rate control in AF No anticoagulation at this time, given anemia and invasive procedures ( CT bx of pancreatic mass) planned. continue telemetry monitoring. followup labs in am Subjective ROS Limited/Unobtainable: No Subjective No c/o CP or palpitations events noted Objective Last 24 Hour Vital Signs Date Time Temp Pulse Resp B/P Pulse Ox O2 Delivery O2 Flow Rate FiO2 10/23/16 15:06 101.7 10/23/16 08:00 78 10/23/16 08:00 84 20 113/50 Room Air 10/23/16 04:00 75 10/23/16 04:00 98.1 77 20 118/63 95 Room Air 10/23/16 00:00 99.3 75 24 103/48 92 Room Air 10/23/16 00:00 74 10/22/16 20:00 78 10/22/16 20:00 98.0 83 24 110/62 97 Room Air General Appearance: WD/WN, alert EENT: PERRL/EOMI Neck: supple, no JVD Rhythm: Afib Cardiovascular: no gallop/murmur, tachycardia, irregularly irregular Respiratory/Chest: lungs clear Abdomen: non tender, soft Extremities: no swelling Intake and Output 10/22/16 10/23/16 19:00 07:00 Intake Total 1275 ml 790 ml Output Total 350 ml 1500 ml Balance 925 ml -710 ml Intake Oral 770 ml 240 ml IV Total 505 ml 550 ml Output Urine Total 350 ml 1500 ml # Voids 2 # Bowel Movements 1 Laboratory Tests Test 10/23/16 08:45 White Blood Count 6.0 K/UL (4.8-10.8) Red Blood Count 2.94 M/UL (4.70-6.10) L Hemoglobin 9.0 G/DL (14.2-18.0) L Hematocrit 28.1 % (42.0-52.0) L Mean Corpuscular Volume 96 FL (80-99) Mean Corpuscular Hemoglobin 30.7 PG (27.0-31.0) Mean Corpuscular Hemoglobin Concent 32.0 G/DL (32.0-36.0) Red Cell Distribution Width 15.7 % (11.6-14.8) H Platelet Count 67 K/UL (150-450) L Mean Platelet Volume 5.4 FL (6.5-10.1) L Neutrophils (%) (Auto) % (45.0-75.0) Lymphocytes (%) (Auto) % (20.0-45.0) Monocytes (%) (Auto) % (1.0-10.0) Eosinophils (%) (Auto) % (0.0-3.0) Basophils (%) (Auto) % (0.0-2.0) Differential Total Cells Counted 100 Neutrophils % (Manual) 61 % (45-75) Lymphocytes % (Manual) 21 % (20-45) Monocytes % (Manual) 16 % (1-10) H Eosinophils % (Manual) 2 % (0-3) Basophils % (Manual) 0 % (0-2) Band Neutrophils 0 % (0-8) Platelet Estimate Decreased L Platelet Morphology Normal Hypochromasia 1+ Anisocytosis 1+ Prothrombin Time 12.0 SEC (9.30-11.50) H Prothromb Time International Ratio 1.1 (0.9-1.1) Activated Partial Thromboplast Time 33 SEC (23-33) Sodium Level 139 mEQ/L (135-145) Potassium Level 3.9 mEQ/L (3.4-4.9) Chloride Level 110 mEQ/L (98-107) H Carbon Dioxide Level 18 mEQ/L (20-30) L Anion Gap 11 (5-15) Blood Urea Nitrogen 28 mg/dL (7-23) H Creatinine 2.1 mg/dL (0.7-1.2) H Estimat Glomerular Filtration Rate mL/min (>60) Glucose Level 83 mg/dL (74-106) Calcium Level 8.3 mg/dL (8.6-10.2) L Phosphorus Level 2.8 mg/dL (2.5-4.8) Magnesium Level 1.7 mg/dL (1.7-2.5) Total Bilirubin 1.3 mg/dL (0.0-1.2) H Direct Bilirubin 0.4 mg/dL (0.1-0.3) H Aspartate Amino Transf (AST/SGOT) 29 U/L (5-40) Alanine Aminotransferase (ALT/SGPT) 18 U/L (3-41) Alkaline Phosphatase 59 U/L (40-129) Total Protein 5.3 g/dL (6.6-8.7) L Albumin 3.0 g/dL (3.5-5.2) L Globulin 2.3 g/dL Albumin/Globulin Ratio 1.3 (1.0-2.7) PAWAN JALLOH Oct 23, 2016 16:10
--- NOTE | 2016-10-23 17:52 | Cardiology Report ---
APPROVED REPORT EKG Measurement Heart [id number] Atrial fibrillation Abnormal ECG
--- NOTE | 2016-10-23 17:53 | Cardiology Report ---
APPROVED REPORT EKG Measurement Heart [id number] ID [id number] Unusual P axis, possible ectopic atrial rhythm Nonspecific ST abnormality Abnormal ECG
[2016-10-23 20:00] VITALS: BP 101/47
[2016-10-23] MEDS ORDERED: Metoprolol Tartrate 12.5mg TAB ORAL SCH (21:00)
--- NOTE | 2016-10-23 23:37 | General Progress Note ---
Assessment/Plan Assessment/Plan ASSESSMENT/RECS: 1. 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 --> plan for ct-guided biopsy 2. Anemia secondary to chronic disease. --> on epogen sq 3. Anemia, rule out iron deficiency. --> on iv iron 4. Prostate cancer. At this time, PSA < 0.01. 5. Colonoscopy status post colostomy. 6. Amyloidosis, which is chronic. 7. Thrombocytopenia, potential workup as noted in the labs. 8. Dementia. 9. History of thoracic spine fracture. 10. Hepatitis. Subjective Constitutional: Reports: no symptoms HEENT: Reports: no symptoms Cardiovascular: Reports: no symptoms Respiratory: Reports: no symptoms Gastrointestinal/Abdominal: Reports: no symptoms Neurologic/Psychiatric: Reports: no symptoms, weakness Endocrine: Reports: no symptoms Hematologic/Lymphatic: Reports: anemia Allergies: Coded Allergies: No Known Allergies (Unverified , 07/18/16) Subjective pending CT-guided biopsy of the pancreas Objective Last 24 Hour Vital Signs Date Time Temp Pulse Resp B/P Pulse Ox O2 Delivery O2 Flow Rate FiO2 10/23/16 21:41 99 115/86 10/23/16 20:00 98.6 99 18 101/47 99 Room Air 10/23/16 16:13 97.7 10/23/16 16:00 104 10/23/16 15:06 101.7 10/23/16 12:00 86 10/23/16 08:00 78 10/23/16 08:00 84 20 113/50 Room Air 10/23/16 04:00 75 10/23/16 04:00 98.1 77 20 118/63 95 Room Air 10/23/16 00:00 99.3 75 24 103/48 92 Room Air 10/23/16 00:00 74 Intake and Output 10/22/16 10/23/16 19:00 07:00 Intake Total 1275 ml 790 ml Output Total 350 ml 1500 ml Balance 925 ml -710 ml Intake Oral 770 ml 240 ml IV Total 505 ml 550 ml Output Urine Total 350 ml 1500 ml # Voids 2 # Bowel Movements 1 Laboratory Tests 10/23/16 08:45: White Blood Count 6.0, Red Blood Count 2.94L, Hemoglobin 9.0L, Hematocrit 28.1L , Mean Corpuscular Volume 96, Mean Corpuscular Hemoglobin 30.7, Mean Corpuscular Hemoglobin Concent 32.0, Red Cell Distribution Width 15.7H, Platelet Count 67L, Mean Platelet Volume 5.4L, Neutrophils (%) (Auto) , Lymphocytes (%) (Auto) , Monocytes (%) (Auto) , Eosinophils (%) (Auto) , Basophils (%) (Auto) , Differential Total Cells Counted 100, Neutrophils % ( Manual) 61, Lymphocytes % (Manual) 21, Monocytes % (Manual) 16H, Eosinophils % ( Manual) 2, Basophils % (Manual) 0, Band Neutrophils 0, Platelet Estimate DecreasedL, Platelet Morphology Normal, Hypochromasia 1+, Anisocytosis 1+, Prothrombin Time 12.0H, Prothromb Time International Ratio 1.1, Activated Partial Thromboplast Time 33, Sodium Level 139, Potassium Level 3.9, Chloride Level 110H, Carbon Dioxide Level 18L, Anion Gap 11, Blood Urea Nitrogen 28H, Creatinine 2.1H, Estimat Glomerular Filtration Rate , Glucose Level 83, Calcium Level 8.3L, Phosphorus Level 2.8, Magnesium Level 1.7, Total Bilirubin 1.3H, Direct Bilirubin 0.4H, Aspartate Amino Transf (AST/SGOT) 29, Alanine Aminotransferase (ALT/SGPT) 18, Alkaline Phosphatase 59, Total Protein 5.3L, Albumin 3.0L, Globulin 2.3, Albumin/Globulin Ratio 1.3 Height (Feet): 6 Height (Inches): 1.00 Weight (Pounds): 182 General Appearance: no apparent distress Neck: non-tender Cardiovascular: normal rate Respiratory/Chest: normal breath sounds Extremities: normal inspection Edema: no edema noted Leg (L), no edema noted Leg (R) Edema: mild edema Neurologic: alert Skin: normal pigmentation Sharad Tilley Oct 23, 2016 23:37
[2016-10-24] VITALS (7 sets, daily range): BP systolic 103–117; BP diastolic 53–71
[2016-10-24] MEDS ORDERED: LORazepam Inj 2mg/ml 1ml IV PRN (06:45)
[2016-10-24 07:08] LABS: FREE TRIIODOTHYRONINE 2.1 pg/mL (2.0-4.4); OSMOLALITY SERUM LC 304 mOsmol/kg (280-301)
--- NOTE | 2016-10-24 07:33 | General Surgery Progress Note ---
General Surgery-Progress Note Subjective Symptoms: improved, tolerating diet, passing flatus, BM Additional Comments patient seen and examined at bedside. no acute events. resting comfortable. no n/v/f/c. tachy at times. tolerating diet. ostomy functional Objective Last 24 Hour Vital Signs Date Time Temp Pulse Resp B/P Pulse Ox O2 Delivery O2 Flow Rate FiO2 10/24/16 07:18 97.7 115 22 117/56 97 Room Air 10/24/16 04:00 98.2 101 18 113/71 98 Room Air 10/24/16 00:00 99.1 89 22 113/60 99 Room Air 10/23/16 21:41 99 115/86 10/23/16 20:00 98.6 99 18 101/47 99 Room Air 10/23/16 16:13 97.7 10/23/16 16:00 104 10/23/16 15:06 101.7 10/23/16 12:00 86 10/23/16 08:00 78 10/23/16 08:00 84 20 113/50 Room Air I&O Intake and Output 10/23/16 10/24/16 19:00 07:00 Intake Total 555 ml 240 ml Output Total 700 ml 800 ml Balance -145 ml -560 ml Intake Oral 500 ml 240 ml IV Total 55 ml Output Urine Total 700 ml 800 ml # Bowel Movements 1 Drains: none Cardiovascular: other - tachycardia Respiratory: clear Abdomen: soft, non-tender, present bowel sounds, other - ostomy viable and functional Extremities: no edema, no tenderness Laboratory Tests Test 10/23/16 08:45 White Blood Count 6.0 K/UL (4.8-10.8) Red Blood Count 2.94 M/UL (4.70-6.10) L Hemoglobin 9.0 G/DL (14.2-18.0) L Hematocrit 28.1 % (42.0-52.0) L Mean Corpuscular Volume 96 FL (80-99) Mean Corpuscular Hemoglobin 30.7 PG (27.0-31.0) Mean Corpuscular Hemoglobin Concent 32.0 G/DL (32.0-36.0) Red Cell Distribution Width 15.7 % (11.6-14.8) H Platelet Count 67 K/UL (150-450) L Mean Platelet Volume 5.4 FL (6.5-10.1) L Neutrophils (%) (Auto) % (45.0-75.0) Lymphocytes (%) (Auto) % (20.0-45.0) Monocytes (%) (Auto) % (1.0-10.0) Eosinophils (%) (Auto) % (0.0-3.0) Basophils (%) (Auto) % (0.0-2.0) Differential Total Cells Counted 100 Neutrophils % (Manual) 61 % (45-75) Lymphocytes % (Manual) 21 % (20-45) Monocytes % (Manual) 16 % (1-10) H Eosinophils % (Manual) 2 % (0-3) Basophils % (Manual) 0 % (0-2) Band Neutrophils 0 % (0-8) Platelet Estimate Decreased L Platelet Morphology Normal Hypochromasia 1+ Anisocytosis 1+ Prothrombin Time 12.0 SEC (9.30-11.50) H Prothromb Time International Ratio 1.1 (0.9-1.1) Activated Partial Thromboplast Time 33 SEC (23-33) Sodium Level 139 mEQ/L (135-145) Potassium Level 3.9 mEQ/L (3.4-4.9) Chloride Level 110 mEQ/L (98-107) H Carbon Dioxide Level 18 mEQ/L (20-30) L Anion Gap 11 (5-15) Blood Urea Nitrogen 28 mg/dL (7-23) H Creatinine 2.1 mg/dL (0.7-1.2) H Estimat Glomerular Filtration Rate mL/min (>60) Glucose Level 83 mg/dL (74-106) Calcium Level 8.3 mg/dL (8.6-10.2) L Phosphorus Level 2.8 mg/dL (2.5-4.8) Magnesium Level 1.7 mg/dL (1.7-2.5) Total Bilirubin 1.3 mg/dL (0.0-1.2) H Direct Bilirubin 0.4 mg/dL (0.1-0.3) H Aspartate Amino Transf (AST/SGOT) 29 U/L (5-40) Alanine Aminotransferase (ALT/SGPT) 18 U/L (3-41) Alkaline Phosphatase 59 U/L (40-129) Total Protein 5.3 g/dL (6.6-8.7) L Albumin 3.0 g/dL (3.5-5.2) L Globulin 2.3 g/dL Albumin/Globulin Ratio 1.3 (1.0-2.7) Plan Additional Comments 76M prior hx of colon perforation s/p Marlyn's who recently had upper endoscopy for evaluation of panc mass and soon after developed ATN requiring admission for medical care. Initially some abdominal pain but now resolved. Tachy at times. Creatine still >2. H/H stable. -no acute surgical intervention necessary at this time -medical management as per primary -will continue to follow while in hospital -scheduled to follow up with Dr. Farias when discharged. Beto Leon Oct 24, 2016 07:33
[2016-10-24] MEDS ORDERED: Morphine Sulfate 2mg/ml Inj IVP PRN (08:00)
[2016-10-24] MEDS ORDERED: PredniSONE 20mg tab ORAL SCH (09:00)
[2016-10-24] MEDS: Metoprolol Tartrate 12.5mg TAB ORAL SCH ×2 (09:49→20:53)
[2016-10-24] MEDS: Allopurinol 100mg Tab ORAL SCH (09:50)
[2016-10-24] MEDS: PredniSONE 20mg tab ORAL SCH (09:51)
--- NOTE | 2016-10-24 11:25 | General Progress Note ---
Assessment/Plan Status: stable Assessment/Plan status; 1) Hypotension after out patient procedure at [facility] (2) ATN (acute tubular necrosis)- Cr higher (3) Anemia- worsened (4) History of prostate cancer (5) Dementia (6) h/o Thoracic spine fracture (7) HypoAlbuminemia (8) High Lipase (9) HypoThyroidism Plan: no labs today yet- Last Cr 2.1 10/22/16- transfused one unit Start IV Iron and SQ EPO Slow hydrate- one liter NS Electrolyte Replacements as needed Flomax Gastric support Pain Mgt monitor renal parameters Avoid nephrotoxics Subjective ROS Limited/Unobtainable: No Allergies: Coded Allergies: No Known Allergies (Unverified , 07/18/16) Objective Last 24 Hour Vital Signs Date Time Temp Pulse Resp B/P Pulse Ox O2 Delivery O2 Flow Rate FiO2 10/24/16 09:49 115 122/58 10/24/16 08:00 97.3 100 20 103/68 95 Room Air 10/24/16 07:18 97.7 115 22 117/56 97 Room Air 10/24/16 04:00 98.2 101 18 113/71 98 Room Air 10/24/16 00:00 99.1 89 22 113/60 99 Room Air 10/23/16 21:41 99 115/86 10/23/16 20:00 98.6 99 18 101/47 99 Room Air 10/23/16 16:13 97.7 10/23/16 16:00 104 10/23/16 15:06 101.7 10/23/16 12:00 86 Intake and Output 10/23/16 10/24/16 19:00 07:00 Intake Total 555 ml 240 ml Output Total 700 ml 800 ml Balance -145 ml -560 ml Intake Oral 500 ml 240 ml IV Total 55 ml Output Urine Total 700 ml 800 ml # Bowel Movements 1 Height (Feet): 6 Height (Inches): 1.00 Weight (Pounds): 182 General Appearance: no apparent distress Objective no change in PE SHAHEEN WALDROP Oct 24, 2016 11:25
[2016-10-24] MEDS: Cefepime HCl 1 GM in D5W 55 ML IVPB SCH (12:19)
--- NOTE | 2016-10-24 13:29 | Diagnostic Imaging Report ---
Indication: Abdominal pain Technique: Ballard-scale and duplex images of the upper abdomen were obtained Comparison: 07/19/2016 Findings: Exam is limited, due to patient inability to hold breath Gallbladder demonstrates gallstones. Gallbladder wall is equivocally thickened, measuring 4 mm thick of the gallbladder is incompletely distended. Common bile duct measures 6 mm in diameter. No intrahepatic biliary ductal dilatation. Liver demonstrates normal echogenicity, no focal abnormality. Portable and hepatic veins could not be demonstrated due to limited ability the patient to cooperate . 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 Left kidney could not be visualized. Right kidney measures 10.2 cm length right kidney demonstrates normal echogenicity. There is no hydronephrosis. No focal abnormality . Non-aneurysmal abdominal aorta . Impression: Limited exam as described. Note nonvisualized hepatic vessels and left kidney Cholelithiasis. Equivocal gallbladder wall thickening, raises possibility of acute cholecystitis. Consider hepatobiliary nuclear scan further evaluation if there is high clinical suspicion Negative for dilated ducts. Apparent pancreatic head mass. Review of recent 10/04/2016 CT scan does not demonstrate and the pancreatic head mass. 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
--- NOTE | 2016-10-24 13:37 | Pulmonology Progress Note ---
Assessment/Plan Problems: (1) Hypotension (2) ATN (acute tubular necrosis) (3) Severe protein-calorie malnutrition (4) Amyloidosis (5) History of prostate cancer (6) Colostomy care (7) Dementia Assessment/Plan asymptomatic bp stable h/h stable heart rate controlled all consults reviewed med/surg all labs reviewed dc to [facility] for short term rehab. Subjective ROS Limited/Unobtainable: No Constitutional: Reports: no symptoms HEENT: Repors: no symptoms Respiratory: Reports: no symptoms Allergies: Coded Allergies: No Known Allergies (Unverified , 07/18/16) Objective Last 24 Hour Vital Signs Date Time Temp Pulse Resp B/P Pulse Ox O2 Delivery O2 Flow Rate FiO2 10/24/16 12:00 98.2 94 20 105/53 94 Room Air 10/24/16 09:49 115 122/58 10/24/16 08:00 97.3 100 20 103/68 95 Room Air 10/24/16 07:18 97.7 115 22 117/56 97 Room Air 10/24/16 04:00 98.2 101 18 113/71 98 Room Air 10/24/16 00:00 99.1 89 22 113/60 99 Room Air 10/23/16 21:41 99 115/86 10/23/16 20:00 98.6 99 18 101/47 99 Room Air 10/23/16 16:13 97.7 10/23/16 16:00 104 10/23/16 15:06 101.7 Intake and Output 10/23/16 10/24/16 19:00 07:00 Intake Total 555 ml 240 ml Output Total 700 ml 800 ml Balance -145 ml -560 ml Intake Oral 500 ml 240 ml IV Total 55 ml Output Urine Total 700 ml 800 ml # Bowel Movements 1 Objective General Appearance: WD/WN HEENT: normocephalic Respiratory/Chest: chest wall non-tender, lungs clear Cardiovascular: normal peripheral pulses, normal rate Abdomen: normal bowel sounds, soft, non tender Genitourinary: normal external genitalia Extremities: no cyanosis Skin: no rash 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 Lymphatic: no neck adenopathy Current Medications Medications (Trade) Dose Ordered Sig/Hemanth Route PRN Reason Start Time Stop Time Status Last Admin Dose Admin Acetaminophen (Tylenol) 650 mg Q4H PRN ORAL fever 10/24/16 06:45 8/9/17 06:44 Allopurinol (Zyloprim) 100 mg DAILY ORAL 10/24/16 09:00 11/23/16 08:59 10/24/16 09:50 Cefepime HCl/ Dextrose (Maxipime/D5W) 55 ml @ 110 mls/hr Q24H IVPB 10/24/16 11:00 10/29/16 10:59 10/24/16 12:19 Dextrose (Dextrose 50%) STAT PRN IV Hypoglycemia 10/24/16 08:00 11/23/16 07:59 Epoetin Shoaib (Procrit (for non ESRD use)) 10,000 units MON-MON-MON SUBQ 10/24/16 21:00 11/23/16 20:59 Levothyroxine Sodium (Synthroid) 100 mcg ACBREAKFAST ORAL 10/25/16 06:30 11/24/16 06:29 Lorazepam (Ativan 2mg/ml 1ml) 0.5 mg Q4H PRN IV For Anxiety 10/24/16 06:45 10/31/16 06:44 Metoprolol Tartrate (Lopressor) 12.5 mg Q12HR ORAL 10/24/16 09:00 11/23/16 08:59 10/24/16 09:49 Morphine Sulfate (Morphine Sulfate) 1 mg Q4H PRN IVP For Pain 10/24/16 08:00 10/31/16 07:59 Ondansetron HCl (Zofran) 4 mg Q6H PRN IVP Nausea & Vomiting 10/24/16 12:00 11/23/16 11:59 Pantoprazole (Protonix) 40 mg EVERY 12 HOURS ORAL 10/24/16 09:00 11/23/16 08:59 10/24/16 09:50 Polyethylene Glycol (Miralax) 17 gm HSPRN PRN ORAL Constipation 10/24/16 21:00 11/23/16 20:59 Prednisone (predniSONE) 20 mg DAILY ORAL 10/24/16 09:00 11/23/16 08:59 10/24/16 09:51 Zolpidem Tartrate (Ambien) 5 mg HSPRN PRN ORAL Insomnia 10/24/16 21:00 11/23/16 20:59 ARIS WALSH Oct 24, 2016 13:37
--- NOTE | 2016-10-24 14:29 | Diagnostic Imaging Report ---
APPROVED REPORT CPT Code: 40781 Present Symptoms Lower Extremity Pain: Bilateral BILATERAL: Imaging reveals a patent deep venous system bilaterally. There is no evidence of thrombus within the femoral, popliteal or tibial segments. The greater saphenous veins are also within normal limits. Doppler indicates normal spontaneous flow within these segments.
--- NOTE | 2016-10-24 18:17 | Geriatric Progress Note ---
Assessment/Plan Assessment/Plan stable -cont current meds Discussed with: patient Subjective Constitutional: Reports: malaise, weakness Mood/Memory: Reports: anxiety, depressed feelings, emotional problems, prior hx Geriatric Geriatric Last 24 Hour Vital Signs Date Time Temp Pulse Resp B/P Pulse Ox O2 Delivery O2 Flow Rate FiO2 10/24/16 16:00 98.1 97 20 103/66 95 Room Air 10/24/16 12:00 98.2 94 20 105/53 94 Room Air 10/24/16 09:49 115 122/58 10/24/16 08:00 97.3 100 20 103/68 95 Room Air 10/24/16 07:18 97.7 115 22 117/56 97 Room Air 10/24/16 04:00 98.2 101 18 113/71 98 Room Air 10/24/16 00:00 99.1 89 22 113/60 99 Room Air 10/23/16 21:41 99 115/86 10/23/16 20:00 98.6 99 18 101/47 99 Room Air Intake and Output 10/23/16 10/24/16 19:00 07:00 Intake Total 555 ml 240 ml Output Total 700 ml 800 ml Balance -145 ml -560 ml Intake Oral 500 ml 240 ml IV Total 55 ml Output Urine Total 700 ml 800 ml # Bowel Movements 1 Current Medications Medications (Trade) Dose Ordered Sig/Hemanth Route PRN Reason Start Time Stop Time Status Last Admin Dose Admin Acetaminophen (Tylenol) 650 mg Q4H PRN ORAL fever 10/24/16 06:45 11/23/16 06:44 Allopurinol (Zyloprim) 100 mg DAILY ORAL 10/24/16 09:00 11/23/16 08:59 10/24/16 09:50 Cefepime HCl/ Dextrose (Maxipime/D5W) 55 ml @ 110 mls/hr Q24H IVPB 10/24/16 11:00 10/29/16 10:59 10/24/16 12:19 Dextrose (Dextrose 50%) STAT PRN IV Hypoglycemia 10/24/16 08:00 11/23/16 07:59 Epoetin Shoaib (Procrit (for non ESRD use)) 10,000 units MON-WED-FRI SUBQ 10/24/16 21:00 11/23/16 20:59 Levothyroxine Sodium (Synthroid) 100 mcg ACBREAKFAST ORAL 10/25/16 06:30 11/24/16 06:29 Lorazepam (Ativan 2mg/ml 1ml) 0.5 mg Q4H PRN IV For Anxiety 10/24/16 06:45 10/31/16 06:44 Metoprolol Tartrate (Lopressor) 12.5 mg Q12HR ORAL 10/24/16 09:00 11/23/16 08:59 10/24/16 09:49 Morphine Sulfate (Morphine Sulfate) 1 mg Q4H PRN IVP For Pain 10/24/16 08:00 10/31/16 07:59 Ondansetron HCl (Zofran) 4 mg Q6H PRN IVP Nausea & Vomiting 10/24/16 12:00 11/23/16 11:59 Pantoprazole (Protonix) 40 mg EVERY 12 HOURS ORAL 10/24/16 09:00 11/23/16 08:59 10/24/16 09:50 Polyethylene Glycol (Miralax) 17 gm HSPRN PRN ORAL Constipation 10/24/16 21:00 11/23/16 20:59 Prednisone (predniSONE) 20 mg DAILY ORAL 10/24/16 09:00 11/23/16 08:59 10/24/16 09:51 Zolpidem Tartrate (Ambien) 5 mg HSPRN PRN ORAL Insomnia 10/24/16 21:00 11/23/16 20:59 Height (Feet): 6 Height (Inches): 1.00 Weight (Pounds): 182 General Appearance: well appearing, well groomed, no apparent distress, alert Neurologic: alert, oriented x3, responsive Psychiatric Behavior: cooperative Language/Speech: slow Orientation: person, place, situation Affect: restricted Insight: Yenifer Harper M.D. Oct 24, 2016 18:17
[2016-10-24] MEDS ORDERED: Miralax 17gm pkt ORAL PRN (21:00)
[2016-10-24] MEDS ORDERED: Epogen (for non ESRD use) SUBQ SCH ×2 (21:00)
[2016-10-24] MEDS ORDERED: Zolpidem 5mg tab ORAL PRN (21:00)
--- NOTE | 2016-10-24 22:51 | General Progress Note ---
Assessment/Plan Assessment/Plan ASSESSMENT/RECS: 1. 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 --> plan for ct-guided biopsy --> can be done as outpatient 2. Anemia secondary to chronic disease. --> on epogen sq 3. Anemia, rule out iron deficiency. --> on iv iron 4. Prostate cancer. At this time, PSA < 0.01. 5. Colonoscopy status post colostomy. 6. Amyloidosis, which is chronic. 7. Thrombocytopenia, potential workup as noted in the labs. 8. Dementia. 9. History of thoracic spine fracture. 10. Hepatitis. Subjective Constitutional: Reports: no symptoms HEENT: Reports: no symptoms Cardiovascular: Reports: no symptoms Respiratory: Reports: no symptoms Gastrointestinal/Abdominal: Reports: poor appetite Genitourinary: Reports: no symptoms Neurologic/Psychiatric: Reports: no symptoms Endocrine: Reports: no symptoms Hematologic/Lymphatic: Reports: anemia Allergies: Coded Allergies: No Known Allergies (Unverified , 07/18/16) Subjective pending d/c for tomorrow Objective Last 24 Hour Vital Signs Date Time Temp Pulse Resp B/P Pulse Ox O2 Delivery O2 Flow Rate FiO2 10/24/16 20:00 98.1 94 20 110/56 96 Room Air 10/24/16 16:00 98.1 97 20 103/66 95 Room Air 10/24/16 12:00 98.2 94 20 105/53 94 Room Air 10/24/16 09:49 115 122/58 10/24/16 08:00 97.3 100 20 103/68 95 Room Air 10/24/16 07:18 97.7 115 22 117/56 97 Room Air 10/24/16 04:00 98.2 101 18 113/71 98 Room Air 10/24/16 00:00 99.1 89 22 113/60 99 Room Air Intake and Output 10/23/16 10/24/16 19:00 07:00 Intake Total 555 ml 240 ml Output Total 700 ml 800 ml Balance -145 ml -560 ml Intake Oral 500 ml 240 ml IV Total 55 ml Output Urine Total 700 ml 800 ml # Bowel Movements 1 Height (Feet): 6 Height (Inches): 1.00 Weight (Pounds): 182 General Appearance: alert EENT: TMs normal Neck: supple Cardiovascular: regular rhythm Respiratory/Chest: chest wall non-tender Extremities: normal range of motion Edema: 1+ Leg (L), 1+ Leg (R) Edema: mild edema Neurologic: alert Skin: warm/dry Sharad Tilley Oct 24, 2016 22:51
[2016-10-25] VITALS: BP 115/64
[2016-10-25 04:00] VITALS: BP 152/92
[2016-10-25 08:00] VITALS: BP 106/64
[2016-10-25] MEDS: PredniSONE 20mg tab ORAL SCH (08:46)
[2016-10-25] MEDS: Allopurinol 100mg Tab ORAL SCH (08:48)
[2016-10-25] MEDS: Metoprolol Tartrate 12.5mg TAB ORAL SCH (09:00)
[2016-10-25] MEDS ORDERED: NS 275ml ONE (09:40)
--- NOTE | 2016-10-25 09:42 | General Progress Note ---
Assessment/Plan Status: stable Assessment/Plan status; 1) Hypotension after out patient procedure at (2) ATN (acute tubular necrosis)- Cr higher (3) Anemia- worsened (4) History of prostate cancer (5) Dementia (6) h/o Thoracic spine fracture (7) HypoAlbuminemia (8) High Lipase (9) HypoThyroidism Plan: No labs today yet- Last Cr 2.1 10/22/16- transfused one unit Start IV Iron and SQ EPO Slow hydrate- one liter NS Electrolyte Replacements as needed Flomax Gastric support Pain Mgt monitor renal parameters Avoid nephrotoxics ? DC Subjective ROS Limited/Unobtainable: No Constitutional: Reports: malaise Allergies: Coded Allergies: No Known Allergies (Unverified , 07/18/16) Objective Last 24 Hour Vital Signs Date Time Temp Pulse Resp B/P Pulse Ox O2 Delivery O2 Flow Rate FiO2 10/25/16 04:00 97.9 72 20 152/92 95 Room Air 10/25/16 00:00 96.9 81 20 115/64 98 Room Air 10/24/16 20:00 98.1 94 20 110/56 96 Room Air 10/24/16 16:00 98.1 97 20 103/66 95 Room Air 10/24/16 12:00 98.2 94 20 105/53 94 Room Air 10/24/16 09:49 115 122/58 Intake and Output 10/24/16 10/25/16 19:00 07:00 Intake Total 120 ml Output Total 300 ml 900 ml Balance -180 ml -900 ml Intake Oral 120 ml Output Urine Total 800 ml Stool Total 300 ml 100 ml # Voids 4 Height (Feet): 6 Height (Inches): 1.00 Weight (Pounds): 182 General Appearance: no apparent distress Objective no change in PE SHAHEEN WALDROP Oct 25, 2016 09:42
[2016-10-25] MEDS: Cefepime HCl 1 GM in D5W 55 ML IVPB SCH (11:40)
[2016-10-25 12:09] VITALS: BP 113/62
--- NOTE | 2016-10-25 17:56 | Pulmonology Progress Note ---
Assessment/Plan Problems: (1) Hypotension (2) ATN (acute tubular necrosis) (3) Severe protein-calorie malnutrition (4) Amyloidosis (5) History of prostate cancer (6) Colostomy care (7) Dementia Assessment/Plan asymptomatic bp stable h/h stable heart rate controlled all consults reviewed med/surg all labs reviewed dc home, family didn't want any rehab Subjective ROS Limited/Unobtainable: No Constitutional: Reports: no symptoms HEENT: Repors: no symptoms Respiratory: Reports: no symptoms Allergies: Coded Allergies: No Known Allergies (Unverified , 07/18/16) Objective Last 24 Hour Vital Signs Date Time Temp Pulse Resp B/P Pulse Ox O2 Delivery O2 Flow Rate FiO2 10/25/16 12:09 97.9 81 16 113/62 98 Room Air 10/25/16 09:00 89 106/64 10/25/16 08:00 97.9 89 18 106/64 97 Room Air 10/25/16 04:00 97.9 72 20 152/92 95 Room Air 10/25/16 00:00 96.9 81 20 115/64 98 Room Air 10/24/16 20:00 98.1 94 20 110/56 96 Room Air Intake and Output 10/24/16 10/25/16 19:00 07:00 Intake Total 120 ml Output Total 300 ml 900 ml Balance -180 ml -900 ml Intake Oral 120 ml Output Urine Total 800 ml Stool Total 300 ml 100 ml # Voids 4 Objective General Appearance: WD/WN HEENT: normocephalic Respiratory/Chest: chest wall non-tender, lungs clear Cardiovascular: normal peripheral pulses, normal rate Abdomen: normal bowel sounds, soft, non tender Genitourinary: normal external genitalia Extremities: no cyanosis Skin: no rash 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
--- NOTE | 2016-10-25 19:39 | General Progress Note ---
Assessment/Plan Assessment/Plan ASSESSMENT/RECS: 1. 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 --> plan for ct-guided biopsy, can be done as outpatient 2. Anemia secondary to chronic disease. --> is on epogen sq 3. Anemia, rule out iron deficiency. --> on iv iron 4. Prostate cancer s/p treatment. At this time, PSA < 0.01. 5. Colonoscopy status post colostomy. 6. Amyloidosis, which is chronic. 7. Thrombocytopenia, has improved 8. Dementia. 9. History of thoracic spine fracture. 10. Hepatitis. Subjective Constitutional: Denies: chills, diaphoresis, fever, malaise, no symptoms, other , weakness HEENT: Denies: blurred vision, double vision, ear discharge, ear pain, eye pain , mouth pain, mouth swelling, no symptoms, nose congestion, nose pain, other, tearing, throat pain, throat swelling Cardiovascular: Denies: chest pain, edema, irregular heart rate, lightheadedness, no symptoms, other, palpitations, syncope Respiratory: Denies: SOB at rest, SOB with excertion, cough, no symptoms, orthopnea, other, shortness of breath, sputum, stridor, wheezing Gastrointestinal/Abdominal: Denies: abdomen distended, abdominal pain, black stools, blood in stool, constipated, diarrhea, difficulty swallowing, nausea, no symptoms, other, poor appetite, poor fluid intake, rectal bleeding, tarry stools, vomiting Genitourinary: Denies: burning, discharge, flank pain, frequency, hematuria, incontinence, no symptoms, other, pain, urgency Neurologic/Psychiatric: Denies: anxiety, depressed, emotional problems, headache, no symptoms, numbness, other, paresthesia, pre-existing deficit, seizure, tingling, tremors, weakness Endocrine: Denies: excessive sweating, flushing, increased hunger, increased thirst, increased urine, intolerance to cold, intolerance to heat, no symptoms, other, unexplained weight gain, unexplained weight loss Hematologic/Lymphatic: Denies: anemia, easy bleeding, easy bruising, no symptoms, other Allergies: Coded Allergies: No Known Allergies (Unverified , 07/18/16) Subjective to be d/c today Objective Last 24 Hour Vital Signs Date Time Temp Pulse Resp B/P Pulse Ox O2 Delivery O2 Flow Rate FiO2 10/25/16 12:09 97.9 81 16 113/62 98 Room Air 10/25/16 09:00 89 106/64 10/25/16 08:00 97.9 89 18 106/64 97 Room Air 10/25/16 04:00 97.9 72 20 152/92 95 Room Air 10/25/16 00:00 96.9 81 20 115/64 98 Room Air 10/24/16 20:00 98.1 94 20 110/56 96 Room Air Intake and Output 10/24/16 10/25/16 19:00 07:00 Intake Total 120 ml Output Total 300 ml 900 ml Balance -180 ml -900 ml Intake Oral 120 ml Output Urine Total 800 ml Stool Total 300 ml 100 ml # Voids 4 Height (Feet): 6 Height (Inches): 1.00 Weight (Pounds): 182 General Appearance: no apparent distress EENT: PERRL/EOMI Cardiovascular: normal rate Respiratory/Chest: chest wall non-tender Abdomen: soft Extremities: non-tender Edema: 1+ Leg (L), 1+ Leg (R) Edema: mild edema Neurologic: no motor/sensory deficits Skin: warm/dry Sharad Tilley Oct 25, 2016 19:39
--- NOTE | 2016-10-25 22:23 | Geriatric Progress Note ---
Assessment/Plan Assessment/Plan stable -cont current meds Discussed with: patient Subjective Constitutional: Reports: malaise, weakness Mood/Memory: Reports: anxiety, depressed feelings, prior hx Sleep: Reports: sleeps well Geriatric Geriatric Last 24 Hour Vital Signs Date Time Temp Pulse Resp B/P Pulse Ox O2 Delivery O2 Flow Rate FiO2 10/25/16 12:09 97.9 81 16 113/62 98 Room Air 10/25/16 09:00 89 106/64 10/25/16 08:00 97.9 89 18 106/64 97 Room Air 10/25/16 04:00 97.9 72 20 152/92 95 Room Air 10/25/16 00:00 96.9 81 20 115/64 98 Room Air Intake and Output 10/24/16 10/25/16 19:00 07:00 Intake Total 120 ml Output Total 300 ml 900 ml Balance -180 ml -900 ml Intake Oral 120 ml Output Urine Total 800 ml Stool Total 300 ml 100 ml # Voids 4 Height (Feet): 6 Height (Inches): 1.00 Weight (Pounds): 182 General Appearance: well appearing, no apparent distress, alert, good eye contact Psychiatric Behavior: cooperative Orientation: person, place Affect: appropriate Insight: good Yenifer Maldonado M.D. Oct 25, 2016 22:22
--- NOTE | 2016-10-27 15:11 | Discharge Summary ---
Discharge Summary Hospital Course Date of Admission Oct 20, 2016 at 20:53 Date of Discharge Oct 25, 2016 at 14:25 Admitting Diagnosis weakness, hypoetnsion HPI Speedy Mcneill is a 76 year old male who was admitted on Oct 20, 2016 at 20: 53 for Weakness, Hypotension Hospital Course [id number] Discharge Discharge Disposition Patient was discharged to Home (01) Discharge Diagnoses: Lolly Ragsdale NP Oct 27, 2016 15:11
--- NOTE | 2016-10-28 05:15 | Discharge Summary 2 SIG ---
DATE OF ADMISSION: 10/20/2016 DATE OF DISCHARGE: 10/25/2016 CONSULTANTS: 1. Yenifer Maldonado M.D. 2. Sharad Tilley M.D. 3. Dioni Higuera M.D. 4. Beto Leon M.D. BRIEF HOSPITAL COURSE: The patient is a 76-year-old male with extensive medical history including chronic amyloidosis, prostate cancer, anemia, thrombocytopenia, paroxysmal atrial fibrillation on Eliquis, status post colostomy, who just had upper endoscopy at [facility], subsequently the patient developed hypotension and weakness after endoscopy. Blood pressure responded to fluid resuscitation by EMS. Nephew stated that the patient had been not eating or drinking for day. On evaluation at ED, the patient was hypotensive and IV hydration was given. Serum creatinine was 2.2. EKG done showed ectopic atrial rhythm. Chest x-ray showed mild basilar atelectasis. The patient was admitted to telemetry for evaluation of hypertension, kidney failure with tubular necrosis, severe protein calorie malnutrition, amyloidosis, and dementia. He was given IV fluids. Blood pressure improved and was transferred to medical floor. Renal ultrasound showed bilateral atrophic echogenic kidneys compatible with chronic medical renal disease and findings of ascites. Electrolytes were replaced, he was given Flomax and gastric support. Dr. Leon was consulted for evaluation of abdominal pain. Ostomy looks good. He has outpatient plans for ostomy takedown soon. There was no acute surgical intervention necessary at this time. The patient had anemia and thrombocytopenia and had pancreatic tail mass concerning for pancreatic neoplasm. There was a CT scan done on 10/04/2016 that showed a pancreatic head mass however abdominal ultrasound done during this admission pancreatic tail mass was not sonographically evident. He was given Epogen for chronic anemia and was given IV iron. The patient will need CT-guided biopsy of the pancreatic mass which can be done as an outpatient. He had history of prostate CA, PSA was less than 0.01 at this time. Anemia had worsened and he received one unit packed RBC blood transfusion and was started on IV iron and Epogen. He was diagnosed to have mild depression, dementia, and anxiety and was given Ativan. The patient would benefit from an selective serotonin reuptake inhibitor, however, due to GI side effects may cause loss of appetite. The patient was offered transfer to the rehabilitation facility, however, family declined. The patient was eventually discharged home. FINAL DIAGNOSES: 1. Hypotension. 2. Acute renal failure with acute tubular necrosis. 3. Severe protein-calorie malnutrition. 4. Amyloidosis. 5. Colostomy. 6. Dementia. 7. Acute anemia requiring blood transfusions. 8. Anemia secondary to chronic disease. 9. Anemia of iron deficiency. 10. Pancreatic mass, recommend CT-guided biopsy as an outpatient. 11. History of prostate cancer. 12. High lipase. 13. Hypothyroidism. 14. Hypoalbuminemia. 15. Mild depression. 16. Dementia and anxiety. Reynaldo Polanco M.D. I have been assigned to dictate discharge summary on this account and I was not involved in the patient's management. Lolly Ragsdale N.P. DR: TRINY JOB#: [id number] CC:
== END 2016-10-25 14:25 | disposition home or self-care (01) | DRG 682 ==
LOC: EDBD 20:05 → EDBEDREQ 20:29 → EMR 20:51 → 2E 20:53 → EDBEDREQ 23:04 → 2E 10-23 13:37 → 4E 10-24 06:13
PROC: 30233N1 Transfusion of Nonautologous Red Blood Cells into Peripheral Vein, Percutaneous Approach (ICD-10-PCS; principal; 2016-10-22)
DX: N17.0 Acute kidney failure with tubular necrosis (principal); E43 Unspecified severe protein-calorie malnutrition; I95.9 Hypotension, unspecified; E85.9 Amyloidosis, unspecified; I48.0 Paroxysmal atrial fibrillation; D69.6 Thrombocytopenia, unspecified; F03.90 Unspecified dementia, unspecified severity, without behavioral disturbance, psychotic disturbance, mood disturbance, and anxiety; E86.0 Dehydration; K20.9 Esophagitis, unspecified; Z68.24 Body mass index [BMI] 24.0-24.9, adult; Z85.46 Personal history of malignant neoplasm of prostate; Z43.3 Encounter for attention to colostomy; E03.9 Hypothyroidism, unspecified; F41.9 Anxiety disorder, unspecified; K86.9 Disease of pancreas, unspecified; K75.9 Inflammatory liver disease, unspecified; R53.1 Weakness; I48.91 Unspecified atrial fibrillation; D63.8 Anemia in other chronic diseases classified elsewhere; F32.89 Other specified depressive episodes
CPT/HCPCS: 36415; 71010; 76700; 76775; 80053; 80061; 81001; 82248; 82270; 82378; 82436; 82533; 82550; 82607; 82728; 82746; 82977; 83036; 83540; 83550; 83605; 83615; 83690; 83735; 83930; 83935; 84100; 84133; 84300; 84439; 84443; 84481; 84550; 85007; 85025; 85044; 85060; 85610; 85651; 85730; 86301; 86703; 86705; 86709; 86803; 86850; 86900; 86901; 86920; 87340; 89050; 93005; 93970; J2405